=== PATIENT | female | born 2000 | race Hispanic/Latino ===

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

== ENCOUNTER 2023-03-02 07:41 | Emergency (ER) | payer OTHER ==
--- OUTSIDE RECORDS SUMMARY | 2023-03-02 07:47 | XMS REPORT | Continuity of Care Document ---
:2000 Author Organization [facility] t Address [address] [place] [address] Care Team Providers Name Role Phone Cintia Braden Primary Care Physician [phone] AZUCENA ESTRELLA Attending Clinician Unavailable Azucena Hickey Attending Clinician Otis Tucker Attending Clinician Damien MOULTON, Destinee Beth Attending Clinician Hernandez MOULTON, Urmila Attending Clinician Francie OCNNER, Perri Leon Attending Clinician Unavailable Michael MOULTON, Kelli Attending Clinician Jass Naik MD Attending Clinician Joshua Ford MD Attending Clinician [phone] AkinIndu Lynn Attending Clinician [phone] INDU GREEN Attending Clinician Unavailable RADHAMES BAILEY Attending Clinician Unavailable Radhames Hill Attending Clinician Jordyn Dumas MD, Angelica Attending Clinician [phone] Ultrasound, Ang-Mfm Attending Clinician Unavailable Karlo Petit MD Attending Clinician Geoff RN, Krystal Attending Clinician Unavailable Deion CONNER, Marina Uriostegui Attending Clinician Unavailable Doctor Unassigned, Maria Stein Attending Clinician Unavailable DESTINEE ROSARIO Admitting Clinician Unavailable Damien MOULTON, Destinee Beth Admitting Clinician Michael MOULTON, Kelli Admitting Clinician Payers Payer Name Policy Type Policy Number Effective Date Expiration Date Leo loja [facility] [id number] 2020 00:00:00 Problems Condition Condition Condition Status Onset Resolution Last Treating Co mments Source Name Details Category Date Date Treatment Clinician Date S/P D&C S/P D&C Disease Active Univers (status (status 5-05 ity of post post 00:00: [place] dilation dilation 00 Medica l and and Branch curettage) curettage) Endometrit Endometrit Disease Active U nivers is is 5- [place] of following [place] [facility] Pre-op Pre-op Disease Active Overview: Univer s testing testing - Added ity of 00:00: automatic [place] 00 ally from Medical request Branch for surgery [id number] Disease Active Univers (spontaneo (spontaneo -28 it y of [place] vaginal [place] vaginal [place] delivery[place] delivery[place] 00 [facility] Single Single Disease Active Univers live live -28 it y of 00:00: [place] 00 Medical Branch Gestationa Gestationa Disease Active U nivers l l 4-28 ity of hypertensi hypertensi 00:[place]: [place] on on 00 [place] Chorioamni Chorioamni Disease Active U nivers onitis onitis - ity of 00:00: [place] 00 Medical Branch Obstetrica Obstetrica Disease Active U nivers l l 4-28 ity of laceration laceration 00:00: [place] 00 Medical [place] 39 weeks 39 weeks Disease Active Unive rs gestation gestation 4- ity of of of 00:00: [place] 00 [facility] Patient is Patient is Disease Active U nivers Jehovah's Jehovah's - ity of Witness Witness 00:00: [place] 00 Medical Branch Nausea/vom Nausea/vom Disease Active 2019-10 U nivers iting in iting in 10-27 [place] of 00:[place] [facility] Maternal Maternal Disease Active Overview: Un park varicella, varicella, 07-15 Address i ty of non-immune non-immune 00:00: pp [address] Supervisio Supervisio Disease Active U nivers n of n of 07-14 ity of high-risk high-risk 00:[place] [facility] Headache Headache Disease Active Unive rs in [place] 07-14 [place] [address] [place] [address] Allergies, Adverse Reactions, Alerts Allergy Allergy Status Severity Reaction(s) Onset Inactive Treating Comm ents Source Name Type Date Date Clinician NO KNOWN Drug Active Univers ALLERGIE Class ity of S [facility] Family History Family Member Diagnosis Comments Start Date Stop Date Source Father [facility] Mother No Significant [facility] Problems [facility] Social History Social Habit Start Date Stop Date Quantity Comments Source ASSERTION 2020-05-26 [facility] 00:00:00 [facility] Exposure to Not sure [facility] SARS-CoV-2 [facility] (event) [place] Tobacco use and 2021-03-03 2021-03-03 Never used Universit y of exposure 00:00:00 00:00:00 [facility] Alcohol intake 2021-03-03 2021-03-03 Ex-drinker [facility] 00:00:00 00:00:00 (finding) [facility] Sex Assigned At 2000 2001 [facility] y of 00:00:00 00:00:00 [facility] Smoking Status Start Date Stop Date Source Unknown if ever smoked [facility] Never smoker [facility] Medications Ordered Filled Start Stop Current Ordering Indication Dosage Frequency Signature Comments Components Source Medication Medication Date Date Medication? Clinician (SIG) Name Name metoclopram Yes 10mg 10 mg, Univ ers tino HCl 5-05 Oral, AC, ity of (REGLAN) 16:30: First dose Smooth as tablet 10 00 on Wed Medical mg 02/18/21 at Branch 1130, Until Discontinu ed, Routine metoclopram Yes 10mg 10 mg, Univ ers tino HCl 5-05 Oral, AC, ity of (REGLAN) 16:30: First dose Smooth as tablet 10 00 on Tue Medical mg 02/18/21 at Branch 1130, Until Discontinu ed, Routine ferrous 2020-0 Yes 325mg 325 mg, Univer s sulfate 5-05 Oral, BID, ity of tablet 325 13:00: First dose [place] mg 00 on Tue02/18/21 at Branch 0800, Until Discontinu ed, Routine ferrous 2020-0 Yes 325mg 325 mg, Univer s sulfate 5-05 Oral, BID, ity of tablet 325 13:00: First dose [place] mg 00 on Tue02/18/21 at Branch 0800, Until Discontinu ed, Routine HYDROcodone 2020-0 Yes 1{tbl} 1 tablet, Univers -acetaminop 5-04 Oral, ity of hen (NORCO 18:02: Q6HPRN, [place] 5) 5-325 mg 54 Starting Medi domenic tablet 1 Tue02/17/21 Branc h tablet at 1302, Until Discontinu ed, Routine, Pain (scale 7-10) HYDROcodone 2020-0 Yes 1{tbl} 1 tablet, Univers -acetaminop 5-04 Oral, ity of hen (NORCO 18:02: Q6HPRN, [place] 5) 5-325 mg 54 Starting Medi domenic tablet 1 Tue02/17/21 Branc h tablet at 1302, Until Discontinu ed, Routine, Pain (scale 7-10) lactated 2020-0 Yes 1000mL at 100 Unive rs ringers IV 5-04 mL/hr, ity of infusion 17:00: 1,000 mL, [place] 1,000 mL 00 IV Medical Infusion, Branch CONTINUOUS , Starting Tue02/17/21 at 1200, Until Discontinu ed, Routine, PACU lactated 1-0 Yes 1000mL at 100 Unive rs ringers IV 5-04 mL/hr, ity of infusion 17:00: 1,000 mL, [place] 1,000 mL 00 IV Medical Infusion, Branch CONTINUOUS , Starting Tue02/17/21 at 1200, Until Discontinu ed, Routine, PACU HYDROmorpho 2020-0 2021- No .2mg 0.2 mg, Un park ne 5- 05-04 Slow IV ity of (DILAUDID) 16:48: 17:35 Push, [place] injection 06 :02 Q5MIN PRN, Medi domenic 0.2 mg 10 doses, Branch Starting Tue02/17/21 at 1148, Until Tue02/17/21 at 1235, Routine, Pain (scale 7-10), PACU
Us e approved by (Faculty): PACU USE -ANESTHESI A SERVICE-HY DROMORPHON E INJECTIONS ondansetron 2020- No 4mg 4 mg, Slow Univers (ZOFRAN 02-17 IV Push, ity of (PF)) 16:48: 16:50 PRN, 1 [place] injection 4 06 :00 dose, Medical mg Starting Branch Tue02/17/21 at 1148, Until Tue02/17/21 at 1150, Routine, Nausea and Vomiting (N/V), PACU sodium 2020- No PRN, Univers chloride 02-17 Starting ity of 0.9 % 16:09: 17:35 [facility] 02/17/21 [place] irrigation 00 :02 at 1109, Medic al solution Until [facility] Branch 02/17/21 at 1235, Intra-op ferric 2020- No PRN, Univers subsulfate 02-17 Starting ity of (MONSEL'S 16:09: 17:35 Tue02/17/21 [place] SOLUTION) 00 :02 at 1109, Medica l solution Until [facility] Branch 02/17/21 at 1235, Routine, Intra-op D5W-LR IV 2020-0 Yes 1000mL at 50 Unive rs infusion 5-03 mL/hr, IV ity of 1,000 mL 22:45: Infusion, [place] 00 CONTINUOUS Medical , Starting Branch 02/16/21 at 1745, Until Discontinu ed, Routine D5W-LR IV 2020-0 Yes 1000mL at 50 Unive rs infusion 5-03 mL/hr, IV ity of 1,000 mL 22:45: Infusion, [place] 00 CONTINUOUS Medical , Starting Branch Tue02/16/21 at 1745, Until Discontinu ed, Routine clindamycin 2020- No 900mg 900 mg, IV Univers in 5 % 02-16 Piggyback, ity of dextrose 22:45: 14:28 Q8H ABX, [place] (CLEOCIN) 00 :19 First dose Medi domenic 900 mg/50 on Mon Branch mL IV 02/16/21 at piggyback 1745, RTU 900 mg Until Discontinu ed, 50 mL
Reas on for Anti-Infec tive: Empiric Therapy for Suspected Infection< br>Empiric Therapy Site: Other
O ther site: endometrit is
Dura tion of therapy: 72 hours
R estricted use approved by: [employer] PROVIDER gentamicin 2020- No 5mg/kg 260 mg Un park 40 mg/mL 02-16-05 (rounded ity of 260 mg in 22:45: 12:16 from 262 Smooth as NaCl 0.9% 00 :11 mg = 5 Medical (NS) 250 mL mg/kg Branch IV infusion ?52.4 kg [place] weight), IV Infusion, Q24H ABX, First dose on Tue02/16/21 at 1745, Until Discontinu ed, 250 mL
Reas on for Anti-Infec tive: Empiric Therapy for Suspected Infection< br>Empiric Therapy Site: Pelvic
Duration of therapy: 72 hours ibuprofen Yes 600mg 600 mg, Univ ers (IBU) 5-03 Oral, ity of tablet 600 22:34: Q6HPRN, [place] mg 52 Starting Medical 02/16/21 Branch at 1734, Until Discontinu ed, Routine, Pain (scale 4-6) ibuprofen Yes 600mg 600 mg, Univ ers (IBU) 5-03 Oral, ity of tablet 600 22:34: Q6HPRN, [place] mg 52 Starting Medical 02/16/21 Branch at 1734, Until Discontinu ed, Routine, Pain (scale 4-6) butalbital- 0 Yes 1{tbl} 1 tablet, Univers acetaminoph 5-03 Oral, ity of en-caff 22:04: Q4HPRN, [place] (ESGIC) 57 Starting Medical 50-325-40 02/16/21 Bran ch mg tablet 1 at 1704, tablet Until Discontinu ed, Routine, headache butalbital- 0 Yes 1{tbl} 1 tablet, Univers acetaminoph 5-03 Oral, ity of en-caff 22:04: Q4HPRN, [place] (ESGIC) 57 Starting Medical 50-325-40 02/16/21 Bran ch mg tablet 1 at 1704, tablet Until Discontinu ed, Routine, headache metoclopram 2020- No 10mg 10 mg, IV Univers tino HCl 02-16 Piggyback, ity o f (REGLAN) 10 22:03: 14:28 Q6HPRN, [place] mg in NaCl 14 :19 Starting Medic al 0.9% (NS) 02/16/21 Bran ch piggyback at 1703, Until 02/18/21 at 0928, 50 mL acetaminoph Yes 650mg 650 mg, Un park en - Oral, ity of (TYLENOL) 21:34: Q6HPRN, [place] tablet 650 39 Starting Medic al mg 02/16/21 Branch at 1634, Until Discontinu ed, Routine, Pain (scale 1-3), Temp > 38.5 C acetaminoph Yes 650mg 650 mg, Un park en - Oral, ity of (TYLENOL) 21:34: Q6RN, [place] tablet 650 39 Starting Medic al mg 02/16/21 Branch at 1634, Until Discontinu ed, Routine, Pain (scale 1-3), Temp > 38.5 C piperacilli 2020- No 3.375g 3.375 g, Univers n-tazobacta 02-16- IV ity of m (ZOSYN) 17:15: 16:50 Piggyback, [place] 3.375 g in 00 :00 ONCE, 1 Medica l NaCl 0.9% dose, Mon Branc h (NS) 100 mL 02/16/21 at MINI-BAG 1215, 100 mL
Reas on for Anti-Infec tive: Documented Infection< br>Documen lenore Infection Site: Pelvic
Duration of Therapy: Other (see Comments) NaCl 0.9% 2020- No 30mL/kg at 999 Un park (NS) bolus 02-16 05-03 mL/hr, ity of infusion 16:45: 17:40 1,701 mL [place] 1,701 mL 00 :00 (30 mL/kg Medica l ?56.7 kg), Branch IV Infusion, ONCE, 1 dose, 02/16/21 at 1145, STAT 2020- No Take by [facility] rs vit/iron 02-11 mouth. ity of fum/folic 13:28: 00:00 [place] ac 57 :00 Medical ( 1 Branch + 1 ORAL) 2020- No Take by [facility] rs vit/iron 02-11 mouth. ity of fum/folic 13:28: 00:00 [place] ac 57 :00 Medical ( 1 Branch + 1 ORAL) varicella 2020- No .5mL 0.5 mL, [facility] virus 02-11 Subcutaneo ity of vaccine 13:23: 21:13 , [place] live 01 :00 ONCE-PRIOR Medical (VARIVAX TO Branch (PF)) DISCHARGE, injection 1 dose, 0.5 mL Starting Tue02/11/21 at 0823, Until Discontinu ed, Routine, Give vaccine prior to discharge Yes [id number] 1{tbl} Take 1 Univers vitamin 4-28 tablet by ity of w/FA tablet 00:00: mouth [place] 00 daily. Medical Branch docusate Yes [id number] 240mg Take 1 U nivers calcium 240 4-28 capsule by it y of mg capsule 00:00: mouth once [place] 00 daily as Medical needed for Branch Constipati on. ferrous Yes [id number] 325mg Take 1 Un park sulfate 325 4-28 tablet by ity of mg (65 mg 00:00: mouth 2 [place] iron) 00 (two) Medical tablet times Branch daily. ibuprofen Yes [id number] 600mg Take 1 Univers 600 mg 4-28 tablet by ity of tablet 00:00: mouth [place] 00 every 6 Medical (six) Branch hours as needed (Pain). Take with food or milk. Yes [id number] 1{tbl} Take 1 Univers vitamin 4-28 tablet by ity of w/FA tablet 00:00: mouth [place] 00 daily. Medical Branch docusate 2021-0 Yes [id number] 240mg Take 1 U nivers calcium 240 4-28 capsule by it y of mg capsule 00:00: mouth once [place] 00 daily as Medical needed for Branch Constipati on. ferrous Yes [id number] 325mg Take 1 Un park sulfate 325 4-28 tablet by ity of mg (65 mg 00:00: mouth 2 [place] iron) 00 (two) Medical tablet times Branch daily. ibuprofen 2020- Yes [id number] 600mg Take 1 Univers 600 mg 4-28 tablet by ity of tablet 00:00: mouth [place] 00 every 6 Medical (six) Branch hours as needed (Pain). Take with food or milk. 2020- Yes [id number] 1{tbl} Take 1 Univers vitamin 4-28 tablet by ity of w/FA tablet 00:00: mouth [place] 00 daily. Medical Branch docusate Yes [id number] 240mg Take 1 U nivers calcium 240 4-28 capsule by it y of mg capsule 00:00: mouth once [place] 00 daily as Medical needed for Branch Constipati on. ferrous Yes [id number] 325mg Take 1 Un park sulfate 325 4-28 tablet by ity of mg (65 mg 00:00: mouth 2 [place] iron) 00 (two) Medical tablet times Branch daily. ibuprofen Yes [id number] 600mg Take 1 Univers 600 mg 4-28 tablet by ity of tablet 00:00: mouth [place] 00 every 6 Medical (six) Branch hours as needed (Pain). Take with food or milk. 2020- Yes [id number] 1{tbl} Take 1 Univers vitamin 4-28 tablet by ity of w/FA tablet 00:00: mouth [place] 00 daily. Medical Branch docusate Yes [id number] 240mg Take 1 U nivers calcium 240 4-28 capsule by it y of mg capsule 00:00: mouth once [place] 00 daily as Medical needed for Branch Constipati on. ferrous 0 Yes [id number] 325mg Take 1 Un park sulfate 325 4-28 tablet by ity of mg (65 mg 00:00: mouth 2 [place] iron) 00 (two) Medical tablet times Branch daily. ibuprofen 2020-0 Yes [id number] 600mg Take 1 Univers 600 mg 4-28 tablet by ity of tablet 00:00: mouth [place] 00 every 6 Medical (six) Branch hours as needed (Pain). Take with food or milk. Yes [id number] 1{tbl} Take 1 Univers vitamin 4-28 tablet by ity of w/FA tablet 00:00: mouth [place] 00 daily. Medical Branch docusate Yes [id number] 240mg Take 1 U nivers calcium 240 4-28 capsule by it y of mg capsule 00:00: mouth once [place] 00 daily as Medical needed for Branch Constipati on. ferrous Yes [id number] 325mg Take 1 Un park sulfate 325 4-28 tablet by ity of mg (65 mg 00:00: mouth 2 [place] iron) 00 (two) Medical tablet times Branch daily. ibuprofen Yes [id number] 600mg Take 1 Univers 600 mg 4-28 tablet by ity of tablet 00:00: mouth [place] 00 every 6 Medical (six) Branch hours as needed (Pain). Take with food or milk. Yes [id number] 1{tbl} Take 1 Univers vitamin 4-28 tablet by ity of w/FA tablet 00:00: mouth [place] 00 daily. Medical Branch docusate Yes [id number] 240mg Take 1 U nivers calcium 240 4-28 capsule by it y of mg capsule 00:00: mouth once [place] 00 daily as Medical needed for Branch Constipati on. ferrous Yes [id number] 325mg Take 1 Un park sulfate 325 4-28 tablet by ity of mg (65 mg 00:00: mouth 2 [place] iron) 00 (two) Medical tablet times Branch daily. ibuprofen Yes [id number] 600mg Take 1 Univers 600 mg 4-28 tablet by ity of tablet 00:00: mouth [place] 00 every 6 Medical (six) Branch hours as needed (Pain). Take with food or milk. Yes [id number] 1{tbl} Take 1 Univers vitamin 4-28 tablet by ity of w/FA tablet 00:00: mouth [place] 00 daily. Medical Branch docusate Yes [id number] 240mg Take 1 U nivers calcium 240 4-28 capsule by it y of mg capsule 00:00: mouth once [place] 00 daily as Medical needed for Branch Constipati on. ferrous Yes [id number] 325mg Take 1 Un park sulfate 325 4-28 tablet by ity of mg (65 mg 00:00: mouth 2 [place] iron) 00 (two) Medical tablet times Branch daily. ibuprofen Yes [id number] 600mg Take 1 Univers 600 mg 4-28 tablet by ity of tablet 00:00: mouth [place] 00 every 6 Medical (six) Branch hours as needed (Pain). Take with food or milk. Yes [id number] 1{tbl} Take 1 Univers vitamin 4-28 tablet by ity of w/FA tablet 00:00: mouth [place] 00 daily. Medical Branch docusate Yes [id number] 240mg Take 1 U nivers calcium 240 4-28 capsule by it y of mg capsule 00:00: mouth once [place] 00 daily as Medical needed for Branch Constipati on. ferrous Yes [id number] 325mg Take 1 Un park sulfate 325 4-28 tablet by ity of mg (65 mg 00:00: mouth 2 [place] iron) 00 (two) Medical tablet times Branch daily. ibuprofen Yes [id number] 600mg Take 1 Univers 600 mg 4-28 tablet by ity of tablet 00:00: mouth [place] 00 every 6 Medical (six) Branch hours as needed (Pain). Take with food or milk. rho(D) Yes 300ug 300 mcg, Univer s immune 4-27 Intramuscu ity of globulin 13:39: lar, ONCE, Smooth as (RHOGAM) 37 For 1 Medical syringe 300 dose, Branch mcg Conditiona l, Routine ondansetron Yes 4mg 4 mg, Slow Univers (ZOFRAN 4-27 IV Push, ity of (PF)) 13:39: Q8HPRN, [place] injection 4 35 Starting Medi domenic mg Tue Branch 02/10/21 at 0839, Until Discontinu ed, Routine, Nausea and Vomiting (N/V) simethicone Yes 160mg 160 mg, Un park (GAS RELIEF 4-27 Oral, ity of (SIMETHICON 13:39: PC+HSPRN, [place] E)) 35 Starting Medical chewable Tue Branch tablet 160 02/10/21 at mg 0839, Until Discontinu ed, Routine, Gas magnesium 2021-0 Yes 30mL 30 mL, Univer s hydroxide 02-10 Oral, ity of (MILK OF 13:39: QDAILYPRN, Smooth as MAGNESIA) 35 Starting Medica l 400 mg/5 mL [facility] suspension 02/10/21 at 30 mL 0839, Until Discontinu ed, Routine, Constipati on human Yes .5mL 0.5 mL, Univers papillomav 02-10 Intramuscu ity of vac,9-maria e(P 13:39: lar, [place] F) 34 ONCE-PRIOR Medical (GARDASIL-9 TO [place] ) syringe DISCHARGE, 0.5 mL 1 dose, Starting [facility] 02/10/21 at 0839, Until Discontinu ed, Routine, Give vaccine prior to discharge ibuprofen Yes 600mg 600 mg, Univ ers (IBU) 02-10 Oral, ity of tablet 600 13:39: Q6HPRN, [place] mg 34 Starting Medical [facility] 02/10/21 at 0839, Until Discontinu ed, Routine, Pain (scale 4-6) acetaminoph Yes 650mg 650 mg, Un park en 02-10 Oral, ity of (TYLENOL) 13:39: Q6HPRN, [place] tablet 650 34 Starting Medic al mg [facility] 02/10/21 at 0839, Until Discontinu ed, Routine, Pain (scale 1-3) diphenhydrA Yes 25mg 25 mg, Univ ers MINE 02-10 Oral, ity of (BENADRYL) 13:39: Q6HPRN, [place] tablet 25 34 Starting Medica l mg [facility] 02/10/21 at 0839, Until Discontinu ed, Routine, Sleep, Itching diphenhydrA 0 Yes 25mg 25 mg, IV U nivers MINE-0.9 % 02-10 Piggyback, ity of sod.chlr 13:39: Administer Sm[place] as (BENADRYL) 34 over 30 Medica l 25 mg/50 mL Minutes, Bran ch piggyback Q6HPRN, 25 mg Starting e 02/10/21 at 0839, Until Discontinu ed, Routine, Itching docusate 0 Yes 240mg 240 mg, Unive rs calcium 02-10 Oral, ity of (SURFAK) 13:39: QDAILYPRN, [place] capsule 240 34 Starting Medi domenic mg Branch 02/10/21 at 0839, Until Discontinu ed, Routine, Constipati on benzocaine- Yes Topical, Un park menthol 02-10 PRN, ity of (DERMOPLAST 13:39: Starting [place] ) 20-0.5 % 34 Tue Medical topical 02/10/21 at Branch spray 0839, Until Discontinu ed, Routine, Perineum discomfort gentamicin 2020- No 5mg/kg 280 mg Un park 40 mg/mL 02-10 (rounded ity of 280 mg in 10:30: 13:39 from 281 Smooth as NaCl 0.9% 00 :37 mg = 5 Medical (NS) 250 mL mg/kg Branch IV infusion ?56.2 kg), IV Infusion, Q24H ABX, First dose (after last modificati on) on Tue02/10/21 at 0530, Until Discontinu ed, 250 mL
Reas on for Anti-Infec tive: Empiric Therapy for Suspected Infection< br>Empiric Therapy Site: Pelvic
Duration of therapy: 72 hours ampicillin 2020- No 2g 2,000 mg Un park (POLYCILLIN 02-10 (2 g), IV it y of -N) 2,000 10:15: 13:39 Piggyback, [place] mg in NaCl 00 :37 Q6H ABX, Medic al 0.9% (NS) First dose Bran ch 100 mL (after MINI-BAG last modificati on) on Tue02/10/21 at 0515, Until Discontinu ed, 100 mL
Reas on for Anti-Infec tive: Empiric Therapy for Suspected Infection< br>Empiric Therapy Site: Pelvic
Duration of therapy: 72 hours LR 1000 mL 2020- No 125mL/h 125 mL/hr, Univers + oxytocin 02-10 IV ity of 20 units IV 10:00: 10:00 Infusion, [place] Solution 00 :00 ONCE, Tu Medica l 02/10/21 at Branch 0500, For 1 dose
In fuse 999 mL /hr & amp;nbsp;o price 30 minutes and then decrease rate to 125 mL/hr for the remainder.
butorphanol 2020- No 1mg 1 mg, IV U nivers (STADOL) 02-09 Push, ity of injection 1 18:45: 19:05 ONCE, 1 [place] mg 00 :00 dose, [facility] 02/09/21 at Branch 1345, Routine butorphanol 2020- No 1mg 1 mg, IV U nivers (STADOL) 02-09 Push, ity of injection 1 15:28: 15:40 ONCE, 1 [place] mg 00 :00 dose, [facility] 02/09/21 at Branch 1030, Routine D5W-LR IV 2020- No 1000mL at 125 Uni vers infusion 02-09 mL/hr, IV ity o f 1,000 mL 14:00: 13:39 Infusion, Sm[place] as 00 :37 CONTINUOUS Medical , Starting Branch [facility] 02/09/21 at 0900, Until Tue02/10/21 at 0839, Routine LR 1000 mL 2020- No 2mU/min 2 Uni vers + oxytocin 02-09 joseph-unit it y of 20 units IV 13:53: 13:39 s/min (6 [place] Solution 22 :37 mL/hr), IV Medic al Infusion, Branch TITRATE, Oxytocin Induction / Augmentati on of Labor, Starting Tue02/09/21 at 0853
In fuse IV through a controlled infusion pump at a proximal port on the peripheral IV line.&nbsp ; Sta rt at 2 joseph-unit s/min during FB in place.&nbs p;Low Dose pitocin
lactated 2020- No 500mL at 999 Unive rs ringers IV 02-09 mL/hr, 500 it y of infusion 13:52: 13:39 mL, IV [place] 500 mL 14 :37 Infusion, Medical PRN - SEE [place] INSTRUCTIO NS, Starting Tue02/09/21 at 0852, Until Tue02/10/21 at 0839, Routine sodium 2020- No 30mL 30 mL, Univers citrate-cit 4-26 04-26 Oral, ity of abida acid 13:52: 20:23 PRE-PROCED [place] (BICITRA) 14 :00 URE ONCE, Medic al 500-334 1 dose, Branch mg/5 mL Starting solution 30 Mon mL 02/09/21 at 0852, Until Discontinu ed, Routine, Surgery/Pr ocedure Yes Take by Intent s vit/iron 3-23 mouth. ity of fum/folic 20:14: [place] [address] Medical ( 1 Branch + 1 ORAL) Yes Take by Intent s vit/iron 3-23 mouth. ity of fum/folic 20:14: [place] [address] Medical ( 1 Branch + 1 ORAL) Yes Take by Intent s vit/iron 3-23 mouth. ity of fum/folic 20:14: [place] [address] Medical ( 1 Branch + 1 ORAL) Yes Take by Intent s vit/iron 3-23 mouth. ity of fum/folic 20:14: [place] [address] Medical ( 1 Branch + 1 ORAL) Yes Take by Intent s vit/iron 3-23 mouth. ity of fum/folic 20:14: [place] [address] Medical ( 1 Branch + 1 ORAL) Yes Take by Intent s vit/iron 3-23 mouth. ity of fum/folic 20:14: [place] [address] Medical ( 1 Branch + 1 ORAL) Yes Take by [employer] vit/iron 3-23 mouth. ity of fum/folic 20:14: [place] [address] Medical ( 1 Branch + 1 ORAL) Yes Take by Intent s vit/iron 3-23 mouth. ity of fum/folic 20:14: [place] [address] Medical ( 1 Branch + 1 ORAL) Yes Take by Intent s vit/iron 3-09 mouth. ity of fum/folic 22:41: [place] [id number] Medical ( 1 Branch + 1 ORAL) proMETHazin 2019-10 Yes [id number] 25mg Take 1 Univers e 25 mg 1-11 tablet by ity of tablet 00:00: mouth [place] 00 every 6 Medical (six) Branch hours as needed for Nausea and Vomiting (N/V). proMETHazin 2020- Yes [id number] 25mg Take 1 Univers e 25 mg 1-11 tablet by ity of tablet 00:00: mouth [place] 00 every 6 Medical (six) Branch hours as needed for Nausea and Vomiting (N/V). proMETHazin 2020- Yes [id number] 25mg Take 1 Univers e 25 mg 1-11 tablet by ity of tablet 00:00: mouth [place] 00 every 6 Medical (six) Branch hours as needed for Nausea and Vomiting (N/V). proMETHazin 2020- Yes [id number] 25mg Take 1 Univers e 25 mg 1-11 tablet by ity of tablet 00:00: mouth [place] 00 every 6 Medical (six) Branch hours as needed for Nausea and Vomiting (N/V). proMETHazin 2019- Yes [id number] 25mg Take 1 Univers e 25 mg 1-11 tablet by ity of tablet 00:00: mouth [place] 00 every 6 Medical (six) Branch hours as needed for Nausea and Vomiting (N/V). proMETHazin 2019- Yes [id number] 25mg Take 1 Univers e 25 mg 1-11 tablet by ity of tablet 00:00: mouth [place] 00 every 6 Medical (six) Branch hours as needed for Nausea and Vomiting (N/V). proMETHazin 2019- Yes [id number] 25mg Take 1 Univers e 25 mg 1-11 tablet by ity of tablet 00:00: mouth [place] 00 every 6 Medical (six) Branch hours as needed for Nausea and Vomiting (N/V). proMETHazin 2019- Yes [id number] 25mg Take 1 Univers e 25 mg 1-11 tablet by ity of tablet 00:00: mouth [place] 00 every 6 Medical (six) Branch hours as needed for Nausea and Vomiting (N/V). proMETHazin 2020-1 Yes [id number] 25mg Take 1 Univers e 25 mg 1-11 tablet by ity of tablet 00:00: mouth [place] 00 every 6 Medical (six) Branch hours as needed for Nausea and Vomiting (N/V). proMETHazin 2020-1 Yes [id number] 25mg Take 1 Univers e 25 mg 1-11 tablet by ity of tablet 00:00: mouth [place] 00 every 6 Medical (six) Branch hours as needed for Nausea and Vomiting (N/V). proMETHazin 2019-1 Yes [id number] 25mg Take 1 Univers e 25 mg 1-11 tablet by ity of tablet 00:00: mouth [place] 00 every 6 Medical (six) Branch hours as needed for Nausea and Vomiting (N/V). proMETHazin 2019- Yes [id number] 25mg Take 1 Univers e 25 mg 1-11 tablet by ity of tablet 00:00: mouth [place] 00 every 6 Medical (six) Branch hours as needed for Nausea and Vomiting (N/V). proMETHazin 2019- Yes [id number] 25mg Take 1 Univers e 25 mg 1-11 tablet by ity of tablet 00:00: mouth [place] 00 every 6 Medical (six) Branch hours as needed for Nausea and Vomiting (N/V). proMETHazin 2019- Yes [id number] 25mg Take 1 Univers e 25 mg 1-11 tablet by ity of tablet 00:00: mouth [place] 00 every 6 Medical (six) Branch hours as needed for Nausea and Vomiting (N/V). proMETHazin 2019- Yes [id number] 25mg Take 1 Univers e 25 mg 1-11 tablet by ity of tablet 00:00: mouth [place] 00 every 6 Medical (six) Branch hours as needed for Nausea and Vomiting (N/V). proMETHazin 2019-10 Yes [id number] 25mg Take 1 [facility] e 25 mg 1-11 tablet by ity of tablet 00:00: mouth [place] 00 every 6 Medical (six) Branch hours as needed for Nausea and Vomiting (N/V). proMETHazin 2019- Yes [id number] 25mg Take 1 Univers e 25 mg 1-11 tablet by ity of tablet 00:00: mouth [place] 00 every 6 Medical (six) Branch hours as needed for Nausea and Vomiting (N/V). proMETHazin 2019- Yes [id number] 25mg Take 1 Univers e 25 mg 1-11 tablet by ity of tablet 00:00: mouth [place] 00 every 6 Medical (six) Branch hours as needed for Nausea and Vomiting (N/V). proMETHazin 2019- Yes [id number] 25mg Take 1 Univers e 25 mg 1-11 tablet by ity of tablet 00:00: mouth [place] 00 every 6 Medical (six) Branch hours as needed for Nausea and Vomiting (N/V). proMETHazin 2019- Yes [id number] 25mg Take 1 Univers e 25 mg 1-11 tablet by ity of tablet 00:00: mouth [place] 00 every 6 Medical (six) Branch hours as needed for Nausea and Vomiting (N/V). proMETHazin 2019-10 Yes [id number] 25mg Take 1 Univers e 25 mg 1-11 tablet by ity of tablet 00:00: mouth [place] 00 every 6 Medical (six) Branch hours as needed for Nausea and Vomiting (N/V). proMETHazin 2019-10 Yes [id number] 25mg Take 1 Univers e 25 mg 1-11 tablet by ity of tablet 00:00: mouth [place] 00 every 6 Medical (six) Branch hours as needed for Nausea and Vomiting (N/V). proMETHazin 2019-10- No [id number] 25mg Take 1 Univers e 25 mg 1-11 04-28 tablet by ity of tablet 00:00: 00:00 mouth [place] 00 :00 every 6 Medical (six) Branch hours as needed for Nausea and Vomiting (N/V). proMETHazin 2019-10- No [id number] 25mg Take 1 Univers e 25 mg 1-11 04-28 tablet by ity of tablet 00:00: 00:00 mouth [place] 00 :00 every 6 Medical (six) Branch hours as needed for Nausea and Vomiting (N/V). 2020-0 Yes Take by Univer s vit/iron 9-28 mouth. ity of fum/folic 15:19: [place] [address] Medical ( 1 Branch + 1 ORAL) 2020-0 Yes Take by Univer s vit/iron 9-28 mouth. ity of fum/folic 15:19: [place] [address] Medical ( 1 Branch + 1 ORAL) 2020-0 Yes Take by Univer s vit/iron 9-28 mouth. ity of fum/folic 15:19: [place] [address] Medical ( 1 Branch + 1 ORAL) 2020-0 Yes Take by Univer s vit/iron 9-28 mouth. ity of fum/folic 15:19: [place] [address] Medical ( 1 Branch + 1 ORAL) 2020-0 Yes Take by Univer s vit/iron 9-28 mouth. ity of fum/folic 15:19: [place] [address] Medical ( 1 Branch + 1 ORAL) 2020-0 Yes Take by Univer s vit/iron 9-28 mouth. ity of fum/folic 15:19: [place] [address] Medical ( 1 Branch + 1 ORAL) 2020-0 Yes Take by Univer s vit/iron 9-28 mouth. ity of fum/folic 15:19: [place] [address] Medical ( 1 Branch + 1 ORAL) 2020-0 Yes Take by Univer s vit/iron 9-28 mouth. ity of fum/folic 15:19: [place] [address] Medical ( 1 Branch + 1 ORAL) 2020-0 Yes Take by Univer s vit/iron 9-28 mouth. ity of fum/folic 15:19: [place] [address] Medical ( 1 Branch + 1 ORAL) 2020-0 Yes Take by Univer s vit/iron 9-28 mouth. ity of fum/folic 15:19: [place] [address] Medical ( 1 Branch + 1 ORAL) 2020-0 Yes Take by Univer s vit/iron 9-28 mouth. ity of fum/folic 15:19: [place] [address] Medical ( 1 Branch + 1 ORAL) 2020-0 Yes Take by Univer s vit/iron 9-28 mouth. ity of fum/folic 15:19: [place] [address] Medical ( 1 Branch + 1 ORAL) 2020-0 Yes Take by Univer s vit/iron 9-28 mouth. ity of fum/folic 15:19: [place] [address] Medical ( 1 Branch + 1 ORAL) 2020-0 Yes Take by Univer s vit/iron 9-28 mouth. ity of fum/folic 15:19: [place] [address] Medical ( 1 Branch + 1 ORAL) 2020-0 Yes Take by Univer s vit/iron 9-28 mouth. ity of fum/folic 15:19: [place] [address] Medical ( 1 Branch + 1 ORAL) 2020-0 Yes Take by Univer s vit/iron 9-28 mouth. ity of fum/folic 15:19: [place] [address] Medical ( 1 Branch + 1 ORAL) 2020-0 Yes Take by Univer s vit/iron 9-28 mouth. ity of fum/folic 15:19: [place] [address] Medical ( 1 Branch + 1 ORAL) 2020-0 Yes Take by Univer s vit/iron 9-28 mouth. ity of fum/folic 15:19: [place] [address] Medical ( 1 Branch + 1 ORAL) 2020-0 Yes Take by Univer s vit/iron 9-28 mouth. ity of fum/folic 15:19: [facility] 12 Medical ( 1 Branch + 1 ORAL) 2020-0 Yes Take by Univer s vit/iron 9-28 mouth. ity of fum/folic 15:19: [facility] 12 Medical ( 1 Branch + 1 ORAL) 2020-0 Yes Take by Univer s vit/iron 9-28 mouth. ity of fum/folic 15:19: [facility] 12 Medical ( 1 Branch + 1 ORAL) Immunizations Ordered Filled Immunization Date Status Comments [facility] e Immunization Name Name Varicella 2021-02-11 Completed University of (varivax)(chicken 00:00:00 [place] [facility] ed[facility] pox) Branch Varicella 2021-02-11 Completed University of (varivax)(chicken 00:00:00 [place] [facility] pox) Branch Varicella 2021-02-11 Completed University of (varivax)(chicken 00:00:00 [place] [facility] pox) Branch Varicella 2021-02-11 Completed [facility] of (varivax)(chicken 00:00:00 [place] [facility] pox) Branch Varicella 2021-02-11 Completed [facility] of (varivax)(chicken 00:00:00 [place] [facility] pox) Branch Varicella 2021-02-11 Completed [facility] of (varivax)(chicken 00:00:00 [place] [facility] pox) Branch Varicella 2021-02-11 Completed [facility] of (varivax)(chicken 00:00:00 [place] [facility] pox) Branch Varicella 2021-02-11 Completed University of (varivax)(chicken 00:00:00 [place] [facility] pox) Branch TDAP 2020-12-09 Completed University of 00:00:00 [facility] TDAP 2020-12-09 Completed University of 00:00:00 [facility] TDAP 2020-12-09 Completed University of 00:00:00 [facility] TDAP 2020-12-09 Completed University of 00:00:00 [facility] TDAP 2020-12-09 Completed University of 00:00:00 [facility] TDAP 2020-12-09 Completed University of 00:00:00 [facility] TDAP 2020-12-09 Completed University of 00:00:00 [facility] TDAP 2020-12-09 Completed University of 00:00:00 [place] [facility] TDAP 2020-12-09 Completed University of 00:00:00 [place] [facility] TDAP 2020-12-09 Completed University of 00:00:00 [place] [facility] TDAP 2020-12-09 Completed [facility] 00:00:00 [place] [facility] TDAP 2020-12-09 Completed [facility] of 00:00:00 [place] [facility] TDAP 2020-12-09 Completed [facility] of 00:00:00 [place] [facility] TDAP 2020-12-09 Completed [facility] of 00:00:00 [place] [facility] TDAP 2020-12-09 Completed [facility] of 00:00:00 [place] [facility] TDAP 2020-12-09 Completed [facility] of 00:00:00 [place] [facility] TDAP 2020-12-09 Completed [facility] 00:00:00 [place] [facility] [place] TDAP 2020-12-09 Completed University of 00:00:00 [facility] Influenza Virus 2020-10-22 Completed Universit y of Vaccine Quad .5 mL 00:00:00 [place] [facility] IM 6+ MO Branch Influenza Virus 2020-10-22 Completed Universit y of [facility] .5 mL 00:00:00 [place] [facility] IM 6+ MO [facility] Influenza Virus 2020-10-22 Completed Universit y of [facility] [place] .5 mL 00:00:00 [place] [facility] IM 6+ MO Branch Influenza Virus 2020-10-22 Completed Universit y of [facility] [place] .5 mL 00:00:00 [place] [facility] IM 6+ MO Branch Influenza Virus 2020-10-22 Completed Universit y of [facility] [place] .5 mL 00:00:00 [place] [facility] IM 6+ MO Branch Influenza Virus 2020-10-22 Completed Universit y of [facility] [place] .5 mL 00:00:00 [place] [facility] IM 6+ MO Branch Influenza Virus 2020-10-22 Completed Universit y of [facility] .5 mL 00:00:00 [place] [facility] IM 6+ MO Branch Influenza Virus 2020-10-22 Completed Universit y of [facility] .5 mL 00:00:00 [place] [facility] IM 6+ MO Branch Influenza Virus 2020-10-22 Completed Universit y of [facility] [place] .5 mL 00:00:00 [place] [facility] IM 6+ MO Branch Influenza Virus 2020-10-22 Completed Universit y of [facility] [place] .5 mL 00:00:00 [place] [facility] IM 6+ MO [facility] Influenza Virus 2020-10-22 Completed Universit y of [facility] .5 mL 00:00:00 [place] [facility] IM 6+ MO Branch Influenza Virus 2020-10-22 Completed Universit y of [facility] .5 mL 00:00:00 [place] [facility] IM 6+ MO Branch Influenza Virus 2020-10-22 Completed Universit y of [facility] [place] .5 mL 00:00:00 [place] [facility] IM 6+ MO Branch Influenza Virus 2020-10-22 Completed Universit y of [facility] .5 mL 00:00:00 [place] [facility] IM 6+ MO Branch Influenza Virus 2020-10-22 Completed Universit y of [facility] [place] .5 mL 00:00:00 [place] [facility] IM 6+ MO Branch Influenza Virus 2020-10-22 Completed Universit y of [facility] [place] .5 mL 00:00:00 [place] [facility] IM 6+ MO Branch Influenza Virus 2020-10-22 Completed Universit y of [facility] [place] .5 mL 00:00:00 [place] [facility] IM 6+ MO Branch Influenza Virus 2020-10-22 Completed Universit y of [facility] [place] .5 mL 00:00:00 [place] [facility] IM 6+ MO Branch Influenza Virus 2020-10-22 Completed Universit y of [facility] .5 mL 00:00:00 [place] [facility] IM 6+ MO Branch Influenza Virus 2020-10-22 Completed Universit y of [facility] .5 mL 00:00:00 [place] [facility] IM 6+ MO Branch Influenza Virus 2020-10-22 Completed Universit y of [facility] .5 mL 00:00:00 [place] [facility] IM 6+ MO Branch Influenza Virus 2020-10-22 Completed Universit y of [facility] .5 mL 00:00:00 [place] [facility] IM 6+ MO Branch Influenza Virus 2020-10-22 Completed Universit y of [facility] [place] .5 mL 00:00:00 [place] [facility] IM 6+ MO Branch Influenza Virus 2020-10-22 Completed Universit y of [facility] .5 mL 00:00:00 [place] [facility] IM 6+ MO Branch Vital Signs Vital Name Observation Time Observation Value Comments Source Systolic blood 2021-03-03 15:44:00 115 mm[Hg] Univer sity of pressure [facility] Diastolic blood 2021-03-03 15:44:00 82 mm[Hg] Unive rsity of pressure [facility] Heart rate 2021-03-03 15:44:00 81 /min Universi ty of [place] [facility] Body temperature 2021-03-03 15:44:00 36.89 Sabrina Univ ersity of [place] [facility] Respiratory rate 2021-03-03 15:44:00 16 /min Univ ersity of [place] [facility] Body height 2021-03-03 15:44:00 160 cm Universi ty of [place] [facility] Body weight 2021-03-03 15:44:00 48.535 kg Universi ty of [place] [facility] BMI 2021-03-03 15:44:00 18.95 kg/m2 Universi ty of [place] [facility] Systolic blood 2021-02-18 21:45:00 103 mm[Hg] Univer sity of pressure [place] [facility] Diastolic blood 2021-02-18 21:45:00 61 mm[Hg] Unive rsity of pressure [place] [facility] Heart rate 2021-02-18 21:45:00 69 /min Universi ty of [place] [facility] [place] Body temperature 2021-02-18 21:45:00 36.83 Sabrina Univ ersity of [place] [facility] Respiratory rate 2021-02-18 21:45:00 16 /min Univ ersity of [place] [facility] Oxygen saturation in 2021-02-17 23:50:00 100 /min University of Arterial blood by [place] [facility] P[facility] oximetry [facility] Body weight 2021-02-16 14:45:00 56.7 kg Universi ty of [place] [facility] Systolic blood 2021-02-17 18:00:00 117 mm[Hg] Univer sity of pressure [place] [facility] Diastolic blood 2021-02-17 18:00:00 81 mm[Hg] Unive rsity of pressure [place] [facility] [place] Heart rate 2021-02-17 18:00:00 89 /min Universi ty of [place] [facility] Oxygen saturation in 2021-02-17 18:00:00 99 /min University of Arterial blood by [place] [facility] Pulse oximetry Branch Body temperature 2021-02-17 17:42:00 36.67 Sabrina Univ ersity of [place] [facility] Respiratory rate 2021-02-17 17:42:00 20 /min Univ ersity of [place] [facility] Body weight 2021-02-16 14:45:00 56.7 kg Universi ty of [place] [facility] Systolic blood 2021-02-12 13:14:00 126 mm[Hg] Univer sity of pressure [place] [facility] Diastolic blood 2021-02-12 13:14:00 83 mm[Hg] Unive rsity of pressure [place] [facility] Heart rate 2021-02-12 13:14:00 69 /min Universi ty of [place] [facility] Body temperature 2021-02-12 13:14:00 36.11 Sabrina Univ ersity of [place] [facility] Respiratory rate 2021-02-12 13:14:00 18 /min Univ ersity of [facility] Oxygen saturation in 2021-02-12 13:14:00 98 /min University of Arterial blood by [facility] Pulse oximetry Branch Body height 2021-02-09 12:59:00 160 cm Universi ty of [place] [facility] Body weight 2021-02-09 12:59:00 56.246 kg Universi ty of [place] [facility] BMI 2021-02-09 12:59:00 21.97 kg/m2 Universi ty of [place] [facility] Systolic blood 2021-02-04 21:02:00 121 mm[Hg] Univer sity of pressure [place] [facility] Diastolic blood 2021-02-04 21:02:00 84 mm[Hg] Unive rsity of pressure [place] [facility] Heart rate 2021-02-04 21:02:00 87 /min Universi ty of [place] [facility] Body temperature 2021-02-04 21:02:00 36.83 Sabrina Univ ersity of [place] [facility] Respiratory rate 2021-02-04 21:02:00 16 /min Univ ersity of [place] [facility] Body height 2021-02-04 21:02:00 160 cm Universi ty [facility] [place] [facility] Body weight 2021-02-04 21:02:00 56.274 kg Universi ty of [place] [facility] BMI 2021-02-04 21:02:00 21.98 kg/m2 Univers[facility] ty [facility] [place] [facility] Systolic blood 2021-01-27 20:28:00 125 mm[Hg] Univer sity of pressure [place] [facility] Diastolic blood 2021-01-27 20:28:00 85 mm[Hg] Unive rsity of pressure [place] [facility] Heart rate 2021-01-27 20:28:00 86 /min Universi ty [facility] [place] [facility] Body temperature 2021-01-27 20:28:00 36.83 Sabrina Univ ersity of [place] [facility] Respiratory rate 2021-01-27 20:28:00 16 /min Univ ersity of [place] [facility] Body height 2021-01-27 20:28:00 160 cm [facility]i ty [facility] [place] [facility] Body weight 2021-01-27 20:28:00 56.898 kg Universi ty [facility] [place] [facility] BMI 2021-01-27 20:28:00 22.22 kg/m2 [facility] [place] [facility] Systolic blood 2021-01-20 20:12:00 115 mm[Hg] Univer sity of pressure [place] [facility] Diastolic blood 2021-01-20 20:12:00 81 mm[Hg] Unive rsity of pressure [place] [facility] Heart rate 2021-01-20 20:12:00 81 /min Universi ty [facility] [place] [facility] Body temperature 2021-01-20 20:12:00 36.56 Sabrina [facility] ersity [facility] [place] [facility] Respiratory rate 2021-01-20 20:12:00 16 /min Univ ersity of [place] [facility] Body height 2021-01-20 20:12:00 160 cm Universi ty [facility] [place] [facility] Body weight 2021-01-20 20:12:00 56.303 kg [facility]i ty [facility] [place] [facility] BMI 2021-01-20 20:12:00 21.99 kg/m2 [facility] [place] [facility] Systolic blood 2021-01-06 20:13:00 121 mm[Hg] Univer sity of pressure [place] [facility] Diastolic blood 2021-01-06 20:13:00 77 mm[Hg] Unive rsity of pressure [place] [facility] Heart rate 2021-01-06 20:13:00 85 /min Universi ty [facility] [place] [facility] Body temperature 2021-01-06 20:13:00 36.89 Sabrina [facility] ersity [facility] [place] [facility] Respiratory rate 2021-01-06 20:13:00 16 /min Univ ersity of [place] [facility] Body height 2021-01-06 20:13:00 160 cm [facility]i ty [facility] [place] [facility] Body weight 2021-01-06 20:13:00 54.885 kg Universi ty [facility] [place] [facility] BMI 2021-01-06 20:13:00 21.43 kg/m2 Universi ty [facility] [place] [facility] Systolic blood 2020-12-23 22:03:00 105 mm[Hg] Univer sity of pressure [place] [facility] Diastolic blood 2020-12-23 22:03:00 72 mm[Hg] Unive rsity of pressure [place] [facility] Heart rate 2020-12-23 22:03:00 79 /min Universi ty of [place] [facility] Body temperature 2020-12-23 22:03:00 36.56 Sabrina Univ ersity of [place] [facility] Respiratory rate 2020-12-23 22:03:00 16 /min Univ ersity of [place] [facility] Body height 2020-12-23 22:03:00 160 cm Universi ty [facility] [place] [facility] Body weight 2020-12-23 22:03:00 53.524 kg Universi ty of [place] [facility] BMI 2020-12-23 22:03:00 20.90 kg/m2 Universi ty of [place] [facility] Systolic blood 2020-12-09 21:52:00 104 mm[Hg] Univer sity of pressure [place] [facility] Diastolic blood 2020-12-09 21:52:00 70 mm[Hg] Unive rsity of pressure [place] [facility] Heart rate 2020-12-09 21:52:00 89 /min Universi ty of [place] [facility] Body temperature 2020-12-09 21:52:00 36.5 Sabrina Univ ersity of [place] [facility] Respiratory rate 2020-12-09 21:52:00 16 /min Univ ersity of [place] [facility] Body height 2020-12-09 21:52:00 162.6 cm Universi ty of [place] [facility] Body weight 2020-12-09 21:52:00 52.118 kg Universi ty of [place] [facility] BMI 2020-12-09 21:52:00 19.72 kg/m2 Universi ty [facility] [place] [facility] Systolic blood 2020-11-19 17:07:00 106 mm[Hg] Univer sity of pressure [place] [facility] Diastolic blood 2020-11-19 17:07:00 67 mm[Hg] Unive rsity of pressure [place] [facility] Heart rate 2020-11-19 17:07:00 80 /min Universi ty [facility] [place] [facility] Body temperature 2020-11-19 17:07:00 36.83 Sabrina [facility] ersity of [place] [facility] Systolic blood 2020-10-22 14:42:00 112 mm[Hg] Univer sity of pressure [place] [facility] Diastolic blood 2020-10-22 14:42:00 73 mm[Hg] Unive rsity of pressure [place] [facility] Heart rate 2020-10-22 14:42:00 97 /min Universi ty [facility] [place] [facility] Body temperature 2020-10-22 14:42:00 36.78 Sabrina [facility] ersity [facility] [place] [facility] Respiratory rate 2020-10-22 14:42:00 16 /min Univ ersity of [place] [facility] Body height 2020-10-22 14:42:00 162.6 cm Universi ty [facility] [place] [facility] Body weight 2020-10-22 14:42:00 49.442 kg Universi ty of [place] [facility] BMI 2020-10-22 14:42:00 18.71 kg/m2 Universi ty [facility] [place] [facility] Systolic blood 2020-10-22 14:42:00 112 mm[Hg] Univer sity of pressure [place] [facility] Diastolic blood 2020-10-22 14:42:00 73 mm[Hg] Unive rsity of pressure [place] [facility] Heart rate 2020-10-22 14:42:00 97 /min Universi ty of [place] [facility] Body temperature 2020-10-22 14:42:00 36.78 Sabrina [facility] ersity of [place] [facility] Respiratory rate 2020-10-22 14:42:00 16 /min Univ ersity of [place] [facility] Body height 2020-10-22 14:42:00 162.6 cm Universi ty [facility] [place] [facility] Body weight 2020-10-22 14:42:00 49.442 kg Universi ty of [place] [facility] BMI 2020-10-22 14:42:00 18.71 kg/m2 Universi ty of [place] [facility] Systolic blood 2020-09-24 14:23:00 100 mm[Hg] Univer sity of pressure [place] [facility] Diastolic blood 2020-09-24 14:23:00 68 mm[Hg] Unive rsity of pressure [place] [facility] Heart rate 2020-09-24 14:23:00 71 /min Universi ty of [place] [facility] Body temperature 2020-09-24 14:23:00 36.39 Sabrina Univ ersity of [place] [facility] Respiratory rate 2020-09-24 14:23:00 16 /min Univ ersity of [place] [facility] Body height 2020-09-24 14:23:00 160 cm Universi ty [facility] [place] [facility] Body weight 2020-09-24 14:23:00 46.891 kg [facility]i ty [facility] [place] [facility] BMI 2020-09-24 14:23:00 18.31 kg/m2 [facility] ty [facility] [place] [facility] Systolic blood 2020-09-24 14:23:00 100 mm[Hg] Univer sity of pressure [place] [facility] Diastolic blood 2020-09-24 14:23:00 68 mm[Hg] Unive rsity of pressure [place] [facility] Heart rate 2020-09-24 14:23:00 71 /min Universi ty of [place] [facility] Body temperature 2020-09-24 14:23:00 36.39 Sabrina Univ ersity [facility] [place] [facility] Respiratory rate 2020-09-24 14:23:00 16 /min Univ ersity of [place] [facility] Body height 2020-09-24 14:23:00 160 cm [facility]i ty [facility] [place] [facility] Body weight 2020-09-24 14:23:00 46.891 kg [facility]i ty [facility] [place] [facility] BMI 2020-09-24 14:23:00 18.31 kg/m2 [facility] ty [facility] [place] [facility] Systolic blood 2020-08-27 14:23:00 110 mm[Hg] Univer sity of pressure [place] [facility] Diastolic blood 2020-08-27 14:23:00 63 mm[Hg] Unive rsity of pressure [place] [facility] Heart rate 2020-08-27 14:23:00 75 /min Universi ty [facility] [place] [facility] Body temperature 2020-08-27 14:23:00 36.72 Sabrina [facility] ersity [facility] [place] [facility] Respiratory rate 2020-08-27 14:23:00 16 /min Univ ersity of [place] [facility] Body height 2020-08-27 14:23:00 160 cm [facility]i ty [facility] [place] [facility] Body weight 2020-08-27 14:23:00 44.623 kg Universi ty [facility] [place] [facility] BMI 2020-08-27 14:23:00 17.43 kg/m2 [facility] ty [facility] [place] [facility] Systolic blood 2020-07-14 15:17:00 110 mm[Hg] Univer sity of pressure [place] [facility] Diastolic blood 2020-07-14 15:17:00 73 mm[Hg] Unive rsity of pressure [place] [facility] Heart rate 2020-07-14 15:17:00 53 /min Universi ty of [facility] Body temperature 2020-07-14 15:17:[address] [facility] ersity of [facility] Respiratory rate 2020-07-14 15:17:00 16 /min Univ ersity of [facility] Body height 2020-07-14 15:17:00 160 cm Universi ty of [facility] Body weight 2020-07-14 15:17:00 43.681 kg Universi ty of [facility] BMI 2020-07-14 15:17:00 17.06 kg/m2 Universi ty of [facility] BP Systolic 2022-05-13 09:32:00 107 mm[Hg] BP Diastolic 2022-05-13 09:32:00 72 mm[Hg] Weight Measured 2022-05-13 09:32:00 93.80 pounds Height Measured 2022-05-13 09:32:00 63.00 inches Body Temperature 2022-05-13 09:32:00 97.80 degrees Heart Rate 2022-05-13 09:32:00 68.00 /min Respiratory Rate 2022-05-13 09:32:00 Systolic blood 2021-02-18 12:30:00 115 mm[Hg] Univer sity of pressure [facility] Diastolic blood 2021-02-18 12:30:00 80 mm[Hg] Unive rsity of pressure [facility] Heart rate 2021-02-18 12:30:00 72 /min Universi ty [facility] Body temperature 2021-02-18 12:30:[address] [facility] 2021-02-18 12:30:00 18 /min [facility] Oxygen saturation in 2021-02-17 23:50:00 100 /min [facility] Arterial blood by [facility] Pulse oximetry Branch Body weight 2021-02-16 14:45:00 56.7 kg Universi ty of [facility] Body height 2021-02-09 12:59:00 160 cm Universi ty of [facility] BP Systolic 2019-06-05 15:26:00 111 mm[Hg] BP Diastolic 2019-06-05 15:26:00 75 mm[Hg] Weight Measured 2019-06-05 15:26:00 93.00 pounds Height Measured 2019-06-05 15:26:00 63.00 inches Body Temperature 2019-06-05 15:26:00 93.80 degrees Heart Rate 2019-06-05 15:26:00 90.00 /min Respiratory Rate 2019-06-05 15:26:00 18.00 /min Procedures Procedure Date / Time Performing Clinician Source Performed CBC WITH DIFF 2021-02-18 09:30:00 Destinee Rosario [facility]02[facility]18 [facility] 2021-02-18 09:30:00 Destinee Rosario [facility] PELVIS LIMITED 2021-02-17 16:31:37 Destinee Rosario [facility] PELVIS LIMITED 2021-02-17 16:31:37 Destinee Rosario [facility] [facility] PELVIS LIMITED 2021-02-17 16:31:37 [place] 2021-02-17 15:55:57 Lorenzo [facility] DILATION AND CURETTAGE 2021-02-17 15:29:00 Destinee Rosario [facility] DILATION AND CURETTAGE 2021-02-17 15:29:00 Destinee Rosario [facility] DILATION AND CURETTAGE 2021-02-17 15:29:00 Destinee Rosario [facility] COVID-19 (ID NOW RAPID 2021-02-16 20:13:[address] [facility]) Medical Branch COVID-19 (ID NOW RAPID 2021-02-16 20:13:[address] [facility] TESTING) Medical Branch COVID-19 (ID NOW RAPID 2021-02-16 20:13:[address] [facility] TESTING) Medical Branch HB ABO GROUPING 2021-02-16 20:05:00 Otis Bernal [facility] HB ABO GROUPING 2021-02-16 20:05:00 Otis Bernal [facility] HB ABO GROUPING 2021-02-16 20:05:00 Otis [facility]al [facility] US PELVIS COMPLETE WITH 2021-02-16 19:05:44 Otis Bernal [facility] US PELVIS COMPLETE WITH 2021-02-16 19:05:44 Otis Bernal [facility] US PELVIS COMPLETE WITH 2021-02-16 19:05:44 Otis Bernal [facility] HB ECG ROUTINE & RHYTHM 2021-02-16 16:31:29 Otis Bernal [facility] HB ECG ROUTINE & RHYTHM 2021-02-16 16:31:29 Otis Bernal [facility] HB ECG ROUTINE & RHYTHM 2021-02-16 16:31:29 Otis Bernal [facility] CBC WITH DIFF 2021-02-16 16:15:00 Otis Bernal [facility] COMP. METABOLIC PANEL 2021-02-16 16:15:00 Otis Bernal [facility] ([id number]) [facility] URINALYSIS 2021-02-16 16:15:00 Otis Bernal [facility] LACTIC ACID WHOLE BLOOD 2021-02-16 16:15:00 Otis Bernal [facility] BLOOD CULTURE SCREEN 2021-02-16 16:15:[address] [facility] URINE CULTURE 2021-02-16 16:15:00 Otis Bernal [facility] BLOOD CULTURE SCREEN 2021-02-16 16:15:[address] [facility] COMP. METABOLIC PANEL 2021-02-16 16:15:00 Otis Bernal [facility] ([id number]) [facility] CBC WITH DIFF 2021-02-16 16:15:00 Otis Bernal [facility] URINALYSIS 2021-02-16 16:15:00 Otis Bernal [facility] URINE CULTURE 2021-02-16 16:15:00 Otis Bernal [facility] LACTIC ACID WHOLE BLOOD 2021-02-16 16:15:00 Otis Bernal [facility] BLOOD CULTURE SCREEN 2021-02-16 16:15:[address] [facility] COMP. METABOLIC PANEL 2021-02-16 16:15:00 Otis Bernal [facility] ([id number]) Medical Branch CBC WITH DIFF 2021-02-16 16:15:00 Otis Bernal [facility] URINALYSIS 2021-02-16 16:15:00 Otis Bernal [facility] URINE CULTURE 2021-02-16 16:15:00 Otis Bernal [facility] LACTIC ACID WHOLE BLOOD 2021-02-16 16:15:00 Otis Bernal [facility] NOTICE OF PRIVACY 2021-02-16 14:39:40 Doctor Unassigned, [facility] PRACTICES Maria Stein [facility] [place] NOTICE OF PRIVACY 2021-02-16 14:39:40 Doctor Unassigned, [facility] Maria Stein [facility] [place] NOTICE OF PRIVACY 2021-02-16 14:39:40 Doctor Unassigned, [facility] Maria Stein [facility] [place] CONSENT/REFUSAL FOR 2021-02-16 14:39:19 Doctor Unassdeb, [facility] DIAGNOSIS AND TREATMENT Maria Stein [facility] [place] CONSENT/REFUSAL FOR 2021-02-16 14:39:19 Doctor Unassigned, [facility] DIAGNOSIS AND TREATMENT Maria Stein [facility] [place] CONSENT/REFUSAL FOR 2021-02-16 14:39:19 Doctor Unassigned, [facility] DIAGNOSIS AND TREATMENT Maria Stein [facility] [place] CBC WITH DIFF 2021-02-11 05:21:00 [facility] CBC WITH DIFF 2021-02-11 05:21:00 [facility] VENOUS CORD GAS 2021-02-10 10:01:00 Tommie [facility] ARTERIAL CORD GAS 2021-02-10 10:01:00 Reilly, Melissa [facility] CENTRAL NEURAXIAL BLOCK 2021-02-09 20:42:40 Fransisco Marcum [facility] URINALYSIS 2021-02-09 18:49:00 Velma Jimenez [facility] PROTEIN CREAT RATIO URINE 2021-02-09 18:49:[address] [facility] PROTEIN CREAT RATIO URINE 2021-02-09 18:49:[address] [facility] URINALYSIS 2021-02-09 18:49:00 [facility]BO GROUPING 2021-02-09 14:54:00 Tommie [facility] RHO (D) IMMUNE GLOBULIN 2021-02-09 14:54:00 , [facility] HB ABO GROUPING 2021-02-09 14:54:00 Tommie [facility] RHO (D) IMMUNE GLOBULIN 2021-02-09 14:54:00 Vu, [facility] SGOT (ASPARTATE AMINO 2021-02-09 14:49:00 Velma Jimenez [facility]) Medical Branch CREATININE 2021-02-09 14:49:00 [facility] ALANINE AMINO 2021-02-09 14:49:00 [facility] [place] URIC ACID 2021-02-09 14:49:00 Velma [facility] CBC WITH DIFF 2021-02-09 14:49:00 Melissa Reilly [facility] HEPATITIS B SURFACE 2021-02-09 14:49:00 Melissa Reilly [facility] ANTIGEN [facility] HIV 1/2 AG-AB WITH REFLEX 2021-02-09 14:49:00 Melissa Reilly [facility] GALV ONLY - SYPHILIS 2021-02-09 14:49:00 Melissa Reilly [facility] IGG/IGM Medical Branch HEPATITIS B SURFACE 2021-02-09 14:49:00 Melissa Reilly [facility] Branch GALV ONLY - SYPHILIS 2021-02-09 14:49:00 Melissa Reilly [facility] IGG/IGM [facility] HIV 1/2 AG-AB WITH REFLEX 2021-02-09 14:49:00 Melissa Reilly [facility] CBC WITH DIFF 2021-02-09 14:49:00 Melissa Reilly [facility] URIC ACID 2021-02-09 14:49:00 [facility] CREATININE 2021-02-09 14:49:00 Tony [facility] SGOT (ASPARTATE AMINO 2021-02-09 14:49:00 [facility] Medical Branch ALANINE AMINO 2021-02-09 14:49:00 Tony [facility] TRANSFERASE(SGPT Medical Branch COVID-19 (ID NOW RAPID 2021-02-09 12:47:00 Rodriguez [facility] TESTING) Medical Branch LAB ONLY COVID 2021-02-09 12:47:00 Michael Excela [facility] INTERPRETATION [facility] COVID-19 (ID NOW RAPID 2021-02-09 12:47:00 Rodriguez [facility] TESTING) Medical Branch LAB ONLY COVID 2021-02-09 12:47:00 [facility] NOTICE OF RESEARCH 2021-02-09 05:01:00 Doctor Unaserena, [facility] PARTICIPATION Maria Stein [facility] HOSPITAL ADMISSION 2021-02-09 05:01:00 Doctor Unassigned, [facility] POCT URINALYSIS 2021-02-04 21:12:[address] [facility] POCT URINALYSIS 2021-02-04 21:12:[address] [facility] GC & CHLAMYDIA AMPLIFIED 2021-01-20 21:33:00 [facility] GROUP B STREPTOCOCCUS BY 2021-01-20 21:33:00 Radhames Bailey of [place] PCR [facility] Branch CBC WITH DIFF 2021-01-20 20:30:00 Radhames [facility] SARS-COV-2 IGG 2021-01-20 20:30:00 Radhames Bailey [facility] LAB ONLY COVID 2021-01-20 20:30:00 Radhames Bailey [facility] INTERPRETATION [facility] POCT URINALYSIS 2021-01-20 20:14:[address] [facility] POCT URINALYSIS 2021-01-20 20:14:[address] [facility] SECOND AND THIRD TRIMESTER 2021-01-19 16:30:00 Cecelia Green [facility] POCT URINALYSIS 2021-01-06 20:14:[address] [facility] POCT URINALYSIS 2021-01-06 20:14:[address] [facility] POCT URINALYSIS 2020-12-23 22:04:[address] [facility] POCT URINALYSIS 2020-12-23 22:04:[address] [facility] TDAP VACCINE, >11 YRS, IM 2020-12-09 22:10:58 Indu Green [facility] TDAP VACCINE, >11 YRS, IM 2020-12-09 22:10:58 Indu Green [facility] POCT URINALYSIS 2020-12-09 21:53:[address] [facility] POCT URINALYSIS 2020-12-09 21:53:[address] [facility] HIV 1/2 AG-AB WITH REFLEX 2020-12-09 21:37:00 Indu Green [facility] GALV ONLY - SYPHILIS 2020-12-09 21:37:00 [facility]M [facility] GLUCOSE 1 HOUR POST 2020-11-19 18:40:00 [facility]du Green [facility] CBC WITH DIFF 2020-11-19 18:40:[address] [facility] POCT URINALYSIS 2020-11-19 17:10:[address] [facility] FLU VACC ([id number]), 6+ 2020-10-22 14:54:16 Indu Green [facility] MONTHS, IM, QUAD [facility] POCT URINALYSIS 2020-10-22 14:42:[address] [facility] POCT URINALYSIS 2020-09-24 14:28:[address] [facility] POCT URINALYSIS 2020-08-27 14:26:[address] [facility] NO SHOW OR MISSED 2020-08-11 15:16:54 Doctor Unassigned, [facility] APPOINTMENT POLICY Maria Stein [facility] h ACKNOWLEDGEMENT POCT URINALYSIS W/O 2020-07-14 15:23:00 [facility]du [facility] SPECIFIC GRAVITY [facility] POCT TEST 2020-07-14 15:19:00 [facility]du [facility]ENEFITS 2020-07-14 14:41:37 Doctor Unassigned, [facility] Maria Stein [facility] Plan of Care Planned Activity Planned Date Details Comments Source Goal Plan of Care Note [code = 80267-4] Goal Plan of Care Note [code = 22914-2] Goal Plan of Care Note [code = 55021-3] Goal Plan of Care Note [code = 73241-2] Goal Plan of Care Note [code = 53140-3] Goal Plan of Care Note [code = 70152-0] Encounters Start End Encounter Admission Attending Care Care Encounter Source Date/Time Date/Time Type Type Clinicians Facility Department ID 2021-08-16 Outpatient X [facility] IWLLIE [id number] Univers [facility] 2021-08-16 Emergency [facility] [id number] Univers 16:39:26 ity of [facility] 2021-08-16 Outpatient [facility] [id number] Univers 15:09:28 ity of [facility] 2022-05-13 2022-05-13 Outpatient [id number] 00:00:00 00:00:00 Visit [id number] 2021-03-26 2021-03-26 Outpatient [facility] [id number] Univers 14:15:00 14:15:00 AZUCENA grey o [facility] 2021-03-03 2021-03-03 [facility] 1.2.840.114 [id number] Univers 10:30:17 11:04:28 Azucena R KINDERGARTEN [employer]P TEACHER 350.1.13.10 ity of Visit [facility] 4.2.7.2.686 Smooth as MATERNAL [id number] [facility] & CHILD [address] [place] [address] 2021-03-03 2021-03-03 Outpatient Yecenia [facility] [id number] Univers 10:15:00 10:15:00 AZUCENA mathewsglenda o [facility] 2021-02-16 2021-02-18 Hospital Otis Bernal [facility] 1.2.840.1 [id number] Univers 09:47:00 18:40:00 Encounter Destinee Rosario Goodman 350.1.13.10 ity [facility] [place] [id number] Medi domenic 083 Branch 2021-02-17 2021-02-17 Surgery Destinee Rosario [facility] 1.2.943.420 [id number] Univers 12:03:00 13:21:00 Kirit Goodman 350.1.13.10 i ty [place] [address] [id number] [facility] 020 Branch 2021-02-17 2021-02-17 Anesthesia Hernandez, 1.2.840.9 [id number] Univers 10:39:00 11:36:00 Event Urmila 20090.1.1 ity of 3.104.2.7 [place] .3.885534 Medica l .8 Branch 2021-02-17 2021-02-17 Prep For Destinee Rosario 1.2.840.0 [id number] Univers 00:00:00 00:00:00 Surgery Cam 85617.1.1 ity of 3.104.2.7 [place] .3.510903 Medica l .8 Branch 2021-02-16 2021-02-16 Nurse Francie, 1.2.840.3 [id number] Univers 00:00:00 00:00:00 Triage Perri T 49982.1.1 ity of 3.104.2.7 [place] .3.096887 Medica l .8 Branch 2021-02-16 2021-02-16 Travel 1.2.840.1 1.2.031.449 [id number] Univers 00:00:00 00:00:00 48316.1.1 350.1.13.10 ity of 3.104.2.7 4.[place].7.3.698 [place] .3.243678 084.8 Medica l .8 Branch 2021-02-09 2021-02-12 Hospital [facility], 1.2.840.4 [id number] Univers 07:31:00 15:31:00 Encounter Kelli 51730.1.1 i ty of 3.104.2.7 [place] .3.102699 Medica l .8 Branch 2021-02-09 2021-02-10 Anesthesia Jass Naik 1.2.840.1 [id number] Univers 15:10:00 06:10:00 Event Joshua Ford 82064.1.1 ity of 3.104.2.7 [place] .3.479533 Medica l .8 Branch 2021-02-09 2021-02-09 Travel 1.2.840.1 1.2.884.762 [id number] Univers 00:00:00 00:00:00 15357.1.1 350.1.13.10 ity of 3.104.2.7 4.2.7.3.698 [place] .3.478763 084.8 Medica l .8 [place] 2021-02-04 2021-02-04 Routine Akinsipe, 1.2.840.6 [id number] Univers 15:54:25 16:08:30 Indu Tate 66953.1.1 ity of Visit 3.104.2.7 [place] .3.436395 Medica l .8 [place] 2021-02-04 2021-02-04 Outpatient R [facility] [id number] Univers 15:45:00 15:45:00 INDU ity o f [facility] 2021-02-04 2021-02-04 Travel 1.2.840.1 1.2.947.488 [id number] Univers 00:00:00 00:00:00 95234.1.1 350.1.13.10 ity of 3.104.2.7 4.2.7.3.698 [place] .3.274451 084.8 Medica l .8 [place] 2021-01-27 2021-01-27 Routine Akinsipe, 1.2.840.8 [id number] Univers 15:20:29 15:47:36 Indu Tate 77090.1.1 ity of Visit 3.104.2.7 [place] .3.288723 Medica l .8 [place] 2021-01-27 2021-01-27 Outpatient [facility] [id number] Univers 15:15:00 15:15:00 INDU ity o [facility] 2021-01-27 2021-01-27 Outpatient R [facility] [id number] Univers 15:00:00 15:00:00 RADHAMES ity of [facility] 2021-01-27 2021-01-27 Travel 1.2.840.1 1.2.801.067 [id number] Univers 00:00:00 00:00:00 48450.1.1 350.1.13.10 ity of 3.104.2.7 4.2.7.3.698 [place] .3.157785 084.8 Medica l .8 [place] 2021-01-21 2021-01-21 Abstract Peter, 1.2.840.6 [id number] Univers 00:00:00 00:00:00 Indu Tate 60574.1.1 i ty of 3.104.2.7 [place] .3.630549 Medica l .8 [place] 2021-01-20 2021-01-20 Routine LeoRadhames Andrew 1.2.840.7 [id number] Univers 15:01:35 15:30:58 Indu Green 15973.1.1 ity of Visit 3.104.2.7 [place] .3.819795 Medica l .8 [place] 2021-01-20 2021-01-20 Outpatient [facility] [id number] Univers 15:00:00 15:00:00 RADHAMES ity of [facility] 2021-01-20 2021-01-20 Travel 1.2.840.1 1.2.655.045 [id number] Univers 00:00:00 00:00:00 55745.1.1 350.1.13.10 ity of 3.104.2.7 4.2.7.3.698 [place] .3.762147 084.8 Medica l .8 [place] 2021-01-19 2021-01-19 Outpatient P [facility] [id number] Univers 15:30:00 15:30:00 ity of [facility] 2021-01-19 2021-01-19 Summer School Coordinator Jordyn 1.2.840.1 [id number] Univers 11:16:02 11:38:55 Visit Shantel 22276.1.1 ity of Angelica ramirez 3.104.2.7 [place] .3.753766 Medica l .8 [place] 2021-01-14 2021-01-14 Outpatient P [facility] [id number] Univers 15:00:00 15:00:00 ity of [facility] 2021-01-06 2021-01-06 Routine Leo, 1.2.840.8 [id number] Univers 15:04:14 15:30:09 Radhames N 35315.1.1 ity of Visit 3.104.2.7 [place] .3.610517 Medica l .8 [place] 2021-01-06 2021-01-06 Outpatient Yecenia [facility]FIREL[facility] [id number] Univers 15:00:00 15:00:00 RADHAMES ity of [facility] 2021-01-06 2021-01-06 Travel 1.2.840.1 1.2.974.571 [id number] Univers 00:00:00 00:00:00 47132.1.1 350.1.13.10 ity of 3.104.2.7 4.2.7.3.698 [place] .3.814554 084.8 Medica l .8 [place] 2020-12-23 2020-12-23 Routine Leo, 1.2.840.1 [id number] Univers 15:49:28 16:27:31 Radhames N 14622.1.1 ity of Visit 3.104.2.7 [place] .3.234228 Medica l .8 [place] 2020-12-23 2020-12-23 Outpatient Yecenia [facility]FI[facility] [id number] Univers 15:45:00 15:45:00 RADHAMES ity of [facility] 2020-12-23 2020-12-23 Travel 1.2.840.1 1.2.716.077 [id number] [id number] Univers 00:00:00 00:00:00 06096.1.1 350.1.13.10 ity of 3.104.2.7 4.2.7.3.698 [place] .3.794570 084.8 Medica l .8 [place] 2020-12-09 2020-12-09 Routine Akinsipe, 1.2.840.6 [id number] Univers 15:32:32 16:20:57 Indu C 82906.1.1 ity of Visit 3.104.2.7 [place] .3.145777 Medica l .8 [place] 2020-12-09 2020-12-09 Outpatient R SANDRAKALEIGHPE, [facility] [id number] Univers 15:30:00 15:30:00 INDU grey o mony [facility] 2020-12-09 2020-12-09 Travel 1.2.840.1 1.2.677.602 [id number] Univers 00:00:00 00:00:00 25970.1.1 350.1.13.10 ity of 3.104.2.7 4.2.7.3.698 [place] .3.333024 084.8 Medica l .8 [place] 2020-12-03 2020-12-03 Outpatient R AKINKALEIGHPE, [facility] [id number] Univers 10:30:00 10:30:00 INDU grey o [facility] 2020-11-19 2020-11-19 Routine [facility] 1.2.742.723 [id number] Univers 10:50:18 11:45:20 Indu C KINDERGARTEN [employer] TEACHER 350.1.13.10 ity of Visit REGIONAL 4.2.7.2.686 Smooth as MATERNAL [id number] Med ical & CHILD [address] [place] [address] 2020-11-19 2020-11-19 Outpatient R AKINSIPE, [facility] [id number] Univers 10:45:00 10:45:00 INDU grey o [facility] 2020-11-17 2020-11-17 Outpatient R AKINKALEIGHPE, [facility] [id number] Univers 14:00:00 14:00:00 INDU grey o [facility] 2020-11-13 2020-11-13 Telephone [facility] 1.2.840.114 [id number] Univers 00:00:00 00:00:00 Indu C KINDERGARTEN [employer] TEACHER 350.1.13.10 ity of REGIONAL 4.2.7.2.686 Smooth as MATERNAL [id number] [facility] ical & CHILD [address] [place] [address] 2020-10-22 2020-10-22 Summer School Coordinator Ultrasound, [facility] 1.2.840.114 [id number] 10:54:08 11:39:08 [facility]P TEACHER 350.1.13.10 REGIONAL 4.2.7.2.686 MATERNAL [id number] & CHILD [address] [place] [address] 2020-10-22 2020-10-22 Summer School Coordinator Ultrasound, Bhaktiviri [facility] 1.2 .840.114 [id number] Univers 10:54:08 11:39:08 Visit Indu Green C KINDERGARTEN [employer]P TEACHER 350.1.13. 10 ity of MarisabelKarlo zabala R [facility] 4.2.7.2.686 [place] MATERNAL [id number] [facility] & CHILD [address] [place] [address] 2020-10-22 2020-10-22 Routine Peter [facility] 1.2.059.256 [id number] Univers 08:25:53 08:55:30 Indu C [employer]ERG[employer] TEACHER 350.1.13.10 ity of Visit REGIONAL 4.2.7.2.686 Smooth as MATERNAL [id number] [facility] & CHILD [address] [place] [address] 2020-10-22 2020-10-22 Routine Peter [facility] 1.2.370.178 [id number] 08:25:53 08:55:30 Indu C KINDERGART[employer] TEACHER 350.1.13.10 Visit [facility] 4.2.7.2.68 MATERNAL [id number] & CHILD [address] [place] [address] 2020-10-22 2020-10-22 Outpatient R PETER [facility] [id number] Univers 08:15:00 08:15:00 INDU ity o f [facility] 2020-10-22 2020-10-22 Letter Peter [facility] 1.2.425.582 [id number] Univers 00:00:00 00:00:00 (Out) Indu C KINDERGARTEN [employer] TEACHER 350.1.13.10 ity of [facility] 4.2.7.2.686 Smooth as MATERNAL [id number] [facility] & CHILD [address] [place] [address] 2020-10-22 2020-10-22 Abstract Peter [facility] 1.2.840.114 [id number] Univers 00:00:00 00:00:00 Indu C KINDERGARTEN [employer] TEACHER 350.1.13.10 ity of REGIONAL 4.2.7.2.686 Smooth as MATERNAL [id number] Med ical & CHILD [address] [place] [address] 2020-10-22 2020-10-22 Letter GODFREY Green 1.2.628.485 [id number] 00:00:00 00:00:00 (Out) Indu C KINDERGARTEN [employer] TEACHER 350.1.13.10 REGIONAL 4.2.7.2.686 MATERNAL [id number] & CHILD [address] [place] [address] 2020-10-22 2020-10-22 Abstract Peter [facility] 1.2.840.114 [id number] 00:00:00 00:00:00 Indu C KINDERGARTEN [employer] TEACHER 350.1.13.10 REGIONAL 4.2.7.2.686 MATERNAL [id number] & CHILD [address] [place] [address] 2020-09-26 2020-09-26 Abstract Peter [facility] 1.2.840.114 [id number] Univers 00:00:00 00:00:00 Indu C KINDERGARTEN [employer] TEACHER 350.1.13.10 ity of REGIONAL 4.2.7.2.686 Smooth as MATERNAL [id number] Med ical & CHILD [address] [place] [address] 2020-09-26 2020-09-26 Abstract Peter [facility] 1.2.840.114 [id number] Univers 00:00:00 00:00:00 Indu C KINDERGARTEN PREP TEACHER 350.1.13.10 ity of REGIONAL 4.2.7.2.686 Smooth as MATERNAL [id number] Med ical & CHILD [address] [place] [address] 2020-09-26 2020-09-26 Abstract Peter [facility] 1.2.840.114 [id number] 00:00:00 00:00:00 Indu C KINDERGARTEN PREP TEACHER 350.1.13.10 REGIONAL 4.2.7.2.686 MATERNAL [id number] & CHILD [address] [place] [address] 2020-09-26 2020-09-26 [place] [facility] 1.2.840.114 [id number] 00:00:00 00:00:00 Indu C KINDERGARTEN PREP TEACHER 350.1.13.10 REGIONAL 4.2.7.2.686 MATERNAL [id number] & CHILD [address] [place] [address] 2020-09-24 2020-09-24 Outpatient R PETER, [facility] [id number] Univers 09:15:00 09:15:00 INDU ity o f [facility] 2020-09-24 2020-09-24 Routine Akinsipe, [facility] 1.2.752.613 [id number] Univers 08:04:50 08:35:05 Indu C KINDERGARTEN PREP TEACHER 350.1.13.10 ity of Visit REGIONAL 4.2.7.2.686 Smooth as MATERNAL [id number] [facility] & CHILD [address] [place] [address] 2020-09-24 2020-09-24 Routine Akinsipe, [facility] [id number] 08:04:50 08:35:05 Indu C [employer] 350.1.13.10 Visit REGIONAL 4.2.7.2.686 MATERNAL [phone] & CHILD [address] [place] [address] 2020-09-23 2020-09-23 Summer School Coordinator [employer]trasound, [facility] 1.2 .840.114 [id number] Univers 08:44:17 09:44:17 Visit Angelica Turcios [employer] 350.1. 13.10 ity of REGIONAL 4.2.7.2.686 Smooth as MATERNAL [phone] [facility] ical & CHILD [address] [place] [address] 2020-09-23 2020-09-23 Outpatient P [facility] [id number] Univers 08:30:00 08:30:00 ity of [facility] 2020-08-27 2020-08-27 Routine Akinpe, [facility] [id number] Univers 08:08:51 08:57:15 Indu C [employer] 350.1.13.10 ity of Visit REGIONAL 4.2.7.2.686 Smooth as MATERNAL [phone] [facility] ical & CHILD [address] [place] [address] 2020-08-27 2020-08-27 Outpatient R PETER, [facility] [id number] Univers 08:00:00 08:00:00 INDU ity o f [facility] 2020-08-27 2020-08-27 Outpatient R AKINRAS, [facility] [id number] Univers 08:00:00 08:00:00 INDU ity o f [facility] 2020-08-22 2020-08-22 Nurse Krystal Tellez 1.2.840.114 [id number] Univers 00:00:00 00:00:00 Triage MARIA E 350.1.13.10 it y of HOSPITAL 4.2.7.2.686 Smooth as [phone] [address] 2020-08-21 2020-08-21 Nurse AMANDA Albarran 1.2.840.114 [id number] Univers 00:00:00 00:00:00 Triage Marina Uriostegui MARIA E 350.1.13.10 i ty of [facility] 4.2.7.2.686 Smooth as [phone] [address] 2020-08-11 2020-08-11 Outpatient R AKINSIPE, [facility] [id number] Univers 09:45:00 09:45:00 INDU reidy o f [facility] 2020-08-11 2020-08-11 Orders Doctor AMANDA 1.2.840.114 [id number] Univers 00:00:00 00:00:00 Only Unassigned, MARIA E 350.1.13.10 ity of Maria Stein [facility] 4.2.7.2.686 Smooth as [phone] [address] 2020-07-14 2020-07-14 [facility] [id number] [id number] Univers 10:06:40 11:23:45 Indu C [employer] 350.1.13.10 ity of Visit [facility] 4.2.7.2.686 Smooth as MATERNAL [phone] [facility] ical & CHILD [address] [place] [address] 2020-07-14 2020-07-14 Outpatient R PETER, [facility] [id number] Univers 09:30:00 09:30:00 INDULENORA grey o f [facility] 2020-07-14 2020-07-14 Orders Doctor AMANDA Hernandez2.840.114 [id number] Univers 00:00:00 00:00:00 Only Unassigned, MARIA E 350.1.13.10 ity of Maria Stein [facility] 4.2.7.2.686 Smooth as [phone] [address] 2020-07-14 2020-07-14 Letter Peter [facility] [id number] Univers 00:00:00 00:00:00 (Out) Indu C [employer] 350.1.13.10 ity of [facility] 4.2.7.2.686 Smooth as MATERNAL [phone] Med ical & CHILD 107 [facility] Results Test Description Test Time Test Comments Results Result Comments Source CBC WITH DIFF 2021-02-18 09:48:02 Test Item Value Reference Range Interpretation Comme nts WBC (test code = 6690-2) See_Comment H [A utomated message] The system which ge nerated this result transmit lenore reference range: 4.30 - 1 1.10 10*3/?L. The reference r gordo was not used to interpr et this result as normal/abnor mal. RBC (test code = 789-8) See_Comment L [Au tomated message] The system which ge nerated this result transmit lenore reference range: 3.93 - 5 .25 10*6/?L. The reference r gordo was not used to interpr et this result as normal/abnor mal. HGB (test code = 718-7) 9.1 g/dL 11.6-15.0 L HCT (test code = 4544-3) 26.8 % 35.7-45.2 L MCV (test code = 787-2) 89.3 fL 80.6-95.5 MCH (test code = 785-6) 30.3 pg 25.9-32.8 MCHC (test code = 786-4) 34.0 g/dL 31.6-35.1 RDW-SD (test code = 20626-9) 43.8 fL 39.0-49.9 RDW-CV (test code = 788-0) 13.3 % 12.0-15.5 PLT (test code = 777-3) See_Comment [Au tomated message] The system which ge nerated this result transmit lenore reference range: 166 - 35 8 10*3/?L. The reference range was not used to interpret th is result as normal/abnormal . MPV (test code = 15390-0) 9.7 fL 9.5-12.9 NRBC/100 WBC (test code = See_Comment [ Automated message] The [id number]) system which ge nerated this result transmit lenore reference range: 0.0 - 10 .0 /100 WBCs. The reference r gordo was not used to interpr et this result as normal/abnor mal. NRBC x10^3 (test code = <0.01 See_Comment [Au tomated message] The 6130439999) system which ge nerated this result transmit lenore reference range: 10*3/?L. The reference range was not u sed to interpret this result as normal/abnormal . GRAN MAT (NEUT) % (test code 80.2 % = 770-8) IMM GRAN % (test code = 0.70 % [id number]) LYMPH % (test code = 736-9) 9.9 % MONO % (test code = 5905-5) 8.4 % EOS % (test code = 713-8) 0.6 % BASO % (test code = 706-2) 0.2 % GRAN MAT x10^3(ANC) (test 9.12 10*3/uL 1.88-7.09 H code = 2745967673) IMM GRAN x10^3 (test code = 0.08 10*3/uL 0.00-0.06 H [id number]) LYMPH x10^3 (test code = 1.12 10*3/uL 1.32-3.29 L 731-0) MONO x10^3 (test code = 0.95 10*3/uL 0.33-0.92 H 742-7) EOS x10^3 (test code = 0.07 10*3/uL 0.03-0.39 711-2) BASO x10^3 (test code = <0.03 0.01-0.07 704-7) Lab Interpretation (test Abnormal code = 62614-4) [facility] WITH [id number] 09:48:02 Test Item Value Reference Range Interpretation Comments WBC (test code = See_Comment H [Automated 6690-2) message] The sy stem which generated this result transmitted reference range : 4.30 - 11.10 10*3/?L. The reference range was not used to interpret this result as normal/abnormal . RBC (test code = See_Comment L [Automated 789-8) message] The sy stem which generated this result transmitted reference range : 3.93 - 5.25 10*6/?L. The reference range was not used to interpret this result as normal/abnormal . HGB (test code = 9.1 g/dL 11.6-15.0 L 718-7) HCT (test code = 26.8 % 35.7-45.2 L 4544-3) MCV (test code = 89.3 fL 80.6-95.5 787-2) MCH (test code = 30.3 pg 25.9-32.8 785-6) MCHC (test code = 34.0 g/dL 31.6-35.1 786-4) RDW-SD (test code = 43.8 fL 39.0-49.9 23756-9) RDW-CV (test code = 13.3 % 12.0-15.5 788-0) PLT (test code = See_Comment [Automated 777-3) message] The sy stem which generated this result transmitted reference range : 166 - 358 10*3/ ?L. The reference r gordo was not used to interpret this result as normal/abnormal . MPV (test code = 9.7 fL 9.5-12.9 24773-9) NRBC/100 WBC (test See_Comment [Automat ed code = 0231597256) message] The system which generated this result transmitted reference range : 0.0 - 10.0 /100 WBCs. The refer ence range was not u sed to interpret th is result as normal/abnormal . NRBC x10^3 (test code <0.01 See_Comment [Auto mated = 9110444490) message] The s ystem which generated this result transmitted reference range : 10*3/?L. The reference range was not used to interpret this result as normal/abnormal . GRAN MAT (NEUT) % 80.2 % (test code = 770-8) IMM GRAN % (test code 0.70 % = 9451313709) LYMPH % (test code = 9.9 % 736-9) MONO % (test code = 8.4 % 5905-5) EOS % (test code = 0.6 % 713-8) BASO % (test code = 0.2 % 706-2) GRAN MAT x10^3(ANC) 9.12 10*3/uL 1.88-7.09 H (test code = 0707056443) IMM GRAN x10^3 (test 0.08 10*3/uL 0.00-0.06 H code = 9953330710) LYMPH x10^3 (test code 1.12 10*3/uL 1.32-3.29 L = 731-0) MONO x10^3 (test code 0.95 10*3/uL 0.33-0.92 H = 742-7) EOS x10^3 (test code = 0.07 10*3/uL 0.03-0.39 711-2) BASO x10^3 (test code <0.03 0.01-0.07 = 704-7) Lab Interpretation Abnormal (test code = 43929-0) [facility] WITH [id number] 09:48:02 Test Item Value Reference Range Interpretation Comments WBC (test code = See_Comment H [Automated 6690-2) message] The sy stem which generated this result transmitted reference range : 4.30 - 11.10 10*3/?L. The reference range was not used to interpret this result as normal/abnormal . RBC (test code = See_Comment L [Automated 789-8) message] The sy stem which generated this result transmitted reference range : 3.93 - 5.25 10*6/?L. The reference range was not used to interpret this result as normal/abnormal . HGB (test code = 9.1 g/dL 11.6-15.0 L 718-7) HCT (test code = 26.8 % 35.7-45.2 L 4544-3) MCV (test code = 89.3 fL 80.6-95.5 787-2) MCH (test code = 30.3 pg 25.9-32.8 785-6) MCHC (test code = 34.0 g/dL 31.6-35.1 786-4) RDW-SD (test code = 43.8 fL 39.0-49.9 96543-4) RDW-CV (test code = 13.3 % 12.0-15.5 788-0) PLT (test code = See_Comment [Automated 777-3) message] The sy stem which generated this result transmitted reference range : 166 - 358 10*3/ ?L. The reference r gordo was not used to interpret this result as normal/abnormal . MPV (test code = 9.7 fL 9.5-12.9 64824-9) NRBC/100 WBC (test See_Comment [Automat ed code = 6711938979) message] The system which generated this result transmitted reference range : 0.0 - 10.0 /100 WBCs. The refer ence range was not u sed to interpret th is result as normal/abnormal . NRBC x10^3 (test code <0.01 See_Comment [Auto mated = 7662787811) message] The s ystem which generated this result transmitted reference range : 10*3/?L. The reference range was not used to interpret this result as normal/abnormal . GRAN MAT (NEUT) % 80.2 % (test code = 770-8) IMM GRAN % (test code 0.70 % = 1415804740) LYMPH % (test code = 9.9 % 736-9) MONO % (test code = 8.4 % 5905-5) EOS % (test code = 0.6 % 713-8) BASO % (test code = 0.2 % 706-2) GRAN MAT x10^3(ANC) 9.12 10*3/uL 1.88-7.09 H (test code = 2020584819) IMM GRAN x10^3 (test 0.08 10*3/uL 0.00-0.06 H code = 9999863380) LYMPH x10^3 (test code 1.12 10*3/uL 1.32-3.29 L = 731-0) MONO x10^3 (test code 0.95 10*3/uL 0.33-0.92 H = 742-7) EOS x10^3 (test code = 0.07 10*3/uL 0.03-0.39 711-2) BASO x10^3 (test code <0.03 0.01-0.07 = 704-7) Lab Interpretation Abnormal (test code = 00282-1) [facility] [id number] 17:12:42 Test Item Value Reference Range Interpretation Comments URINE CULTURE (test >100,000 CFU/mL code = 630-4) Streptococcus agalactiae (Group B) HANH (test code = Penicillin and ampicillin HANH) are drugs of choice for treatment of beta-hemolytic streptococcal infections. In accordance with CLSI M100 guidelines, susceptibility testing of penicillin and other beta-lactams need not be performed due to the extremely rare nature of non-susceptible isolates. [facility] [id number] 17:12:42 Test Item Value Reference Range Interpretation Comments URINE CULTURE (test >100,000 CFU/mL code = 630-4) Streptococcus agalactiae (Group B) HANH (test code = Penicillin and ampicillin HANH) are drugs of choice for treatment of beta-hemolytic streptococcal infections. In accordance with CLSI M100 guidelines, susceptibility testing of penicillin and other beta-lactams need not be performed due to the extremely rare nature of non-susceptible isolates. [facility] [id number] 17:12:42 Test Item Value Reference Range Interpretation Comments URINE CULTURE (test >100,000 CFU/mL code = 630-4) Streptococcus agalactiae (Group B) HANH (test code = Penicillin and ampicillin HANH) are drugs of choice for treatment of beta-hemolytic streptococcal infections. In accordance with CLSI M100 guidelines, susceptibility testing of penicillin and other beta-lactams need not be performed due to the extremely rare nature of non-susceptible isolates. [facility] PELVIS [id number] 16:36:07HISTORY: Urinary infection versus retained products. TECHNIQUE: Real-time transabdominal ultrasound guidance was provided by thetechnologist in OR while D&C procedure was performed by Dr. Rosario. FINDINGS: Numerous radiopaque clips along with postprocedural images aresubmitted. Real-time images showed DNC procedure in progress. Postprocedural imagesshowed distended uterine cavity, likely due to hemorrhage. CONCLUSIONS: Real-time intraoperative ultrasound guidance provided [facility] hospital[facility] technologist.Final images show distended uterine cavity due tohemorrhage. [facility], Radiant Results Inft User - 02/17/2021 11:37 AM CDTHISTORY: Urinary infection versus retained products.TECHNIQUE: Real-time transabdominal ultrasound guidance was provided by thetechnologist in OR while D&C procedure was performed by Dr. Rosario.FINDINGS: Numerous radiopaque clips along with postprocedural images aresubmitted.Real-time images showed DNC procedure in progress. Postprocedural imagesshowed distended uterine cavity, likely due to hemorrhage.CONCLUSIONS: Real-time intraoperative ultrasound guidance provided byultrasound technologist. Final images show distended uterine cavity due tohemorrhage.[facility] PELVIS [id number] 16:36:07HISTORY: Urinary infection versus retained products. TECHNIQUE: Real- time transabdominal ultrasound guidance was provided by thetechnologist in OR while D&C procedure was performed by Dr. Rosario. FINDINGS: Numerous radiopaque clips along with postprocedural images aresubmitted. Real-time images showed DNC procedure in progress. Postprocedural imagesshowed distended uterine cavity, likely due to hemorrhage. CONCLUSIONS: Real-time intraoperative ultrasound guidance provided byultrasound technologist.Final images show distended uterine cavity due tohemorrhage. [facility], Radiant Results Inft User - 02/17/2021 11:37 AM CDTHISTORY: Urinary infection versus retained products.TECHNIQUE: Real-time transabdominal ultrasound guidance was provided by thetechnologist in OR while D&C procedure was performed by Dr. Rosario.FINDINGS: Numerous radiopaque clips along with postprocedural images aresubmitted.Real-time images showed DNC procedure in progress. Postprocedural imagesshowed distended uterine cavity, likely due to hemorrhage.CONCLUSIONS: Real-time intraoperative ultrasound guidance provided byultrasound technologist. Final images show distended uterine cavity due tohemorrhage.[facility] PELVIS LIMITED 2021-02-17 16:36:07HISTORY: Urinary infection versus retained products. TECHNIQUE: Real-time transabdominal ultrasound guidance was provided by thetechnologist in OR while D&C procedure was performed by Dr. Rosario. FINDI NGS: Numerous radiopaque clips along with postprocedural images aresubmitted. Real-time images showed DNC procedure in progress. Postprocedural imagesshowed distended uterine cavity, likely due to hemorrhage. CONCLUSIONS: Real-time intraoperative ultrasound guidance provided byultrasound technologist.Final images show distended uterine cavity due tohemorrhage. [facility], Radiant Results Inft User - 02/17/2021 11:37 AM CDTHISTORY: Urinary infection versus retained products.TECHNIQUE: Real-time transabdominal ultrasound guidance was provided by thetechnologist in OR while D&C procedure was performed by Dr. Rosario.FINDINGS: Numerous radiopaque clips along with postprocedural images aresubmitted.Real-time images showed DNC procedure in progress. Postprocedural imagesshowed distended uterine cavity, likely due to hemorrhage.CONCLUSIONS: Real-time intraoperative ultrasound guidance provided byultrasound technologist. Final images show distended uterine cavity due tohemorrhage.[facility] 15:55:57Lorenzo Bhardwaj CRNA ? ? 02/17/2021 10:56 AMIntubationDate/Time: 02/17/2021 10:56 AMUrgency: electiveAirway not difficult General Information and Staff Patient location during procedure: ORResident/SPLICER APPRENTICE: Lorenzo Bhardwaj CRNA Indications and Patient ConditionIndications for airway management: anesthesiaSpontaneous ventilation: presentSedation level: deepPreoxygenated: yesPatient position: sniffingMILS maintained throughoutMask difficulty assessment: 1 - vent by maskNo planned trial extubation Final Airway DetailsFinal airway type: supraglottic airway Successful airway: Supraglottic airway: I-GEL.Size 3Airway Seal Pressure (cm H2O): 20 Number of attempts at approach: 1Ventilation between attempts: noneNumber of other approaches attempted: [facility]Un[facility] and [facility] - ONCE [id number] 20:49:50 Test Item Value Reference Range Interpretation Comments ABO & RH (test code O Positive Performe d at [facility] = 20) Laboratory [facility] [address] [place] [id number] Free: [phone] A No. [id number] IAT (test code = Negative Performed a t [facility] 1185) Laboratory [facility] [place], [place] [address]Toll Free: [phone] A No. [id number] [facility] - ONCE [id number] 20:49:50 Test Item Value Reference Range Interpretation Comments ABO & RH (test code O Positive Performe d at [facility] = 20) Laboratory [facility] [place], [place] [address]Toll Free: [phone] A No. [id number] IAT (test code = Negative Performed a t [facility] 1185) Laboratory [facility] Blood [place] [address]Toll Free: [phone] A No. [id number] [facility]Type [facility] - ONCE [id number] 20:49:50 Test Item Value Reference Range Interpretation Comments ABO & RH (test code O Positive Performe d at [facility] = 20) Laboratory [facility] Blood [place] [address]Toll Free: [phone] A No. [id number] IAT (test code = Negative Performed a t [facility] 1185) Laboratory [facility] Blood [place] [address]Toll Free: [phone] A No. [id number] [facility] (ID NOW RAPID TESTING)2021-02-16 20:32:15 Test Item Value Reference Range Interpretation Comments SARS-CoV-2 Rapid ID NOW Not Detected Not Detected (test code = 08686-8) HANH (test code = HANH) ID NOW COVID-19 Assay is an isothermal nucleic acid amplification test intended for the qualitative detection of nucleic acid from SARS-CoV-2 viral RNA in nasopharyngeal (BATCH TANK CONTROLLER) specimens. It is used under Emergency Use Authorization (EUA) by FDA. The limit of detection (LOD) of the assay is 125 Genome Equivalents/mL. A positive result is indicative of the presence of SARS-CoV-2 RNA. ?Clinical correlation with patient history and other diagnostic information is necessary to determine patient infection status. A negative (Not Detected) result does not preclude SARS-CoV-2 infection. In patients with clinical symptoms and other tests that are consistent with SARS-CoV-2 infection, negative results should be treated as presumptive negative and a new specimen should be tested with alternative PCR molecular test. Invalid: Please collect a new specimen for repeat patient testing if clinically indicated. Lab Interpretation Normal (test code = 05880-2) [facility]ID [facility])2021-02-16 20:32:15 Test Item Value Reference Range Interpretation Comments SARS-CoV-2 Rapid ID NOW Not Detected Not Detected (test code = 61491-7) HANH (test code = HANH) ID NOW COVID-19 Assay is an isothermal nucleic acid amplification test intended for the qualitative detection of nucleic acid from SARS-CoV-2 viral RNA in nasopharyngeal (BATCH TANK CONTROLLER) specimens. It is used under Emergency Use Authorization (EUA) by FDA. The limit of detection (LOD) of the assay is 125 Genome Equivalents/mL. A positive result is indicative of the presence of SARS-CoV-2 RNA. ?Clinical correlation with patient history and other diagnostic information is necessary to determine patient infection status. A negative (Not Detected) result does not preclude SARS-CoV-2 infection. In patients with clinical symptoms and other tests that are consistent with SARS-CoV-2 infection, negative results should be treated as presumptive negative and a new specimen should be tested with alternative PCR molecular test. Invalid: Please collect a new specimen for repeat patient testing if clinically indicated. Lab Interpretation Normal (test code = 49270-1) [facility]ID TEST[facility])2021-02-16 20:32:15 Test Item Value Reference Range Interpretation Comments SARS-CoV-2 Rapid ID NOW Not Detected Not Detected (test code = 47387-7) HANH (test code = HANH) ID NOW COVID-19 Assay is an isothermal nucleic acid amplification test intended for the qualitative detection of nucleic acid from SARS-CoV-2 viral RNA in nasopharyngeal (BATCH TANK CONTROLLER) specimens. It is used under Emergency Use Authorization (EUA) by FDA. The limit of detection (LOD) of the assay is 125 Genome Equivalents/mL. A positive result is indicative of the presence of SARS-CoV-2 RNA. ?Clinical correlation with patient history and other diagnostic information is necessary to determine patient infection status. A negative (Not Detected) result does not preclude SARS-CoV-2 infection. In patients with clinical symptoms and other tests that are consistent with SARS-CoV-2 infection, negative results should be treated as presumptive negative and a new specimen should be tested with alternative PCR molecular test. Invalid: Please collect a new specimen for repeat patient testing if clinically indicated. Lab Interpretation Normal (test code = 65584-4) [facility] PELVIS COMPLETE WITH [id number] 19:35:41 uterus with heterogenous nonvascular material within endometrialcavity which may represent blood clot or nonvascular retained products ofconception. There is no significant fluid collectionin the endometrialcanal or increased vascularity, however early endometritis cannot excluded. TRANSABDOMINAL AND TRANSVAGINAL PELVIC ULTRASOUND HISTORY: day 6 with fever concern for infection or endometritis COMPARISON: None. TECHNIQUE: Transvaginal and limited transabdominal sonography of the pelviswas performed. FINDINGS: The uterus is enlarged compatible with state and measures 10 x4.8 x 14.2 cm. The endometrial stripe measures 1.3 cm. Minimal fluid is seen inendometrial canal with nonvascular 3.0 x 1.1 x 2.2 cm heterogeneousmaterial in the lower uterine segment which may represent avascularretained products of conception or blood product. The right ovary measures 2.0 x 2.4 x 2.4 cm. No adnexal masses.The left ovary measures 2.4 x 1.2 x 2.4 cm. No adnexal masses. ? No fluid is present in the cul-de-sac. ? [facility], Radiant Results Inft User - 02/16/2021 2:36 PM CDTTRANSABDOMINAL AND TRANSVAGINAL PELVIC ULTRASOUNDHISTORY: day 6 with fever concern for infection or endometritis COMPARISON: None.TECHNIQUE: Transvaginal and limited transabdominal sonography of the pelviswas performed.FINDINGS: The uterus is enlarged compatible with state and measures 10 x4.8 x 14.2 cm. The endometrial stripe measures 1.3 cm. Minimal fluid is seen inendometrial canal withnonvascular 3.0 x 1.1 x 2.2 cm heterogeneousmaterial in the lower uterine segment which may represent avascularretained products of conception or blood product. The right ovary measures 2.0 x 2.4 x 2.4cm. No adnexal masses.The left ovary measures 2.4 x 1.2 x 2.4 cm. No adnexal masses. No fluid is present in the cul-de-sac. IMPRESSIONPostpartum uterus with heterogenous nonvascular material within endometrialcavity which may represent blood clot or nonvascular retained products ofconception. There isno significant fluid collection in the endometrialcanal or increased vascularity, however early endometritis cannot excluded.[facility] PELVIS COMPLETE WITH TRANSVAGINAL 2021-02-16 19:35:41 uterus with heterogenous nonvascular material within endometrialcavity which may represent blood clot or nonvascular retained products ofconception. There is no significant fluid collectionin the endometrialcanal or increased vascularity, however early endometritis cannot excluded. TRANSABDOMINAL AND TRANSVAGINAL PELVIC ULTRASOUND HISTORY: day 6 with fever concern for infection or endometritis COMPARISON: None. TECHNIQUE: Transvaginal and limited transabdominal sonography of the pelviswas performed. FINDINGS: The uterus is enlarged compatible with state and measures 10 x4.8 x 14.2 cm. The endometrial stripe measures 1.3 cm. Minimal fluid is seen inendometrial canal with nonvascular 3.0 x 1.1 x 2.2 cm heterogeneousmaterial in the lower uterine segment which may represent avascularretained products of conception or blood product. The right ovary measures 2.0 x 2.4 x 2.4 cm. No adnexal masses.The left ovary measures 2.4 x 1.2 x 2.4 cm. No adnexal masses. ? No fluid is present in the cul-de-sac. ? [facility], Radiant Results Inft User - 02/16/2021 2:36 PM CDTTRANSABDOMINAL AND TRANSVAGINAL PELVIC ULTRASOUNDHISTORY: day 6 with fever concern for infection or endometritis COMPARISON: None.TECHNIQUE: Transvaginal and limited transabdominal sonography of the pelviswas performed.FINDINGS: The uterus is enlarged compatible with state and measures 10 x4.8 x 14.2 cm. The endometrial stripe measures 1.3 cm. Minimal fluid is seen inendometrial canal withnonvascular 3.0 x 1.1 x 2.2 cm heterogeneousmaterial in the lower uterine segment which may represent avascularretained products of conception or blood product. The right ovary measures 2.0 x 2.4 x 2.4cm. No adnexal masses.The left ovary measures 2.4 x 1.2 x 2.4 cm. No adnexal masses. No fluid is present in the cul-de-sac. IMPRESSIONPostpartum uterus with heterogenous nonvascular material within endometrialcavity which may represent blood clot or nonvascular retained products ofconception. There isno significant fluid collection in the endometrialcanal or increased vascularity, however early endometritis cannot excluded.[facility] PELVIS COMPLETE WITH TRANSVAGINAL 2021-02-16 19:35:41 uterus with heterogenous nonvascular material within endometrialcavity which may represent blood clot or nonvascular retained products ofconception. There is no significant fluid collectionin the endometrialcanal or increased vascularity, however early endometritis cannot excluded. TRANSABDOMINAL AND TRANSVAGINAL PELVIC ULTRASOUND HISTORY: day 6 with fever concern for infection or endometritis COMPARISON: None. TECHNIQUE: Transvaginal and limited transabdominal sonography of the pelviswas performed. FINDINGS: The uterus is enlarged compatible with state and measures 10 x4.8 x 14.2 cm. The endometrial stripe measures 1.3 cm. Minimal fluid is seen inendometrial canal with nonvascular 3.0 x 1.1 x 2.2 cm heterogeneousmaterial in the lower uterine segment which may represent avascularretained products of conception or blood product. The right ovary measures 2.0 x 2.4 x 2.4 cm. No adnexal masses.The left ovary measures 2.4 x 1.2 x 2.4 cm. No adnexal masses. ? No fluid is present in the cul-de-sac. ? [facility], Radiant Results Inft User - 02/16/2021 2:36 PM CDTTRANSABDOMINAL AND TRANSVAGINAL PELVIC ULTRASOUNDHISTORY: day 6 with fever concern for infection or endometritis COMPARISON: None.TECHNIQUE: Transvaginal and limited transabdominal sonography of the pelviswas performed.FINDINGS: The uterus is enlarged compatible with state and measures 10 x4.8 x 14.2 cm. The endometrial stripe measures 1.3 cm. Minimal fluid is seen inendometrial canal withnonvascular 3.0 x 1.1 x 2.2 cm heterogeneousmaterial in the lower uterine segment which may represent avascularretained products of conception or blood product. The right ovary measures 2.0 x 2.4 x 2.4cm. No adnexal masses.The left ovary measures 2.4 x 1.2 x 2.4 cm. No adnexal masses. No fluid is present in the cul-de-sac. IMPRESSIONPostpartum uterus with heterogenous nonvascular material within endometrialcavity which may represent blood clot or nonvascular retained products ofconception. There isno significant fluid collection in the endometrialcanal or increased vascularity, however early endometritis cannot excluded.[facility] WITH [id number] 17:49:39 Test Item Value Reference Range Interpretation Comments WBC (test code = See_Comment H [Automated 9990-2) message] The system which generated this result transmitted reference range : 4.30 - 11.10 10*3/?L. The reference range was not used to interpret this result as normal/abnormal . RBC (test code = See_Comment [Automated 609-8) message] The system which generated this result transmitted reference range : 3.93 - 5.25 10*6/?L. The reference range was not used to interpret this result as normal/abnormal . HGB (test code = 13.3 g/dL 11.6-15.0 718-7) HCT (test code = 39.3 % 35.7-45.2 4544-3) MCV (test code = 89.3 fL 80.6-95.5 787-2) MCH (test code = 30.2 pg 25.9-32.8 785-6) MCHC (test code = 33.8 g/dL 31.6-35.1 786-4) RDW-SD (test code = 42.7 fL 39.0-49.9 99991-3) RDW-CV (test code = 13.1 % 12.0-15.5 788-0) PLT (test code = See_Comment [Automated 067-3) message] The system which generated this result transmitted reference range : 166 - 358 10*3/?L. The reference range was not used to interpret this result as normal/abnormal . MPV (test code = 10.2 fL 9.5-12.9 65588-7) NRBC/100 WBC (test See_Comment [Automat ed code = 2329248354) message] The system which generated this result transmitted reference range : 0.0 - 10.0 /100 WBCs. The reference range was not used to interpret this result as normal/abnormal . NRBC x10^3 (test code <0.01 See_Comment [Auto mated = 0384332449) message] The system which generated this result transmitted reference range : 10*3/?L. The reference range was not used to interpret this result as normal/abnormal . GRAN MAT (NEUT) % 90.8 % (test code = 770-8) IMM GRAN % (test code 1.10 % = 8596960396) LYMPH % (test code = 1.8 % 736-9) MONO % (test code = 5.7 % 5905-5) EOS % (test code = 0.0 % 713-8) BASO % (test code = 0.6 % 706-2) GRAN MAT x10^3(ANC) 19.18 10*3/uL 1.88-7.09 H (test code = 8228411129) IMM GRAN x10^3 (test 0.23 10*3/uL 0.00-0.06 H code = 1576156518) LYMPH x10^3 (test 0.37 10*3/uL 1.32-3.29 L code = 731-0) MONO x10^3 (test code 1.20 10*3/uL 0.33-0.92 H = 742-7) EOS x10^3 (test code <0.03 0.03-0.39 L = 711-2) BASO x10^3 (test code 0.12 10*3/uL 0.01-0.07 H = 704-7) BANDS (test code = MARKED INCREASED A 8788162343) Lab Interpretation Abnormal (test code = 30568-4) [facility] WITH [id number] 17:49:39 Test Item Value Reference Range Interpretation Comments WBC (test code = See_Comment H [Automated 6690-2) message] The system which generated this result transmitted reference range : 4.30 - 11.10 10*3/?L. The reference range was not used to interpret this result as normal/abnormal . RBC (test code = See_Comment [Automated 789-8) message] The system which generated this result transmitted reference range : 3.93 - 5.25 10*6/?L. The reference range was not used to interpret this result as normal/abnormal . HGB (test code = 13.3 g/dL 11.6-15.0 718-7) HCT (test code = 39.3 % 35.7-45.2 4544-3) MCV (test code = 89.3 fL 80.6-95.5 787-2) MCH (test code = 30.2 pg 25.9-32.8 785-6) MCHC (test code = 33.8 g/dL 31.6-35.1 786-4) RDW-SD (test code = 42.7 fL 39.0-49.9 85723-0) RDW-CV (test code = 13.1 % 12.0-15.5 788-0) PLT (test code = See_Comment [Automated 777-3) message] The system which generated this result transmitted reference range : 166 - 358 10*3/?L. The reference range was not used to interpret this result as normal/abnormal . MPV (test code = 10.2 fL 9.5-12.9 27801-0) NRBC/100 WBC (test See_Comment [Automat ed code = 2612174743) message] The system which generated this result transmitted reference range : 0.0 - 10.0 /100 WBCs. The reference range was not used to interpret this result as normal/abnormal . NRBC x10^3 (test code <0.01 See_Comment [Auto mated = 8448769685) message] The system which generated this result transmitted reference range : 10*3/?L. The reference range was not used to interpret this result as normal/abnormal . GRAN MAT (NEUT) % 90.8 % (test code = 770-8) IMM GRAN % (test code 1.10 % = 1961254732) LYMPH % (test code = 1.8 % 736-9) MONO % (test code = 5.7 % 5905-5) EOS % (test code = 0.0 % 713-8) BASO % (test code = 0.6 % 706-2) GRAN MAT x10^3(ANC) 19.18 10*3/uL 1.88-7.09 H (test code = 7886652601) IMM GRAN x10^3 (test 0.23 10*3/uL 0.00-0.06 H code = 9514745038) LYMPH x10^3 (test 0.37 10*3/uL 1.32-3.29 L code = 731-0) MONO x10^3 (test code 1.20 10*3/uL 0.33-0.92 H = 742-7) EOS x10^3 (test code <0.03 0.03-0.39 L = 711-2) BASO x10^3 (test code 0.12 10*3/uL 0.01-0.07 H = 704-7) BANDS (test code = MARKED INCREASED A 7693690057) Lab Interpretation Abnormal (test code = 37158-1) [facility]. METABOLIC PANEL ([id number])2021-02-16 16:57:34 Test Item Value Reference Range Interpretation Comments NA (test code = 138 mmol/L 135-145 1542935031) K (test code = 3.5 mmol/L 3.5-5.0 2025400086) CL (test code = 107 mmol/L 98-108 1168525150) CO2 TOTAL (test code = 17 mmol/L 23-31 L 8583120168) AGAP (test code = 2-16 3370844822) BUN (test code = 16 mg/dL 7-23 8357976814) GLUCOSE (test code = 103 mg/dL 70-110 1221794840) CREATININE (test code = 0.62 mg/dL 0.50-1.04 3074856421) TOTAL BILI (test code = 0.5 mg/dL 0.1-1.4 2860259756) CALCIUM (test code = 9.6 mg/dL 8.6-10.6 8231544076) T PROTEIN (test code = 7.7 g/dL 6.3-8.2 0858460298) ALBUMIN (test code = 4.4 g/dL 3.5-5.0 2444840307) ALK PHOS (test code = 193 U/L 34-122 H 4987739369) ALTv (test code = 39 U/L 5-35 H 1742-6) AST(SGOT) (test code = 40 U/L 13-40 5732611004) eGFR (test code = mL/min/1.73m2 3113838097) HANH (test code = HANH) Association of Glomerular Filtration Rate (GFR) and Staging of Kidney Disease* + --+ --+ ------+| GFR (mL/min/1.73 m2) ?| With Kidney Damage ?| ?Without Kidney Damage+ --------+ --------+ +| ?>90 ?| ?Stage one ?| ? Normal ?+ ---+ ---+ -------+| ?60-89 ?| ?Stage two ?| ? Decreased GFR ? + --+ --+ ------+| ?30-59 ?| ?Stage three ?| ? Stage three ? + --+ --+ ------+| ?15-29 ?| ?Stage four ? | ? Stage four ?+ ---+ ---+ -------+| ?<15 (or dialysis) ? ?| ?Stage five ? | ? Stage five ?+ ---+ ---+ -------+ *Each stage assumes the associated GFR level has been in effect for at least three months. ?Stages 1 to 5, with or without kidney disease, indicate chronic kidney disease. Notes: Determination of stages one and two (with eGFR >59mL/min/1.73 m2) requires estimation of kidney damage for at least three months as defined by structural or functional abnormalities of the kidney, manifested by either:Pathological abnormalities or Markers of kidney damage (including abnormalities in the composition of the blood or urine or abnormalities in imaging tests). Lab Interpretation Abnormal (test code = 60305-9) [facility]. METABOLIC PANEL ([id number])2021-02-16 16:57:34 Test Item Value Reference Range Interpretation Comments NA (test code = 138 mmol/L 135-145 2466763774) K (test code = 3.5 mmol/L 3.5-5.0 5343211001) CL (test code = 107 mmol/L 98-108 6317203691) CO2 TOTAL (test code = 17 mmol/L 23-31 L 0214575158) AGAP (test code = 2-16 4804646946) BUN (test code = 16 mg/dL 7-23 0740481198) GLUCOSE (test code = 103 mg/dL 70-110 4574156499) CREATININE (test code = 0.62 mg/dL 0.50-1.04 2475720208) TOTAL BILI (test code = 0.5 mg/dL 0.1-1.9 6470845543) CALCIUM (test code = 9.6 mg/dL 8.6-10.6 0711857437) T PROTEIN (test code = 7.7 g/dL 6.3-8.2 4677312710) ALBUMIN (test code = 4.4 g/dL 3.5-5.0 1024110976) ALK PHOS (test code = 193 U/L 34-122 H 9363930295) ALTv (test code = 39 U/L 5-35 H 1742-6) AST(SGOT) (test code = 40 U/L 13-40 0664617810) eGFR (test code = mL/min/1.73m2 8373831291) HANH (test code = HANH) Association of Glomerular Filtration Rate (GFR) and Staging of Kidney Disease* + --+ --+ ------+| GFR (mL/min/1.73 m2) ?| With Kidney Damage ?| ?Without Kidney Damage+ --------+ --------+ +| ?>90 ?| ?Stage one ?| ? Normal ?+ ---+ ---+ -------+| ?60-89 ?| ?Stage two ?| ? Decreased GFR ? + --+ --+ ------+| ?30-59 ?| ?Stage three ?| ? Stage three ? + --+ --+ ------+| ?15-29 ?| ?Stage four ? | ? Stage four ?+ ---+ ---+ -------+| ?<15 (or dialysis) ? ?| ?Stage five ? | ? Stage five ?+ ---+ ---+ -------+ *Each stage assumes the associated GFR level has been in effect for at least three months. ?Stages 1 to 5, with or without kidney disease, indicate chronic kidney disease. Notes: Determination of stages one and two (with eGFR >59mL/min/1.73 m2) requires estimation of kidney damage for at least three months as defined by structural or functional abnormalities of the kidney, manifested by either:Pathological abnormalities or Markers of kidney damage (including abnormalities in the composition of the blood or urine or abnormalities in imaging tests). Lab Interpretation Abnormal (test code = 99725-0) [facility]. METABOLIC PANEL ([id number])2021-02-16 16:57:34 Test Item Value Reference Range Interpretation Comments NA (test code = 138 mmol/L 135-145 5179001412) K (test code = 3.5 mmol/L 3.5-5.0 1460786756) CL (test code = 107 mmol/L 98-108 0860572742) CO2 TOTAL (test code = 17 mmol/L 23-31 L 2440851869) AGAP (test code = 2-16 2191816018) BUN (test code = 16 mg/dL 7-23 1847899177) GLUCOSE (test code = 103 mg/dL 70-110 0506442928) CREATININE (test code = 0.62 mg/dL 0.50-1.04 1197556742) TOTAL BILI (test code = 0.5 mg/dL 0.1-1.7 3242289057) CALCIUM (test code = 9.6 mg/dL 8.6-10.6 7758642722) T PROTEIN (test code = 7.7 g/dL 6.3-8.2 1949892115) ALBUMIN (test code = 4.4 g/dL 3.5-5.0 4795686947) ALK PHOS (test code = 193 U/L 34-122 H 3846786719) ALTv (test code = 39 U/L 5-35 H 1742-6) AST(SGOT) (test code = 40 U/L 13-40 3221411627) eGFR (test code = mL/min/1.73m2 2184899934) HANH (test code = HANH) Association of Glomerular Filtration Rate (GFR) and Staging of Kidney Disease* + --+ --+ ------+| GFR (mL/min/1.73 m2) ?| With Kidney Damage ?| ?Without Kidney Damage+ --------+ --------+ +| ?>90 ?| ?Stage one ?| ? Normal ?+ ---+ ---+ -------+| ?60-89 ?| ?Stage two ?| ? Decreased GFR ? + --+ --+ ------+| ?30-59 ?| ?Stage three ?| ? Stage three ? + --+ --+ ------+| ?15-29 ?| ?Stage four ? | ? Stage four ?+ ---+ ---+ -------+| ?<15 (or dialysis) ? ?| ?Stage five ? | ? Stage five ?+ ---+ ---+ -------+ *Each stage assumes the associated GFR level has been in effect for at least three months. ?Stages 1 to 5, with or without kidney disease, indicate chronic kidney disease. Notes: Determination of stages one and two (with eGFR >59mL/min/1.73 m2) requires estimation of kidney damage for at least three months as defined by structural or functional abnormalities of the kidney, manifested by either:Pathological abnormalities or Markers of kidney damage (including abnormalities in the composition of the blood or urine or abnormalities in imaging tests). Lab Interpretation Abnormal (test code = 53467-3) [facility] Test Item Value Reference Range Interpretation Comments APPEARANCE (test code = Hazy Clear A 3869186252) COLOR (test code = Yellow Yellow 3030573805) PH (test code = 4.8-8.0 0946246451) SP GRAVITY (test code = 1.003-1.030 5251035841) GLU U QUAL (test code = Normal Normal 8319289845) BLOOD (test code = 2+ Negative A 1774648891) KETONES (test code = 20 mg/dL Negative A 1972346764) PROTEIN (test code = Negative Negative 2887-8) UROBILIN (test code = Normal Normal 3487178028) BILIRUBIN (test code = Negative Negative 5760996188) NITRITE (test code = Negative Negative 5265770176) LEUK EDITH (test code = 75/uL Negative A 4692110256) RBC/HPF (test code = See_Comment H [Autom ated message] 3803741068) The system [employer] generated this result transmitted ref erence range: 0 - 3 HP F. The reference range was not used to int erpret this result as normal/abnormal . WBC/HPF (test code = See_Comment H [Autom ated message] 0089254281) The system [employer] generated this result transmitted ref erence range: 0 - 5 HP F. The reference range was not used to int erpret this result as normal/abnormal . BACTERIA (test code = Few Negative A 4837841233) MUCOUS (test code = Slight Negative LPF A 6470378011) SQ EPITH (test code = HPF 1496110031) Lab Interpretation (test Abnormal code = 53873-8) [facility] Test Item Value Reference Range Interpretation Comments APPEARANCE (test code = Hazy Clear A 3022845491) COLOR (test code = Yellow Yellow 8731008122) PH (test code = 4.8-8.0 5747566660) SP GRAVITY (test code = 1.003-1.030 2969755529) GLU U QUAL (test code = Normal Normal 6327896014) BLOOD (test code = 2+ Negative A 8560564547) KETONES (test code = 20 mg/dL Negative A 0113796262) PROTEIN (test code = Negative Negative 2887-8) UROBILIN (test code = Normal Normal 1576761594) BILIRUBIN (test code = Negative Negative 0681337453) NITRITE (test code = Negative Negative 4566082693) LEUK EDITH (test code = 75/uL Negative A 8288526511) RBC/HPF (test code = See_Comment H [Autom ated message] 2228405469) The system [employer] generated this result transmitted ref erence range: 0 - 3 HP F. The reference range was not used to int erpret this result as normal/abnormal . WBC/HPF (test code = See_Comment H [Autom ated message] 5400714901) The system [employer] generated this result transmitted ref erence range: 0 - 5 HP F. The reference range was not used to int erpret this result as normal/abnormal . BACTERIA (test code = Few Negative A 1541101643) MUCOUS (test code = Slight Negative LPF A 8317325139) SQ EPITH (test code = HPF 7487152294) Lab Interpretation (test Abnormal code = 88684-0) [facility]11 Test Item Value Reference Range Interpretation Comments APPEARANCE (test code = Hazy Clear A 4380023432) COLOR (test code = Yellow Yellow 9415814589) PH (test code = 4.8-8.0 6280904251) SP GRAVITY (test code = 1.003-1.030 7631657958) GLU U QUAL (test code = Normal Normal 1301987967) BLOOD (test code = 2+ Negative A 4168152194) KETONES (test code = 20 mg/dL Negative A 9102184465) PROTEIN (test code = Negative Negative 2887-8) UROBILIN (test code = Normal Normal 8510996739) BILIRUBIN (test code = Negative Negative 4616231627) NITRITE (test code = Negative Negative 6216423072) LEUK EDITH (test code = 75/uL Negative A 1396336830) RBC/HPF (test code = See_Comment H [Autom ated message] 1174714797) The system [employer] generated this result transmitted ref erence range: 0 - 3 HP F. The reference range was not used to int erpret this result as normal/abnormal . WBC/HPF (test code = See_Comment H [Autom ated message] 6169154075) The system [employer] generated this result transmitted ref erence range: 0 - 5 HP F. The reference range was not used to int erpret this result as normal/abnormal . BACTERIA (test code = Few Negative A 9624691499) MUCOUS (test code = Slight Negative LPF A 8462091944) SQ EPITH (test code = HPF 3364751812) Lab Interpretation (test Abnormal code = 69564-5) [facility] Ptppy8460-02-00 16:24:19 Test Item Value Reference Range Interpretation Comments LACTIC ACID (test code = 1.62 mmol/L 0.50-2.20 1913750511) Lab Interpretation (test code = Normal 93027-9) [facility] Aaoqc9691-05-29 16:24:19 Test Item Value Reference Range Interpretation Comments LACTIC ACID (test code = 1.62 mmol/L 0.50-2.20 2432449180) Lab Interpretation (test code = Normal 78239-9) [facility] [id number] 16:24:19 Test Item Value Reference Range Interpretation Comments LACTIC ACID (test code = 1.62 mmol/L 0.50-2.20 3783817960) Lab Interpretation (test code = Normal 12679-1) [facility] [id number] 13:38:42COVID DMT InterpretationInterpretation/Recommendation: Molecular NAAT Tests for Active Infection with the SARS-CoV-2 Virus: The patient has currently tested negative for the SARS-CoV-2 virus that causes COVID-19 illness. This most likely indicates that the patient does not have an active infection with the SARS-CoV-2 virus. However, infection is not completely ruled out as the false negative rate formolecular NAAT testing using a nasopharyngeal sample can be up to 30%, mostly dependent on the timing of sample collection in relation to illness onset and any deficiencies in sampling techniques. If the patient has symptoms concerning for COVID-19 illness, a repeat NAAT test (PCR, Rapid ID Now, etc.)should be performed, at which time the SARS-CoV-2 virus - if present - may have reached a detectableviral load (usually peaking by the end of the first week of symptoms). Tests for IgM and/or IgG Antibodies to the SARS-CoV-2 Virus: The patient has tested negative for SARS-CoV-2 IgG antibodies. In thecontext of a negative molecular NAAT test (PCR, Rapid ID Now, etc.), this most likely indicates thatthe patient has not been infected with the SARS-CoV-2 virus. If the patient develops COVID-19 illness in the future, testing for IgG antibodies approximately 3 weeks after illness onset will likely indicate whether the patient has produced antibodies to the SARS-CoV-2 virus. However, some patients maytake longer to develop detectable antibodies, while some patients who were infected with SARS-CoV-2 may never develop antibodies. While IgG antibodies to SARS-CoV-2 may provide some degree of immunity,at this time the strength and duration of the antibody response is unknown. Interpretation Result Comments:These interpretation comments are based upon all COVID-19 testing the patient has had at [facility], including molecular NAAT testing (more commonly known as PCR testing and Rapid ID Now testing) and antibody testing. It does nottake into account any testing that a patient has had outside of the [facility] medical record. [facility] LABORATORY SERVICESCOVID NlrzociEJQI-NzE-5 Rapid ID NOW (no units) ? ? Date ? Value ? 02/09/2021 ? Not Detected ? CoV-2 IgG (no units) ? ? Date ? Value ? 01/20/2021 ? Negative ? 07/14/2020 ? Negative ? ? ? [facility]Un[facility] QTHTCYJWSUKEIA9715-16-39 13:38:42COVID DMT InterpretationInterpretation/Recommendation: Molecular NAAT Tests for Active Infection with the SARS-CoV-2 Virus: The patient has currently tested negative for the SARS-CoV-2 virus that causes COVID-19 illness. This most likely indicates that the patient does not have an active infection with the SARS-CoV-2 virus. However, infection is not completely ruled out as the false negative rate formolecular NAAT testing using a nasopharyngeal sample can be up to 30%, mostly dependent on the timing of sample collection in relation to illness onset and any deficiencies in sampling techniques. If the patient has symptoms concerning for COVID-19 illness, a repeat NAAT test (PCR, Rapid ID Now, etc.)should be performed, at which time the SARS-CoV-2 virus - if present - may have reached a detectableviral load (usually peaking by the end of the first week of symptoms). Tests for IgM and/or IgG Antibodies to the SARS-CoV-2 Virus: The patient has tested negative for SARS-CoV-2 IgG antibodies. In thecontext of a negative molecular NAAT test (PCR, Rapid ID Now, etc.), this most likely indicates that the patient has not been infected with the SARS-CoV-2 virus. If the patient develops COVID-19 illness in the future, testing for IgG antibodies approximately 3 weeks after illness onset will likely indicate whether the patient has produced antibodies to the SARS-CoV-2 virus. However, some patients maytake longer to develop detectable antibodies, while some patients who were infected with SARS-CoV-2 may never develop antibodies. While IgG antibodies to SARS-CoV-2 may provide some degree of immunity,at this time the strength and duration of the antibody response is unknown. Interpretation Result Comments:These interpretation comments are based upon all COVID-19 testing the patient has had at [facility], including molecular NAAT testing (more commonly known as PCR testing and Rapid ID Now testing) and antibody testing. It does nottake into account any testing that a patient has had outside of the [facility] medical record. [facility] LABORATORY SERVICESCOVID WjjhhnhBANM-HhL-8 Rapid ID NOW (no units) ? ? Date ? Value ? 02/09/2021 ? Not Detected ? CoV-2 IgG (no units) ? ? Date ? Value ? 01/20/2021 ? Negative ? 07/14/2020 ? Negative ? ? ? [facility]Un[facility] with Vstwcerkydah0728-93-02 05:49:10 Test Item Value Reference Range Interpretation Comments WBC (test code = See_Comment H [Automated 6690-2) message] The system which generated this result transmit lenore reference range : 4.30 - 11.10 10*3/?L. The reference range was not used to interpret this result as normal/abnormal . RBC (test code = See_Comment L [Automated 789-8) message] The system which generated this result transmit lenore reference range : 3.93 - 5.25 10*6/?L. The reference range was not used to interpret this result as normal/abnormal . HGB (test code = 10.9 g/dL 11.6-15.0 L 718-7) HCT (test code = 32.8 % 35.7-45.2 L 4544-3) MCV (test code = 90.1 fL 80.6-95.5 787-2) MCH (test code = 29.9 pg 25.9-32.8 785-6) MCHC (test code = 33.2 g/dL 31.6-35.1 786-4) RDW-SD (test code = 43.5 fL 39.0-49.9 69058-4) RDW-CV (test code = 13.3 % 12.0-15.5 788-0) PLT (test code = See_Comment [Automated 777-3) message] The system which generated this result transmit lenore reference range : 166 - 358 10*3/ ?L. The reference range was not u sed to interpret th is result as normal/abnormal . MPV (test code = 11.4 fL 9.5-12.9 45864-0) NRBC/100 WBC (test See_Comment [Automat ed code = 6554140903) message] The system which generated this result transmit lenore reference range : 0.0 - 10.0 /100 WBCs. The reference range was not used to interpret this result as normal/abnormal . NRBC x10^3 (test code <0.01 See_Comment [Auto mated = [id number]) message] The system which generated this result transmit lenore reference range : 10*3/?L. The reference range was not used to interpret this result as normal/abnormal . GRAN MAT (NEUT) % 81.5 % (test code = 770-8) IMM GRAN % (test code 0.40 % = 3528251700) LYMPH % (test code = 10.9 % 736-9) MONO % (test code = 5.6 % 5905-5) EOS % (test code = 1.3 % 713-8) BASO % (test code = 0.3 % 706-2) GRAN MAT x10^3(ANC) 10.21 10*3/uL 1.88-7.09 H (test code = 7974503930) IMM GRAN x10^3 (test 0.05 10*3/uL 0.00-0.06 code = 6530333670) LYMPH x10^3 (test code 1.36 10*3/uL 1.32-3.29 = 731-0) MONO x10^3 (test code 0.70 10*3/uL 0.33-0.92 = 742-7) EOS x10^3 (test code = 0.16 10*3/uL 0.03-0.39 711-2) BASO x10^3 (test code 0.04 10*3/uL 0.01-0.07 = 704-7) Lab Interpretation Abnormal (test code = 58467-1) [facility] ONLY - SYPHILIS IGG/[id number] 13:52:50 Test Item Value Reference Range Interpretation Comments Syphilis IgG/IgM (test Non-reactive Non-reactive code = 78740-7) HANH (test code = HANH) Non-reactive - No serologic evidence of T. pallidum infection. Cannot exclude incubating or early syphilis. Submit a second specimen in 2-4 weeks if syphilis is clinically suspected. Equivocal - Further testing to follow. Reactive - Further testing to follow. Lab Interpretation (test Normal code = 31554-7) [facility] ONLY - SYPHILIS IGG/[id number] 13:52:50 Test Item Value Reference Range Interpretation Comments Syphilis IgG/IgM (test Non-reactive Non-reactive code = 96348-8) HANH (test code = HANH) Non-reactive - No serologic evidence of T. pallidum infection. Cannot exclude incubating or early syphilis. Submit a second specimen in 2-4 weeks if syphilis is clinically suspected. Equivocal - Further testing to follow. Reactive - Further testing to follow. Lab Interpretation (test Normal code = 53038-5) [facility] IMMUNE [id number] 13:44:54 Test Item Value Reference Range Interpretation Comments RHIG CANDIDATE? No- see comment Patient i s not a (test code = candidate for R hIg- 5055) Patient is Rh Positive.Perfor med at [facility] Laboratory Services - [facility] Blood [address] [place] [address]Grcr Free: [phone] A No. [id number] [facility]D) IMMUNE [id number] 13:44:54 Test Item Value Reference Range Interpretation Comments RHIG CANDIDATE? No- see comment Patient i s not a (test code = candidate for R hIg- 5055) Patient is Rh Positive.Perfor med at [facility] Laboratory Services - [facility] Blood [address] [place] [address]Ejne Free: [phone] A No. [id number] [facility]ARTER[facility] CORD [id number] 10:24:27 Test Item Value Reference Range Interpretation Comments BASE EXCESS, CORD mEq/L QUES (test code = 7465442191) AC PH, CORD (BEAKER) 7.18-7.38 (test code = 4717849985) PC02, CORD (test code See_Comment [Auto mated message] The = 4021257998) system which g enerated this result transmit lenore reference range : 32 - 66 mmHg. The refer ence range was not used to interpret this result as normal/abnormal . PO2, CORD (test code See_Comment [Autom ated message] The = 7270258340) system which g enerated this result transmit lenore reference range : 10 - 30 mmHg. The refer ence range was not used to interpret this result as normal/abnormal . BICARBONATE, CORD See_Comment [Automate d message] The (test code = system which ge nerated this 5031088430) result transmit lenore reference range : 17 - 27 mEq/L. The refe rence range was not used to interpret this result as normal/abnormal . [facility] CORD [id number] 10:24:27 Test Item Value Reference Range Interpretation Comments BASE EXCESS, CORD mEq/L QUES (test code = 9536868484) AC PH, CORD (BEAKER) 7.18-7.38 (test code = 3753468703) PC02, CORD (test code See_Comment [Auto mated message] The = 9230929709) system which g enerated this result transmit lenore reference range : 32 - 66 mmHg. The refer ence range was not used to interpret this result as normal/abnormal . PO2, CORD (test code See_Comment [Autom ated message] The = 6347883352) system which g enerated this result transmit lenore reference range : 10 - 30 mmHg. The refer ence range was not used to interpret this result as normal/abnormal . BICARBONATE, CORD See_Comment [Automate d message] The (test code = system which ge nerated this 3194930053) result transmit lenore reference range : 17 - 27 mEq/L. The refe rence range was not used to interpret this result as normal/abnormal . [facility] CORD [id number] 10:21:04 Test Item Value Reference Range Interpretation Comments VENOUS BASE EXCESS, mEq/L CORD (test code = 7903646504) VENOUS PH, CORD (test 7.25-7.45 code = 2559998853) VENOUS PC02, CORD See_Comment [Automate d message] The (test code = system which ge nerated 1148318420) this result tra nsmitted reference range : 27 - 49 mmHg. The refer ence range was not used to interpret this result as normal/abnormal . VENOUS PO2, CORD (test See_Comment [Aut omated message] The code = 0579803813) system wh [facility] generated this result tra nsmitted reference range : 17 - 41 mmHg. The refer ence range was not used to interpret this result as normal/abnormal . VENOUS BICARBONATE, See_Comment QUES [Au tomated message] CORD (test code = The system which generated 6252004083) this result tra nsmitted reference range : 12 - 29 mEq/L. The refe rence range was not used to interpret this result as normal/abnormal . [facility] CORD [id number] 10:21:04 Test Item Value Reference Range Interpretation Comments VENOUS BASE EXCESS, mEq/L CORD (test code = 9292335586) VENOUS PH, CORD (test 7.25-7.45 code = 4181344507) VENOUS PC02, CORD See_Comment [Automate d message] The (test code = system which ge nerated 3713546812) this result tra nsmitted reference range : 27 - 49 mmHg. The refer ence range was not used to interpret this result as normal/abnormal . VENOUS PO2, CORD (test See_Comment [Aut omated message] The code = 4519267150) system wh ich generated this result tra nsmitted reference range : 17 - 41 mmHg. The refer ence range was not used to interpret this result as normal/abnormal . VENOUS BICARBONATE, See_Comment QUES [Au tomated message] CORD (test code = The system which generated 1472853866) this result tra nsmitted reference range : 12 - 29 mEq/L. The refe rence range was not used to interpret this result as normal/abnormal . [facility] [id number] 20:42:40 Fransisco Marcum MD ? ? 02/09/2021 ?3:43 PM Central Neuraxial Block Performed by: Fransisco Marcum MDAuthorized by: Jass Naik MD Start Time: ?02/09/2021 3:42 PMEnd Time: ?02/09/2021 3:42 PMReason for Block: ?Labor analgesiaStaff: ?Anesthesiologist: ?Jass Naik MD ?Resident/SPLICER APPRENTICE: ?Joshua Ford MD ?Performed by: ?Resident/SPLICER APPRENTICE patient identified, IV checked, risks and benefits explained, monitors and equipment checked, timeout performed, ob surgical consent/approval, pre-op evaluation, surgical consent, site marked and anesthesia consentEpidural: ?Patient Position: ?Sitting ?Prep: Betadine ? ?Monitoring: ?Heart rate, continuous pulse ox, NIBP and heart rate / toco ?Location: ?Lumbar (1-5) ?Lumbar: ?L3-L4 ?Approach: ?MidlineNeedle and Epidural Catheter: ?Epidural Kit: ?BBraun ?Needle Type: ?Tuohy ?Needle Length: ?3.5 in (8.89 cm) ?Needle Insertion Depth: ?4.5 Notes: ?Attempt x1. Negative aspiration x 3. Negative test dose.[facility] HospitalProtein CREAT Ratio Urine [id number] 19:53:11 Test Item Value Reference Range Interpretation Comments T. PROT U (test code = 2888-6) 11 mg/dL CREAT U (test code = 3636396477) 49.8 mg/dL Protein/Creatinine Ratio Urine 0.0-2.0 (test code = 7715151460) [facility] Ratio Urine [id number] 19:53:11 Test Item Value Reference Range Interpretation Comments T. PROT U (test code = 2888-6) 11 mg/dL CREAT U (test code = 5666436017) 49.8 mg/dL Protein/Creatinine Ratio Urine 0.0-2.0 (test code = 4481697494) [facility] HospitalUrinalysis2021-04-26 19:16:52 Test Item Value Reference Range Interpretation Comments APPEARANCE (test code = Clear Clear 8861783348) COLOR (test code = Straw Yellow A 9500741177) PH (test code = 4.8-8.0 9265180317) SP GRAVITY (test code = 1.003-1.030 3901345742) GLU U QUAL (test code = Normal Normal 8238965006) BLOOD (test code = 1+ Negative A 3329020608) KETONES (test code = Negative Negative 7607747563) PROTEIN (test code = Negative Negative 2887-8) UROBILIN (test code = Normal Normal 5102506821) BILIRUBIN (test code = Negative Negative 0090534504) NITRITE (test code = Negative Negative 5138156705) LEUK EDITH (test code = Negative Negative 0543375322) RBC/HPF (test code = See_Comment [Autom ated message] 4991309415) The system [employer] generated this result transmitted ref erence range: 0 - 3 HP F. The reference range was not used to int erpret this result as normal/abnormal . WBC/HPF (test code = See_Comment [Autom ated message] 6224782926) The system [employer] generated this result transmitted ref erence range: 0 - 5 HP F. The reference range was not used to int erpret this result as normal/abnormal . BACTERIA (test code = Negative Negative 8605979434) SQ EPITH (test code = See_Comment [Auto mated message] 4014933520) The system [employer] generated this result transmitted ref erence range: <=2 HPF. The reference range was not used to int erpret this result as normal/abnormal . Lab Interpretation (test Abnormal code = 06909-4) [facility] Szbngwtgoq8181-76-02 19:00:57 Test Item Value Reference Range Interpretation Comments CREATININE (test code 0.73 mg/dL 0.50-1.04 = 2622341182) eGFR (test code = mL/min/1.73m2 4305090868) HANH (test code = HANH) Association of Glomerular Filtration Rate (GFR) and Staging of Kidney Disease* + + +- +| GFR (mL/min/1.73 m2) ?| With Kidney Damage ?| ?Without Kidney Damage+ ------+ ----+ ------+| ?>90 ?| ?Stage one ?| ? Normal ?+ -+ + -+| ?60-89 ?| ?Stage two ?| ? Decreased GFR ? + + +- +| ?30-59 ?| ?Stage three ?| ? Stage three ? + + +- +| ?15-29 ?| ?Stage four ? | ? Stage four ?+ -+ + -+| ?<15 (or dialysis) ? ?| ?Stage five ? | ? Stage five ?+ -+ + -+ *Each stage assumes the associated GFR level has been in effect for at least three months. ?Stages 1 to 5, with or without kidney disease, indicate chronic kidney disease. Notes: Determination of stages one and two (with eGFR >59mL/min/1.73 m2) requires estimation of kidney damage for at least three months as defined by structural or functional abnormalities of the kidney, manifested by either:Pathological abnormalities or Markers of kidney damage (including abnormalities in the composition of the blood or urine or abnormalities in imaging tests). [facility] (Asparate Amino Transfer)2021-02-09 19:00:57 Test Item Value Reference Range Interpretation Comments AST(SGOT) (test code = 9697672924) 24 U/L 13-40 Lab Interpretation (test code = Normal 37640-1) [facility] HospitalAlanine Amino Transferase (SGPT)2021-02-09 19:00:57 Test Item Value Reference Range Interpretation Comments ALTv (test code = 1742-6) 12 U/L 5-35 Lab Interpretation (test code = Normal 38049-6) [facility] (Asparate Amino Transfer)2021-02-09 19:00:57 Test Item Value Reference Range Interpretation Comments AST(SGOT) (test code = 7561049296) 24 U/L 13-40 Lab Interpretation (test code = Normal 54657-9) [facility] Ewlvbggszs4135-71-12 19:00:57 Test Item Value Reference Range Interpretation Comments CREATININE (test code 0.73 mg/dL 0.50-1.04 = 5533211867) eGFR (test code = mL/min/1.73m2 3593889945) HANH (test code = HANH) Association of Glomerular Filtration Rate (GFR) and Staging of Kidney Disease* + + +- +| GFR (mL/min/1.73 m2) ?| With Kidney Damage ?| ?Without Kidney Damage+ ------+ ----+ ------+| ?>90 ?| ?Stage one ?| ? Normal ?+ -+ + -+| ?60-89 ?| ?Stage two ?| ? Decreased GFR ? + + +- +| ?30-59 ?| ?Stage three ?| ? Stage three ? + + +- +| ?15-29 ?| ?Stage four ? | ? Stage four ?+ -+ + -+| ?<15 (or dialysis) ? ?| ?Stage five ? | ? Stage five ?+ -+ + -+ *Each stage assumes the associated GFR level has been in effect for at least three months. ?Stages 1 to 5, with or without kidney disease, indicate chronic kidney disease. Notes: Determination of stages one and two (with eGFR >59mL/min/1.73 m2) requires estimation of kidney damage for at least three months as defined by structural or functional abnormalities of the kidney, manifested by either:Pathological abnormalities or Markers of kidney damage (including abnormalities in the composition of the blood or urine or abnormalities in imaging tests). [facility] (SGPT)2021-02-09 19:00:57 Test Item Value Reference Range Interpretation Comments ALTv (test code = 1742-6) 12 U/L 5-35 Lab Interpretation (test code = Normal 19049-1) [facility] HospitalUric Acid [id number] 19:00:56 Test Item Value Reference Range Interpretation Comments URIC ACID (test code = 1555849410) 5.9 mg/dL 2.9-6.0 Lab Interpretation (test code = Normal 84109-1) [facility] HospitalUric Acid [id number] 19:00:56 Test Item Value Reference Range Interpretation Comments URIC ACID (test code = 6281766711) 5.9 mg/dL 2.9-6.0 Lab Interpretation (test code = Normal 66006-9) [facility]HIV 1/2 AG-AB WITH [id number] 16:27:31 Test Item Value Reference Range Interpretation Comments HIV Negative Negative Semi-quantitative (test code = 06157-2) HANH (test code = Non-reactive for HIV-1 HANH) antigen and HIV-1/HIV-2 antibodies. ?No laboratory evidence of HIV infection. ?Repeat in 2-4 weeks if acute HIV infection is suspected. [facility] 1/2 AG-AB WITH [id number] 16:27:31 Test Item Value Reference Range Interpretation Comments HIV Negative Negative Semi-quantitative (test code = 30653-8) HANH (test code = Non-reactive for HIV-1 HANH) antigen and HIV-1/HIV-2 antibodies. ?No laboratory evidence of HIV infection. ?Repeat in 2-4 weeks if acute HIV infection is suspected. [facility] HospitalHepatitis B Surface [id number] 16:18:04 Test Item Value Reference Range Interpretation Comments HBsAg Semi-Quantitative (test code = Negative Negative 5195-3) [facility] B Surface [id number] 16:18:04 Test Item Value Reference Range Interpretation Comments HBsAg Semi-Quantitative (test code = Negative Negative 5195-3) [facility] HospitalType and Screen - ONCE [id number] 15:46:05 Test Item Value Reference Range Interpretation Comments ABO & RH (test code O POSITIVE Performe d at [facility] = 20) Laboratory Serv [facility] [address] [place] [address]Rpld Free: [phone] A No. [id number] IAT (test code = Negative Performed a t [facility] 1185) Laboratory Serv [facility] [address] [place], [place] [address]Chela mar [address]Ajpm Free: [phone] A No. [id number] [facility] with Yvrxcksfemhb1365-84-77 15:13:57 Test Item Value Reference Range Interpretation Comments WBC (test code = See_Comment [Automated 6690-2) message] The sy stem which generated this result transmitted reference range : 4.30 - 11.10 10*3/?L. The reference range was not used to interpret this result as normal/abnormal . RBC (test code = See_Comment [Automated 789-8) message] The sy stem which generated this result transmitted reference range : 3.93 - 5.25 10*6/?L. The reference range was not used to interpret this result as normal/abnormal . HGB (test code = 12.6 g/dL 11.6-15.0 718-7) HCT (test code = 36.6 % 35.7-45.2 4544-3) MCV (test code = 89.9 fL 80.6-95.5 787-2) MCH (test code = 31.0 pg 25.9-32.8 785-6) MCHC (test code = 34.4 g/dL 31.6-35.1 786-4) RDW-SD (test code = 42.8 fL 39.0-49.9 70036-0) RDW-CV (test code = 13.2 % 12.0-15.5 788-0) PLT (test code = See_Comment [Automated 777-3) message] The sy stem which generated this result transmitted reference range : 166 - 358 10*3/ ?L. The reference r gordo was not used to interpret this result as normal/abnormal . MPV (test code = 11.5 fL 9.5-12.9 61415-5) NRBC/100 WBC (test See_Comment [Automat ed code = 5016654725) message] The system which generated this result transmitted reference range : 0.0 - 10.0 /100 WBCs. The refer ence range was not u sed to interpret th is result as normal/abnormal . NRBC x10^3 (test code <0.01 See_Comment [Auto mated = 6344973154) message] The s ystem which generated this result transmitted reference range : 10*3/?L. The reference range was not used to interpret this result as normal/abnormal . GRAN MAT (NEUT) % 70.8 % (test code = 770-8) IMM GRAN % (test code 0.40 % = 6822038367) LYMPH % (test code = 15.2 % 736-9) MONO % (test code = 11.9 % 5905-5) EOS % (test code = 1.2 % 713-8) BASO % (test code = 0.5 % 706-2) GRAN MAT x10^3(ANC) 5.78 10*3/uL 1.88-7.09 (test code = 0747216188) IMM GRAN x10^3 (test 0.03 10*3/uL 0.00-0.06 code = 3706455288) LYMPH x10^3 (test code 1.24 10*3/uL 1.32-3.29 L = 731-0) MONO x10^3 (test code 0.97 10*3/uL 0.33-0.92 H = 742-7) EOS x10^3 (test code = 0.10 10*3/uL 0.03-0.39 711-2) BASO x10^3 (test code 0.04 10*3/uL 0.01-0.07 = 704-7) Lab Interpretation Abnormal (test code = 35019-4) [facility]COVID[facility] (ID NOW RAPID TESTING)2021-02-09 13:12:40 Test Item Value Reference Range Interpretation Comments SARS-CoV-2 Rapid ID NOW Not Detected Not Detected (test code = 73304-9) HANH (test code = HANH) ID NOW COVID-19 Assay is an isothermal nucleic acid amplification test intended for the qualitative detection of nucleic acid from SARS-CoV-2 viral RNA in nasopharyngeal (BATCH TANK CONTROLLER) specimens. It is used under Emergency Use Authorization (EUA) by FDA. The limit of detection (LOD) of the assay is 125 Genome Equivalents/mL. A positive result is indicative of the presence of SARS-CoV-2 RNA. ?Clinical correlation with patient history and other diagnostic information is necessary to determine patient infection status. A negative (Not Detected) result does not preclude SARS-CoV-2 infection. In patients with clinical symptoms and other tests that are consistent with SARS-CoV-2 infection, negative results should be treated as presumptive negative and a new specimen should be tested with alternative PCR molecular test. Invalid: Please collect a new specimen for repeat patient testing if clinically indicated. Lab Interpretation Normal (test code = 69894-1) [facility] URINALYSIS W SPECIFIC [id number] 21:12:00 Test Item Value Reference Range Interpretation Comments POCT U SP GRAV (test code = 3255) . 1.005-1.025 POCT PH U (test code = 3254) . 5-8 POCT U LEUK EST (test code = 3263) . Negative - Negative POCT U NIT (test code = 3262) . Negative - Negative POCT U PROT (test code = 3259) Trace Negative - Negative POCT U GLU (test code = 3256) Neg Negative - Negative POCT U KETONE (test code = 3258) . Negative - Negative POCT U UROBILI (test code = 3260) . 0.2-1 POCT U BILI (test code = 3261) . Negative - Negative POCT U BLD (test code = 3257) . Negative - Negative POCT U COLOR (test code = 3266) POCT U APPEAR (test code = 3267) [facility] URINALYSIS W SPECIFIC [id number] 21:12:00 Test Item Value Reference Range Interpretation Comments POCT U SP GRAV (test code = 3255) . 1.005-1.025 POCT PH U (test code = 3254) . 5-8 POCT U LEUK EST (test code = 3263) . Negative - Negative POCT U NIT (test code = 3262) . Negative - Negative POCT U PROT (test code = 3259) Trace Negative - Negative POCT U GLU (test code = 3256) Neg Negative - Negative POCT U KETONE (test code = 3258) . Negative - Negative POCT U UROBILI (test code = 3260) . 0.2-1 POCT U BILI (test code = 3261) . Negative - Negative POCT U BLD (test code = 3257) . Negative - Negative POCT U COLOR (test code = 3266) POCT U APPEAR (test code = 3267) [facility] HospitalGROUP B STREPTOCOCCUS BY [id number] 14:57:10 Test Item Value Reference Range Interpretation Comments Group B Streptococcus by PCR (test Negative Negative code = 09636-7) Lab Interpretation (test code = Normal 80961-2) [facility] HospitalGC & CHLAMYDIA AMPLIFIED [id number] 18:26:23 Test Item Value Reference Range Interpretation Comments C. trachomatis Nucleic Negative Negative Acid (test code = 49465-0) N. gonorrhoeae Nucleic Negative Negative Acid (test code = 58570-9) HANH (test code = HANH) Reliable results are dependent on adequate specimen collection. ? A positive result obtained from a patient after therapeutic treatment cannot be interpreted as indicating the presence of viable organisms. ?For patients on whom a false positive result may have adverse psychosocial impact, retesting is advised. Indeterminate: Unable to generate a valid test result on this specimen. ?Please submit a new specimen for repeat testing if clinically indicated. Chlamydia trachomatis/Neisseria gonorrhoeae nucleic acid amplification testing (NAAT) has not been validated for medico-legal specimens (sexual abuse in chelsea-pubertal and pre-pubertal children, sexual assault, and legal cases). ?Culture for Chlamydia trachomatis and/or Neisseria gonorrhoeae from clinically appropriate sites is the method of choice in these cases. ? Results from this testing should be interpreted in conjunction with other laboratory and clinical data available to the clinician.For females in general, a urine specimen is a second-line option because it is considered less sensitive than a cervical swab for Chlamydia trachomatis and/or Neisseria gonorrhoeae NAAT. Lab Interpretation Normal (test code = 43980-9) [facility] HospitalSARS-COV-2 [id number] 06:17:58 Test Item Value Reference Range Interpretation Comments CoV-2 IgG (test code Negative Negative Negativ e result = 77399-4) does not rule o ut acute SARS-CoV- 2 infection. Clinical correlation as well as molecul ar diagnostic test are recommended to rule out acu te infection if clinically indicated. HANH (test code = HANH) This test has been approved by FDA for emergency use. Lab Interpretation Normal (test code = 63301-1) [facility] W SPECIFIC [id number] 20:15:00 Test Item Value Reference Range Interpretation Comments POCT U SP GRAV (test code = 3255) . 1.005-1.025 POCT PH U (test code = 3254) . 5-8 POCT U LEUK EST (test code = 3263) . Negative - Negative POCT U NIT (test code = 3262) . Negative - Negative POCT U PROT (test code = 3259) Trace Negative - Negative POCT U GLU (test code = 3256) Neg Negative - Negative POCT U KETONE (test code = 3258) . Negative - Negative POCT U UROBILI (test code = 3260) . 0.2-1 POCT U BILI (test code = 3261) . Negative - Negative POCT U BLD (test code = 3257) . Negative - Negative POCT U COLOR (test code = 3266) POCT U APPEAR (test code = 3267) [facility] URINALYSIS W SPECIFIC [id number] 20:15:00 Test Item Value Reference Range Interpretation Comments POCT U SP GRAV (test code = 3255) . 1.005-1.025 POCT PH U (test code = 3254) . 5-8 POCT U LEUK EST (test code = 3263) . Negative - Negative POCT U NIT (test code = 3262) . Negative - Negative POCT U PROT (test code = 3259) Trace Negative - Negative POCT U GLU (test code = 3256) Neg Negative - Negative POCT U KETONE (test code = 3258) . Negative - Negative POCT U UROBILI (test code = 3260) . 0.2-1 POCT U BILI (test code = 3261) . Negative - Negative POCT U BLD (test code = 3257) . Negative - Negative POCT U COLOR (test code = 3266) POCT U APPEAR (test code = 3267) [facility] URINALYSIS W SPECIFIC [id number] 20:14:00 Test Item Value Reference Range Interpretation Comments POCT U SP GRAV (test code = 3255) . 1.005-1.025 POCT PH U (test code = 3254) . 5-8 POCT U LEUK EST (test code = 3263) . Negative - Negative POCT U NIT (test code = 3262) . Negative - Negative POCT U PROT (test code = 3259) Trace Negative - Negative POCT U GLU (test code = 3256) Neg Negative - Negative POCT U KETONE (test code = 3258) . Negative - Negative POCT U UROBILI (test code = 3260) . 0.2-1 POCT U BILI (test code = 3261) . Negative - Negative POCT U BLD (test code = 3257) . Negative - Negative POCT U COLOR (test code = 3266) POCT U APPEAR (test code = 3267) [facility] URINALYSIS W SPECIFIC [id number] 22:05:00 Test Item Value Reference Range Interpretation Comments POCT U SP GRAV (test code = . 1.005-1.025 3255) POCT PH U (test code = 3254) . 5-8 POCT U LEUK EST (test code = . Negative - Negative 3263) POCT U NIT (test code = 3262) . Negative - Negative POCT U PROT (test code = 3259) trace Negative - Negative POCT U GLU (test code = 3256) neg Negative - Negative POCT U KETONE (test code = 3258) . Negative - Negative POCT U UROBILI (test code = . 0.2-1 3260) POCT U BILI (test code = 3261) . Negative - Negative POCT U BLD (test code = 3257) . Negative - Negative POCT U COLOR (test code = 3266) POCT U APPEAR (test code = 3267) Lab Interpretation (test code = Abnormal 39126-6) [facility] URINALYSIS W SPECIFIC [id number] 21:54:00 Test Item Value Reference Range Interpretation Comments POCT U SP GRAV (test code = . 1.005-1.025 3255) POCT PH U (test code = 3254) . 5-8 POCT U LEUK EST (test code = . Negative - Negative 3263) POCT U NIT (test code = 3262) . Negative - Negative POCT U PROT (test code = 3259) trace Negative - Negative POCT U GLU (test code = 3256) neg Negative - Negative POCT U KETONE (test code = 3258) . Negative - Negative POCT U UROBILI (test code = . 0.2-1 3260) POCT U BILI (test code = 3261) . Negative - Negative POCT U BLD (test code = 3257) . Negative - Negative POCT U COLOR (test code = 3266) POCT U APPEAR (test code = 3267) Lab Interpretation (test code = Abnormal 97461-7) [facility] [id number] 04:46:00 Test Item Value Reference Range Interpretation Comments GLUC 1 HR (test code = 3827123569) 89 mg/dL 120-170 L Lab Interpretation (test code = Abnormal 35503-3) [facility] [id number] 04:21:00 Test Item Value Reference Range Interpretation Comments WBC (test code = See_Comment [Automated 2990-2) message] The sy stem which generated this result transmitted reference range : 4.30 - 11.10 10*3/?L. The reference range was not used to interpret this result as normal/abnormal . RBC (test code = See_Comment L [Automated 949-8) message] The sy stem which generated this result transmitted reference range : 3.93 - 5.25 10*6/?L. The reference range was not used to interpret this result as normal/abnormal . HGB (test code = 12.2 g/dL 11.6-15 718-7) HCT (test code = 36.5 % 35.7-45.2 4544-3) MCV (test code = 96.3 fL 80.6-95.5 H 787-2) MCH (test code = 32.2 pg 25.9-32.8 785-6) MCHC (test code = 33.4 g/dL 31.6-35.1 786-4) RDW-SD (test code = 42.7 fL 39-49.9 96975-6) RDW-CV (test code = 12.1 % 12-15.5 788-0) PLT (test code = See_Comment [Automated 217-3) message] The sy stem which generated this result transmitted reference range : 166 - 358 10*3/ ?L. The reference r gordo was not used to interpret this result as normal/abnormal . MPV (test code = 12.1 fL 9.5-12.9 37099-8) NRBC/100 WBC (test See_Comment [Automat ed code = [id number]) message] The system which generated this result transmitted reference range : 0.0 - 10.0 /100 WBCs. The refer ence range was not u sed to interpret th is result as normal/abnormal . NRBC x10^3 (test code <0.01 See_Comment [Auto mated = [id number]) message] The s ystem which generated this result transmitted reference range : 10*3/?L. The reference range was not used to interpret this result as normal/abnormal . GRAN MAT (NEUT) % 84.0 % (test code = 770-8) IMM GRAN % (test code 0.40 % = 9833423197) LYMPH % (test code = 9.3 % 736-9) MONO % (test code = 5.1 % 5905-5) EOS % (test code = 0.8 % 713-8) BASO % (test code = 0.4 % 706-2) GRAN MAT x10^3(ANC) 7.11 10*3/uL 1.88-7.09 H (test code = 0771329386) IMM GRAN x10^3 (test 0.03 10*3/uL 0-0.06 code = 4474781826) LYMPH x10^3 (test code 0.79 10*3/uL 1.32-3.29 L = 731-0) MONO x10^3 (test code 0.43 10*3/uL 0.33-0.92 = 742-7) EOS x10^3 (test code = 0.07 10*3/uL 0.03-0.39 711-2) BASO x10^3 (test code 0.03 10*3/uL 0.01-0.07 = 704-7) Lab Interpretation Abnormal (test code = 77091-2) [facility] [id number] 17:11:00 Test Item Value Reference Range Interpretation Comments POCT U SP GRAV (test code = 3255) . 1.005-1.025 POCT PH U (test code = 3254) . 5-8 POCT U LEUK EST (test code = 3263) . Negative - Negative POCT U NIT (test code = 3262) . Negative - Negative POCT U PROT (test code = 3259) trace Negative - Negative POCT U GLU (test code = 3256) neg Negative - Negative POCT U KETONE (test code = 3258) . Negative - Negative POCT U UROBILI (test code = 3260) . 0.2-1 POCT U BILI (test code = 3261) . Negative - Negative POCT U BLD (test code = 3257) . Negative - Negative POCT U COLOR (test code = 3266) POCT U APPEAR (test code = 3267) [facility] URINALYSIS W SPECIFIC [id number] 14:45:00 Test Item Value Reference Range Interpretation Comments POCT U SP GRAV (test code = . 1.005-1.025 3255) POCT PH U (test code = 3254) . 5-8 POCT U LEUK EST (test code = . Negative - Negative 3263) POCT U NIT (test code = 3262) . Negative - Negative POCT U PROT (test code = 3259) trace Negative - Negative POCT U GLU (test code = 3256) neg Negative - Negative POCT U KETONE (test code = 3258) . Negative - Negative POCT U UROBILI (test code = . 0.2-1 3260) POCT U BILI (test code = 3261) . Negative - Negative POCT U BLD (test code = 3257) . Negative - Negative POCT U COLOR (test code = 3266) POCT U APPEAR (test code = 3267) Lab Interpretation (test code = Abnormal 46243-4) [facility] URINALYSIS W SPECIFIC [id number] 14:28:00 Test Item Value Reference Range Interpretation Comments POCT U SP GRAV (test code = 3255) . 1.005-1.025 POCT PH U (test code = 3254) . 5-8 POCT U LEUK EST (test code = 3263) . Negative - Negative POCT U NIT (test code = 3262) . Negative - Negative POCT U PROT (test code = 3259) Trace Negative - Negative POCT U GLU (test code = 3256) Neg Negative - Negative POCT U KETONE (test code = 3258) . Negative - Negative POCT U UROBILI (test code = 3260) . 0.2-1 POCT U BILI (test code = 3261) . Negative - Negative POCT U BLD (test code = 3257) . Negative - Negative POCT U COLOR (test code = 3266) POCT U APPEAR (test code = 3267) [facility] URINALYSIS W SPECIFIC [id number] 14:28:00 Test Item Value Reference Range Interpretation Comments POCT U SP GRAV (test code = 3255) . 1.005-1.025 POCT PH U (test code = 3254) . 5-8 POCT U LEUK EST (test code = 3263) . Negative - Negative POCT U NIT (test code = 3262) . Negative - Negative POCT U PROT (test code = 3259) Trace Negative - Negative POCT U GLU (test code = 3256) Neg Negative - Negative POCT U KETONE (test code = 3258) . Negative - Negative POCT U UROBILI (test code = 3260) . 0.2-1 POCT U BILI (test code = 3261) . Negative - Negative POCT U BLD (test code = 3257) . Negative - Negative POCT U COLOR (test code = 3266) POCT U APPEAR (test code = 3267) [facility] URINALYSIS W SPECIFIC [id number] 14:27:00 Test Item Value Reference Range Interpretation Comments POCT U SP GRAV (test code = 3255) . 1.005-1.025 duplicate POCT PH U (test code = 3254) . 5-8 POCT U LEUK EST (test code = 3263) . Negative - Negative POCT U NIT (test code = 3262) . Negative - Negative POCT U PROT (test code = 3259) . Negative - Negative POCT U GLU (test code = 3256) . Negative - Negative POCT U KETONE (test code = 3258) . Negative - Negative POCT U UROBILI (test code = 3260) . 0.2-1 POCT U BILI (test code = 3261) . Negative - Negative POCT U BLD (test code = 3257) . Negative - Negative POCT U COLOR (test code = 3266) POCT U APPEAR (test code = 3267) [facility] URINALYSIS W SPECIFIC [id number] 14:26:00 Test Item Value Reference Range Interpretation Comments POCT U SP GRAV (test code = . 1.005-1.025 3255) POCT PH U (test code = 3254) . 5-8 POCT U LEUK EST (test code = . Negative - Negative 3263) POCT U NIT (test code = 3262) . Negative - Negative POCT U PROT (test code = 3259) trace Negative - Negative POCT U GLU (test code = 3256) negative Negative - Negative POCT U KETONE (test code = 3258) . Negative - Negative POCT U UROBILI (test code = . 0.2-1 0) POCT U BILI (test code = 3261) . Negative - Negative POCT U BLD (test code = 3257) . Negative - Negative POCT U COLOR (test code = 3266) POCT U APPEAR (test code = 3267) [facility] URINALYSIS W/O SPECIFIC [id number] 15:23:00 Test Item Value Reference Range Interpretation Comments POCT PH U (test code = 3254) 5 mg/dl 5-8 POCT U LEUK EST (test code = NEGATIVE Negative - Negative 3) POCT U NIT (test code = 3262) NEGATIVE Negative - Negative POCT U PROT (test code = 3259) TRACE Negative - Negative POCT U GLU (test code = 3256) NEGATIVE Negative - Negative POCT U KETONE (test code = 3258) SMALL Negative - Negative POCT U BLD (test code = 3257) NEGATIVE Negative - Negative [facility] URINALYSIS W/O SPECIFIC [id number] 15:23:00 Test Item Value Reference Range Interpretation Comments POCT PH U (test code = 3254) 5 mg/dl 5-8 POCT U LEUK EST (test code = NEGATIVE Negative - Negative 3263) POCT U NIT (test code = 3262) NEGATIVE Negative - Negative POCT U PROT (test code = 3259) TRACE Negative - Negative POCT U GLU (test code = 3256) NEGATIVE Negative - Negative POCT U KETONE (test code = 3258) SMALL Negative - Negative POCT U BLD (test code = 3257) NEGATIVE Negative - Negative [facility] URINALYSIS W/O SPECIFIC [id number] 15:23:00 Test Item Value Reference Range Interpretation Comments POCT PH U (test code = 3254) 5 mg/dl 5-8 POCT U LEUK EST (test code = NEGATIVE Negative - Negative 3263) POCT U NIT (test code = 3262) NEGATIVE Negative - Negative POCT U PROT (test code = 3259) TRACE Negative - Negative POCT U GLU (test code = 3256) NEGATIVE Negative - Negative POCT U KETONE (test code = 3258) SMALL Negative - Negative POCT U BLD (test code = 3257) NEGATIVE Negative - Negative [facility] URINALYSIS W/O SPECIFIC [id number] 15:23:00 Test Item Value Reference Range Interpretation Comments POCT PH U (test code = 3254) 5 mg/dl 5-8 POCT U LEUK EST (test code = NEGATIVE Negative - Negative 3263) POCT U NIT (test code = 3262) NEGATIVE Negative - Negative POCT U PROT (test code = 3259) TRACE Negative - Negative POCT U GLU (test code = 3256) NEGATIVE Negative - Negative POCT U KETONE (test code = 3258) SMALL Negative - Negative POCT U BLD (test code = 3257) NEGATIVE Negative - [id number] 15:22:00 Test Item Value Reference Range Interpretation Comments POCT PREG (test code = 1605) Positive On board controls acceptable with C Yes Line (test code = 3574) POCT PREG LOT # (test code = 3575) POCT PREG TEST DATE (test code = 3576) [facility] [id number] 15:22:00 Test Item Value Reference Range Interpretation Comments POCT PREG (test code = 1605) Positive On board controls acceptable with C Yes Line (test code = 3574) POCT PREG LOT # (test code = 3575) POCT PREG TEST DATE (test code = 3576) [facility] [id number] 15:22:00 Test Item Value Reference Range Interpretation Comments POCT PREG (test code = 1605) Positive On board controls acceptable with C Yes Line (test code = 3574) POCT PREG LOT # (test code = 3575) POCT PREG TEST DATE (test code = 3576) [facility] [id number] 15:22:00 Test Item Value Reference Range Interpretation Comments POCT PREG (test code = 1605) Positive On board controls acceptable with C Yes Line (test code = 3574) POCT PREG LOT # (test code = 3575) POCT PREG TEST DATE (test code = 3576) [facility]"
[2023-03-02] MEDS ORDERED: dexAMETHasone 10 MG/ML VIAL ONE (08:22)
[2023-03-02] MEDS ORDERED: METOCLOPRAMIDE 10 MG/2mL INJ ONE (08:22)
[2023-03-02] MEDS ORDERED: NA CHLORIDE 0.9% 500 ML ONE (08:22)
[2023-03-02] MEDS ORDERED: DIPHENHYDRAMINE 50 MG/ML VIAL ONE (08:24)
--- NOTE | 2023-03-02 09:30 | EDPHYS ---
Physician Documentation [facility] Name: Lisa Edge Age: 22 yrs Sex: Female : 2000 Arrival Date: 03/02/2023 Time: 07:41 Bed 14 Private MD: ED Physician Yoshi Vasquez HPI: 03/02 07:56 This 22 yrs old Female presents to ER via Ambulatory with complaints of jmm Headache, Vomiting. 07:56 The patient complains of pain to the forehead. Onset: The symptoms/episode jmm began/occurred gradually, 3 day(s) ago. Associated signs and symptoms: Pertinent positives: vomiting. The symptoms are alleviated by nothing. the symptoms are aggravated by nothing. This is a 22 year old female with a history of migraine headache that presents ot the ED with complaints of migraine headache which has been ongoing for th past 3 days. States having nausea, vomiting, without relief of symptoms. . 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 - Social history:: Smoking status: Patient denies any tobacco usage or history of. ROS: 07:56 Constitutional: Negative for fever, chills, and weight loss, Cardiovascular: Negative jmm for chest pain, palpitations, and edema, Respiratory: Negative for shortness of breath, cough, wheezing, and pleuritic chest pain. 07:56 Neuro: Positive for headache. 07:56 All other systems are negative. Exam: 07:56 Constitutional: This is a well developed, well nourished patient who is awake, alert, jmm and in no acute distress. Head/Face: atraumatic. Eyes: EOMI, no conjunctival erythema appreciated ENT: Moist Mucus Membranes Neck: Trachea midline, Supple Chest/axilla: Normal chest wall appearance and motion. Cardiovascular: Regular rate and rhythm. No edema appreciated Respiratory: Normal respirations, no respiratory distress appreciated Abdomen/GI: Non distended Back: Normal ROM Skin: General appearance color normal 07:56 Musculoskeletal/extremity: ROM: intact in all extremities. 07:56 Skin: Appearance: Color: normal in color. 07:56 Neuro: Orientation: is normal, Mentation: is normal, Memory: is normal. 07:56 Psych: Behavior/mood is pleasant, cooperative. Vital Signs: 07:50 BP 117 / 85; Pulse 98; Resp 16; Temp 97.7; Pulse Ox 100% on R/A; Weight 40.82 kg; iw Height 5 ft. 3 in. ; Pain 10/10; 08:40 BP 107 / 68; Pulse 67; Resp 18; Pulse Ox 99% on R/A; Pain 7/10; sg5 09:45 BP 101 / 71; Pulse 80; Resp 18; Pulse Ox 100% on R/A; Pain 2/10; sg5 07:50 Body Mass Index 15.94 (40.82 kg, 160.02 cm) iw 07:50 Pain Scale: Adult iw 08:40 Pain Scale: Adult sg5 09:45 Pain Scale: Adult sg5 MDM: 07:56 Patient medically screened. [facility] 03/02 07:57 Order name: Saline Lock; Complete Time: 09:05 [facility] Administered Medications: 08:30 Drug: NS 0.9% IV 500 ml Route: IV; Rate: bolus; Site: right antecubital; sg5 09:00 Follow up: IV Intake: 500ml sg5 08:30 Drug: metoCLOPramide IVP 20 mg Route: IVP; Site: right antecubital; sg5 08:30 Drug: diphenhydrAMINE IVP 12.5 mg Route: IVP; Site: right antecubital; sg5 08:30 Drug: Decadron - Dexamethasone IVP 10 mg Route: IVP; Site: right antecubital; sg5 Disposition: 11:14 Co-signature as Attending Physician, Yoshi Vasquez MD I reviewed the patient's care rt provided by the Advanced Practice Provider and agree with the diagnosis and treatment plan. Disposition Summary: 03/02/23 09:29 Discharge Ordered Location: Home [facility] Condition: Stable jmm Diagnosis - Migraine without aura, not intractable jmm Followup: [facility] - With: Kana Gill MD - When: 2 - 3 days - Reason: Recheck today's complaints, Continuance of care, Re-evaluation by your physician Discharge Instructions: - Discharge Summary Sheet [facility] - Migraine Headache [facility] Forms: - Medication Reconciliation Form [facility] - Thank You Letter jmm - Antibiotic Education jmm - Prescription Opioid Use jmm - Work release form sg5 Prescriptions: - Reglan 10 mg Oral Tablet - take 1 tablet by ORAL route every 6 hours As needed take 30 minutes before [facility] meals and at bedtime; 30 tablet; Refills: 0, Product Selection Permitted Signatures: Torrey Whitten PA PA jmm Williams, Irene, RN RN iw Yoshi Vasquez MD MD rt Bushra Doe RN RN sg5 Corrections: (The following items were deleted from the chart) 07:52 07:51 Home Meds: Vitamin Oral tab 1 tab once daily; [facility]
--- NOTE | 2023-03-02 09:30 | ER ---
Nurse's Notes [facility] Name: Lisa Edge Age: 22 yrs Sex: Female : 2000 Arrival Date: 03/02/2023 Time: 07:41 Bed 14 Private MD: Diagnosis: Migraine without aura, not intractable Presentation: 03/02 07:50 Chief complaint: Patient states: migraine X 3 days, can't sleep , it's usually not this iw bad, but now I can't stop throwing up. Coronavirus screen: Client presents with at least one sign or symptom that may indicate coronavirus-19. Ebola Screen: Patient negative for fever greater than or equal to 101.5 degrees Fahrenheit, and additional compatible Ebola Virus Disease symptoms Patient denies exposure to infectious person. Patient denies travel to an Ebola-affected area in the 21 days before illness onset. No symptoms or risks identified at this time. Initial Sepsis Screen: Does the patient meet any 2 criteria? No. Patient's initial sepsis screen is negative. Does the patient have a suspected source of infection? No. Patient's initial sepsis screen is negative. Risk Assessment: Do you want to hurt yourself or someone else? Patient reports no desire to harm self or others. Onset of symptoms was February 27, 2023. 07:50 Method Of Arrival: Ambulatory iw 07:50 Acuity: KENDRICK 3 iw Triage Assessment: 09:53 Headache History: The patient has had previous headaches and this one is similar to sg5 previous episodes. General: Behavior is calm, cooperative. Pain: Pain currently is 7 out of 10 on a pain scale. Pain began gradually, Also complains of nausea. 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 - Social history:: Smoking status: Patient denies any tobacco usage or history of. Screenin:[address] [facility] ED Fall Risk Assessment (Adult) History of falling in the last 3 months, sg5 including since admission No falls in past 3 months (0 pts). Abuse screen: Denies threats or abuse. Nutritional screening: No deficits noted. Tuberculosis screening: No symptoms or risk factors identified. Assessment: 08:37 General: Appears in no apparent distress. comfortable, Reports headache and nausea. sg5 Pain: Complains of pain in headache. Neuro: Level of Consciousness is awake, alert, obeys commands, Oriented to person, place, time, situation, Appropriate for age Reports headache frontal area. Cardiovascular: Capillary refill < 3 seconds. Respiratory: Airway is patent Respiratory effort is even, unlabored. GI: Abdomen is flat, non-distended, Reports nausea, vomiting. : No signs and/or symptoms were reported regarding the genitourinary system. EENT: No signs and/or symptoms were reported regarding the EENT system. Derm: No signs and/or symptoms reported regarding the dermatologic system. Musculoskeletal: No signs and/or symptoms reported regarding the musculoskeletal system. 09:06 Reassessment: Patient appears in no apparent distress at this time. Patient and/or sg5 family updated on plan of care and expected duration. Pain level reassessed. Patient is alert, oriented x 3, equal unlabored respirations, skin warm/dry/pink. Patient states feeling better. Patient states symptoms have improved. Vital Signs: 07:50 BP 117 / 85; Pulse 98; Resp 16; Temp 97.7; Pulse Ox 100% on R/A; Weight 40.82 kg; iw Height 5 ft. 3 in. ; Pain 10/10; 08:40 BP 107 / 68; Pulse 67; Resp 18; Pulse Ox 99% on R/A; Pain 7/10; sg5 09:45 BP 101 / 71; Pulse 80; Resp 18; Pulse Ox 100% on R/A; Pain 2/10; sg5 07:50 Body Mass Index 15.94 (40.82 kg, 160.02 cm) iw 07:50 Pain Scale: Adult iw 08:40 Pain Scale: Adult sg5 09:45 Pain Scale: Adult sg5 ED Course: 07:43 Patient arrived in ED. ts1 07:51 Triage completed. iw 07:52 Torrey Whitten PA is PHCP. [facility] 07:52 Yoshi Vasquez MD is Attending Physician. jmm 07:52 Arm band placed on. iw 08:09 Bushra Doe RN is Primary Nurse. sg5 08:28 Inserted saline lock: 22 gauge in right antecubital area, using aseptic technique. sg5 08:37 Patient has correct armband on for positive identification. Bed in low position. Call sg5 light in reach. Side rails up X 1. Adult w/ patient. Valuables Left with patient. 09:29 Kana Gill MD is Referral Physician. [facility] 09:53 No provider procedures requiring assistance completed. IV discontinued. sg5 Administered Medications: 08:30 Drug: NS 0.9% IV 500 ml Route: IV; Rate: bolus; Site: right antecubital; sg5 09:00 Follow up: IV Intake: 500ml sg5 08:30 Drug: metoCLOPramide IVP 20 mg Route: IVP; Site: right antecubital; sg5 08:30 Drug: diphenhydrAMINE IVP 12.5 mg Route: IVP; Site: right antecubital; sg5 08:30 Drug: Decadron - Dexamethasone IVP 10 mg Route: IVP; Site: right antecubital; sg5 Medication: 08:37 VIS not applicable for this client. sg5 Intake: 09:00 IV: 500ml; Total: 500ml. sg5 Outcome: 09:29 Discharge ordered by MD. [facility] 09:53 Discharged to home ambulatory, with significant other. sg5 09:53 Condition: good 09:53 Discharge instructions given to patient, Instructed on discharge instructions, follow up and referral plans. 09:54 Patient left the ED. sg5 Signatures: Torrey Whitten PA PA jmm Williams, Irene, RN RN iw Bushra Doe RN RN sg5 [place] PAS PAS ts1 Corrections: (The following items were deleted from the chart) 07:52 07:51 Home Meds: Vitamin Oral tab 1 tab once daily; iw iw
[2023-03-02 10:19] VITALS: TEMP 97.7
[2023-03-02 10:22] VITALS: BP 101/71; O2SAT 100
== END 2023-03-02 09:54 | disposition home or self-care (01) ==
LOC: ER 07:41
DX: G43.009 Migraine without aura, not intractable, without status migrainosus (principal)
CPT/HCPCS: J2765; J1200; J1100; J7040

== ENCOUNTER 2025-07-10 16:27 | Emergency (ER) | payer OTHER, SELFPAY ==
--- OUTSIDE RECORDS SUMMARY | 2025-07-10 16:40 | XMS REPORT | Continuity of Care Document ---
Author Name Unknown Address [address] [facility] [place] [address] [facility] Address [address] [facility] [address] [place] [address] Care Team Providers Care Hide Cleaner Name Role Phone Cintia Braden Primary Care Physician [phone] AZUCENA ESTRELLA Attending Clinician Unavailab andi Estrella PUBLIC ADDRESS ANNOUNCER, Azucena Keene Attending Clinician [phone] Otis Tucker Attending Clinician [phone] Marlene MOULTON, Destinee Mariano Attending Clinician [phone] Hernandez MOULTON, Urmila Attending Clinician [phone] Francie CONNER, Perri Leon Attending Clinician Unavailab andi Rodriguez MD, Kelli Attending Clinician [phone] Jass Naik MD Attending Clinician [phone] Dk Rivera MD, Joshua Akhtar Attending Clinic samson Akinsipe MILLICENTPIndu Attending Clinician + INDU GREEN Attending Clinician Unavail able RADHAMES BAILEY Attending Clinician UnavailRadhames Stoddard Attending Clinician [phone] Jordyn Dumas MD, Angelica Attending Clinician + Ultrasound, Ang-Mfm Attending Clinician Unavailgila Petit MD, Karlo Keene Attending Clinician [phone] Geoff CONNER, Krystal Attending Clinician Unavailable Deion CONNER, Marina Uriostegui Attending Clinician Unavailab le Doctor Unassigned, [place] Attending Clinician U navailable MARLENE, DESTINEE MARIANO Admitting Clinician Unavailable Marlene MOULTON, Destinee Mariano Admitting Clinician [phone] Michael MOULTON, Kelli Admitting Clinician [phone] Payers Payer Name Policy Type Policy Number Effective Date Expirati on Date Source FORMERLY [facility] [id number] 2020 00:00:00 Problems Condition Name Condition Details Condition Category Status Onset Date Resolution Date Last Treatment Date Treating Clinician Comments Source S/P D&C (status post dilation and curettage) S/P D&C (status post dilation and curettage) Disease Active 02-18 00:00: 00 [facility] Endometrit is following delivery Endometrit is following delivery Disease Active 02-16 00:00: 00 [facility] Pre-op testing Pre-op testing Disease Active 02-16 00:00: 00 Overview: Added automatic ally from request for surgery [id number] [facility] (spontaneo us vaginal delivery) (spontaneo us vaginal delivery) Disease Active - 00:00: 00 [facility] Single live Single live Disease Active 02-11 00:00: 00 [facility] Gestationa l hypertensi on Gestationa l hypertensi on Disease Active 02-11 00:00: 00 [facility] Chorioamni onitis Chorioamni onitis Disease Active 02-11 00:00: 00 [facility] Obstetrica l laceration Obstetrica l laceration Disease Active 02-11 00:00: 00 [facility] 39 weeks gestation of 39 weeks gestation of Disease Active 02-09 00:00: 00 [facility] Patient is Orthodox Patient is Orthodox Disease Active 02-09 00:00: 00 [facility] Nausea/vom iting in Nausea/vom iting in Disease Active 2019-10 00:00: 00 [facility] Maternal varicella, non-immune Maternal varicella, non-immune Disease Active 07-15 00:00: 00 Overview: Address pp [facility] Supervisio n of high-risk Supervisio n of high-risk Disease Active 07-14 00:00: 00 [facility] Headache in Headache in Disease Active 07-14 00:00: 00 [facility] Allergies, Adverse Reactions, Alerts Allergy Name Allergy Type Status Severity Reaction(s) Onset Date Inactive Date Treating Clinician Comments Source NO KNOWN ALLERGIE S Drug Class Active [facility] Family History Family Member Diagnosis Comments Start Date Stop Date Sourc e Father Asthma [facility] Mother No Significant Medical Problems [facility] Social History Social Habit Start Date Stop Date Quantity Comments Source ASSERTION 2020-05-26 00:00:00 [facility] Exposure to SARS-CoV-2 (event) Not sure [facility] Tobacco use and exposure 2021-03-03 00:00:00 2021-03-03 00:00:00 Never used [facility] Alcohol intake 2021-03-03 00:00:00 2021-03-03 00:00:00 Ex-drinker (finding) [facility] Sex Assigned At 2000 00:00:00 2000 00:00:00 [facility] Smoking Status Start Date Stop Date Source Unknown [facility] Medications Ordered Medication Name Filled Medication Name Start Date Stop Date Current Medication? Ordering Clinician Indication Dosage Frequency Signature (SIG) Comments Components Source medroxyprog esterone 150 mg/mL intramuscul ar syringe 5-0 8-07 00:00: 00 Yes 1mg/mL Albert F Xavi medroxyprog esterone 150 mg/mL intramuscul ar syringe 5-0 5-06 00:00: 00 Yes 1mg/mL Albert F Xavi dicyclomine 20 mg tablet 5-0 4-29 00:00: 00 Yes 1mg Albert F Xavi dicyclomine 20 mg tablet 5-0 4-24 00:00: 00 Yes 1mg Albert Hurley Flonase Allergy Relief 50 mcg/actuati on nasal spray,suspe nsion 01-12 00:00: 00 Yes 12mcg/a ctuatio n Albert Hurley Bromfed DM 2 mg-30 mg-10 mg/5 mL oral syrup 329 00:00: 00 Yes 10mg/5 mL Albert Hurley ondansetron 4 mg disintegrat ing tablet 05-29 00:00: 00 Yes 1mg Albert Hurley 1-2 TABS EVERY 8H PRN NAUSEA/VOMI TING 03-08 00:00: 00 02-26 00:00 :00 No 4 Albert Hurley TAKE 1 TABLET BY MOUTH EVERY 6 HOURS NEEDED 03-02 00:00: 00 Yes Albert Hurley metoclopram tino HCl (REGLAN) tablet 10 mg 02-18 16:30: 00 Yes 10mg 10 mg, Oral, AC, First dose on Tue02/18/21 at 1130, Until Discontinu ed, Routine [facility] ferrous sulfate tablet 325 mg 02-18 13:00: 00 Yes 325mg 325 mg, Oral, BID, First dose on Tue02/18/21 at 0800, Until Discontinu ed, Routine [facility] HYDROcodone -acetaminop hen (NORCO 5) 5-325 mg tablet 1 tablet 02-17 18:02: 54 Yes 1{tbl} 1 tablet, Oral, Q6HPRN, Starting Tue02/17/21 at 1302, Until Discontinu ed, Routine, Pain (scale 7-10) [facility] lactated ringers IV infusion 1,000 mL 02-17 17:00: 00 Yes 1000mL at 100 mL/hr, 1,000 mL, IV Infusion, CONTINUOUS , Starting Tue02/17/21 at 1200, Until Discontinu ed, Routine, PACU [facility] HYDROmorpho ne (DILAUDID) injection 0.2 mg 02-17 16:48: 06 02-17 17:35 :02 No .2mg 0.2 mg, Slow IV Push, Q5MIN PRN, 10 doses, Starting 02/17/21 at 1148, Until 02/17/21 at 1235, Routine, Pain (scale 7-10), PACU
Us e approved by (Faculty): PACU USE -ANESTHESI A SERVICE-HY DROMORPHON E INJECTIONS [facility] ondansetron (ZOFRAN (PF)) injection 4 mg 02-17 16:48: 06 02-17 16:50 :00 No 4mg 4 mg, Slow IV Push, PRN, 1 dose, Starting 02/17/21 at 1148, Until 02/17/21 at 1150, Routine, Nausea and Vomiting (N/V), PACU [facility] sodium chloride 0.9 % irrigation solution 02-17 16:09: 00 02-17 17:35 :02 No PRN, Starting 02/17/21 at 1109, Until 02/17/21 at 1235, Intra-op [facility] ferric subsulfate (MONSEL'S SOLUTION) solution 02-17 16:09: 00 02-17 17:35 :02 No PRN, Starting 02/17/21 at 1109, Until 02/17/21 at 1235, Routine, Intra-op [facility] D5W-LR IV infusion 1,000 mL 02-16 22:45: 00 Yes 1000mL at 50 mL/hr, IV Infusion, CONTINUOUS , Starting Tue02/16/21 at 1745, Until Discontinu ed, Routine [facility] clindamycin in 5 % dextrose (CLEOCIN) 900 mg/50 mL IV piggyback RTU 900 mg 02-16 22:45: 00 02-18 14:28 :19 No 900mg 900 mg, IV Piggyback, Q8H ABX, First dose on Tue02/16/21 at 1745, Until Discontinu ed, 50 mL
Reas on for Anti-Infec tive: Empiric Therapy for Suspected Infection< br>Empiric Therapy Site: Other
O ther site: endometrit is
Dura tion of therapy: 72 hours
R estricted use approved by: ADC PROVIDER [facility] gentamicin 40 mg/mL 260 mg in NaCl 0.9% (NS) 250 mL IV infusion 02-16 22:45: 00 02-18 12:16 :11 No 5mg/kg 260 mg (rounded from 262 mg = 5 mg/kg ?52.4 kg Em[place] weight), IV Infusion, Q24H ABX, First dose on Tue02/16/21 at 1745, Until Discontinu ed, 250 mL
Reas on for Anti-Infec tive: Empiric Therapy for Suspected Infection< br>Empiric Therapy Site: Pelvic
Duration of therapy: 72 hours [facility] ibuprofen (IBU) tablet 600 mg 02-16 22:34: 52 Yes 600mg 600 mg, Oral, Q6HPRN, Starting Tue02/16/21 at 1734, Until Discontinu ed, Routine, Pain (scale 4-6) [facility] butalbital- acetaminoph en-caff (ESGIC) 50-325-40 mg tablet 1 tablet 02-16 22:04: 57 Yes 1{tbl} 1 tablet, Oral, Q4HPRN, Starting Tue02/16/21 at 1704, Until Discontinu ed, Routine, headache [facility] metoclopram tino HCl (REGLAN) 10 mg in NaCl 0.9% (NS) piggyback 02-16 22:03: 14 02-18 14:28 :19 No 10mg 10 mg, IV Piggyback, Q6HPRN, Starting Tue02/16/21 at 1703, Until Tue02/18/21 at 0928, 50 mL [facility] acetaminoph en (TYLENOL) tablet 650 mg 02-16 21:34: 39 Yes 650mg 650 mg, Oral, Q6HPRN, Starting Tue02/16/21 at 1634, Until Discontinu ed, Routine, Pain (scale 1-3), Temp > 38.5 C [facility] piperacilli n-tazobacta m (ZOSYN) 3.375 g in NaCl 0.9% (NS) 100 mL MINI-BAG 02-16 17:15: 00 02-16 16:50 :00 No 3.375g 3.375 g, IV Piggyback, ONCE, 1 dose, 02/16/21 at 1215, 100 mL
Reas on for Anti-Infec tive: Documented Infection< br>Documen lenore Infection Site: Pelvic
Duration of Therapy: Other (see Comments) [facility] NaCl 0.9% (NS) bolus infusion 1,701 mL 02-16 16:45: 00 02-16 17:40 :00 No 30mL/kg at 999 mL/hr, 1,701 mL (30 mL/kg ?56.7 kg), IV Infusion, ONCE, 1 dose, 02/16/21 at 1145, STAT [facility] vit/iron fum/folic ac ( 1 + 1 ORAL) 02-11 13:28: 57 02-11 00:00 :00 No Take by mouth. [facility] varicella virus vaccine live (VARIVAX (PF)) injection 0.5 mL 02-11 13:23: 01 02-11 21:13 :00 No .5mL 0.5 mL, Subcutaneo us, ONCE-PRIOR TO DISCHARGE, 1 dose, Starting Tue02/11/21 at 0823, Until Discontinu ed, Routine, Give vaccine prior to discharge [facility] vitamin w/FA tablet 02-11 00:00: 00 Yes [id number] 1{tbl} Take 1 tablet by mouth daily. [facility] docusate calcium 240 mg capsule 02-11 00:00: 00 Yes [id number] 240mg Take 1 capsule by mouth once daily as needed for Constipati on. [facility] ferrous sulfate 325 mg (65 mg iron) tablet 02-11 00:00: 00 Yes [id number] 325mg Take 1 tablet by mouth 2 (two) times daily. [facility] ibuprofen 600 mg tablet 02-11 00:00: 00 Yes [id number] 600mg Take 1 tablet by mouth every 6 (six) hours as needed (Pain). Take with food or milk. [facility] rho(D) immune globulin (RHOGAM) syringe 300 mcg 02-10 13:39: 37 Yes 300ug 300 mcg, Intramuscu lar, ONCE, For 1 dose, Conditiona l, Routine [facility] ondansetron (ZOFRAN (PF)) injection 4 mg 02-10 13:39: 35 Yes 4mg 4 mg, Slow IV Push, Q8HPRN, Starting Tue02/10/21 at 0839, Until Discontinu ed, Routine, Nausea and Vomiting (N/V) [facility] simethicone (GAS RELIEF (SIMETHICON E)) chewable tablet 160 mg 02-10 13:39: 35 Yes 160mg 160 mg, Oral, PC+HSPRN, Starting Tue02/10/21 at 0839, Until Discontinu ed, Routine, Gas [facility] magnesium hydroxide (MILK OF MAGNESIA) 400 mg/5 mL suspension 30 mL 02-10 13:39: 35 Yes 30mL 30 mL, Oral, QDAILYPRN, Starting Tue02/10/21 at 0839, Until Discontinu ed, Routine, Constipati on [facility] human papillomav vac,9-maria e(P F) (GARDASIL-9 ) syringe 0.5 mL 02-10 13:39: 34 Yes .5mL 0.5 mL, Intramuscu lar, ONCE-PRIOR TO DISCHARGE, 1 dose, Starting Tue02/10/21 at 0839, Until Discontinu ed, Routine, Give vaccine prior to discharge [facility] ibuprofen (IBU) tablet 600 mg 02-10 13:39: 34 Yes 600mg 600 mg, Oral, Q6HPRN, Starting Tue02/10/21 at 0839, Until Discontinu ed, Routine, Pain (scale 4-6) [facility] acetaminoph en (TYLENOL) tablet 650 mg 02-10 13:39: 34 Yes 650mg 650 mg, Oral, Q6HPRN, Starting Tue02/10/21 at 0839, Until Discontinu ed, Routine, Pain (scale 1-3) [facility] diphenhydrA MINE (BENADRYL) tablet 25 mg 02-10 13:39: 34 Yes 25mg 25 mg, Oral, Q6HPRN, Starting Tue02/10/21 at 0839, Until Discontinu ed, Routine, Sleep, Itching [facility] diphenhydrA MINE-0.9 % sod.chlr (BENADRYL) 25 mg/50 mL piggyback 25 mg 02-10 13:39: 34 Yes 25mg 25 mg, IV Piggyback, Administer over 30 Minutes, Q6HPRN, Starting Tue02/10/21 at 0839, Until Discontinu ed, Routine, Itching [facility] docusate calcium (SURFAK) capsule 240 mg 02-10 13:39: 34 Yes 240mg 240 mg, Oral, QDAILYPRN, Starting Tue02/10/21 at 0839, Until Discontinu ed, Routine, Constipati on [facility] benzocaine- menthol (DERMOPLAST ) 20-0.5 % topical spray 02-10 13:39: 34 Yes Topical, PRN, Starting Tue02/10/21 at 0839, Until Discontinu ed, Routine, Perineum discomfort [facility] gentamicin 40 mg/mL 280 mg in NaCl 0.9% (NS) 250 mL IV infusion 02-10 10:30: 00 02-10 13:39 :37 No 5mg/kg 280 mg (rounded from 281 mg = 5 mg/kg ?56.2 kg), IV Infusion, Q24H ABX, First dose (after last modificati on) on Tue02/10/21 at 0530, Until Discontinu ed, 250 mL
Reas on for Anti-Infec tive: Empiric Therapy for Suspected Infection< br>Empiric Therapy Site: Pelvic
Duration of therapy: 72 hours [facility] ampicillin (POLYCILLIN -N) 2,000 mg in NaCl 0.9% (NS) 100 mL MINI-BAG 02-10 10:15: 00 02-10 13:39 :37 No 2g 2,000 mg (2 g), IV Piggyback, Q6H ABX, First dose (after last modificati on) on Tue02/10/21 at 0515, Until Discontinu ed, 100 mL
Reas on for Anti-Infec tive: Empiric Therapy for Suspected Infection< br>Empiric Therapy Site: Pelvic
Duration of therapy: 72 hours [facility] LR 1000 mL + oxytocin 20 units IV Solution 02-10 10:00: 00 02-10 10:00 :00 No 125mL/h 125 mL/hr, IV Infusion, ONCE, Tue02/10/21 at 0500, For 1 dose
In fuse 999 mL /hr & nbsp;over 30 minutes and then decrease rate to 125 mL/hr for the remainder.
[facility] butorphanol (STADOL) injection 1 mg 02-09 18:45: 00 02-09 19:05 :00 No 1mg 1 mg, IV Push, ONCE, 1 dose, Tue02/09/21 at 1345, Routine [facility] butorphanol (STADOL) injection 1 mg 02-09 15:28: 00 02-09 15:40 :00 No 1mg 1 mg, IV Push, ONCE, 1 dose, Tue02/09/21 at 1030, Routine [facility] D5W-LR IV infusion 1,000 mL 02-09 14:00: 00 02-10 13:39 :37 No 1000mL at 125 mL/hr, IV Infusion, CONTINUOUS , Starting Tue02/09/21 at 0900, Until Tue02/10/21 at 0839, Routine [facility] LR 1000 mL + oxytocin 20 units IV Solution 02-09 13:53: 22 02-10 13:39 :37 No 2mU/min 2 joseph-unit s/min (6 mL/hr), IV Infusion, TITRATE, Oxytocin Induction / Augmentati on of Labor, Starting Tue02/09/21 at 0853
In fuse IV through a controlled infusion pump at a proximal port on the peripheral IV line.&nbsp ; Sta rt at 2 joseph-unit s/min during FB in place.&nbs p;Low Dose pitocin
[facility] lactated ringers IV infusion 500 mL 02-09 13:52: 14 02-10 13:39 :37 No 500mL at 999 mL/hr, 500 mL, IV Infusion, PRN - SEE INSTRUCTIO NS, Starting Tue02/09/21 at 0852, Until Tue02/10/21 at 0839, Routine [facility] sodium citrate-cit abida acid (BICITRA) 500-334 mg/5 mL solution 30 mL 02-09 13:52: 14 02-09 20:23 :00 No 30mL 30 mL, Oral, PRE-PROCED URE ONCE, 1 dose, Starting Tue02/09/21 at 0852, Until Discontinu ed, Routine, Surgery/Pr ocedure [facility] vit/iron fum/folic ac ( 1 + 1 ORAL) 01-06 20:14: 04 Yes Take by mouth. [facility] vit/iron fum/folic ac ( 1 + 1 ORAL) 12-23 22:41: 40 Yes Take by mouth. [facility] proMETHazin e 25 mg tablet 2019-10 00:00: 00 02-11 00:00 :00 No [id number] 25mg Take 1 tablet by mouth every 6 (six) hours as needed for Nausea and Vomiting (N/V). [facility] vit/iron fum/folic ac ( 1 + 1 ORAL) 07-14 15:19: 12 Yes Take by mouth. [facility] Vital Signs Vital Name Observation Time Observation Value Comments [facility] Systolic blood pressure 2021-03-03 15:44:00 115 mm[Hg] [place] [facility] Diastolic blood pressure 2021-03-03 15:44:00 82 mm[Hg] [facility] Heart rate 2021-03-03 15:44:00 81 /min [facility] Body temperature 2021-03-03 15:44:00 36.89 Sabrina [facility] Respiratory rate 2021-03-03 15:44:00 16 /min [facility] Body height 2021-03-03 15:44:00 160 cm [facility] Body weight 2021-03-03 15:44:00 48.535 kg [facility] BMI 2021-03-03 15:44:00 18.95 kg/m2 [facility] Systolic blood pressure 2021-02-18 21:45:00 103 mm[Hg] [facility] Diastolic blood pressure 2021-02-18 21:45:00 61 mm[Hg] [facility] Heart rate 2021-02-18 21:45:00 69 /min [facility] Body temperature 2021-02-18 21:45:00 36.83 Sabrina [facility] Respiratory rate 2021-02-18 21:45:00 16 /min [facility] Oxygen saturation in Arterial blood by Pulse oximetry 2021-02-17 23:50:00 100 /min [facility] Body weight 2021-02-16 14:45:00 56.7 kg [facility] Systolic blood pressure 2021-02-17 18:00:00 117 mm[Hg] [facility] Diastolic blood pressure 2021-02-17 18:00:00 81 mm[Hg] [facility] Heart rate 2021-02-17 18:00:00 89 /min [facility] Oxygen saturation in Arterial blood by Pulse oximetry 2021-02-17 18:00:00 99 /min [facility] Body temperature 2021-02-17 17:42:00 36.67 Sabrina [facility] Respiratory rate 2021-02-17 17:42:00 20 /min [facility] Body weight 2021-02-16 14:45:00 56.7 kg [facility] Systolic blood pressure 2021-02-12 13:14:00 126 mm[Hg] [facility] Diastolic blood pressure 2021-02-12 13:14:00 83 mm[Hg] [facility] Heart rate 2021-02-12 13:14:00 69 /min [facility] Body temperature 2021-02-12 13:14:00 36.11 Sabrina [facility] Respiratory rate 2021-02-12 13:14:00 18 /min [facility] Oxygen saturation in Arterial blood by Pulse oximetry 2021-02-12 13:14:00 98 /min [facility] Body height 2021-02-09 12:59:00 160 cm [facility] Body weight 2021-02-09 12:59:00 56.246 kg [facility] BMI 2021-02-09 12:59:00 21.97 kg/m2 [facility] Systolic blood pressure 2021-02-04 21:02:00 121 mm[Hg] [facility] Diastolic blood pressure 2021-02-04 21:02:00 84 mm[Hg] [facility] Heart rate 2021-02-04 21:02:00 87 /min [facility] Body temperature 2021-02-04 21:02:00 36.83 Sabrina [facility] Respiratory rate 2021-02-04 21:02:00 16 /min [facility] Body height 2021-02-04 21:02:00 160 cm [facility] Body weight 2021-02-04 21:02:00 56.274 kg [facility] BMI 2021-02-04 21:02:00 21.98 kg/m2 [facility] Systolic blood pressure 2021-01-27 20:28:00 125 mm[Hg] [facility] Diastolic blood pressure 2021-01-27 20:28:00 85 mm[Hg] [facility] Heart rate 2021-01-27 20:28:00 86 /min [facility] Body temperature 2021-01-27 20:28:00 36.83 Sabrina [facility] Respiratory rate 2021-01-27 20:28:00 16 /min [facility] Body height 2021-01-27 20:28:00 160 cm [facility] Body weight 2021-01-27 20:28:00 56.898 kg [facility] BMI 2021-01-27 20:28:00 22.22 kg/m2 [facility] Systolic blood pressure 2021-01-20 20:12:00 115 mm[Hg] [facility] Diastolic blood pressure 2021-01-20 20:12:00 81 mm[Hg] [facility] Heart rate 2021-01-20 20:12:00 81 /min [facility] Body temperature 2021-01-20 20:12:00 36.56 Sabrina [facility] Respiratory rate 2021-01-20 20:12:00 16 /min [facility] Body height 2021-01-20 20:12:00 160 cm [facility] Body weight 2021-01-20 20:12:00 56.303 kg [facility] BMI 2021-01-20 20:12:00 21.99 kg/m2 [facility] Systolic blood pressure 2021-01-06 20:13:00 121 mm[Hg] [facility] Diastolic blood pressure 2021-01-06 20:13:00 77 mm[Hg] [facility] Heart rate 2021-01-06 20:13:00 85 /min [facility] Body temperature 2021-01-06 20:13:00 36.89 Sabrina [facility] Respiratory rate 2021-01-06 20:13:00 16 /min [facility] Body height 2021-01-06 20:13:00 160 cm [facility] Body weight 2021-01-06 20:13:00 54.885 kg [facility] BMI 2021-01-06 20:13:00 21.43 kg/m2 [facility] Systolic blood pressure 2020-12-23 22:03:00 105 mm[Hg] [facility] Diastolic blood pressure 2020-12-23 22:03:00 72 mm[Hg] [facility] Heart rate 2020-12-23 22:03:00 79 /min [facility] Body temperature 2020-12-23 22:03:00 36.56 Sabrina [facility] Respiratory rate 2020-12-23 22:03:00 16 /min [facility] Body height 2020-12-23 22:03:00 160 cm [facility] Body weight 2020-12-23 22:03:00 53.524 kg [facility] BMI 2020-12-23 22:03:00 20.90 kg/m2 [facility] Systolic blood pressure 2020-12-09 21:52:00 104 mm[Hg] [facility] Diastolic blood pressure 2020-12-09 21:52:00 70 mm[Hg] [facility] Heart rate 2020-12-09 21:52:00 89 /min [facility] Body temperature 2020-12-09 21:52:00 36.5 Sabrina [facility] Respiratory rate 2020-12-09 21:52:00 16 /min [facility] Body height 2020-12-09 21:52:00 162.6 cm [facility] Body weight 2020-12-09 21:52:00 52.118 kg [facility] BMI 2020-12-09 21:52:00 19.72 kg/m2 [facility] Systolic blood pressure 2020-11-19 17:07:00 106 mm[Hg] [facility] Diastolic blood pressure 2020-11-19 17:07:00 67 mm[Hg] [facility] Heart rate 2020-11-19 17:07:00 80 /min [facility] Body temperature 2020-11-19 17:07:00 36.83 Sabrina [facility] Systolic blood pressure 2020-10-22 14:42:00 112 mm[Hg] [facility] Diastolic blood pressure 2020-10-22 14:42:00 73 mm[Hg] [facility] Heart rate 2020-10-22 14:42:00 97 /min [facility] Body temperature 2020-10-22 14:42:00 36.78 Sabrina [facility] Respiratory rate 2020-10-22 14:42:00 16 /min [facility] Body height 2020-10-22 14:42:00 162.6 cm [facility] Body weight 2020-10-22 14:42:00 49.442 kg [facility] BMI 2020-10-22 14:42:00 18.71 kg/m2 [facility] Systolic blood pressure 2020-10-22 14:42:00 112 mm[Hg] [facility] Diastolic blood pressure 2020-10-22 14:42:00 73 mm[Hg] [facility] Heart rate 2020-10-22 14:42:00 97 /min [facility] Body temperature 2020-10-22 14:42:00 36.78 Sabrina [facility] Respiratory rate 2020-10-22 14:42:00 16 /min [facility] [place] [facility] height 2020-10-22 14:42:00 162.6 cm [facility] weight 2020-10-22 14:42:00 49.442 kg [facility] BMI 2020-10-22 14:42:00 18.71 kg/m2 [facility] Systolic blood pressure 2020-09-24 14:23:00 100 mm[Hg] [facility] Diastolic blood pressure 2020-09-24 14:23:00 68 mm[Hg] [facility] Heart rate 2020-09-24 14:23:00 71 /min [facility] Body temperature 2020-09-24 14:23:00 36.39 Sabrina [facility] Respiratory rate 2020-09-24 14:23:00 16 /min [facility] Body height 2020-09-24 14:23:00 160 cm [facility] Body weight 2020-09-24 14:23:00 46.891 kg [facility] BMI 2020-09-24 14:23:00 18.31 kg/m2 [facility] Systolic blood pressure 2020-09-24 14:23:00 100 mm[Hg] [facility] Diastolic blood pressure 2020-09-24 14:23:00 68 mm[Hg] [facility] Heart rate 2020-09-24 14:23:00 71 /min Unive [facility] Body temperature 2020-09-24 14:23:00 36.39 Sabrina [facility] Respiratory rate 2020-09-24 14:23:00 16 /min [facility] Body height 2020-09-24 14:23:00 160 cm [facility] Body weight 2020-09-24 14:23:00 46.891 kg [facility] BMI 2020-09-24 14:23:00 18.31 kg/m2 [facility] Systolic blood pressure 2020-08-27 14:23:00 110 mm[Hg] [facility] Diastolic blood pressure 2020-08-27 14:23:00 63 mm[Hg] [facility] Heart rate 2020-08-27 14:23:00 75 /min Unive [facility] Body temperature 2020-08-27 14:23:00 36.72 Sabrina [facility] Respiratory rate 2020-08-27 14:23:00 16 /min [facility] Body height 2020-08-27 14:23:00 160 cm [facility] Body weight 2020-08-27 14:23:00 44.623 kg [facility] BMI 2020-08-27 14:23:00 17.43 kg/m2 [facility] Systolic blood pressure 2020-07-14 15:17:00 110 mm[Hg] [facility] Diastolic blood pressure 2020-07-14 15:17:00 73 mm[Hg] [facility] Heart rate 2020-07-14 15:17:00 53 /min Unive [facility] Body temperature 2020-07-14 15:17:00 37.11 Sabrina [facility] Respiratory rate 2020-07-14 15:17:00 16 /min [facility] Body height 2020-07-14 15:17:00 160 cm [facility] Body weight 2020-07-14 15:17:00 43.681 kg [facility] BMI 2020-07-14 15:17:00 17.06 kg/m2 [facility] BP Systolic 2025-07-05 10:21:00 Step hen F Xavi BP Diastolic 2025-07-05 10:21:00 Dave phen F Xavi Weight Measured 2025-07-05 10:21:00 101.00 pounds Albert F Xavi Height Measured 2025-07-05 10:21:00 63.00 inches Albert F [facility] Body Temperature 2025-07-05 10:21:00 Albert F Xavi Heart Rate 2025-07-05 10:21:00 Saida en F Xavi Respiratory Rate 2025-07-05 10:21:00 Albert F Xavi BP Systolic 2025-07-05 10:13:00 112 mm[Hg] Step hen F Xavi BP Diastolic 2025-07-05 10:13:00 77 mm[Hg] Dave phen F [facility]avi Weight Measured 2025-07-05 10:13:00 101.00 pounds Albert F Xavi Height Measured 2025-07-05 10:13:00 63.00 inches Albert F Xavi Body Temperature 2025-07-05 10:13:00 98.50 degrees Albert F Xavi Heart Rate 2025-07-05 10:13:00 82.00 /min Saida en F Xavi Respiratory Rate 2025-07-05 10:13:00 18.00 /min Albert F Xavi BP Systolic 2025-05-23 13:31:00 114 mm[Hg] Step hen F Xavi BP Diastolic 2025-05-23 13:31:00 75 mm[Hg] Dave phen F Xavi Weight Measured 2025-05-23 13:31:00 98.40 pounds Albert F Xavi Height Measured 2025-05-23 13:31:00 63.00 inches Albert F Xavi Body Temperature 2025-05-23 13:31:00 98.00 degrees Albert F Xavi Heart Rate 2025-05-23 13:31:00 88.00 /min Saida en F Xavi Respiratory Rate 2025-05-23 13:31:00 18.00 /min Albert F Xavi BP Systolic 2025-02-19 14:09:00 91 mm[Hg] Step hen F Xavi BP Diastolic 2025-02-19 14:09:00 59 mm[Hg] Dave phen F Xavi Weight Measured 2025-02-19 14:09:00 92.00 pounds Albert F Xavi Height Measured 2025-02-19 14:09:00 63.00 inches Albert F Xavi Body Temperature 2025-02-19 14:09:00 98.20 degrees Albert F Xavi Heart Rate 2025-02-19 14:09:00 64.00 /min Saida en F Xavi Respiratory Rate 2025-02-19 14:09:00 18.00 /min Albert F Xavi BP Systolic 2025-02-12 15:32:00 97 mm[Hg] Step hen F Xavi BP Diastolic 2025-02-12 15:32:00 53 mm[Hg] Dave phen F Xavi Weight Measured 2025-02-12 15:32:00 91.40 pounds Albert F Xavi Height Measured 2025-02-12 15:32:00 63.00 inches Albert F Xavi Body Temperature 2025-02-12 15:32:00 98.50 degrees Albert F Xavi Heart Rate 2025-02-12 15:32:00 60.00 /min Saida en F Xavi Respiratory Rate 2025-02-12 15:32:00 18.00 /min Albert F Xavi BP Systolic 2025-02-07 11:16:00 121 mm[Hg] Step hen F Xavi BP Diastolic 2025-02-07 11:16:00 73 mm[Hg] Dave phen F Xavi Weight Measured 2025-02-07 11:16:00 88.80 pounds Albert F Xavi Height Measured 2025-02-07 11:16:00 63.00 inches Albert F Xavi Body Temperature 2025-02-07 11:16:00 97.90 degrees Albert F Xavi Heart Rate 2025-02-07 11:16:00 60.00 /min Saida en F Xavi Respiratory Rate 2025-02-07 11:16:00 17.00 /min Albert F Xavi BP Systolic 2025-01-12 12:43:00 97 mm[Hg] Step hen F Xavi BP Diastolic 2025-01-12 12:43:00 59 mm[Hg] Dave phen F Xavi Weight Measured 2025-01-12 12:43:00 90.20 pounds Albert F Xavi Height Measured 2025-01-12 12:43:00 63.00 inches Albert F Xavi Body Temperature 2025-01-12 12:43:00 99.20 degrees Albert F Xavi Heart Rate 2025-01-12 12:43:00 89.00 /min Saida en F Xavi Respiratory Rate 2025-01-12 12:43:00 18.00 /min Albert F Xavi BP Systolic 2024-09-04 14:38:00 102 mm[Hg] Step hen F Xavi BP Diastolic 2024-09-04 14:38:00 64 mm[Hg] Dave phen F Xavi Weight Measured 2024-09-04 14:38:00 90.20 pounds Albert F Xavi Height Measured 2024-09-04 14:38:00 63.00 inches Albert F Xavi Body Temperature 2024-09-04 14:38:00 98.60 degrees Albert F Xavi Heart Rate 2024-09-04 14:38:00 60.00 /min Saida en F Xavi Respiratory Rate 2024-09-04 14:38:00 16.00 /min Albert F Xavi BP Systolic 2024-04-20 11:37:00 112 mm[Hg] Step hen F Xavi BP Diastolic 2024-04-20 11:37:00 76 mm[Hg] Dave phen F Xavi Weight Measured 2024-04-20 11:37:00 91.00 pounds Albert F Xavi Height Measured 2024-04-20 11:37:00 63.00 inches Albert F Xavi Body Temperature 2024-04-20 11:37:00 98.20 degrees Albert F Xavi Heart Rate 2024-04-20 11:37:00 72.00 /min Saida en F Xavi Respiratory Rate 2024-04-20 11:37:00 18.00 /min Albert F Xavi BP Systolic 2024-03-06 13:41:00 99 mm[Hg] Step hen F Xavi BP Diastolic 2024-03-06 13:41:00 63 mm[Hg] Dave phen F Xavi Weight Measured 2024-03-06 13:41:00 96.60 pounds Albert F Xavi Height Measured 2024-03-06 13:41:00 63.00 inches Albert F Xavi Body Temperature 2024-03-06 13:41:00 98.40 degrees Albert F Xavi Heart Rate 2024-03-06 13:41:00 71.00 /min Saida en F Xavi Respiratory Rate 2024-03-06 13:41:00 17.00 /min Albert F Xavi Heart Rate 2024-02-01 13:50:00 70.00 /min Saida en F Xavi Respiratory Rate 2024-02-01 13:50:00 19.00 /min Albert F Xavi BP Systolic 2024-02-01 13:50:00 111 mm[Hg] Step hen F Xavi BP Diastolic 2024-02-01 13:50:00 70 mm[Hg] Dave phen F [facility]avi Weight Measured 2024-02-01 13:50:00 90.40 pounds Albert F Xavi Height Measured 2024-02-01 13:50:00 63.00 inches Albert F Xavi Body Temperature 2024-02-01 13:50:00 98.20 degrees Albert F Xavi BP Systolic 2023-06-13 11:30:00 115 mm[Hg] Step hen F Xavi BP Diastolic 2023-06-13 11:30:00 68 mm[Hg] Dave phen F Xavi Weight Measured 2023-06-13 11:30:00 90.40 pounds Albert F Xavi Height Measured 2023-06-13 11:30:00 63.00 inches Albert F Xavi Body Temperature 2023-06-13 11:30:00 98.40 degrees Albert F Xavi Heart Rate 2023-06-13 11:30:00 75.00 /min Saida en F Xavi Respiratory Rate 2023-06-13 11:30:00 17.00 /min Albert F Xavi BP Systolic 2023-06-07 09:51:00 104 mm[Hg] Step hen F Xavi BP Diastolic 2023-06-07 09:51:00 72 mm[Hg] Dave phen F [facility]avi Weight Measured 2023-06-07 09:51:00 92.00 pounds Albert F Xavi Height Measured 2023-06-07 09:51:00 63.00 inches Albert F Xavi Body Temperature 2023-06-07 09:51:00 98.40 degrees Albert F Xavi Heart Rate 2023-06-07 09:51:00 78.00 /min Saida en F Xavi Respiratory Rate 2023-06-07 09:51:00 16.00 /min Albert Brenda Hurley BP Systolic 2022-05-20 09:51:00 101 mm[Hg] Step hen F Xavi BP Diastolic 2022-05-20 09:51:00 62 mm[Hg] Dave phen F [facility]avi Weight Measured 2022-05-20 09:51:00 92.80 pounds Albert Hurley Height Measured 2022-05-20 09:51:00 63.00 inches Albert Hurley Body Temperature 2022-05-20 09:51:00 97.60 degrees Albert Hurley Heart Rate 2022-05-20 09:51:00 77.00 /min Saida en F Xavi Respiratory Rate 2022-05-20 09:51:00 Alberthafsa Hurley BP Systolic 2022-05-13 09:32:00 107 mm[Hg] Pipe hen F Xavi BP Diastolic 2022-05-13 09:32:00 72 mm[Hg] Dave phen Brenda Hurley Weight Measured 2022-05-13 09:32:00 93.80 pounds Albert Hurley Height Measured 2022-05-13 09:32:00 63.00 inches Albert Hurley Body Temperature 2022-05-13 09:32:00 97.80 degrees Albert Hurley Heart Rate 2022-05-13 09:32:00 68.00 /min Saida en Brenda Xavi Respiratory Rate 2022-05-13 09:32:00 Albert Gutierrez [place] Systolic blood pressure 2021-02-18 12:30:00 115 mm[Hg] [place] [facility] Diastolic blood pressure 2021-02-18 12:30:00 80 mm[Hg] [place] [facility] Heart rate 2021-02-18 12:30:00 72 /min [facility] Body temperature 2021-02-18 12:30:00 36.83 Sabrina [facility] Respiratory rate 2021-02-18 12:30:00 18 /min [facility] Oxygen saturation in Arterial blood by Pulse oximetry 2021-02-17 23:50:00 100 /min [facility] Body weight 2021-02-16 14:45:00 56.7 kg [facility] Body height 2021-02-09 12:59:00 160 cm [facility] BP Systolic 2019-06-05 15:26:00 111 mm[Hg] Pipe Hurley BP Diastolic 2019-06-05 15:26:00 75 mm[Hg] Dave Hurley Weight Measured 2019-06-05 15:26:00 93.00 pounds Albert Hurley Height Measured 2019-06-05 15:26:00 63.00 inches lAbert Hurley Body Temperature 2019-06-05 15:26:00 93.80 degrees Albert Hurley Heart Rate 2019-06-05 15:26:00 90.00 /min Saida Hurley Respiratory Rate 2019-06-05 15:26:00 18.00 /min Albert Hurley Procedures Procedure Date / Time Performed Performing Clinician Source CBC WITH DIFF 2021-02-18 09:30:00 Destinee Quezada [facility] CBC WITH DIFF 2021-02-18 09:30:00 Destinee Quezada [facility] CBC WITH DIFF 2021-02-18 09:30:00 Destinee Quezada [facility] US PELVIS LIMITED 2021-02-17 16:31:37 [facility] 2021-02-17 16:31:37 [facility] 2021-02-17 16:31:37 [facility] 2021-02-17 15:55:57 Lorenzo Bhardwaj [facility] DILATION AND CURETTAGE 2021-02-17 15:29:00 Destinee Quezada am [facility] DILATION AND CURETTAGE 2021-02-17 15:29:00 Destinee Quezada am [facility] DILATION AND CURETTAGE 2021-02-17 15:29:00 Destinee Quezada am [facility] COVID-19 (ID NOW RAPID TESTING) 2021-02-16 20:13:00 Otis Bernal [facility] COVID-19 (ID NOW RAPID TESTING) 2021-02-16 20:13:00 Otis Bernal [facility] COVID-19 (ID NOW RAPID TESTING) 2021-02-16 20:13:00 Otis Bernal [facility] HB ABO GROUPING 2021-02-16 20:05:00 Otis Bernal Un [facility] HB ABO GROUPING 2021-02-16 20:05:00 Otis Bernal Un [facility] HB ABO GROUPING 2021-02-16 20:05:00 Otis Bernal Un [facility] US PELVIS COMPLETE WITH TRANSVAGINAL 2021-02-16 19:05:44 Otis Bernal [facility] US PELVIS COMPLETE WITH TRANSVAGINAL 2021-02-16 19:05:44 Otis Bernal [facility] US PELVIS COMPLETE WITH TRANSVAGINAL 2021-02-16 19:05:44 Otis Bernal [facility] HB ECG ROUTINE & RHYTHM STRIP 2021-02-16 16:31:29 Otis Bernal [facility] HB ECG ROUTINE & RHYTHM STRIP 2021-02-16 16:31:29 Otis Bernal [facility] HB ECG ROUTINE & RHYTHM STRIP 2021-02-16 16:31:29 Otis Bernal [facility] CBC WITH DIFF 2021-02-16 16:15:00 Otis Bernal [facility] COMP. METABOLIC PANEL ([id number]) 2021-02-16 16:15:00 Otis Bernal [facility] URINALYSIS 2021-02-16 16:15:00 Otis Bernal [facility] LACTIC ACID WHOLE BLOOD 2021-02-16 16:15:00 Otis Bernal [facility] BLOOD CULTURE SCREEN 2021-02-16 16:15:00 Otis Bernal [facility] URINE CULTURE 2021-02-16 16:15:00 Otis Bernal [facility] BLOOD CULTURE SCREEN 2021-02-16 16:15:00 DoloresOtis amador [facility] COMP. METABOLIC PANEL ([id number]) 2021-02-16 16:15:00 DoloresOtis amador [facility] CBC WITH DIFF 2021-02-16 16:15:00 DoloresOtis rios [facility] URINALYSIS 2021-02-16 16:15:00 [facility]tis [facility] 2021-02-16 16:15:00 DoloresOtis [facility] LACTIC ACID WHOLE BLOOD 2021-02-16 16:15:00 DoloresOtis rios [facility] BLOOD CULTURE SCREEN 2021-02-16 16:15:00 DoloresOtis amador [facility] COMP. METABOLIC PANEL ([id number]) 2021-02-16 16:15:00 DoloresOtis amador [facility] CBC WITH DIFF 2021-02-16 16:15:00 DoloresOtis [facility] URINALYSIS 2021-02-16 16:15:00 DoloresOtis Unive [facility] URINE CULTURE 2021-02-16 16:15:00 DoloresOtis rios [facility] LACTIC ACID WHOLE BLOOD 2021-02-16 16:15:00 DoloresOtis amador [facility] NOTICE OF PRIVACY PRACTICES 2021-02-16 14:39:40 Doctor Unassigned, [place] [facility] NOTICE OF PRIVACY PRACTICES 2021-02-16 14:39:40 Doctor Unassigned, [place] [facility] NOTICE OF PRIVACY PRACTICES 2021-02-16 14:39:40 Doctor Unassigned, [place] [facility] CONSENT/REFUSAL FOR DIAGNOSIS AND TREATMENT 2021-02-16 14:39:19 Doctor Unassigned, [place] [facility] CONSENT/REFUSAL FOR DIAGNOSIS AND TREATMENT 2021-02-16 14:39:19 Doctor Unassigned, [place] [facility] CONSENT/REFUSAL FOR DIAGNOSIS AND TREATMENT 2021-02-16 14:39:19 Doctor Unassigned, [place] [facility] CBC WITH DIFF 2021-02-11 05:21:00 Vu, Yoly [facility] CBC WITH DIFF 2021-02-11 05:21:00 Nikolay, Yoly [facility] VENOUS CORD GAS 2021-02-10 10:01:00 Melissa Reilly [facility] ARTERIAL CORD GAS 2021-02-10 10:01:00 Melissa Reilly [facility] CENTRAL NEURAXIAL BLOCK 2021-02-09 20:42:40 Stanislav Marcum [facility] URINALYSIS 2021-02-09 18:49:00 Tony [facility] PROTEIN CREAT RATIO URINE RANDOM 2021-02-09 18:49:00 Tony [facility] PROTEIN CREAT RATIO URINE RANDOM 2021-02-09 18:49:00 [facility]-02-09 18:49:00 [facility] 2021-02-09 14:54:00 Melissa Reilly [facility] RHO (D) IMMUNE GLOBULIN 2021-02-09 14:54:00 Yoyl Link [facility] HB ABO GROUPING 2021-02-09 14:54:00 Melissa Reilly [facility] RHO (D) IMMUNE GLOBULIN 2021-02-09 14:54:00 Nikolay [facility] HEPATITIS B SURFACE ANTIGEN 2021-02-09 14:49:00 Melissa Reilly [facility] HIV 1/2 AG-AB WITH REFLEX 2021-02-09 14:49:00 Melissa Reilly [facility] GALV ONLY - SYPHILIS IGG/IGM 2021-02-09 14:49:00 Melissa Reilly [facility] HEPATITIS B SURFACE ANTIGEN 2021-02-09 14:49:00 Melissa Reilly [facility] GALV ONLY - SYPHILIS IGG/IGM 2021-02-09 14:49:00 Melissa Reilly [facility] HIV 1/2 AG-AB WITH REFLEX 2021-02-09 14:49:00 Melissa Reilly [facility] CBC WITH DIFF 2021-02-09 14:49:00 [facility] URIC ACID 2021-02-09 14:49:00 [facility] 2021-02-09 14:49:00 Tony [facility] SGOT (ASPARTATE AMINO TRANSFER) 2021-02-09 14:49:00 Tony [facility] ALANINE AMINO TRANSFERASE(SGPT 2021-02-09 14:49:00 Tony [facility] SGOT (ASPARTATE AMINO TRANSFER) 2021-02-09 14:49:00 Tony [facility] CREATININE 2021-02-09 14:49:00 Tony [facility] ALANINE AMINO TRANSFERASE(SGPT 2021-02-09 14:49:00 Tony [facility] URIC ACID 2021-02-09 14:49:00 [facility]FF 2021-02-09 14:49:00 Melissa Reilly [facility] COVID-19 (ID NOW RAPID TESTING) 2021-02-09 12:47:00 Michael [facility] LAB ONLY COVID INTERPRETATION 2021-02-09 12:47:00 Michael [facility] COVID-19 (ID NOW RAPID TESTING) 2021-02-09 12:47:00 Michael Kelli [facility] LAB ONLY COVID INTERPRETATION 2021-02-09 12:47:00 Michael Kelli [facility] NOTICE OF RESEARCH PARTICIPATION 2021-02-09 05:01:00 Doctor Unassigned, [place] [facility] HOSPITAL ADMISSION 2021-02-09 05:01:00 Doctor Un assigned, [place] [facility] POCT URINALYSIS 2021-02-04 21:12:00 Indu Green [facility] POCT URINALYSIS 2021-02-04 21:12:00 Indu Green [facility] GC & CHLAMYDIA AMPLIFIED ASSAY 2021-01-20 21:33:00 Radhames Bailey [facility] GROUP B STREPTOCOCCUS BY PCR 2021-01-20 21:33:00 Radhames Bailey [facility] CBC WITH DIFF 2021-01-20 20:30:00 [facility]hames [facility] SARS-COV-2 IGG 2021-01-20 20:30:00 Radhames Bailey [facility] COVID INTERPRETATION 2021-01-20 20:30:00 Radhames Bailey [facility] POCT URINALYSIS 2021-01-20 20:14:00 Indu Green [facility] POCT URINALYSIS 2021-01-20 20:14:00 Indu Green [facility] SECOND AND THIRD TRIMESTER ULTRASOUND 2021-01-19 16:30:00 Indu Green [facility] POCT URINALYSIS 2021-01-06 20:14:00 Indu Green [facility] POCT URINALYSIS 2021-01-06 20:14:00 Indu Green [facility] POCT URINALYSIS 2020-12-23 22:04:00 Indu Green [facility] POCT URINALYSIS 2020-12-23 22:04:00 Indu Green [facility] TDAP VACCINE, >11 YRS, IM 2020-12-09 22:10:58 Indu Green [facility] TDAP VACCINE, >11 YRS, IM 2020-12-09 22:10:58 Indu Green [facility] POCT URINALYSIS 2020-12-09 21:53:00 Indu Green [facility] POCT URINALYSIS 2020-12-09 21:53:00 Indu Green [facility] HIV 1/2 AG-AB WITH REFLEX 2020-12-09 21:37:00 Indu Green [facility] GALV ONLY - SYPHILIS IGG/IGM 2020-12-09 21:37:00 Indu Green [facility] GLUCOSE 1 HOUR POST PRANDIAL 2020-11-19 18:40:00 Indu Green [facility] CBC WITH DIFF 2020-11-19 18:40:00 Indu Green [facility] POCT URINALYSIS 2020-11-19 17:10:00 Indu Green [facility] FLU VACC ([id number]), 6+ MONTHS, IM, QUAD 2020-10-22 14:54:16 Indu Green [facility] POCT URINALYSIS 2020-10-22 14:42:00 Indu Green [facility] POCT URINALYSIS 2020-09-24 14:28:00 Indu Geren [facility] POCT URINALYSIS 2020-08-27 14:26:00 Indu Green [facility] NO SHOW OR MISSED APPOINTMENT POLICY ACKNOWLEDGEMENT 2020-08-11 15:16:54 Doctor Unassigned, [place] [facility] POCT URINALYSIS W/O SPECIFIC GRAVITY 2020-07-14 15:23:00 Indu Green [facility] POCT TEST 2020-07-14 15:19:00 Martín Green [facility] ASSIGNMENT OF BENEFITS 2020-07-14 14:41:37 Docto r Unassigned, [place] [facility] Plan of Care Planned Activity Planned Date Details Comments Source Goal Plan of Care Note [code = 98725-8] Goal Plan of Care Note [code = 50374-5] Goal Plan of Care Note [code = 25908-9] Goal Plan of Care Note [code = 37155-2] Goal Plan of Care Note [code = 46557-5] Goal Plan of Care Note [code = 57522-5] Encounters Start Date/Time End Date/Time Encounter Type Admission Type Attending Clinicians Care Facility Care Department Encounter ID Source 2021-08-16 17:23:56 Outpatient X [facility] [id number] [facility] 2021-08-16 16:39:26 Emergency [facility] [id number] [facility] 2021-08-16 15:09:28 Outpatient [facility] [id number] [facility] 2025-07-05 10:05:21 2025-07-05 10:05:21 Outpatient [facility] SFA [id number] Albert Hurley 2025-07-05 00:00:00 2025-07-05 00:00:00 Outpatient Visit SFA [id number] Albert Hurley 2025-06-11 10:32:24 2025-06-11 10:32:24 Outpatient SFA SFA [id number] Albert Hurley 2025-05-23 13:25:06 2025-05-23 13:25:06 Outpatient SFA SFA [id number] Albert Hurley 2025-05-23 00:00:00 2025-05-23 00:00:00 Outpatient Visit SFA [id number] Albert Hurley 2025-02-19 13:58:13 2025-02-19 13:58:13 Outpatient SFA SFA [id number] Albert Hurley 2025-02-19 00:00:00 2025-02-19 00:00:00 Outpatient Visit SFA [id number] Albert Hurley 2025-02-12 15:22:36 2025-02-12 15:22:36 Outpatient SFA SFA [id number] Albert Hurley 2025-02-12 00:00:00 2025-02-12 00:00:00 Outpatient Visit SFA [id number] Albert Hurley 2025-02-07 11:03:36 2025-02-07 11:03:36 Outpatient SFA SFA [id number] Albert Hurley 2025-02-07 00:00:00 2025-02-07 00:00:00 Outpatient Visit SFA [id number] Albert Hurley 2025-01-12 12:40:08 2025-01-12 12:40:08 Outpatient SFA SFA [id number] lAbert Hurley 2025-01-12 00:00:00 2025-01-12 00:00:00 Outpatient Visit SFA [id number] Albert Hurley 2024-12-18 13:05:13 2024-12-18 13:05:13 Outpatient SFA SFA [id number] Albert Hurley 2024-12-10 10:30:03 2024-12-10 10:30:03 Outpatient SFA SFA [id number] Albert Hurley 2024-09-04 14:10:17 2024-09-04 14:10:17 Outpatient SFA SFA [id number] Albert Hurley 2024-09-04 00:00:00 2024-09-04 00:00:00 Outpatient Visit SFA [id number] Albert Hurley 2024-05-28 00:00:00 2024-05-28 00:00:00 Outpatient Visit SFA [id number] Albert Hurley 2024-04-20 11:20:33 2024-04-20 11:20:33 Outpatient SFA SFA [id number] Alebrt Hurley 2024-04-20 00:00:00 2024-04-20 00:00:00 Outpatient Visit SFA [id number] Albert Hurley 2024-03-06 13:35:50 2024-03-06 13:35:50 Outpatient SFA SFA [id number] Albert Hurley 2024-03-06 00:00:00 2024-03-06 00:00:00 Outpatient Visit SFA [id number] Albert Hurley 2024-02-24 13:42:54 2024-02-24 13:42:54 Outpatient SFA SFA [id number] Albert Hurley 2024-02-20 13:09:57 2024-02-20 13:09:57 Outpatient SFA SFA [id number] Albert Hurley 2024-02-01 13:44:45 2024-02-01 13:44:45 Outpatient SFA SFA [id number] Albert [facility] 2024-02-01 00:00:00 2024-02-01 00:00:00 Outpatient Visit SFA [id number] Albert Hurley 2023-06-13 11:19:06 2023-06-13 11:19:06 Outpatient SFA SFA [id number] Albert Hurley 2023-06-07 09:44:20 2023-06-07 09:44:20 Outpatient SFA SFA [id number] Albert Hurley 2022-05-13 00:00:00 2022-05-13 00:00:00 Outpatient Visit [id number] 2021-03-26 14:15:00 2021-03-26 14:15:00 Outpatient R AZUCENA ESTRELLA [facility] [id number] [facility] 2021-03-03 10:30:17 2021-03-03 11:04:28 Routine Visit Azucena Estrella [facility] [facility] 1.2.840.114 350.1.13.10 4.2.7.2.686 [id number] [facility] 2021-03-03 10:15:00 2021-03-03 10:15:00 Outpatient Yecenia BOWERSE KERRYSTACI [facility] [id number] [facility] 2021-02-16 09:47:00 2021-02-18 18:40:00 Hospital Encounter Otis Bernal Destinee Quezada [facility] 1.2.840.114 350.1.13.10 4.2.7.2.686 [id number] [facility] 2021-02-17 12:03:00 2021-02-17 13:21:00 Surgery QuezadaDestinee Kirit [facility] 1.2.840.114 350.1.13.10 4.2.7.2.686 [id number] [facility] 2021-02-17 10:39:00 2021-02-17 11:36:00 Anesthesia Event Urmila Ng 1.2.840.1 90530.1.1 3.104.2.7 .3.649838 .8 [id number] [facility] 2021-02-17 00:00:00 2021-02-17 00:00:00 Prep For Surgery Destinee Quezada Kirit 1.2.840.1 38153.1.1 3.104.2.7 .3.887490 .8 [id number] [facility] 2021-02-16 00:00:00 2021-02-16 00:00:00 Nurse Triage Perri Marmolejo 1.2.840.1 60648.1.1 3.104.2.7 .3.191614 .8 [id number] [facility] 2021-02-16 00:00:00 2021-02-16 00:00:00 Travel 1.2.840.1 24574.1.1 3.104.2.7 .3.940282 .8 1.2.840.114 350.1.13.10 4.2.7.3.698 084.8 [id number] [facility] 2021-02-09 07:31:00 2021-02-12 15:31:00 Hospital Encounter Kelli Rodriguez 1.2.840.1 60212.1.1 3.104.2.7 .3.906055 .8 [id number] [facility] 2021-02-09 15:10:00 2021-02-10 06:10:00 Anesthesia Event Jass Naik, Joshua Akhtar 1.2.840.1 03425.1.1 3.104.2.7 .3.513869 .8 [id number] [facility] 2021-02-09 00:00:00 2021-02-09 00:00:00 Travel 1.2.840.1 88554.1.1 3.104.2.7 .3.334828 .8 1.2.840.114 350.1.13.10 4.2.7.3.698 084.8 [id number] [facility] 2021-02-04 15:54:25 2021-02-04 16:08:30 Routine Visit Indu Green 1.2.840.1 10397.1.1 3.104.2.7 .3.492819 .8 [id number] [facility] 2021-02-04 15:45:00 2021-02-04 15:45:00 Outpatient R INDU GREEN [facility] [id number] [facility] 2021-02-04 00:00:00 2021-02-04 00:00:00 Travel 1.2.840.1 46034.1.1 3.104.2.7 .3.594480 .8 1.2.840.114 350.1.13.10 4.2.7.3.698 084.8 [id number] [facility] 2021-01-27 15:20:29 2021-01-27 15:47:36 Routine Visit Indu Green 1.2.840.1 70408.1.1 3.104.2.7 .3.592647 .8 [id number] [facility] 2021-01-27 15:15:00 2021-01-27 15:15:00 Outpatient R INDU GREEN [facility] [id number] [facility] 2021-01-27 15:00:00 2021-01-27 15:00:00 Outpatient R RADHAMES BAILEY [facility] [id number] [facility] 2021-01-27 00:00:00 2021-01-27 00:00:00 Travel 1.2.840.1 28907.1.1 3.104.2.7 .3.676741 .8 1.2.840.114 350.1.13.10 4.2.7.3.698 084.8 [id number] [facility] 2021-01-21 00:00:00 2021-01-21 00:00:00 Abstract Indu Green 1.2.840.1 84228.1.1 3.104.2.7 .3.891813 .8 [id number] [facility] 2021-01-20 15:01:35 2021-01-20 15:30:58 Routine Visit Radhames Bailey Damilola C 1.2.840.1 94239.1.1 3.104.2.7 .3.932411 .8 [id number] [facility] 2021-01-20 15:00:00 2021-01-20 15:00:00 Outpatient RADHAMES WALLACE [facility] [id number] [facility] 2021-01-20 00:00:00 2021-01-20 00:00:00 Travel 1.2.840.1 92816.1.1 3.104.2.7 .3.121550 .8 1.2.840.114 350.1.13.10 4.2.7.3.698 084.8 [id number] [facility] 2021-01-19 15:30:00 2021-01-19 15:30:00 Outpatient P [facility] [id number] [facility] 2021-01-19 11:16:02 2021-01-19 11:38:55 Competitive Intelligence Analyst Visit Cobb Shantel ashley Dominguez 1.2.840.1 29458.1.1 3.104.2.7 .3.968894 .8 [id number] [facility] 2021-01-14 15:00:00 2021-01-14 15:00:00 Outpatient P [facility] [id number] [facility] 2021-01-06 15:04:14 2021-01-06 15:30:09 Routine Visit Radhames Bailey 1.2.840.1 93769.1.1 3.104.2.7 .3.001265 .8 [id number] [facility] 2021-01-06 15:00:00 2021-01-06 15:00:00 Outpatient R RADHAMES BAILEY [facility] [id number] [facility] 2021-01-06 00:00:00 2021-01-06 00:00:00 Travel 1.2.840.1 66667.1.1 3.104.2.7 .3.593922 .8 1.2.840.114 350.1.13.10 4.2.7.3.698 084.8 [id number] [facility] 2020-12-23 15:49:28 2020-12-23 16:27:31 Routine Visit Radhames Bailey 1.2.840.1 52335.1.1 3.104.2.7 .3.019877 .8 [id number] [facility] 2020-12-23 15:45:00 2020-12-23 15:45:00 Outpatient R LEO RADHAMES [facility] [id number] [facility] 2020-12-23 00:00:00 2020-12-23 00:00:00 Travel 1.2.840.1 76876.1.1 3.104.2.7 .3.913681 .8 1.2.840.114 350.1.13.10 4.2.7.3.698 084.8 [id number] [facility] 2020-12-09 15:32:32 2020-12-09 16:20:57 Routine Visit Indu Green 1.2.840.1 93586.1.1 3.104.2.7 .3.398213 .8 [id number] [facility] 2020-12-09 15:30:00 2020-12-09 15:30:00 Outpatient R INDU GREEN [facility] [id number] [facility] 2020-12-09 00:00:00 2020-12-09 00:00:00 Travel 1.2.840.1 35030.1.1 3.104.2.7 .3.363179 .8 1.2.840.114 350.1.13.10 4.2.7.3.698 084.8 [id number] [facility] 2020-12-03 10:30:00 2020-12-03 10:30:00 Outpatient R INDU GREEN [facility] [id number] [facility] 2020-11-19 10:50:18 2020-11-19 11:45:20 Routine Visit Indu Green [facility] [employer] [facility] [facility] [place] 1.2.840.114 350.1.13.10 4.2.7.2.686 [id number] [facility] 2020-11-19 10:45:00 2020-11-19 10:45:00 Outpatient R MITCHEL GREENILOLA [facility] [id number] [facility] 2020-11-17 14:00:00 2020-11-17 14:00:00 Outpatient R PETER INDU [facility] [id number] [facility] 2020-11-13 00:00:00 2020-11-13 00:00:00 Telephone Indu Green [facility] [employer] [facility] 1.2.840.114 350.1.13.10 4.2.7.2.686 [id number] [facility] 2020-10-22 10:54:08 2020-10-22 11:39:08 Competitive Intelligence Analyst [facility] 1.2.840.114 350.1.13.10 4.2.7.2.686 [id number] 2020-10-22 10:54:08 2020-10-22 11:39:08 Competitive Intelligence Analyst [facility] George R [facility] [employer] [facility] 1.2.840.114 350.1.13.10 4.2.7.2.686 [id number] [facility] 2020-10-22 08:25:53 2020-10-22 08:55:30 Routine Visit Indu Green [facility] [employer] [facility] 1.2.840.114 350.1.13.10 4.2.7.2.686 [id number] 2020-10-22 08:25:53 2020-10-22 08:55:30 Routine Visit Indu Green [facility] [employer] [facility] 1.2.840.114 350.1.13.10 4.2.7.2.686 [id number] 107 [id number] [facility] 2020-10-22 08:15:00 2020-10-22 08:15:00 Outpatient R PETER INDU [facility] [id number] [facility] 2020-10-22 00:00:00 2020-10-22 00:00:00 Letter (Out) Indu Green [facility] [employer] [facility] 1.2.840.114 350.1.13.10 4.2.7.2.686 [id number] 2020-10-22 00:00:00 2020-10-22 00:00:00 Abstract Indu Green [facility] [employer] [facility] 1.2.840.114 350.1.13.10 4.2.7.2.686 [id number] 2020-10-22 00:00:00 2020-10-22 00:00:00 Letter (Out) SoterodavauroraMitchelIndu Bebeto [facility] [employer] [facility] 1.2.840.114 350.1.13.10 4.2.7.2.686 [id number] [facility] 2020-10-22 00:00:00 2020-10-22 00:00:00 Abstract Peter Indu C [facility] [employer] [facility] 1.2.840.114 350.1.13.10 4.2.7.2.686 [id number] [facility] 2020-09-26 00:00:00 2020-09-26 00:00:00 Abstract Peter Indu C [facility] [employer] [facility] 1.2.840.114 350.1.13.10 4.2.7.2.686 [id number] 2020-09-26 00:00:00 2020-09-26 00:00:00 Abstract Indu Green [facility] [employer] [facility] 1.2.840.114 350.1.13.10 4.2.7.2.686 [id number] 2020-09-26 00:00:00 2020-09-26 00:00:00 Abstract Indu Green [facility] [employer] [facility] 1.2.840.114 350.1.13.10 4.2.7.2.686 [id number] [facility] 2020-09-26 00:00:00 2020-09-26 00:00:00 Abstract Indu Green [facility] 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[employer]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 [facility] 1.2.840.114 350.1.13.10 4.2.7.2.686 [id number] [facility] 2020-09-24 09:15:00 2020-09-24 09:15:00 Outpatient R INDU GREEN [facility] [id number] [facility] 2020-09-24 08:04:50 2020-09-24 08:35:05 Routine Visit Indu Green [facility] [employer] [facility] 1.2.840.114 350.1.13.10 4.2.7.2.686 [id number] 2020-09-24 08:04:50 2020-09-24 08:35:05 Routine Visit Indu Green [facility] [employer] [facility] 1.2.840.114 350.1.13.10 4.2.7.2.686 [id number] 107 [id number] [facility] 2020-09-23 08:44:17 2020-09-23 09:44:17 Competitive Intelligence Analyst Visit Ultrasound, Angelica Cifuentes [facility] [facility] 1.2.840.114 350.1.13.10 4.2.7.2.686 [id number] [facility] 2020-09-23 08:30:00 2020-09-23 08:30:00 Outpatient P [facility] [id number] [facility] 2020-08-27 08:08:51 2020-08-27 08:57:15 Routine Visit Indu Green [facility] [facility] 1.2.840.114 350.1.13.10 4.2.7.2.686 [id number] 107 [id number] [facility] 2020-08-27 08:00:00 2020-08-27 08:00:00 Outpatient R INDU GREEN [facility] [id number] [facility] 2020-08-27 08:00:00 2020-08-27 08:00:00 Outpatient R INDU GREEN [facility] [id number] [facility] 2020-08-22 00:00:00 2020-08-22 00:00:00 Nurse Triage Krystal Tellez [facility] 1.2.840.114 350.1.13.10 4.2.7.2.686 [id number] [facility] 2020-08-21 00:00:00 2020-08-21 00:00:00 Nurse Triage Efe Albarranon Gila [facility] 1.2.840.114 350.1.13.10 4.2.7.2.686 [id number] [facility] 2020-08-11 09:45:00 2020-08-11 09:45:00 Outpatient R INDU GREEN [facility] [id number] [facility] 2020-08-11 00:00:00 2020-08-11 00:00:00 Orders Only Doctor Unassigned, [place] [facility] 1.2.840.114 350.1.13.10 4.2.7.2.686 [id number] [facility] 2020-07-14 10:06:40 2020-07-14 11:23:45 Initial Visit Indu Green [facility] [facility] 1..840.114 350.1.13.10 4.2.7.2.686 [id number] [facility] 2020-07-14 09:30:00 2020-07-14 09:30:00 Outpatient R INDU GREEN [facility] [id number] [facility] 2020-07-14 00:00:00 2020-07-14 00:00:00 Orders Only Doctor Unassigned, [place] [facility] 1..840.114 350.1.13.10 4.2.7.2.686 [id number] [facility] 2020-07-14 00:00:00 2020-07-14 00:00:00 Letter (Out) Indu Green [facility] [address] [facility] 1..840.114 350.1.13.10 4.2.7.2.686 [id number] [facility] Results Test Description Test Time Test Comments Results Result Co mments Source Albert HurleyBV/VAGINITIS PANEL DNA [id number] 00:00:00* Test Item Value Reference Range Interpretation Comme nts TRICHOMONAS: (test code = 6568-0) NOT DETECTED GARDNERELLA: (test code = 6410-5) NOT DETECTED BO: (test code = 60339-6) NOT DETECTED Albert HurleyGLIADIN (DEAMIDATED) AB (IGG, IGA)2025-02-12 00:00:00* Test Item Value Reference Range Interpretation Comme nts GLIADIN (DEAMIDATED) AB (IGA ) (test code = 91021-5) <1.0 U/mL GLIADIN (DEAMIDATED) AB (IGG ) (test code = 01215-5) 6.1 U/mL Albert HurleyTISSUE TRANSGLUTAMINASE AB, [id number] 00:00:00* Test Item Value Reference Range Interpretation Comme nts TISSUE TRANSGLUTAMINASE AB, IGA (test code = 42847-5) <1.0 U/mL [facility] AustinENDOMYSIAL ANTIBODY SCR (IGA) W/REFL TO [id number] 00:00:00 * Test Item Value Reference Range Interpretation Comme nts ENDOMYSIAL ANTIBODY SCR (IGA ) W/REFL TO TITER (test code = 40533-5) NEGATIVE [facility] Austin[facility]IAD[facility] (DEAMIDATED) AB (IGG, IGA)2025-02-12 00:00:00* Test Item Value Reference Range Interpretation Comme nts GLIADIN (DEAMIDATED) AB (IGA ) (test code = 36326-4) <1.0 U/mL GLIADIN (DEAMIDATED) AB (IGG ) (test code = 19664-4) 6.1 U/mL Albert AustinTISSUE TRANSGLUTAMINASE AB, [id number] 00:00:00* Test Item Value Reference Range Interpretation Comme nts TISSUE TRANSGLUTAMINASE AB, IGA (test code = 50167-0) <1.0 U/mL [facility] AustinENDOMYSIAL ANTIBODY SCR (IGA) W/REFL TO [id number] 00:00:00 * Test Item Value Reference Range Interpretation Comme nts ENDOMYSIAL ANTIBODY SCR (IGA ) W/REFL TO TITER (test code = 15714-0) NEGATIVE [facility] AustinGLIAD[facility] (DEAMIDATED) AB (IGG, IGA)2025-02-12 00:00:00* Test Item Value Reference Range Interpretation Comme nts GLIADIN (DEAMIDATED) AB (IGA ) (test code = 09307-9) <1.0 U/mL GLIADIN (DEAMIDATED) AB (IGG ) (test code = 23358-4) 6.1 U/mL Albert AustinTISSUE TRANSGLUTAMINASE AB, [id number] 00:00:00* Test Item Value Reference Range Interpretation Comme nts TISSUE TRANSGLUTAMINASE AB, IGA (test code = 24156-4) <1.0 U/mL Albert F AustinENDOMYSIAL ANTIBODY SCR (IGA) W/REFL TO [id number] 00:00:00 * Test Item Value Reference Range Interpretation Comme nts ENDOMYSIAL ANTIBODY SCR (IGA ) W/REFL TO TITER (test code = 13502-8) NEGATIVE Albert HurleyGLIADIN (DEAMIDATED) AB (IGG, IGA)2025-02-12 00:00:00* Test Item Value Reference Range Interpretation Comme nts GLIADIN (DEAMIDATED) AB (IGA ) (test code = 60228-5) <1.0 U/mL GLIADIN (DEAMIDATED) AB (IGG ) (test code = 14960-1) 6.1 U/mL Albert HurleyTISSUE TRANSGLUTAMINASE AB, [id number] 00:00:00* Test Item Value Reference Range Interpretation Comme nts TISSUE TRANSGLUTAMINASE AB, IGA (test code = 56430-3) <1.0 U/mL Albert HurleyENDOMYSIAL ANTIBODY SCR (IGA) W/REFL TO [id number] 00:00:00 * Test Item Value Reference Range Interpretation Comme nts ENDOMYSIAL ANTIBODY SCR (IGA ) W/REFL TO TITER (test code = 86227-9) NEGATIVE Albert HurleyHCG, [id number] 06:57:03* Test Item Value Reference Range Interpretation Comme nts HCG, QUANTITATIVE (test code = 2506) <5 MIU/ML SEE BELOW EXPEC LENORE VALUES FOR HCG GST.AGE UNITS RANGE GST. AGE UNITS RANGE3 WEEKS MIU/ML 6-71 10 WEEKS MIU/ML 46,509-186,9774 WEEKS MIU/ML 10-750 12 WEEKS MIU/ML 27,832-210,6125 WEEKS MIU/ML 217-7,138 14 WEEKS MIU/ML 13,950-62,5306 WEEKS MIU/ML 158-31,795 15 WEEKS MIU/ML 12,039-70,9717 WEEKS MIU/ML 3,697-163,563 16 WEEKS MIU/ML 9,040-56,4518 WEEKS MIU/ML 32,065-149,571 17 WEEKS MIU/ML 8,175-55,8689 WEEKS MIU/ML 63,803-151,410 18 WEEKS MIU/ML 8,099-58,176MALES and NON- FEMALES . . . . . . . . MIU/ML 7-0ESZI-GEUYWPYABF FEMALES . . . . . . . . . . . . MIU/ML <=7 UNLESS OTHERWISE INDICATED, ALL TESTING PERFORMED AT [facility] [employer] [address] [place] [address] [employer] SUPERINTENDENT: DEEPAK DODGE M.D. [place] NUMBER [id number] [facility] [place]. [id number] HCG, [id number] 00:00:00* Test Item Value Reference Range Interpretation Comme nts HCG, QUANTITATIVE (test code = 2506) <5 MIU/ML Albert F AustinHCG, [id number] 00:00:00* Test Item Value Reference Range Interpretation Comme nts HCG, QUANTITATIVE (test code = 2506) <5 MIU/ML Albert F AustinHCG, [id number] 00:00:00* Test Item Value Reference Range Interpretation Comme nts HCG, QUANTITATIVE (test code = 2506) <5 MIU/ML Albert F AustinHCG, [id number] 00:00:00* Test Item Value Reference Range Interpretation Comme nts HCG, QUANTITATIVE (test code = 2506) <5 MIU/ML Albert F AustinHCG, [id number] 00:00:00* Test Item Value Reference Range Interpretation Comme nts HCG, QUANTITATIVE (test code = 2506) <5 MIU/ML Albert F AustinHCG, [id number] 00:00:00* Test Item Value Reference Range Interpretation Comme nts HCG, QUANTITATIVE (test code = 2506) <5 MIU/ML Albert F AustinHCG, [id number] 00:00:00* Test Item Value Reference Range Interpretation Comme nts HCG, QUANTITATIVE (test code = 2506) <5 MIU/ML Albert F AustinGLIADIN AB, DEAMIDATED [id number] 04:46:18* Test Item Value Reference Range Interpretation Comme nts GLIADIN AB, DEAMID. IgG (test code = 225881) 15 U/ML <15 H GLIADIN AB, DEAMID. IgA (test code = 756971) <1 U/ML <15 INTERPRETIVE INFORMATION INTERPRETATION RESULT NEGATIVE <15 U/ML POSITIVE >=15 U/ML UNLESS OTHERWISE INDICATED, ALL TESTING PERFORMED AT [facility] [employer] [address] [place] [address] [employer] SUPERINTENDENT: DEEPAK DODGE M.D. CLIA NUMBER [id number] [facility] [place]. [id number] GLIADIN AB, DEAMIDATED [id number] 00:00:00* Test Item Value Reference Range Interpretation Comme nts GLIADIN AB, DEAMID. IgG (minerva t code = 734508) 15 U/ML GLIADIN AB, DEAMID. IgA (minerva t code = 962990) <1 U/ML Albert F AustinGLIADIN AB, DEAMIDATED [id number] 00:00:00* Test Item Value Reference Range Interpretation Comme nts GLIADIN AB, DEAMID. IgG (minerva t code = 141037) 15 U/ML GLIADIN AB, DEAMID. IgA (minerva t code = 170644) <1 U/ML Albert F AustinGLIADIN AB, DEAMIDATED [id number] 00:00:00* Test Item Value Reference Range Interpretation Comme nts GLIADIN AB, DEAMID. IgG (minerva t code = 768944) 15 U/ML GLIADIN AB, DEAMID. IgA (minerva t code = 301515) <1 U/ML Albert F AustinGLIADIN AB, DEAMIDATED IgG/[id number] 00:00:00* Test Item Value Reference Range Interpretation Comme nts GLIADIN AB, DEAMID. IgG (minerva t code = 028792) 15 U/ML GLIADIN AB, DEAMID. IgA (minerva t code = 096329) <1 U/ML Albert F AustinGLIADIN AB, DEAMIDATED IgG/[id number] 00:00:00* Test Item Value Reference Range Interpretation Comme nts GLIADIN AB, DEAMID. IgG (minerva t code = 475862) 15 U/ML GLIADIN AB, DEAMID. IgA (minerva t code = 854645) <1 U/ML Albert F AustinGLIADIN AB, DEAMIDATED IgG/[id number] 00:00:00* Test Item Value Reference Range Interpretation Comme nts GLIADIN AB, DEAMID. IgG (minerva t code = 929059) 15 U/ML GLIADIN AB, DEAMID. IgA (minerva t code = 003892) <1 U/ML Albert F AustinGLIADIN AB, DEAMIDATED IgG/[id number] 00:00:00* Test Item Value Reference Range Interpretation Comme nts GLIADIN AB, DEAMID. IgG (minerva t code = 246956) 15 U/ML GLIADIN AB, DEAMID. IgA (minerva t code = 547018) <1 U/ML Albert F AustinGLIADIN AB, DEAMIDATED IgG/[id number] 00:00:00* Test Item Value Reference Range Interpretation Comme nts GLIADIN AB, DEAMID. IgG (minerva t code = 843426) 15 U/ML GLIADIN AB, DEAMID. IgA (minerva t code = 637065) <1 U/ML Albert F AustinGLIADIN AB, DEAMIDATED IgG/[id number] 00:00:00* Test Item Value Reference Range Interpretation Comme nts GLIADIN AB, DEAMID. IgG (minerva t code = 523115) 15 U/ML GLIADIN AB, DEAMID. IgA (minerva t code = 526528) <1 U/ML Albert F AustinGLIADIN AB, DEAMIDATED IgG/[id number] 00:00:00* Test Item Value Reference Range Interpretation Comme nts GLIADIN AB, DEAMID. IgG (minerva t code = 905666) 15 U/ML GLIADIN AB, DEAMID. IgA (minerva t code = 763599) <1 U/ML Albert F AustinGLIADIN AB, DEAMIDATED IgG/[id number] 05:19:59* Test Item Value Reference Range Interpretation Comme nts GLIADIN AB, DEAMID. IgG (test code = 993858) 15 U/ML <15 H GLIADIN AB, DEAMID. IgA (test code = 402503) <1 U/ML <15 INTERPRETIVE INFORMATION INTERPRETATION RESULT NEGATIVE <15 U/ML POSITIVE >=15 U/ML UNLESS OTHERWISE INDICATED, ALL TESTING PERFORMED AT [facility] [address] [place] [id number] [employer]PER[employer]END[employer]: DEEPAK DODGE M.D. CLIA NUMBER [id number] [place] [id number] GLIADIN AB, DEAMIDATED IgG/[id number] 00:00:00* Test Item Value Reference Range Interpretation Comme nts GLIADIN AB, DEAMID. IgG (minerva t code = 377128) 15 U/ML GLIADIN AB, DEAMID. IgA (minerva t code = 650144) <1 U/ML Albert F AustinGLIADIN AB, DEAMIDATED IgG/[id number] 00:00:00* Test Item Value Reference Range Interpretation Comme nts GLIADIN AB, DEAMID. IgG (minerva t code = 077971) 15 U/ML GLIADIN AB, DEAMID. IgA (minerva t code = 202724) <1 U/ML Albert F AustinGLIADIN AB, DEAMIDATED IgG/[id number] 00:00:00* Test Item Value Reference Range Interpretation Comme nts GLIADIN AB, DEAMID. IgG (minerva t code = 582223) 15 U/ML GLIADIN AB, DEAMID. IgA (minerva t code = 059683) <1 U/ML Albert F AustinGLIADIN AB, DEAMIDATED IgG/[id number] 00:00:00* Test Item Value Reference Range Interpretation Comme nts GLIADIN AB, DEAMID. IgG (minerva t code = 301885) 15 U/ML GLIADIN AB, DEAMID. IgA (minerva t code = 956464) <1 U/ML Albert F AustinGLIADIN AB, DEAMIDATED IgG/[id number] 00:00:00* Test Item Value Reference Range Interpretation Comme nts GLIADIN AB, DEAMID. IgG (minerva t code = 082212) 15 U/ML GLIADIN AB, DEAMID. IgA (minerva t code = 418510) <1 U/ML Albert F AustinGLIADIN AB, DEAMIDATED IgG/[id number] 00:00:00* Test Item Value Reference Range Interpretation Comme nts GLIADIN AB, DEAMID. IgG (minerva t code = 369252) 15 U/ML GLIADIN AB, DEAMID. IgA (minerva t code = 908726) <1 U/ML Albert F AustinGLIADIN AB, DEAMIDATED IgG/[id number] 00:00:00* Test Item Value Reference Range Interpretation Comme nts GLIADIN AB, DEAMID. IgG (minerva t code = 825783) 15 U/ML GLIADIN AB, DEAMID. IgA (minerva t code = 049410) <1 U/ML Albert F AustinGLIADIN AB, DEAMIDATED IgG/[id number] 00:00:00* Test Item Value Reference Range Interpretation Comme nts GLIADIN AB, DEAMID. IgG (minerva t code = 355707) 15 U/ML GLIADIN AB, DEAMID. IgA (minerva t code = 177415) <1 U/ML Albert F AustinGLIADIN AB, DEAMIDATED IgG/[id number] 00:00:00* Test Item Value Reference Range Interpretation Comme nts GLIADIN AB, DEAMID. IgG (minerva t code = 918516) 15 U/ML GLIADIN AB, DEAMID. IgA (minerva t code = 822738) <1 U/ML Albert F AustinGLIADIN AB, DEAMIDATED IgG/[id number] 00:00:00* Test Item Value Reference Range Interpretation Comme nts GLIADIN AB, DEAMID. IgG (minerva t code = 503028) 15 U/ML GLIADIN AB, DEAMID. IgA (minerva t code = 650061) <1 U/ML Albert F AustinCOMPREHENSIVE METABOLIC [id number] 05:13:56* Test Item Value Reference Range Interpretation Comme nts GLUCOSE (test code = 2217) 91 MG/DL 70-99 BUN (test code = 2208) 12 MG/DL 6-20 CREATININE (test code = 2214) 0.77 MG/DL 0.60-1.30 eGFR (2020 CKD-EPI) (test code = 62384) 112 ML/MIN/1.73 >60 CALC BUN/CREAT (test code = 2235) 16 RATIO 6-28 SODIUM (test code = 2231) 139 MEQ/L 133-146 POTASSIUM (test code = 2228) 4.7 MEQ/L 3.5-5.4 CHLORIDE (test code = 2215) 102 MEQ/L 95-107 CARBON DIOXIDE (test code = 2206) 24 MEQ/L 19-31 CALCIUM (test code = 2209) 10.8 MG/DL 8.5-10.5 H PROTEIN, TOTAL (test code = 222) 8.4 G/DL 6.1-8.3 H ALBUMIN (test code = 2201) 5.3 G/DL 3.5-5.2 H CALC GLOBULIN (test code = 2240) 3.1 G/DL 1.9-3.7 CALC A/G RATIO (test code = 2234) 1.7 RATIO 1.0-2.6 BILIRUBIN, TOTAL (test code = 2207) 0.5 MG/DL <=1.2 ALKALINE PHOSPHATASE (test code = 2204) 82 U/L 38-117 AST (test code = 2218) 23 U/L 9-40 ALT (test code = 2219) 9 U/L 5-40 UNLESS OTHERWISE INDICATED, ALL TESTING PERFORMED AT [facility] [address] [place] [address] [employer] SUPERINTENDENT: DEEPAK DODGE M.D. CLIA NUMBER [id number] [facility] [place]. [id number] COMPREHENSIVE METABOLIC [id number] 00:00:00* Test Item Value Reference Range Interpretation Comme nts GLUCOSE (test code = 2217) 91 MG/DL BUN (test code = 2208) 12 MG/DL CREATININE (test code = 2214) 0.77 MG/DL eGFR (2020 CKD-EPI) (test code = 61872) 112 ML/MIN/1.73 CALC BUN/CREAT (test code = 2235) 16 RATIO SODIUM (test code = 2231) 139 MEQ/L POTASSIUM (test code = 2228) 4.7 MEQ/L CHLORIDE (test code = 2215) 102 MEQ/L CARBON DIOXIDE (test code = 2206) 24 MEQ/L CALCIUM (test code = 2209) 10.8 MG/DL PROTEIN, TOTAL (test code = 2229) 8.4 G/DL ALBUMIN (test code = 2201) 5.3 G/DL CALC GLOBULIN (test code = 2240) 3.1 G/DL CALC A/G RATIO (test code = 2234) 1.7 RATIO BILIRUBIN, TOTAL (test code = 2207) 0.5 MG/DL ALKALINE PHOSPHATASE (test code = 2204) 82 U/L AST (test code = 2218) 23 U/L ALT (test code = 2219) 9 U/L Albert HurleyCOMPREHENSIVE METABOLIC [id number] 00:00:00* Test Item Value Reference Range Interpretation Comme nts GLUCOSE (test code = 2217) 91 MG/DL BUN (test code = 2208) 12 MG/DL CREATININE (test code = 2214) 0.77 MG/DL eGFR (2020 CKD-EPI) (test code = 60331) 112 ML/MIN/1.73 CALC BUN/CREAT (test code = 2235) 16 RATIO SODIUM (test code = 2231) 139 MEQ/L POTASSIUM (test code = 2228) 4.7 MEQ/L CHLORIDE (test code = 2215) 102 MEQ/L CARBON DIOXIDE (test code = 2206) 24 MEQ/L CALCIUM (test code = 2209) 10.8 MG/DL PROTEIN, TOTAL (test code = 2229) 8.4 G/DL ALBUMIN (test code = 2201) 5.3 G/DL CALC GLOBULIN (test code = 2240) 3.1 G/DL CALC A/G RATIO (test code = 2234) 1.7 RATIO BILIRUBIN, TOTAL (test code = 2207) 0.5 MG/DL ALKALINE PHOSPHATASE (test code = 2204) 82 U/L AST (test code = 2218) 23 U/L ALT (test code = 2219) 9 U/L Albert F XaviCOMPREHENSIVE METABOLIC [id number] 00:00:00* Test Item Value Reference Range Interpretation Comme nts GLUCOSE (test code = 2217) 91 MG/DL BUN (test code = 2208) 12 MG/DL CREATININE (test code = 2214) 0.77 MG/DL eGFR (2020 CKD-EPI) (test code = 94231) 112 ML/MIN/1.73 CALC BUN/CREAT (test code = 2235) 16 RATIO SODIUM (test code = 2231) 139 MEQ/L POTASSIUM (test code = 2228) 4.7 MEQ/L CHLORIDE (test code = 2215) 102 MEQ/L CARBON DIOXIDE (test code = 2206) 24 MEQ/L CALCIUM (test code = 2209) 10.8 MG/DL PROTEIN, TOTAL (test code = 2229) 8.4 G/DL ALBUMIN (test code = 2201) 5.3 G/DL CALC GLOBULIN (test code = 2240) 3.1 G/DL CALC A/G RATIO (test code = 2234) 1.7 RATIO BILIRUBIN, TOTAL (test code = 2207) 0.5 MG/DL ALKALINE PHOSPHATASE (test code = 2204) 82 U/L AST (test code = 2218) 23 U/L ALT (test code = 2219) 9 U/L Albert HurleyCOMPREHENSIVE METABOLIC [id number] 00:00:00* Test Item Value Reference Range Interpretation Comme nts GLUCOSE (test code = 2217) 91 MG/DL BUN (test code = 2208) 12 MG/DL CREATININE (test code = 2214) 0.77 MG/DL eGFR (2020 CKD-EPI) (test code = 06857) 112 ML/MIN/1.73 CALC BUN/CREAT (test code = 2235) 16 RATIO SODIUM (test code = 2231) 139 MEQ/L POTASSIUM (test code = 2228) 4.7 MEQ/L CHLORIDE (test code = 2215) 102 MEQ/L CARBON DIOXIDE (test code = 2206) 24 MEQ/L CALCIUM (test code = 2209) 10.8 MG/DL PROTEIN, TOTAL (test code = 2229) 8.4 G/DL ALBUMIN (test code = 2201) 5.3 G/DL CALC GLOBULIN (test code = 2240) 3.1 G/DL CALC A/G RATIO (test code = 2234) 1.7 RATIO BILIRUBIN, TOTAL (test code = 2207) 0.5 MG/DL ALKALINE PHOSPHATASE (test code = 2204) 82 U/L AST (test code = 2218) 23 U/L ALT (test code = 2219) 9 U/L Albert Gutierrez [place]PRE[place] [id number] 00:00:00* Test Item Value Reference Range Interpretation Comme nts GLUCOSE (test code = 2217) 91 MG/DL BUN (test code = 2208) 12 MG/DL CREATININE (test code = 2214) 0.77 MG/DL eGFR (2020 CKD-EPI) (test code = 97863) 112 ML/MIN/1.73 CALC BUN/CREAT (test code = 2235) 16 RATIO SODIUM (test code = 2231) 139 MEQ/L POTASSIUM (test code = 2228) 4.7 MEQ/L CHLORIDE (test code = 2215) 102 MEQ/L CARBON DIOXIDE (test code = 2206) 24 MEQ/L CALCIUM (test code = 2209) 10.8 MG/DL PROTEIN, TOTAL (test code = 2229) 8.4 G/DL ALBUMIN (test code = 2201) 5.3 G/DL CALC GLOBULIN (test code = 2240) 3.1 G/DL CALC A/G RATIO (test code = 2234) 1.7 RATIO BILIRUBIN, TOTAL (test code = 2207) 0.5 MG/DL ALKALINE PHOSPHATASE (test code = 2204) 82 U/L AST (test code = 2218) 23 U/L ALT (test code = 2219) 9 U/L Albert Gutierrez [place] CityCOMPREHENSIVE METABOL[place] [id number] 00:00:00* Test Item Value Reference Range Interpretation Comme nts GLUCOSE (test code = 2217) 91 MG/DL BUN (test code = 2208) 12 MG/DL CREATININE (test code = 2214) 0.77 MG/DL eGFR (2020 CKD-EPI) (test code = 12557) 112 ML/MIN/1.73 CALC BUN/CREAT (test code = 2235) 16 RATIO SODIUM (test code = 2231) 139 MEQ/L POTASSIUM (test code = 2228) 4.7 MEQ/L CHLORIDE (test code = 2215) 102 MEQ/L CARBON DIOXIDE (test code = 2206) 24 MEQ/L CALCIUM (test code = 2209) 10.8 MG/DL PROTEIN, TOTAL (test code = 2229) 8.4 G/DL ALBUMIN (test code = 2201) 5.3 G/DL CALC GLOBULIN (test code = 2240) 3.1 G/DL CALC A/G RATIO (test code = 2234) 1.7 RATIO BILIRUBIN, TOTAL (test code = 2207) 0.5 MG/DL ALKALINE PHOSPHATASE (test code = 2204) 82 U/L AST (test code = 2218) 23 U/L ALT (test code = 2219) 9 U/L Albert F AustinCOMPREHENSIVE METABOLIC [id number] 00:00:00* Test Item Value Reference Range Interpretation Comme nts GLUCOSE (test code = 2217) 91 MG/DL BUN (test code = 2208) 12 MG/DL CREATININE (test code = 2214) 0.77 MG/DL eGFR (2020 CKD-EPI) (test code = 37844) 112 ML/MIN/1.73 CALC BUN/CREAT (test code = 2235) 16 RATIO SODIUM (test code = 2231) 139 MEQ/L POTASSIUM (test code = 2228) 4.7 MEQ/L CHLORIDE (test code = 2215) 102 MEQ/L CARBON DIOXIDE (test code = 2206) 24 MEQ/L CALCIUM (test code = 2209) 10.8 MG/DL PROTEIN, TOTAL (test code = 2229) 8.4 G/DL ALBUMIN (test code = 2201) 5.3 G/DL CALC GLOBULIN (test code = 2240) 3.1 G/DL CALC A/G RATIO (test code = 2234) 1.7 RATIO BILIRUBIN, TOTAL (test code = 2207) 0.5 MG/DL ALKALINE PHOSPHATASE (test code = 2204) 82 U/L AST (test code = 2218) 23 U/L ALT (test code = 2219) 9 U/L Albert [facility]leyBOTHWE[facility] CENTERPREHENSIVE METABOLIC [id number] 00:00:00* Test Item Value Reference Range Interpretation Comme nts GLUCOSE (test code = 2217) 91 MG/DL BUN (test code = 2208) 12 MG/DL CREATININE (test code = 2214) 0.77 MG/DL eGFR (2020 CKD-EPI) (test code = 33074) 112 ML/MIN/1.73 CALC BUN/CREAT (test code = 2235) 16 RATIO SODIUM (test code = 2231) 139 MEQ/L POTASSIUM (test code = 2228) 4.7 MEQ/L CHLORIDE (test code = 2215) 102 MEQ/L CARBON DIOXIDE (test code = 2206) 24 MEQ/L CALCIUM (test code = 2209) 10.8 MG/DL PROTEIN, TOTAL (test code = 2229) 8.4 G/DL ALBUMIN (test code = 2201) 5.3 G/DL CALC GLOBULIN (test code = 2240) 3.1 G/DL CALC A/G RATIO (test code = 2234) 1.7 RATIO BILIRUBIN, TOTAL (test code = 2207) 0.5 MG/DL ALKALINE PHOSPHATASE (test code = 2204) 82 U/L AST (test code = 2218) 23 U/L ALT (test code = 2219) 9 U/L [facility]rez [facility] [id number] 00:00:00* Test Item Value Reference Range Interpretation Comme nts GLUCOSE (test code = 2217) 91 MG/DL BUN (test code = 2208) 12 MG/DL CREATININE (test code = 2214) 0.77 MG/DL eGFR (2020 CKD-EPI) (test code = 64897) 112 ML/MIN/1.73 CALC BUN/CREAT (test code = 2235) 16 RATIO SODIUM (test code = 2231) 139 MEQ/L POTASSIUM (test code = 2228) 4.7 MEQ/L CHLORIDE (test code = 2215) 102 MEQ/L CARBON DIOXIDE (test code = 2206) 24 MEQ/L CALCIUM (test code = 2209) 10.8 MG/DL PROTEIN, TOTAL (test code = 2229) 8.4 G/DL ALBUMIN (test code = 2201) 5.3 G/DL CALC GLOBULIN (test code = 2240) 3.1 G/DL CALC A/G RATIO (test code = 2234) 1.7 RATIO BILIRUBIN, TOTAL (test code = 2207) 0.5 MG/DL ALKALINE PHOSPHATASE (test code = 2204) 82 U/L AST (test code = 2218) 23 U/L ALT (test code = 2219) 9 U/L Albert HurleyCOMPREHENSIVE METABOLIC [id number] 00:00:00* Test Item Value Reference Range Interpretation Comme nts GLUCOSE (test code = 2217) 91 MG/DL BUN (test code = 2208) 12 MG/DL CREATININE (test code = 2214) 0.77 MG/DL eGFR (2020 CKD-EPI) (test code = 87937) 112 ML/MIN/1.73 CALC BUN/CREAT (test code = 2235) 16 RATIO SODIUM (test code = 2231) 139 MEQ/L POTASSIUM (test code = 2228) 4.7 MEQ/L CHLORIDE (test code = 2215) 102 MEQ/L CARBON DIOXIDE (test code = 2206) 24 MEQ/L CALCIUM (test code = 2209) 10.8 MG/DL PROTEIN, TOTAL (test code = 2229) 8.4 G/DL ALBUMIN (test code = 2201) 5.3 G/DL CALC GLOBULIN (test code = 2240) 3.1 G/DL CALC A/G RATIO (test code = 2234) 1.7 RATIO BILIRUBIN, TOTAL (test code = 2207) 0.5 MG/DL ALKALINE PHOSPHATASE (test code = 2204) 82 U/L AST (test code = 2218) 23 U/L ALT (test code = 2219) 9 U/L Albert Andersen, THIRD [id number] 08:25:55* Test Item Value Reference Range Interpretation Comme nts TSH, THIRD GENERATION (test code = 2821) 2.140 UIU/ML 0.400-4.100 VITAMIN D, 25 [id number] 08:25:43* Test Item Value Reference Range Interpretation Comme nts VITAMIN D, 25 OH (test code = 4958) 24 NG/ML SEE BELOW L EFFECTIVE 06/2023, PLEASE NOTE NEW METHODOLOGY IS ELECTROCHEMILUMINESCENCE BINDING ASSAY. NOTE: 25-HYDROXYVITAMIN D ASSAY INCLUDES 25-HYDROXYVITAMIN D2 AND D3. INTERPRETIVE RANGES PEDIATRIC (<17 YEARS) . . . . . . . . . . . NG/ML 20-100ADULT: INSUFFICIENT . . . . . . . . . . . . . . NG/ML <20 SUBOPTIMAL . . . . . . . . . . . . . . . NG/ML 20-29 OPTIMAL . . . . . . . . . . . . . . . . . NG/ML 30-100 CELIAC DISEASE [id number] 06:17:17* Test Item Value Reference Range Interpretation Comme nts GLIADIN AB, DEAMID. IgG (test code = 916635) 26 U/ML <15 H INTERPRETIVE INFORMATION INTERPRETATION RESULT NEGATIVE <15 U/ML POSITIVE >=15 U/ML GLIADIN AB, DEAMID. IgA (test code = 575342) <1 U/ML <15 INTERPRETIVE INFORMATION INTERPRETATION RESULT NEGATIVE <15 U/ML POSITIVE >=15 U/ML TTG IgG (test code = 81753) <1 U/ML <15 INTERPRETIVE INFORMATION INTERPRETATION RESULT NEGATIVE <15 U/ML POSITIVE >=15 U/ML TTG IgA (test code = 25548) <1 U/ML <15 INTERPRETIVE INFORMATION INTERPRETATION RESULT NEGATIVE <15 U/ML POSITIVE >=15 U/ML UNLESS OTHERWISE INDICATED, ALL TESTING PERFORMED AT [facility] [address] [place] [address] [employer] SUPERINTENDENT: DEEPAK DODGE M.D. CLIA NUMBER [id number] [facility] [place]. [id number] VITAMIN [id number] 06:13:53* Test Item Value Reference Range Interpretation Comme nts VITAMIN B-12 (test code = 2840) 1471 PG/ML 200-950 H COMPREHENSIVE METABOLIC [id number] 05:07:18* Test Item Value Reference Range Interpretation Comme nts GLUCOSE (test code = 7) 94 MG/DL 70-99 BUN (test code = 2207) 14 MG/DL 6-20 CREATININE (test code = 2213) 0.79 MG/DL 0.60-1.30 eGFR (2020 CKD-EPI) (test code = 64281) 109 ML/MIN/1.73 >60 CALC BUN/CREAT (test code = 2235) 18 RATIO 6-28 SODIUM (test code = 223) 143 MEQ/L 133-146 POTASSIUM (test code = 2228) 4.2 MEQ/L 3.5-5.4 CHLORIDE (test code = 2215) 106 MEQ/L 95-107 CARBON DIOXIDE (test code = 2206) 24 MEQ/L 19-31 CALCIUM (test code = 2209) 10.5 MG/DL 8.5-10.5 PROTEIN, TOTAL (test code = 222) 7.7 G/DL 6.1-8.3 ALBUMIN (test code = 2201) 5.0 G/DL 3.5-5.2 CALC GLOBULIN (test code = 2240) 2.7 G/DL 1.9-3.7 CALC A/G RATIO (test code = 223) 1.9 RATIO 1.0-2.6 BILIRUBIN, TOTAL (test code = 220) 0.5 MG/DL See_Comment [Automated me ssage] The system which generated this result transmitted reference range: <=1.2. The reference range was not used to interpret this result as normal/abnormal. ALKALINE PHOSPHATASE (test code = 2204) 79 U/L 39-117 AST (test code = 2218) 23 U/L 9-40 ALT (test code = 2219) 16 U/L 5-40 CBC W/AUTO DIFF WITH [id number] 01:53:54* Test Item Value Reference Range Interpretation Comme nts WBC (test code = 1001) 5.8 K/UL 3.5-11.0 RBC (test code = 1002) 4.83 M/UL 3.80-5.40 HEMOGLOBIN (test code = 1003) 15.0 G/DL 11.5-15.5 HEMATOCRIT (test code = 1004) 43.4 % 34.0-45.0 MCV (test code = 1005) 89.9 fL 80.0-99.0 MCH (test code = 1006) 31.1 PG 25.0-33.0 MCHC (test code = 1007) 34.6 G/DL 31.0-36.0 RDW (test code = 1038) 12.2 % 11.5-15.0 NEUTROPHILS (test code = 1008) 70.7 % LYMPHOCYTES (test code = 1010) 18.4 % MONOCYTES (test code = 1011) 7.1 % EOSINOPHILS (test code = 1012) 2.6 % BASOPHILS (test code = 1013) 0.9 % IMMATURE GRANULOCYTES (test code = 1036) 0.3 % NUCLEATED RBCS (test code = 1065) 0.0 /100 WBC'S See_Comment [Automated messa ge] The system which generated this result transmitted reference range: 0.0. The reference range was not used to interpret this result as normal/abnormal. PLATELET COUNT (test code = 1015) 256 K/UL 130-400 ABSOLUTE NEUTROPHILS (test code = 1066) 4.06 K/UL 1.50-7.50 ABSOLUTE LYMPHOCYTES (test code = 1067) 1.06 K/UL 1.00-4.00 ABSOLUTE MONOCYTES (test code = 1068) 0.41 K/UL 0.20-1.00 ABSOLUTE EOSINOPHILS (test code = 1040) 0.15 K/UL 0.00-0.50 ABSOLUTE BASOPHILS (test code = 1069) 0.05 K/UL 0.00-0.20 ABS IMMATURE GRANULOCYTES (test code = 1020) 0.02 K/UL 0.00-0.10 ABS NUCLEATED RBCS (test code = 03529) 0.00 K/UL 0.00-0.11 CBC W/AUTO [id number] 00:00:00* Test Item Value Reference Range Interpretation Comme nts WBC (test code = 1001) 5.8 K/UL RBC (test code = 1002) 4.83 M/UL HEMOGLOBIN (test code = 1003) 15.0 G/DL HEMATOCRIT (test code = 1004) 43.4 % MCV (test code = 1005) 89.9 fL MCH (test code = 1006) 31.1 PG MCHC (test code = 1007) 34.6 G/DL RDW (test code = 1038) 12.2 % NEUTROPHILS (test code = 1008) 70.7 % LYMPHOCYTES (test code = 1010) 18.4 % MONOCYTES (test code = 1011) 7.1 % EOSINOPHILS (test code = 1012) 2.6 % BASOPHILS (test code = 1013) 0.9 % IMMATURE GRANULOCYTES (test code = 1036) 0.3 % NUCLEATED RBCS (test code = 1065) 0.0 /100WBC'S PLATELET COUNT (test code = 1015) 256 K/UL ABSOLUTE NEUTROPHILS (test c ode = 1066) 4.06 K/UL ABSOLUTE LYMPHOCYTES (test c ode = 1067) 1.06 K/UL ABSOLUTE MONOCYTES (test cod e = 1068) 0.41 K/UL ABSOLUTE EOSINOPHILS (test c ode = 1040) 0.15 K/UL ABSOLUTE BASOPHILS (test cod e = 1069) 0.05 K/UL ABS IMMATURE GRANULOCYTES (t est code = 1020) 0.02 K/UL ABS NUCLEATED RBCS (test cod e = 71771) 0.00 K/UL Albert Brenda XaviVITAMIN D, 25 [id number] 00:00:00* Test Item Value Reference Range Interpretation Comme [facility] VITAMIN D, 25 OH (test code = 4958) 24 NG/ML Albert Gutierrez XaviVITAMIN [id number] 00:00:00* Test Item Value Reference Range Interpretation Comme [facility] VITAMIN B-12 (test code = 2840) 1471 PG/ML Albert Gutierrez XaviCOMPREHENSIVE METABOLIC [id number] 00:00:00* Test Item Value Reference Range Interpretation Comme [facility] GLUCOSE (test code = 2217) 94 MG/DL BUN (test code = 2208) 14 MG/DL CREATININE (test code = 2214) 0.79 MG/DL eGFR (2020 CKD-EPI) (test code = 18038) 109 ML/MIN/1.73 CALC BUN/CREAT (test code = 2235) 18 RATIO SODIUM (test code = 223) 143 MEQ/L POTASSIUM (test code = 2228) 4.2 MEQ/L CHLORIDE (test code = 2215) 106 MEQ/L CARBON DIOXIDE (test code = 2206) 24 MEQ/L CALCIUM (test code = 2209) 10.5 MG/DL PROTEIN, TOTAL (test code = 222) 7.7 G/DL ALBUMIN (test code = 2201) 5.0 G/DL CALC GLOBULIN (test code = 2240) 2.7 G/DL CALC A/G RATIO (test code = 2234) 1.9 RATIO BILIRUBIN, TOTAL (test code = 2206) 0.5 MG/DL ALKALINE PHOSPHATASE (test code = 2203) 79 U/L AST (test code = 2217) 23 U/L ALT (test code = 2218) 16 U/L Albert F XaviCELIAC DISEASE [id number] 00:00:00* Test Item Value Reference Range Interpretation Comme nts GLIADIN AB, DEAMID. IgG (minerva t code = 941071) 26 U/ML GLIADIN AB, DEAMID. IgA (minerva t code = 903549) <1 U/ML TTG IgG (test code = 12154) <1 U/ML TTG IgA (test code = 20198) <1 U/ML Albert HurleyPADILLAH, THIRD [id number] 00:00:00* Test Item Value Reference Range Interpretation Comme nts TSH, THIRD GENERATION (test code = 2821) 2.140 UIU/ML Albert Gutierrez XaviC W/AUTO [id number] 00:00:00* Test Item Value Reference Range Interpretation Comme nts WBC (test code = 1001) 5.8 K/UL RBC (test code = 1002) 4.83 M/UL HEMOGLOBIN (test code = 1003) 15.0 G/DL HEMATOCRIT (test code = 1004) 43.4 % MCV (test code = 1005) 89.9 fL MCH (test code = 1006) 31.1 PG MCHC (test code = 1007) 34.6 G/DL RDW (test code = 1038) 12.2 % NEUTROPHILS (test code = 1008) 70.7 % LYMPHOCYTES (test code = 1010) 18.4 % MONOCYTES (test code = 1011) 7.1 % EOSINOPHILS (test code = 1012) 2.6 % BASOPHILS (test code = 1013) 0.9 % IMMATURE GRANULOCYTES (test code = 1036) 0.3 % NUCLEATED RBCS (test code = 1065) 0.0 /100WBC'S PLATELET COUNT (test code = 1015) 256 K/UL ABSOLUTE NEUTROPHILS (test c ode = 1066) 4.06 K/UL ABSOLUTE LYMPHOCYTES (test c ode = 1067) 1.06 K/UL ABSOLUTE MONOCYTES (test cod e = 1068) 0.41 K/UL ABSOLUTE EOSINOPHILS (test c ode = 1040) 0.15 K/UL ABSOLUTE BASOPHILS (test cod e = 1069) 0.05 K/UL ABS IMMATURE GRANULOCYTES (t est code = 1020) 0.02 K/UL ABS NUCLEATED RBCS (test cod e = 41710) 0.00 K/UL Albert HurleyVITAMIN D, 25 [id number] 00:00:00* Test Item Value Reference Range Interpretation Comme [facility] VITAMIN D, 25 OH (test code = 4958) 24 NG/ML Albert HurleyVITAMIN [id number] 00:00:00* Test Item Value Reference Range Interpretation Comme [facility] VITAMIN B-12 (test code = 2840) 1471 PG/ML Albert HurleyCOMPREHENSIVE METABOLIC [id number] 00:00:00* Test Item Value Reference Range Interpretation Comme nts GLUCOSE (test code = 2217) 94 MG/DL BUN (test code = 2208) 14 MG/DL CREATININE (test code = 2214) 0.79 MG/DL eGFR (2020 CKD-EPI) (test code = 23515) 109 ML/MIN/1.73 CALC BUN/CREAT (test code = 2235) 18 RATIO SODIUM (test code = 2231) 143 MEQ/L POTASSIUM (test code = 2228) 4.2 MEQ/L CHLORIDE (test code = 2215) 106 MEQ/L CARBON DIOXIDE (test code = 2206) 24 MEQ/L CALCIUM (test code = 2209) 10.5 MG/DL PROTEIN, TOTAL (test code = 2229) 7.7 G/DL ALBUMIN (test code = 2201) 5.0 G/DL CALC GLOBULIN (test code = 2240) 2.7 G/DL CALC A/G RATIO (test code = 2234) 1.9 RATIO BILIRUBIN, TOTAL (test code = 2207) 0.5 MG/DL ALKALINE PHOSPHATASE (test code = 2204) 79 U/L AST (test code = 2218) 23 U/L ALT (test code = 2219) 16 U/L Albert HurleyCELIAC DISEASE [id number] 00:00:00* Test Item Value Reference Range Interpretation Comme nts GLIADIN AB, DEAMID. IgG (minerva t code = 234837) 26 U/ML GLIADIN AB, DEAMID. IgA (minerva t code = 465080) <1 U/ML TTG IgG (test code = 63465) <1 U/ML TTG IgA (test code = 77028) <1 U/ML Albert HurleyTSH, THIRD [id number] 00:00:00* Test Item Value Reference Range Interpretation Comme nts TSH, THIRD GENERATION (test code = 2821) 2.140 UIU/ML Albert HurleyCBC W/AUTO [id number] 00:00:00* Test Item Value Reference Range Interpretation Comme nts WBC (test code = 1001) 5.8 K/UL RBC (test code = 1002) 4.83 M/UL HEMOGLOBIN (test code = 1003) 15.0 G/DL HEMATOCRIT (test code = 1004) 43.4 % MCV (test code = 1005) 89.9 fL MCH (test code = 1006) 31.1 PG MCHC (test code = 1007) 34.6 G/DL RDW (test code = 1038) 12.2 % NEUTROPHILS (test code = 1008) 70.7 % LYMPHOCYTES (test code = 1010) 18.4 % MONOCYTES (test code = 1011) 7.1 % EOSINOPHILS (test code = 1012) 2.6 % BASOPHILS (test code = 1013) 0.9 % IMMATURE GRANULOCYTES (test code = 1036) 0.3 % NUCLEATED RBCS (test code = 1065) 0.0 /100WBC'S PLATELET COUNT (test code = 1015) 256 K/UL ABSOLUTE NEUTROPHILS (test c ode = 1066) 4.06 K/UL ABSOLUTE LYMPHOCYTES (test c ode = 1067) 1.06 K/UL ABSOLUTE MONOCYTES (test cod e = 1068) 0.41 K/UL ABSOLUTE EOSINOPHILS (test c ode = 1040) 0.15 K/UL ABSOLUTE BASOPHILS (test cod e = 1069) 0.05 K/UL ABS IMMATURE GRANULOCYTES (t est code = 1020) 0.02 K/UL ABS NUCLEATED RBCS (test cod e = 74020) 0.00 K/UL Albert HurleyVITAMIN D, 25 [id number] 00:00:00* Test Item Value Reference Range Interpretation Comme aleena VITAMIN D, 25 OH (test code = 4958) 24 NG/ML Albert HurleyVITAMIN [id number] 00:00:00* Test Item Value Reference Range Interpretation Comme aleena VITAMIN B-12 (test code = 2840) 1471 PG/ML Albert HurleyCOMPREHENSIVE METABOLIC [id number] 00:00:00* Test Item Value Reference Range Interpretation Comme nts GLUCOSE (test code = 2217) 94 MG/DL BUN (test code = 2208) 14 MG/DL CREATININE (test code = 2214) 0.79 MG/DL eGFR (2020 CKD-EPI) (test code = 17442) 109 ML/MIN/1.73 CALC BUN/CREAT (test code = 2235) 18 RATIO SODIUM (test code = 2231) 143 MEQ/L POTASSIUM (test code = 2228) 4.2 MEQ/L CHLORIDE (test code = 2215) 106 MEQ/L CARBON DIOXIDE (test code = 2206) 24 MEQ/L CALCIUM (test code = 2209) 10.5 MG/DL PROTEIN, TOTAL (test code = 2229) 7.7 G/DL ALBUMIN (test code = 2201) 5.0 G/DL CALC GLOBULIN (test code = 2240) 2.7 G/DL CALC A/G RATIO (test code = 2234) 1.9 RATIO BILIRUBIN, TOTAL (test code = 2207) 0.5 MG/DL ALKALINE PHOSPHATASE (test code = 2204) 79 U/L AST (test code = 2218) 23 U/L ALT (test code = 2219) 16 U/L Albert HurleyCELIAC DISEASE [id number] 00:00:00* Test Item Value Reference Range Interpretation Comme nts GLIADIN AB, DEAMID. IgG (minerva t code = 720035) 26 U/ML GLIADIN AB, DEAMID. IgA (minerva t code = 718407) <1 U/ML TTG IgG (test code = 07326) <1 U/ML TTG IgA (test code = 52712) <1 U/ML Albert Andersen, THIRD [id number] 00:00:00* Test Item Value Reference Range Interpretation Comme nts TSH, THIRD GENERATION (test code = 2821) 2.140 UIU/ML Albert HurleyCBC W/AUTO [id number] 00:00:00* Test Item Value Reference Range Interpretation Comme nts WBC (test code = 1001) 5.8 K/UL RBC (test code = 1002) 4.83 M/UL HEMOGLOBIN (test code = 1003) 15.0 G/DL HEMATOCRIT (test code = 1004) 43.4 % MCV (test code = 1005) 89.9 fL MCH (test code = 1006) 31.1 PG MCHC (test code = 1007) 34.6 G/DL RDW (test code = 1038) 12.2 % NEUTROPHILS (test code = 1008) 70.7 % LYMPHOCYTES (test code = 1010) 18.4 % MONOCYTES (test code = 1011) 7.1 % EOSINOPHILS (test code = 1012) 2.6 % BASOPHILS (test code = 1013) 0.9 % IMMATURE GRANULOCYTES (test code = 1036) 0.3 % NUCLEATED RBCS (test code = 1065) 0.0 /100WBC'S PLATELET COUNT (test code = 1015) 256 K/UL ABSOLUTE NEUTROPHILS (test c ode = 1066) 4.06 K/UL ABSOLUTE LYMPHOCYTES (test c ode = 1067) 1.06 K/UL ABSOLUTE MONOCYTES (test cod e = 1068) 0.41 K/UL ABSOLUTE EOSINOPHILS (test c ode = 1040) 0.15 K/UL ABSOLUTE BASOPHILS (test cod e = 1069) 0.05 K/UL ABS IMMATURE GRANULOCYTES (t est code = 1020) 0.02 K/UL ABS NUCLEATED RBCS (test cod e = 57207) 0.00 K/UL Albert HurleyVITAMIN D, 25 [id number] 00:00:00* Test Item Value Reference Range Interpretation Comme nts VITAMIN D, 25 OH (test code = 4958) 24 NG/ML Albert HurleyVITAMIN [id number] 00:00:00* Test Item Value Reference Range Interpretation Comme aleena VITAMIN B-12 (test code = 2840) 1471 PG/ML Albert HurleyCOMPREHENSIVE METABOLIC [id number] 00:00:00* Test Item Value Reference Range Interpretation Comme nts GLUCOSE (test code = 2217) 94 MG/DL BUN (test code = 2208) 14 MG/DL CREATININE (test code = 2214) 0.79 MG/DL eGFR (2020 CKD-EPI) (test code = 97965) 109 ML/MIN/1.73 CALC BUN/CREAT (test code = 2235) 18 RATIO SODIUM (test code = 2231) 143 MEQ/L POTASSIUM (test code = 2228) 4.2 MEQ/L CHLORIDE (test code = 2215) 106 MEQ/L CARBON DIOXIDE (test code = 2206) 24 MEQ/L CALCIUM (test code = 2209) 10.5 MG/DL PROTEIN, TOTAL (test code = 2229) 7.7 G/DL ALBUMIN (test code = 2201) 5.0 G/DL CALC GLOBULIN (test code = 2240) 2.7 G/DL CALC A/G RATIO (test code = 2234) 1.9 RATIO BILIRUBIN, TOTAL (test code = 2207) 0.5 MG/DL ALKALINE PHOSPHATASE (test code = 2204) 79 U/L AST (test code = 2218) 23 U/L ALT (test code = 2219) 16 U/L Albert HurleyCELIAC DISEASE [id number] 00:00:00* Test Item Value Reference Range Interpretation Comme aleena GLIADIN AB, DEAMID. IgG (minerva t code = 516863) 26 U/ML GLIADIN AB, DEAMID. IgA (minerva t code = 239555) <1 U/ML TTG IgG (test code = 08812) <1 U/ML TTG IgA (test code = 09386) <1 U/ML Albert HurleyTSH, THIRD [id number] 00:00:00* Test Item Value Reference Range Interpretation Comme nts TSH, THIRD GENERATION (test code = 2821) 2.140 UIU/ML Albert HurleyCBC W/AUTO [id number] 00:00:00* Test Item Value Reference Range Interpretation Comme nts WBC (test code = 1001) 5.8 K/UL RBC (test code = 1002) 4.83 M/UL HEMOGLOBIN (test code = 1003) 15.0 G/DL HEMATOCRIT (test code = 1004) 43.4 % MCV (test code = 1005) 89.9 fL MCH (test code = 1006) 31.1 PG MCHC (test code = 1007) 34.6 G/DL RDW (test code = 1038) 12.2 % NEUTROPHILS (test code = 1008) 70.7 % LYMPHOCYTES (test code = 1010) 18.4 % MONOCYTES (test code = 1011) 7.1 % EOSINOPHILS (test code = 1012) 2.6 % BASOPHILS (test code = 1013) 0.9 % IMMATURE GRANULOCYTES (test code = 1036) 0.3 % NUCLEATED RBCS (test code = 1065) 0.0 /100WBC'S PLATELET COUNT (test code = 1015) 256 K/UL ABSOLUTE NEUTROPHILS (test c ode = 1066) 4.06 K/UL ABSOLUTE LYMPHOCYTES (test c ode = 1067) 1.06 K/UL ABSOLUTE MONOCYTES (test cod e = 1068) 0.41 K/UL ABSOLUTE EOSINOPHILS (test c ode = 1040) 0.15 K/UL ABSOLUTE BASOPHILS (test cod e = 1069) 0.05 K/UL ABS IMMATURE GRANULOCYTES (t est code = 1020) 0.02 K/UL ABS NUCLEATED RBCS (test cod e = 29905) 0.00 K/UL Albert HurleyVITAMIN D, 25 [id number] 00:00:00* Test Item Value Reference Range Interpretation Comme [facility] VITAMIN D, 25 OH (test code = 4958) 24 NG/ML Albert HurleyVITAMIN [id number] 00:00:00* Test Item Value Reference Range Interpretation Comme [facility] VITAMIN B-12 (test code = 2840) 1471 PG/ML Albert Gutierrez XaviCOMPREHENSIVE METABOLIC [id number] 00:00:00* Test Item Value Reference Range Interpretation Comme nts GLUCOSE (test code = 2217) 94 MG/DL BUN (test code = 2208) 14 MG/DL CREATININE (test code = 2214) 0.79 MG/DL eGFR (2020 CKD-EPI) (test code = 12158) 109 ML/MIN/1.73 CALC BUN/CREAT (test code = 2234) 18 RATIO SODIUM (test code = 223) 143 MEQ/L POTASSIUM (test code = 2228) 4.2 MEQ/L CHLORIDE (test code = 2215) 106 MEQ/L CARBON DIOXIDE (test code = 2206) 24 MEQ/L CALCIUM (test code = 2209) 10.5 MG/DL PROTEIN, TOTAL (test code = 222) 7.7 G/DL ALBUMIN (test code = 220) 5.0 G/DL CALC GLOBULIN (test code = 2240) 2.7 G/DL CALC A/G RATIO (test code = 4) 1.9 RATIO BILIRUBIN, TOTAL (test code = 2206) 0.5 MG/DL ALKALINE PHOSPHATASE (test code = 2203) 79 U/L AST (test code = 8) 23 U/L ALT (test code = 2218) 16 U/L Albert Gutierrez [place] [id number] 00:00:00* Test Item Value Reference Range Interpretation Comme nts GLIADIN AB, DEAMID. IgG (minerva t code = 858727) 26 U/ML GLIADIN AB, DEAMID. IgA (minerva t code = 905353) <1 U/ML TTG IgG (test code = 88894) <1 U/ML TTG IgA (test code = 84205) <1 U/ML Albert HurleyTSH, THIRD [id number] 00:00:00* Test Item Value Reference Range Interpretation Comme nts TSH, THIRD GENERATION (test code = 2821) 2.140 UIU/ML Albert Brenda XaviC W/AUTO [id number] 00:00:00* Test Item Value Reference Range Interpretation Comme nts WBC (test code = 1001) 5.8 K/UL RBC (test code = 1002) 4.83 M/UL HEMOGLOBIN (test code = 1003) 15.0 G/DL HEMATOCRIT (test code = 1004) 43.4 % MCV (test code = 1005) 89.9 fL MCH (test code = 1006) 31.1 PG MCHC (test code = 1007) 34.6 G/DL RDW (test code = 1038) 12.2 % NEUTROPHILS (test code = 1008) 70.7 % LYMPHOCYTES (test code = 1010) 18.4 % MONOCYTES (test code = 1011) 7.1 % EOSINOPHILS (test code = 1012) 2.6 % BASOPHILS (test code = 1013) 0.9 % IMMATURE GRANULOCYTES (test code = 1036) 0.3 % NUCLEATED RBCS (test code = 1065) 0.0 /100WBC'S PLATELET COUNT (test code = 1015) 256 K/UL ABSOLUTE NEUTROPHILS (test c ode = 1066) 4.06 K/UL ABSOLUTE LYMPHOCYTES (test c ode = 1067) 1.06 K/UL ABSOLUTE MONOCYTES (test cod e = 1068) 0.41 K/UL ABSOLUTE EOSINOPHILS (test c ode = 1040) 0.15 K/UL ABSOLUTE BASOPHILS (test cod e = 1069) 0.05 K/UL ABS IMMATURE GRANULOCYTES (t est code = 1020) 0.02 K/UL ABS NUCLEATED RBCS (test cod e = 06198) 0.00 K/UL Albert Gutierrez XaviVITAMIN D, 25 [id number] 00:00:00* Test Item Value Reference Range Interpretation Comme [facility] VITAMIN D, 25 OH (test code = 4958) 24 NG/ML Albert HurleyVITAMIN [id number] 00:00:00* Test Item Value Reference Range Interpretation Comme [facility] VITAMIN B-12 (test code = 2840) 1471 PG/ML Albert Gutierrez XaviCOMPREHENSIVE METABOLIC [id number] 00:00:00* Test Item Value Reference Range Interpretation Comme nts GLUCOSE (test code = 2217) 94 MG/DL BUN (test code = 2208) 14 MG/DL CREATININE (test code = 2214) 0.79 MG/DL eGFR (2020 CKD-EPI) (test code = 89817) 109 ML/MIN/1.73 CALC BUN/CREAT (test code = 2235) 18 RATIO SODIUM (test code = 2231) 143 MEQ/L POTASSIUM (test code = 2228) 4.2 MEQ/L CHLORIDE (test code = 2215) 106 MEQ/L CARBON DIOXIDE (test code = 2206) 24 MEQ/L CALCIUM (test code = 2209) 10.5 MG/DL PROTEIN, TOTAL (test code = 2229) 7.7 G/DL ALBUMIN (test code = 2201) 5.0 G/DL CALC GLOBULIN (test code = 2240) 2.7 G/DL CALC A/G RATIO (test code = 2234) 1.9 RATIO BILIRUBIN, TOTAL (test code = 2207) 0.5 MG/DL ALKALINE PHOSPHATASE (test code = 2204) 79 U/L AST (test code = 2218) 23 U/L ALT (test code = 2219) 16 U/L Albert HurleyCELIAC DISEASE [id number] 00:00:00* Test Item Value Reference Range Interpretation Comme nts GLIADIN AB, DEAMID. IgG (minerva t code = 417369) 26 U/ML GLIADIN AB, DEAMID. IgA (minerva t code = 200427) <1 U/ML TTG IgG (test code = 72591) <1 U/ML TTG IgA (test code = 69406) <1 U/ML Albert HurleyTSH, THIRD [id number] 00:00:00* Test Item Value Reference Range Interpretation Comme nts TSH, THIRD GENERATION (test code = 2821) 2.140 UIU/ML Albert HurleyCBC W/AUTO [id number] 00:00:00* Test Item Value Reference Range Interpretation Comme nts WBC (test code = 1001) 5.8 K/UL RBC (test code = 1002) 4.83 M/UL HEMOGLOBIN (test code = 1003) 15.0 G/DL HEMATOCRIT (test code = 1004) 43.4 % MCV (test code = 1005) 89.9 fL MCH (test code = 1006) 31.1 PG MCHC (test code = 1007) 34.6 G/DL RDW (test code = 1038) 12.2 % NEUTROPHILS (test code = 1008) 70.7 % LYMPHOCYTES (test code = 1010) 18.4 % MONOCYTES (test code = 1011) 7.1 % EOSINOPHILS (test code = 1012) 2.6 % BASOPHILS (test code = 1013) 0.9 % IMMATURE GRANULOCYTES (test code = 1036) 0.3 % NUCLEATED RBCS (test code = 1065) 0.0 /100WBC'S PLATELET COUNT (test code = 1015) 256 K/UL ABSOLUTE NEUTROPHILS (test c ode = 1066) 4.06 K/UL ABSOLUTE LYMPHOCYTES (test c ode = 1067) 1.06 K/UL ABSOLUTE MONOCYTES (test cod e = 1068) 0.41 K/UL ABSOLUTE EOSINOPHILS (test c ode = 1040) 0.15 K/UL ABSOLUTE BASOPHILS (test cod e = 1069) 0.05 K/UL ABS IMMATURE GRANULOCYTES (t est code = 1020) 0.02 K/UL ABS NUCLEATED RBCS (test cod e = 57155) 0.00 K/UL Albert HurleyVITAMIN D, 25 [id number] 00:00:00* Test Item Value Reference Range Interpretation Comme nts VITAMIN D, 25 OH (test code = 4958) 24 NG/ML Albert HurleyVITAMIN [id number] 00:00:00* Test Item Value Reference Range Interpretation Comme [facility] VITAMIN B-12 (test code = 2840) 1471 PG/ML Albert HurleyCOMPREHENSIVE METABOLIC [id number] 00:00:00* Test Item Value Reference Range Interpretation Comme nts GLUCOSE (test code = 2217) 94 MG/DL BUN (test code = 2208) 14 MG/DL CREATININE (test code = 2214) 0.79 MG/DL eGFR (2020 CKD-EPI) (test code = 43715) 109 ML/MIN/1.73 CALC BUN/CREAT (test code = 2235) 18 RATIO SODIUM (test code = 2231) 143 MEQ/L POTASSIUM (test code = 2228) 4.2 MEQ/L CHLORIDE (test code = 2215) 106 MEQ/L CARBON DIOXIDE (test code = 2206) 24 MEQ/L CALCIUM (test code = 2209) 10.5 MG/DL PROTEIN, TOTAL (test code = 2229) 7.7 G/DL ALBUMIN (test code = 2201) 5.0 G/DL CALC GLOBULIN (test code = 2240) 2.7 G/DL CALC A/G RATIO (test code = 2234) 1.9 RATIO BILIRUBIN, TOTAL (test code = 2207) 0.5 MG/DL ALKALINE PHOSPHATASE (test code = 2204) 79 U/L AST (test code = 2218) 23 U/L ALT (test code = 2219) 16 U/L Albert HurleyCELIAC DISEASE [id number] 00:00:00* Test Item Value Reference Range Interpretation Comme nts GLIADIN AB, DEAMID. IgG (minerva t code = 490735) 26 U/ML GLIADIN AB, DEAMID. IgA (minerva t code = 944101) <1 U/ML TTG IgG (test code = 57633) <1 U/ML TTG IgA (test code = 50606) <1 U/ML Albert BassH, THIRD [id number] 00:00:00* Test Item Value Reference Range Interpretation Comme nts TSH, THIRD GENERATION (test code = 2821) 2.140 UIU/ML Albert HurleyCBC W/AUTO [id number] 00:00:00* Test Item Value Reference Range Interpretation Comme nts WBC (test code = 1001) 5.8 K/UL RBC (test code = 1002) 4.83 M/UL HEMOGLOBIN (test code = 1003) 15.0 G/DL HEMATOCRIT (test code = 1004) 43.4 % MCV (test code = 1005) 89.9 fL MCH (test code = 1006) 31.1 PG MCHC (test code = 1007) 34.6 G/DL RDW (test code = 1038) 12.2 % NEUTROPHILS (test code = 1008) 70.7 % LYMPHOCYTES (test code = 1010) 18.4 % MONOCYTES (test code = 1011) 7.1 % EOSINOPHILS (test code = 1012) 2.6 % BASOPHILS (test code = 1013) 0.9 % IMMATURE GRANULOCYTES (test code = 1036) 0.3 % NUCLEATED RBCS (test code = 1065) 0.0 /100WBC'S PLATELET COUNT (test code = 1015) 256 K/UL ABSOLUTE NEUTROPHILS (test c ode = 1066) 4.06 K/UL ABSOLUTE LYMPHOCYTES (test c ode = 1067) 1.06 K/UL ABSOLUTE MONOCYTES (test cod e = 1068) 0.41 K/UL ABSOLUTE EOSINOPHILS (test c ode = 1040) 0.15 K/UL ABSOLUTE BASOPHILS (test cod e = 1069) 0.05 K/UL ABS IMMATURE GRANULOCYTES (t est code = 1020) 0.02 K/UL ABS NUCLEATED RBCS (test cod e = 29852) 0.00 K/UL Albert F aXviVITAMIN D, 25 [id number] 00:00:00* Test Item Value Reference Range Interpretation Comme [facility] VITAMIN D, 25 OH (test code = 4958) 24 NG/ML Albert HurleyVITAMIN [id number] 00:00:00* Test Item Value Reference Range Interpretation Comme [facility] VITAMIN B-12 (test code = 2840) 1471 PG/ML Albert HurleyCOMPREHENSIVE METABOLIC [id number] 00:00:00* Test Item Value Reference Range Interpretation Comme nts GLUCOSE (test code = 2217) 94 MG/DL BUN (test code = 2208) 14 MG/DL CREATININE (test code = 2214) 0.79 MG/DL eGFR (2020 CKD-EPI) (test code = 90546) 109 ML/MIN/1.73 CALC BUN/CREAT (test code = 2235) 18 RATIO SODIUM (test code = 2231) 143 MEQ/L POTASSIUM (test code = 2228) 4.2 MEQ/L CHLORIDE (test code = 2215) 106 MEQ/L CARBON DIOXIDE (test code = 2206) 24 MEQ/L CALCIUM (test code = 2209) 10.5 MG/DL PROTEIN, TOTAL (test code = 2229) 7.7 G/DL ALBUMIN (test code = 2201) 5.0 G/DL CALC GLOBULIN (test code = 2240) 2.7 G/DL CALC A/G RATIO (test code = 2234) 1.9 RATIO BILIRUBIN, TOTAL (test code = 2207) 0.5 MG/DL ALKALINE PHOSPHATASE (test code = 2204) 79 U/L AST (test code = 2218) 23 U/L ALT (test code = 2219) 16 U/L Albert HurleyCELIAC DISEASE [id number] 00:00:00* Test Item Value Reference Range Interpretation Comme nts GLIADIN AB, DEAMID. IgG (minerva t code = 392771) 26 U/ML GLIADIN AB, DEAMID. IgA (minerva t code = 207794) <1 U/ML TTG IgG (test code = 75919) <1 U/ML TTG IgA (test code = 95967) <1 U/ML Albert HurleyTSH, THIRD [id number] 00:00:00* Test Item Value Reference Range Interpretation Comme nts TSH, THIRD GENERATION (test code = 2821) 2.140 UIU/ML Albert HurleyCBC W/AUTO [id number] 00:00:00* Test Item Value Reference Range Interpretation Comme nts WBC (test code = 1001) 5.8 K/UL RBC (test code = 1002) 4.83 M/UL HEMOGLOBIN (test code = 1003) 15.0 G/DL HEMATOCRIT (test code = 1004) 43.4 % MCV (test code = 1005) 89.9 fL MCH (test code = 1006) 31.1 PG MCHC (test code = 1007) 34.6 G/DL RDW (test code = 1038) 12.2 % NEUTROPHILS (test code = 1008) 70.7 % LYMPHOCYTES (test code = 1010) 18.4 % MONOCYTES (test code = 1011) 7.1 % EOSINOPHILS (test code = 1012) 2.6 % BASOPHILS (test code = 1013) 0.9 % IMMATURE GRANULOCYTES (test code = 1036) 0.3 % NUCLEATED RBCS (test code = 1065) 0.0 /100WBC'S PLATELET COUNT (test code = 1015) 256 K/UL ABSOLUTE NEUTROPHILS (test c ode = 1066) 4.06 K/UL ABSOLUTE LYMPHOCYTES (test c ode = 1067) 1.06 K/UL ABSOLUTE MONOCYTES (test cod e = 1068) 0.41 K/UL ABSOLUTE EOSINOPHILS (test c ode = 1040) 0.15 K/UL ABSOLUTE BASOPHILS (test cod e = 1069) 0.05 K/UL ABS IMMATURE GRANULOCYTES (t est code = 1020) 0.02 K/UL ABS NUCLEATED RBCS (test cod e = 33157) 0.00 K/UL Albert HurleyVITAMIN D, 25 [id number] 00:00:00* Test Item Value Reference Range Interpretation Comme nts VITAMIN D, 25 OH (test code = 4958) 24 NG/ML Albert HurleyVITAMIN [id number] 00:00:00* Test Item Value Reference Range Interpretation Comme nts VITAMIN B-12 (test code = 2840) 1471 PG/ML Albert HurleyCOMPREHENSIVE METABOLIC [id number] 00:00:00* Test Item Value Reference Range Interpretation Comme nts GLUCOSE (test code = 2217) 94 MG/DL BUN (test code = 2207) 14 MG/DL CREATININE (test code = 2214) 0.79 MG/DL eGFR (2020 CKD-EPI) (test code = ) 109 ML/MIN/1.73 CALC BUN/CREAT (test code = 2234) 18 RATIO SODIUM (test code = 2231) 143 MEQ/L POTASSIUM (test code = 2228) 4.2 MEQ/L CHLORIDE (test code = 2215) 106 MEQ/L CARBON DIOXIDE (test code = 2206) 24 MEQ/L CALCIUM (test code = 2209) 10.5 MG/DL PROTEIN, TOTAL (test code = 2228) 7.7 G/DL ALBUMIN (test code = 2201) 5.0 G/DL CALC GLOBULIN (test code = 2240) 2.7 G/DL CALC A/G RATIO (test code = 2234) 1.9 RATIO BILIRUBIN, TOTAL (test code = 2206) 0.5 MG/DL ALKALINE PHOSPHATASE (test code = 2203) 79 U/L AST (test code = 2217) 23 U/L ALT (test code = 2219) 16 U/L Albert Gutierrez [place] [id number] 00:00:00* Test Item Value Reference Range Interpretation Comme nts GLIADIN AB, DEAMID. IgG (minerva t code = 631238) 26 U/ML GLIADIN AB, DEAMID. IgA (minerva t code = 714649) <1 U/ML TTG IgG (test code = 41461) <1 U/ML TTG IgA (test code = 18688) <1 U/ML Albert HurleyTSH, THIRD [id number] 00:00:00* Test Item Value Reference Range Interpretation Comme nts TSH, THIRD GENERATION (test code = 2821) 2.140 UIU/ML Albert HurleyCBC W/AUTO [id number] 00:00:00* Test Item Value Reference Range Interpretation Comme nts WBC (test code = 1001) 5.8 K/UL RBC (test code = 1002) 4.83 M/UL HEMOGLOBIN (test code = 1003) 15.0 G/DL HEMATOCRIT (test code = 1004) 43.4 % MCV (test code = 1005) 89.9 fL MCH (test code = 1006) 31.1 PG MCHC (test code = 1007) 34.6 G/DL RDW (test code = 1038) 12.2 % NEUTROPHILS (test code = 1008) 70.7 % LYMPHOCYTES (test code = 1010) 18.4 % MONOCYTES (test code = 1011) 7.1 % EOSINOPHILS (test code = 1012) 2.6 % BASOPHILS (test code = 1013) 0.9 % IMMATURE GRANULOCYTES (test code = 1036) 0.3 % NUCLEATED RBCS (test code = 1065) 0.0 /100WBC'S PLATELET COUNT (test code = 1015) 256 K/UL ABSOLUTE NEUTROPHILS (test c ode = 1066) 4.06 K/UL ABSOLUTE LYMPHOCYTES (test c ode = 1067) 1.06 K/UL ABSOLUTE MONOCYTES (test cod e = 1068) 0.41 K/UL ABSOLUTE EOSINOPHILS (test c ode = 1040) 0.15 K/UL ABSOLUTE BASOPHILS (test cod e = 1069) 0.05 K/UL ABS IMMATURE GRANULOCYTES (t est code = 1020) 0.02 K/UL ABS NUCLEATED RBCS (test cod e = 04126) 0.00 K/UL Albert Brenda XaviVITAMIN D, 25 [id number] 00:00:00* Test Item Value Reference Range Interpretation Comme [facility] VITAMIN D, 25 OH (test code = 4958) 24 NG/ML Albert Gutierrez XaviVITAMIN [id number] 00:00:00* Test Item Value Reference Range Interpretation Comme [facility] VITAMIN B-12 (test code = 2840) 1471 PG/ML Albert Gutierrez XaviCOMPREHENSIVE METABOLIC [id number] 00:00:00* Test Item Value Reference Range Interpretation Comme nts GLUCOSE (test code = 2217) 94 MG/DL BUN (test code = 2208) 14 MG/DL CREATININE (test code = 2214) 0.79 MG/DL eGFR (2020 CKD-EPI) (test code = 18720) 109 ML/MIN/1.73 CALC BUN/CREAT (test code = 2235) 18 RATIO SODIUM (test code = 2231) 143 MEQ/L POTASSIUM (test code = 2228) 4.2 MEQ/L CHLORIDE (test code = 2215) 106 MEQ/L CARBON DIOXIDE (test code = 2206) 24 MEQ/L CALCIUM (test code = 2209) 10.5 MG/DL PROTEIN, TOTAL (test code = 2229) 7.7 G/DL ALBUMIN (test code = 2201) 5.0 G/DL CALC GLOBULIN (test code = 2240) 2.7 G/DL CALC A/G RATIO (test code = 2234) 1.9 RATIO BILIRUBIN, TOTAL (test code = 2207) 0.5 MG/DL ALKALINE PHOSPHATASE (test code = 2204) 79 U/L AST (test code = 2218) 23 U/L ALT (test code = 2219) 16 U/L Albert Gutierrez XaviCELIAC DISEASE [id number] 00:00:00* Test Item Value Reference Range Interpretation Comme nts GLIADIN AB, DEAMID. IgG (minerva t code = 805162) 26 U/ML GLIADIN AB, DEAMID. IgA (minerva t code = 969027) <1 U/ML TTG IgG (test code = 79665) <1 U/ML TTG IgA (test code = 55041) <1 U/ML Albert Gutierrez XaviTSH, THIRD [id number] 00:00:00* Test Item Value Reference Range Interpretation Comme nts TSH, THIRD GENERATION (test code = 2821) 2.140 UIU/ML Albert Gutierrez XaviCBC W/AUTO [id number] 00:00:00* Test Item Value Reference Range Interpretation Comme nts WBC (test code = 1001) 5.8 K/UL RBC (test code = 1002) 4.83 M/UL HEMOGLOBIN (test code = 1003) 15.0 G/DL HEMATOCRIT (test code = 1004) 43.4 % MCV (test code = 1005) 89.9 fL MCH (test code = 1006) 31.1 PG MCHC (test code = 1007) 34.6 G/DL RDW (test code = 1038) 12.2 % NEUTROPHILS (test code = 1008) 70.7 % LYMPHOCYTES (test code = 1010) 18.4 % MONOCYTES (test code = 1011) 7.1 % EOSINOPHILS (test code = 1012) 2.6 % BASOPHILS (test code = 1013) 0.9 % IMMATURE GRANULOCYTES (test code = 1036) 0.3 % NUCLEATED RBCS (test code = 1065) 0.0 /100WBC'S PLATELET COUNT (test code = 1015) 256 K/UL ABSOLUTE NEUTROPHILS (test c ode = 1066) 4.06 K/UL ABSOLUTE LYMPHOCYTES (test c ode = 1067) 1.06 K/UL ABSOLUTE MONOCYTES (test cod e = 1068) 0.41 K/UL ABSOLUTE EOSINOPHILS (test c ode = 1040) 0.15 K/UL ABSOLUTE BASOPHILS (test cod e = 1069) 0.05 K/UL ABS IMMATURE GRANULOCYTES (t est code = 1020) 0.02 K/UL ABS NUCLEATED RBCS (test cod e = 95399) 0.00 K/UL Albert HurleyVITAMIN D, 25 [id number] 00:00:00* Test Item Value Reference Range Interpretation Comme [facility] VITAMIN D, 25 OH (test code = 4958) 24 NG/ML Albert HurleyVITAMIN [id number] 00:00:00* Test Item Value Reference Range Interpretation Comme [facility] VITAMIN B-12 (test code = 2840) 1471 PG/ML Albert HurleyCOMPREHENSIVE METABOLIC [id number] 00:00:00* Test Item Value Reference Range Interpretation Comme nts GLUCOSE (test code = 2217) 94 MG/DL BUN (test code = 2208) 14 MG/DL CREATININE (test code = 2214) 0.79 MG/DL eGFR (2020 CKD-EPI) (test code = 56950) 109 ML/MIN/1.73 CALC BUN/CREAT (test code = 2235) 18 RATIO SODIUM (test code = 2231) 143 MEQ/L POTASSIUM (test code = 2228) 4.2 MEQ/L CHLORIDE (test code = 2215) 106 MEQ/L CARBON DIOXIDE (test code = 2206) 24 MEQ/L CALCIUM (test code = 2209) 10.5 MG/DL PROTEIN, TOTAL (test code = 2229) 7.7 G/DL ALBUMIN (test code = 2201) 5.0 G/DL CALC GLOBULIN (test code = 2240) 2.7 G/DL CALC A/G RATIO (test code = 2234) 1.9 RATIO BILIRUBIN, TOTAL (test code = 2207) 0.5 MG/DL ALKALINE PHOSPHATASE (test code = 2204) 79 U/L AST (test code = 2218) 23 U/L ALT (test code = 2219) 16 U/L Albert HurleyCELIAC DISEASE [id number] 00:00:00* Test Item Value Reference Range Interpretation Comme nts GLIADIN AB, DEAMID. IgG (minerva t code = 884502) 26 U/ML GLIADIN AB, DEAMID. IgA (minerva t code = 269069) <1 U/ML TTG IgG (test code = 62835) <1 U/ML TTG IgA (test code = 39997) <1 U/ML Albert HurleyTSH, THIRD [id number] 00:00:00* Test Item Value Reference Range Interpretation Comme nts TSH, THIRD GENERATION (test code = 2821) 2.140 UIU/ML Albert HurleyCBC WITH [id number] 09:48:02* Test Item Value Reference Range Interpretation Comme nts WBC (test code = 6690-2) See_Comment H [Automated messa ge] The system which generated this result transmitted reference range: 4.30 - 11.10 10*3/?L. The reference range was not used to interpret this result as normal/abnormal. RBC (test code = 789-8) See_Comment L [Automated messa ge] The system which generated this result transmitted reference range: 3.93 - 5.25 10*6/?L. The reference range was not used to interpret this result as normal/abnormal. HGB (test code = 718-7) 9.1 g/dL 11.6-15.0 L HCT (test code = 4544-3) 26.8 % 35.7-45.2 L MCV (test code = 787-2) 89.3 fL 80.6-95.5 MCH (test code = 785-6) 30.3 pg 25.9-32.8 MCHC (test code = 786-4) 34.0 g/dL 31.6-35.1 RDW-SD (test code = 31807-4) 43.8 fL 39.0-49.9 RDW-CV (test code = 788-0) 13.3 % 12.0-15.5 PLT (test code = 777-3) See_Comment [Automated messa ge] The system which generated this result transmitted reference range: 166 - 358 10*3/?L. The reference range was not used to interpret this result as normal/abnormal. MPV (test code = 95460-1) 9.7 fL 9.5-12.9 NRBC/100 WBC (test code = 3237501731) See_Comment [Automated Sarta ssage] The system which generated this result transmitted reference range: 0.0 - 10.0 /100 WBCs. The reference range was not used to interpret this result as normal/abnormal. NRBC x10^3 (test code = 8381070286) <0.01 See_Comment [Automated messa ge] The system which generated this result transmitted reference range: 10*3/?L. The reference range was not used to interpret this result as normal/abnormal. GRAN MAT (NEUT) % (test code = 770-8) 80.2 % IMM GRAN % (test code = 6552783263) 0.70 % LYMPH % (test code = 736-9) 9.9 % MONO % (test code = 5905-5) 8.4 % EOS % (test code = 713-8) 0.6 % BASO % (test code = 706-2) 0.2 % GRAN MAT x10^3(ANC) (test code = 1463724602) 9.12 10*3/uL 1.88-7.09 H IMM GRAN x10^3 (test code = 0993154163) 0.08 10*3/uL 0.00-0.06 H LYMPH x10^3 (test code = 731-0) 1.12 10*3/uL 1.32-3.29 L MONO x10^3 (test code = 742-7) 0.95 10*3/uL 0.33-0.92 H EOS x10^3 (test code = 711-2) 0.07 10*3/uL 0.03-0.39 BASO x10^3 (test code = 704-7) <0.03 0.01-0.07 Lab Interpretation (test code = 91318-2) Abnormal [facility] WITH [id number] 09:48:02* Test Item Value Reference Range Interpretation Comme nts WBC (test code = 6690-2) See_Comment H [Automated messa ge] The system which generated this result transmitted reference range: 4.30 - 11.10 10*3/?L. The reference range was not used to interpret this result as normal/abnormal. RBC (test code = 789-8) See_Comment L [Automated messa ge] The system which generated this result transmitted reference range: 3.93 - 5.25 10*6/?L. The reference range was not used to interpret this result as normal/abnormal. HGB (test code = 718-7) 9.1 g/dL 11.6-15.0 L HCT (test code = 4544-3) 26.8 % 35.7-45.2 L MCV (test code = 787-2) 89.3 fL 80.6-95.5 MCH (test code = 785-6) 30.3 pg 25.9-32.8 MCHC (test code = 786-4) 34.0 g/dL 31.6-35.1 RDW-SD (test code = 47064-2) 43.8 fL 39.0-49.9 RDW-CV (test code = 788-0) 13.3 % 12.0-15.5 PLT (test code = 777-3) See_Comment [Automated messa ge] The system which generated this result transmitted reference range: 166 - 358 10*3/?L. The reference range was not used to interpret this result as normal/abnormal. MPV (test code = 50782-0) 9.7 fL 9.5-12.9 NRBC/100 WBC (test code = 6965916112) See_Comment [Automated Sarta ssage] The system which generated this result transmitted reference range: 0.0 - 10.0 /100 WBCs. The reference range was not used to interpret this result as normal/abnormal. NRBC x10^3 (test code = 9123203385) <0.01 See_Comment [Automated messa ge] The system which generated this result transmitted reference range: 10*3/?L. The reference range was not used to interpret this result as normal/abnormal. GRAN MAT (NEUT) % (test code = 770-8) 80.2 % IMM GRAN % (test code = 1934778929) 0.70 % LYMPH % (test code = 736-9) 9.9 % MONO % (test code = 5905-5) 8.4 % EOS % (test code = 713-8) 0.6 % BASO % (test code = 706-2) 0.2 % GRAN MAT x10^3(ANC) (test code = 0456100763) 9.12 10*3/uL 1.88-7.09 H IMM GRAN x10^3 (test code = 8274270212) 0.08 10*3/uL 0.00-0.06 H LYMPH x10^3 (test code = 731-0) 1.12 10*3/uL 1.32-3.29 L MONO x10^3 (test code = 742-7) 0.95 10*3/uL 0.33-0.92 H EOS x10^3 (test code = 711-2) 0.07 10*3/uL 0.03-0.39 BASO x10^3 (test code = 704-7) <0.03 0.01-0.07 Lab Interpretation (test code = 85430-6) Abnormal [facility] WITH [id number] 09:48:02* Test Item Value Reference Range Interpretation Comme nts WBC (test code = 6690-2) See_Comment H [Automated messa ge] The system which generated this result transmitted reference range: 4.30 - 11.10 10*3/?L. The reference range was not used to interpret this result as normal/abnormal. RBC (test code = 789-8) See_Comment L [Automated messa ge] The system which generated this result transmitted reference range: 3.93 - 5.25 10*6/?L. The reference range was not used to interpret this result as normal/abnormal. HGB (test code = 718-7) 9.1 g/dL 11.6-15.0 L HCT (test code = 4544-3) 26.8 % 35.7-45.2 L MCV (test code = 787-2) 89.3 fL 80.6-95.5 MCH (test code = 785-6) 30.3 pg 25.9-32.8 MCHC (test code = 786-4) 34.0 g/dL 31.6-35.1 RDW-SD (test code = 05318-9) 43.8 fL 39.0-49.9 RDW-CV (test code = 788-0) 13.3 % 12.0-15.5 PLT (test code = 777-3) See_Comment [Automated messa ge] The system which generated this result transmitted reference range: 166 - 358 10*3/?L. The reference range was not used to interpret this result as normal/abnormal. MPV (test code = 93167-2) 9.7 fL 9.5-12.9 NRBC/100 WBC (test code = 9605380530) See_Comment [Automated Sarta ssage] The system which generated this result transmitted reference range: 0.0 - 10.0 /100 WBCs. The reference range was not used to interpret this result as normal/abnormal. NRBC x10^3 (test code = 9709637805) <0.01 See_Comment [Automated messa ge] The system which generated this result transmitted reference range: 10*3/?L. The reference range was not used to interpret this result as normal/abnormal. GRAN MAT (NEUT) % (test code = 770-8) 80.2 % IMM GRAN % (test code = 8070627917) 0.70 % LYMPH % (test code = 736-9) 9.9 % MONO % (test code = 5905-5) 8.4 % EOS % (test code = 713-8) 0.6 % BASO % (test code = 706-2) 0.2 % GRAN MAT x10^3(ANC) (test code = 3703741727) 9.12 10*3/uL 1.88-7.09 H IMM GRAN x10^3 (test code = 3758964998) 0.08 10*3/uL 0.00-0.06 H LYMPH x10^3 (test code = 731-0) 1.12 10*3/uL 1.32-3.29 L MONO x10^3 (test code = 742-7) 0.95 10*3/uL 0.33-0.92 H EOS x10^3 (test code = 711-2) 0.07 10*3/uL 0.03-0.39 BASO x10^3 (test code = 704-7) <0.03 0.01-0.07 Lab Interpretation (test code = 88717-7) Abnormal [facility] [id number] 17:12:42* Test Item Value Reference Range Interpretation Comme nts URINE CULTURE (test code = 630-4) >100,000 CFU/mL Streptococcus agalactiae (Group B) HANH (test code = HANH) Penicillin and ampicillin are drugs of choice for treatment of beta-hemolytic streptococcal infections. In accordance with CLSI M100 guidelines, susceptibility testing of penicillin and other beta-lactams need not be performed due to the extremely rare nature of non-susceptible isolates. [facility] [id number] 17:12:42* Test Item Value Reference Range Interpretation Comme nts URINE CULTURE (test code = 630-4) >100,000 CFU/mL Streptococcus agalactiae (Group B) HANH (test code = HANH) Penicillin and ampicillin are drugs of choice for treatment of beta-hemolytic streptococcal infections. In accordance with CLSI M100 guidelines, susceptibility testing of penicillin and other beta-lactams need not be performed due to the extremely rare nature of non-susceptible isolates. [facility] [id number] 17:12:42* Test Item Value Reference Range Interpretation Comme nts URINE CULTURE (test code = 630-4) >100,000 CFU/mL Streptococcus agalactiae (Group B) HANH (test code = HANH) Penicillin and ampicillin are drugs of choice for treatment of beta-hemolytic streptococcal infections. In accordance with CLSI M100 guidelines, susceptibility testing of penicillin and other beta-lactams need not be performed due to the extremely rare nature of non-susceptible isolates. [facility] PELVIS [id number] 16:36:07HISTORY: Urinary infection versus retained products. TECHNIQUE: Real-time transabdominal ultrasoundguidance was provided by thetechnologist in OR while D&C procedure was performed by Dr. Quezada. FINDINGS: Numerous radiopaque clips along with postprocedural images aresubmitted. Real-time images showed DNC procedure in progress. Postprocedural imagesshowed distended uterine cavity, likely due to h emorrhage. CONCLUSIONS: Real-time intraoperative ultrasound guidance provided byultrasound technologist. Final images show distended uterine cavity due tohemorrhage. [facility], Radiant Results Inft User -02/17/2021 11:37 AM CDTHISTORY: Urinary infection versus retained products.TECHNIQUE: Real-time transabdominal ultrasound guidance was provided by thetechnologist in OR while D&C procedure was performed by Dr. Quezada.FINDINGS: Numerous radiopaque clips along with postprocedural images aresubmitted.Real-time images showed DNC procedure in progress. Postprocedural imagesshowed distended uterine cavity, likely due to hemorrhage.CONCLUSIONS: Real-time intraoperative ultrasound guidance provided byultrasound technologist. Final images show distended uterine cavity due tohemorrhage.[facility] PELVIS [id number] 16:36:07HISTORY: Urinary infection versus retained products. TECHNIQUE: Real- time transabdominal ultrasoundguidance was provided by thetechnologist in OR while D&C procedure was performed by Dr. Quezada. FINDINGS: Numerous radiopaque clips along with postprocedural images aresubmitted. Real-time images showed DNC procedure in progress. Postprocedural imagesshowed distended uterine cavity, likely due to hemorrhage. CONCLUSIONS: Real-time intraoperative ultrasound guidance provided byultrasound technologist. Final images show distended uterine cavity due tohemorrhage. [facility], Radiant Results Inft User -02/17/2021 11:37 AM CDTHISTORY: Urinary infection versus retained products.TECHNIQUE: Real-time marcum sabdominal ultrasound guidance was provided by thetechnologist in OR while D&C procedure was performed by Dr. Quezada.FINDINGS: Numerous radiopaque clips along with postprocedural images aresubmitted.Real-time images showed DNC procedure in progress. Postprocedural imagesshowed distended uterine cavity, likely due to hemorrhage.CONCLUSIONS: Real-time intraoperative ultrasound guidance provided byultrasound technologist. Final images show distended uterine cavity due tohemorrhage.[facility] PELVIS [id number] 16:36:07HISTORY: Urinary infection versus retained products. TECHNIQUE: Real- time transabdominal ultrasoundguidance was provided by thetechnologist in OR while D&C procedure was performed by Dr. Quezada. FINDINGS: Numerous radiopaque clips along with postprocedural images aresubmitted. Real-time images showed DNC procedure in progress. Postprocedural imagesshowed distended uterine cavity, likely due to hemorrhage. CONCLUSIONS: Real-time intraoperative ultrasound guidance provided byultrasound technologist. Final images show distended uterine cavity due tohemorrhage. [facility], Radiant Results Inft User -02/17/2021 11:37 AM CDTHISTORY: Urinary infection versus retained products.TECHNIQUE: Real-time marcum sabdominal ultrasound guidance was provided by thetechnologist in OR while D&C procedure was performed by Dr. Quezada.FINDINGS: Numerous radiopaque clips along with postprocedural images aresubmitted.Real-time images showed DNC procedure in progress. Postprocedural imagesshowed distended uterine cavity, likely due to hemorrhage.CONCLUSIONS: Real-time intraoperative ultrasound guidance provided byultrasound technologist. Final images show distended uterine cavity due tohemorrhage.[facility] 15:55:57 Lorenzo Bhardwaj CRNA ? ? 02/17/2021 10:56 AMIntubationDate/Time: 02/17/2021 10:56 AMUrgency: elective Airway not difficult General Information and Staff Patient location during procedure: ORResident/DECAL MAKER: Lorenzo Bhardwaj CRNA Indications and Patient ConditionIndications for airway management: anesthesiaSpontaneous ventilation: presentSedation level: deepPreoxygenated: yesPatient position: sniffingMILS maintained throughoutMask difficulty assessment: 1 - vent by maskNo planned trial extubationFinal Airway DetailsFinal airway type: supraglottic airway Successful airway: Supraglottic airway: I-GEL.Size 3Airway Seal Pressure (cm H2O): 20 Number of attempts at approach: 1Ventilation between attempts: noneNumber of other approaches attempted: [facility]Un[facility] and Screen - ONCE [id number] 20:49:50* Test Item Value Reference Range Interpretation Comme nts ABO & RH (test code = 20) O Positive Performed at [facility] B Laboratory Services - ADC Blood [address] [place] [id number] Free: [phone] No. [id number] IAT (test code = 1185) Negative Performed at [facility] Blood [address] Free: [phone] No. [id number] [facility]Type and Screen - ONCE [id number] 20:49:50 * Test Item Value Reference Range Interpretation Comme nts ABO & RH (test code = 20) O Positive Performed at [facility] Blood [place] [address]Toll Free: [phone] No. [id number] IAT (test code = 1185) Negative Performed at [place] [address]Toll Free: [phone] No. [id number] [facility] and Screen - ONCE [id number] 20:49:50 * Test Item Value Reference Range Interpretation Comme nts ABO & RH (test code = 20) O Positive Performed at [facility] Blood [address] Free: [phone] No. [id number] IAT (test code = 1185) Negative Performed at [address] Free: [phone] No. [id number] [facility]COVID[facility] (ID NOW RAPID TESTING)2021-02-16 20:32:15* Test Item Value Reference Range Interpretation Comme nts SARS-CoV-2 Rapid ID NOW (test code = 00875-8) Not Detected Not Detected HANH (test code = HANH) ID NOW COVID-19 As say is an isothermal nucleic acid amplification test intended for the qualitative detection of nucleic acid from SARS-CoV-2 viral RNA in nasopharyngeal (BLUE LINE HANGER) specimens. It is used under Emergency Use [...] patient testing if clinically indicated. Lab Interpretation (test code = 93727-1) [facility]-19 (ID NOW RAPID TESTING)2021-02-16 20:32:15* Test Item Value Reference Range Interpretation Comme nts SARS-CoV-2 Rapid ID NOW (test code = 90164-9) Not Detected Not Detected HANH (test code = HANH) ID NOW COVID-19 As say is an isothermal nucleic acid amplification test intended for the qualitative detection of nucleic acid from SARS-CoV-2 viral RNA in nasopharyngeal (BLUE LINE HANGER) specimens. It is used under Emergency Use [...] patient testing if clinically indicated. Lab Interpretation (test code = 15193-9) [facility]-19 (ID NOW RAPID TESTING)2021-02-16 20:32:15* Test Item Value Reference Range Interpretation Comme nts SARS-CoV-2 Rapid ID NOW (test code = 73740-1) Not Detected Not Detected HANH (test code = HANH) ID NOW COVID-19 As say is an isothermal nucleic acid amplification test intended for the qualitative detection of nucleic acid from SARS-CoV-2 viral RNA in nasopharyngeal (BLUE LINE HANGER) specimens. It is used under Emergency Use [...] patient testing if clinically indicated. Lab Interpretation (test code = 08068-7) Normal [facility] PELVIS COMPLETE WITH [id number] 19:35:41Postpartum uterus with heterogenous nonvascular material within endometrialcavity which may represent blood clot or nonvascular retained products ofconception. There is no significant fluid collection in the endometrialcanal or increased vascularity, however early endometritis cannot excluded. TRANSABDOMINAL AND TRANSVAGINAL PELVIC ULTRASOUND HISTORY: day 6 with fever concern for infection or endometritis COMPARISON: None. TECHNIQUE: Transvaginal and limited transabdominal sonographyof the pelviswas performed. FINDINGS: The uterus is [...] x 1.2 x 2.4 cm. No adnexal masses.? No fluid is present in the cul-de-sac. [...] conception or blood product. The right ovary measures2.0 x 2.4 x 2.4 cm. No adnexal masses.The left ovary measures 2.4 x 1.2 x 2.4 cm. No adnexal masses. No fluid is present in the cul-de-sac. IMPRESSIONPostpartum uterus with heterogenous nonvascular material within endometrialcavity which may represent blood clot or nonvascular retained products ofconception. There is no significant fluid collection in the endometrialcanal or increased vascularity, however early endometritis cannot excluded.[facility] PELVIS COMPLETE WITH TRANSVAGINAL 2021-02-16 19:35:41Postpartum uterus with heterogenous nonvascular material within endometrialcavity which may represent blood clot or nonvascular retained products ofconception. There is no significant fluid collection in the endometrialcanal or increased vascularity, however early endometritis cannot excluded. TRANSABDOMINAL AND TRANSVAGINAL PELVIC ULTRASOUND HISTORY: day 6 with fever concern for infection or endometritis COMPARISON: None. TECHNIQUE: Transvaginal and limited transabdominal sonographyof the pelviswas performed. FINDINGS: The uterus is [...] x 1.2 x 2.4 cm. No adnexal masses.? No fluid is present in the cul-de-sac. [...] conception or blood product. The right ovary measures2.0 x 2.4 x 2.4 cm. No adnexal masses.The left ovary measures 2.4 x 1.2 x 2.4 cm. No adnexal masses. No fluid is present in the cul-de-sac. IMPRESSIONPostpartum uterus with heterogenous nonvascular material within endometrialcavity which may represent blood clot or nonvascular retained products ofconception. There is no significant fluid collection in the endometrialcanal or increased vascularity, however early endometritis cannot excluded.[facility] PELVIS COMPLETE WITH TRANSVAGINAL 2021-02-16 19:35:41Postpartum uterus with heterogenous nonvascular material within endometrialcavity which may represent blood clot or nonvascular retained products ofconception. There is no significant fluid collection in the endometrialcanal or increased vascularity, however early endometritis cannot excluded. TRANSABDOMINAL AND TRANSVAGINAL PELVIC ULTRASOUND HISTORY: day 6 with fever concern for infection or endometritis COMPARISON: None. TECHNIQUE: Transvaginal and limited transabdominal sonographyof the pelviswas performed. FINDINGS: The uterus is [...] x 1.2 x 2.4 cm. No adnexal masses.? No fluid is present in the cul-de-sac. [...] conception or blood product. The right ovary measures2.0 x 2.4 x 2.4 cm. No adnexal masses.The left ovary measures 2.4 x 1.2 x 2.4 cm. No adnexal masses. No fluid is present in the cul-de-sac. IMPRESSIONPostpartum uterus with heterogenous nonvascular material within endometrialcavity which may represent blood clot or nonvascular retained products ofconception. There is no significant fluid collection in the endometrialcanal or increased vascularity, however early endometritis cannot excluded.[facility] WITH [id number] 17:49:39* Test Item Value Reference Range Interpretation Comme nts WBC (test code = 6690-2) See_Comment H [Automated message] The system which generated this result transmitted reference range: 4.30 - 11.10 10*3/?L. The reference range was not used to interpret this result as normal/abnormal. RBC (test code = 789-8) See_Comment [Automated message] The system which generated this result transmitted reference range: 3.93 - 5.25 10*6/?L. The reference range was not used to interpret this result as normal/abnormal. HGB (test code = 718-7) 13.3 g/dL 11.6-15.0 HCT (test code = 4544-3) 39.3 % 35.7-45.2 MCV (test code = 787-2) 89.3 fL 80.6-95.5 MCH (test code = 785-6) 30.2 pg 25.9-32.8 MCHC (test code = 786-4) 33.8 g/dL 31.6-35.1 RDW-SD (test code = 03252-4) 42.7 fL 39.0-49.9 RDW-CV (test code = 788-0) 13.1 % 12.0-15.5 PLT (test code = 777-3) See_Comment [Automated message] The system which generated this result transmitted reference range: 166 - 358 10*3/?L. The reference range was not used to interpret this result as normal/abnormal. MPV (test code = 18877-6) 10.2 fL 9.5-12.9 NRBC/100 WBC (test code = 7816308814) See_Comment [Automated message] The system which generated this result transmitted reference range: 0.0 - 10.0 /100 WBCs. The reference range was not used to interpret this result as normal/abnormal. NRBC x10^3 (test code = 5096892306) <0.01 See_Comment [Automated message] The system which generated this result transmitted reference range: 10*3/?L. The reference range was not used to interpret this result as normal/abnormal. GRAN MAT (NEUT) % (test code = 770-8) 90.8 % IMM GRAN % (test code = 6396358436) 1.10 % LYMPH % (test code = 736-9) 1.8 % MONO % (test code = 5905-5) 5.7 % EOS % (test code = 713-8) 0.0 % BASO % (test code = 706-2) 0.6 % GRAN MAT x10^3(ANC) (test code = 2386473078) 19.18 10*3/uL 1.88-7.09 H IMM GRAN x10^3 (test code = 5193863493) 0.23 10*3/uL 0.00-0.06 H LYMPH x10^3 (test code = 731-0) 0.37 10*3/uL 1.32-3.29 L MONO x10^3 (test code = 742-7) 1.20 10*3/uL 0.33-0.92 H EOS x10^3 (test code = 711-2) <0.03 0.03-0.39 L BASO x10^3 (test code = 704-7) 0.12 10*3/uL 0.01-0.07 H BANDS (test code = 1080590475) MARKED INCREASED A Lab Interpretation (test code = 08830-8) Abnormal [facility] WITH [id number] 17:49:39* Test Item Value Reference Range Interpretation Comme nts WBC (test code = 6690-2) See_Comment H [Automated message] The system which generated this result transmitted reference range: 4.30 - 11.10 10*3/?L. The reference range was not used to interpret this result as normal/abnormal. RBC (test code = 789-8) See_Comment [Automated message] The system which generated this result transmitted reference range: 3.93 - 5.25 10*6/?L. The reference range was not used to interpret this result as normal/abnormal. HGB (test code = 718-7) 13.3 g/dL 11.6-15.0 HCT (test code = 4544-3) 39.3 % 35.7-45.2 MCV (test code = 787-2) 89.3 fL 80.6-95.5 MCH (test code = 785-6) 30.2 pg 25.9-32.8 MCHC (test code = 786-4) 33.8 g/dL 31.6-35.1 RDW-SD (test code = 39075-2) 42.7 fL 39.0-49.9 RDW-CV (test code = 788-0) 13.1 % 12.0-15.5 PLT (test code = 777-3) See_Comment [Automated message] The system which generated this result transmitted reference range: 166 - 358 10*3/?L. The reference range was not used to interpret this result as normal/abnormal. MPV (test code = 69360-1) 10.2 fL 9.5-12.9 NRBC/100 WBC (test code = 7170700972) See_Comment [Automated message] The system which generated this result transmitted reference range: 0.0 - 10.0 /100 WBCs. The reference range was not used to interpret this result as normal/abnormal. NRBC x10^3 (test code = 3675181832) <0.01 See_Comment [Automated message] The system which generated this result transmitted reference range: 10*3/?L. The reference range was not used to interpret this result as normal/abnormal. GRAN MAT (NEUT) % (test code = 770-8) 90.8 % IMM GRAN % (test code = 2339389651) 1.10 % LYMPH % (test code = 736-9) 1.8 % MONO % (test code = 5905-5) 5.7 % EOS % (test code = 713-8) 0.0 % BASO % (test code = 706-2) 0.6 % GRAN MAT x10^3(ANC) (test code = 0397191036) 19.18 10*3/uL 1.88-7.09 H IMM GRAN x10^3 (test code = 7568548650) 0.23 10*3/uL 0.00-0.06 H LYMPH x10^3 (test code = 731-0) 0.37 10*3/uL 1.32-3.29 L MONO x10^3 (test code = 742-7) 1.20 10*3/uL 0.33-0.92 H EOS x10^3 (test code = 711-2) <0.03 0.03-0.39 L BASO x10^3 (test code = 704-7) 0.12 10*3/uL 0.01-0.07 H BANDS (test code = 1277598346) MARKED INCREASED A Lab Interpretation (test code = 80740-5) Abnormal [facility]. METABOLIC PANEL ([id number])2021-02-16 16:57:34* Test Item Value Reference Range Interpretation Comme nts NA (test code = 9048926654) 138 mmol/L 135-145 K (test code = 0490930406) 3.5 mmol/L 3.5-5.0 CL (test code = 2929143625) 107 mmol/L 98-108 CO2 TOTAL (test code = 0757493892) 17 mmol/L 23-31 L AGAP (test code = 2726326555) 2-16 BUN (test code = 8887649837) 16 mg/dL 7-23 GLUCOSE (test code = 8415512825) 103 mg/dL 70-110 CREATININE (test code = 5529652062) 0.62 mg/dL 0.50-1.04 TOTAL BILI (test code = 7597595591) 0.5 mg/dL 0.1-1.1 CALCIUM (test code = 4594055746) 9.6 mg/dL 8.6-10.6 T PROTEIN (test code = 4031492879) 7.7 g/dL 6.3-8.2 ALBUMIN (test code = 4145837439) 4.4 g/dL 3.5-5.0 ALK PHOS (test code = 9931123267) 193 U/L 34-122 H ALTv (test code = 1742-6) 39 U/L 5-35 H AST(SGOT) (test code = 9240754749) 40 U/L 13-40 eGFR (test code = 9627408350) mL/min/1.73m2 HANH (test code = HANH) Association of [...] or abnormalities in imaging tests). Lab Interpretation (test code = 21434-5) Abnormal [facility]. METABOLIC PANEL ([id number])2021-02-16 16:57:34* Test Item Value Reference Range Interpretation Comme nts NA (test code = 7205569954) 138 mmol/L 135-145 K (test code = 8432049611) 3.5 mmol/L 3.5-5.0 CL (test code = 2912582950) 107 mmol/L 98-108 CO2 TOTAL (test code = 6273348984) 17 mmol/L 23-31 L AGAP (test code = 6258447977) 2-16 BUN (test code = 0079809723) 16 mg/dL 7-23 GLUCOSE (test code = 5455833034) 103 mg/dL 70-110 CREATININE (test code = 2676806266) 0.62 mg/dL 0.50-1.04 TOTAL BILI (test code = 8942371972) 0.5 mg/dL 0.1-1.1 CALCIUM (test code = 7682896524) 9.6 mg/dL 8.6-10.6 T PROTEIN (test code = 7070978992) 7.7 g/dL 6.3-8.2 ALBUMIN (test code = 7782046429) 4.4 g/dL 3.5-5.0 ALK PHOS (test code = 4993993400) 193 U/L 34-122 H ALTv (test code = 1742-6) 39 U/L 5-35 H AST(SGOT) (test code = 0945479742) 40 U/L 13-40 eGFR (test code = 0534020332) mL/min/1.73m2 HANH (test code = HANH) Association of [...] or abnormalities in imaging tests). Lab Interpretation (test code = 05650-6) Abnormal [facility]. METABOLIC PANEL (49923)2021-02-16 16:57:34* Test Item Value Reference Range Interpretation Comme nts NA (test code = 9664351141) 138 mmol/L 135-145 K (test code = 0261381781) 3.5 mmol/L 3.5-5.0 CL (test code = 4434956134) 107 mmol/L 98-108 CO2 TOTAL (test code = 0677093731) 17 mmol/L 23-31 L AGAP (test code = 7118102035) 2-16 BUN (test code = 4463318602) 16 mg/dL 7-23 GLUCOSE (test code = 2800093979) 103 mg/dL 70-110 CREATININE (test code = 5316736271) 0.62 mg/dL 0.50-1.04 TOTAL BILI (test code = 2918522859) 0.5 mg/dL 0.1-1.1 CALCIUM (test code = 8512373974) 9.6 mg/dL 8.6-10.6 T PROTEIN (test code = 7306509556) 7.7 g/dL 6.3-8.2 ALBUMIN (test code = 4739650806) 4.4 g/dL 3.5-5.0 ALK PHOS (test code = 0530977688) 193 U/L 34-122 H ALTv (test code = 1742-6) 39 U/L 5-35 H AST(SGOT) (test code = 1557678831) 40 U/L 13-40 eGFR (test code = 1208291120) mL/min/1.73m2 HANH (test code = AHNH) Association of Glomerular Filtration Rate (GFR) and [...] or abnormalities in imaging tests). Lab Interpretation (test code = 60640-7) [facility] 16:55:11* Test Item Value Reference Range Interpretation Comme nts APPEARANCE (test code = 1152675520) Hazy Clear A COLOR (test code = 4843506498) Yellow Yellow PH (test code = 8292507616) 4.8-8.0 SP GRAVITY (test code = 1420243999) 1.003-1.030 GLU U QUAL (test code = 6594348101) Normal Normal BLOOD (test code = 7789188370) 2+ Negative A KETONES (test code = 6247695190) 20 mg/dL Negative A PROTEIN (test code = 2887-8) Negative Negative UROBILIN (test code = 3281106712) Normal Normal BILIRUBIN (test code = 4348150091) Negative Negative NITRITE (test code = 4666808277) Negative Negative LEUK EDITH (test code = 0619316360) 75/uL Negative A RBC/HPF (test code = 8501983458) See_Comment H [Automated messa ge] The system which generated this result transmitted reference range: 0 - 3 HPF. The reference range was not used to interpret this result as normal/abnormal. WBC/HPF (test code = 0369379961) See_Comment H [Automated messa ge] The system which generated this result transmitted reference range: 0 - 5 HPF. The reference range was not used to interpret this result as normal/abnormal. BACTERIA (test code = 2365149457) Few Negative A MUCOUS (test code = 3728486115) Slight Negative LPF A SQ EPITH (test code = 0210544397) HPF Lab Interpretation (test code = 94701-6) [facility] Test Item Value Reference Range Interpretation Comme nts APPEARANCE (test code = 7534618663) Hazy Clear A COLOR (test code = 0064853383) Yellow Yellow PH (test code = 0244237522) 4.8-8.0 SP GRAVITY (test code = 6780540927) 1.003-1.030 GLU U QUAL (test code = 9097945294) Normal Normal BLOOD (test code = 8700680742) 2+ Negative A KETONES (test code = 6750206899) 20 mg/dL Negative A PROTEIN (test code = 2887-8) Negative Negative UROBILIN (test code = 5708316076) Normal Normal BILIRUBIN (test code = 8490280597) Negative Negative NITRITE (test code = 2001227165) Negative Negative LEUK EDITH (test code = 3898654560) 75/uL Negative A RBC/HPF (test code = 8776613870) See_Comment H [Automated messa ge] The system which generated this result transmitted reference range: 0 - 3 HPF. The reference range was not used to interpret this result as normal/abnormal. WBC/HPF (test code = 2485113835) See_Comment H [Automated messa ge] The system which generated this result transmitted reference range: 0 - 5 HPF. The reference range was not used to interpret this result as normal/abnormal. BACTERIA (test code = 8631915801) Few Negative A MUCOUS (test code = 5180263964) Slight Negative LPF A SQ EPITH (test code = 6685721197) HPF Lab Interpretation (test code = 23869-9) [facility]normal [facility]55:11* Test Item Value Reference Range Interpretation Comme nts APPEARANCE (test code = 6534256129) Hazy Clear A COLOR (test code = 3450435919) Yellow Yellow PH (test code = 0097371648) 4.8-8.0 SP GRAVITY (test code = 5124208614) 1.003-1.030 GLU U QUAL (test code = 0889466403) Normal Normal BLOOD (test code = 4099963354) 2+ Negative A KETONES (test code = 5345014085) 20 mg/dL Negative A PROTEIN (test code = 2887-8) Negative Negative UROBILIN (test code = 9597192403) Normal Normal BILIRUBIN (test code = 2544901907) Negative Negative NITRITE (test code = 3364807367) Negative Negative LEUK EDITH (test code = 6202262031) 75/uL Negative A RBC/HPF (test code = 1011579107) See_Comment H [Automated messa ge] The system which generated this result transmitted reference range: 0 - 3 HPF. The reference range was not used to interpret this result as normal/abnormal. WBC/HPF (test code = 6399821174) See_Comment H [Automated messa ge] The system which generated this result transmitted reference range: 0 - 5 HPF. The reference range was not used to interpret this result as normal/abnormal. BACTERIA (test code = 1295936921) Few Negative A MUCOUS (test code = 4988371053) Slight Negative LPF A SQ EPITH (test code = 3027544360) HPF Lab Interpretation (test code = 54080-6) Abnormal [facility]land[facility] Acid Whole Kmcan3865-08-88 16:24:19* Test Item Value Reference Range Interpretation Comme nts LACTIC ACID (test code = 5662093693) 1.62 mmol/L 0.50-2.20 Lab Interpretation (test cod e = 88710-1) Normal [facility]landLactic Acid Whole Bphvb6346-31-50 16:24:19* Test Item Value Reference Range Interpretation Comme nts LACTIC ACID (test code = 6923500273) 1.62 mmol/L 0.50-2.20 Lab Interpretation (test cod e = 59684-0) [facility] Xjzte4417-62-57 16:24:19* Test Item Value Reference Range Interpretation Comme nts LACTIC ACID (test code = 5727137267) 1.62 mmol/L 0.50-2.20 Lab Interpretation (test cod e = 81944-1) Normal [facility] ONLY COVID [id number] 13:38:42COVID DMT InterpretationInterpretation/Recommendation: Molecular NAAT Tests for Active Infection with the SARS-CoV-2 Virus: The patient has currently tested negative for the SARS-CoV-2 virus that causes COVID-19 illness. This most likely indicates that the patient does not have an active infection with the SARS-CoV-2 virus. However, infection is not completely ruled out as the false negative ratefor molecular NAAT testing using a nasopharyngeal sample can be up to 30%, mostly dependent on the timing of sample collection in relation to illness onset and any deficiencies in sampling techniques. If the patient has symptoms concerning for COVID-19 illness, a repeat NAAT test (PCR, Rapid ID Now, etc.) should be performed, at which time the SARS-CoV-2 virus - if present - may have reached a detectable viral load (usually peaking by the end of the first week of symptoms). Tests for IgM and/orIgG Antibodies to the SARS-CoV-2 Virus: The patient has tested negative for SARS-CoV-2 IgG antibodies. In the context of a negative molecular NAAT test (PCR, Rapid ID Now, etc.), this most likely katlin cates that the patient has not been infected with the SARS-CoV-2 virus. If the patient develops COVID-19 illness in the future, testing for IgG antibodies approximately 3 weeks after illness onset will likely indicate whether the patient has produced antibodies to the SARS-CoV-2 virus. However, some patients may take longer to develop detectable antibodies, while some patients who were infected with SARS-CoV-2 may never develop antibodies. While IgG antibodies to SARS-CoV-2 may provide some degree of immunity, at this time the strength and duration of the antibody response is unknown. -------- Interpretation Result Comments:These interpretation comments are based upon all COVID-19 testing the patient has had at [facility], including molecular NAAT testing (more commonly known as PCR testing and Rapid ID Now testing) and antibody testing. It does not take into account any testing that a patient has had outside of the [facility] medical record. [facility] LABORATORY SERVICESCOVID YhtkmksFYRU-ZaH-1 Rapid ID NOW (no units) ? ? Date ? Value ? 02/09/2021 ? Not Detected ? CoV-2 IgG (no units) ? ? Date ? Value ? 01/20/2021 ? Negative ? 07/14/2020 ? Negative ? ? ? [facility] SERVICESH[facility]LAB ONLY COVID [id number] 13:38:42COVID DMT InterpretationInterpretation/Recommendation: Molecular NAAT Tests for Active Infection with the SARS-CoV-2 Virus: The patient has currently tested negative for the SARS-CoV-2 virus that causes COVID-19 illness. This most likely indicates that the patient does not have an active infection with the SARS-CoV-2 virus. However, infection is not completely ruled out as the false negative rate for molecular NAAT testing using a nasopharyngeal sample can be up to 30%, mostly dependent on the timing of sample collection in relation to illness onset and any deficiencies in sampling techniques. If the patient has symptoms concerning for COVID-19 illness, a repeat NAAT test (PCR, Rapid ID Now, etc.) should be performed, at which time the SARS-CoV-2 virus - if present - may have reached a detectable viral load (usually peaking by the end of the first week of symptoms). Tests for IgM and/orIgG Antibodies to the SARS-CoV-2 Virus: The patient has tested negative for SARS-CoV-2 IgG antibodies. In the context of a negative molecular NAAT test (PCR, Rapid ID Now, etc.), this most likely ind icates that the patient has not been infected with the SARS-CoV-2 virus. If the patient develops COVID-19 illness in the future, testing for IgG antibodies approximately 3 weeks after illness onset will likely indicate whether the patient has produced antibodies to the SARS-CoV-2 virus. However, some patients may take longer to develop detectable antibodies, while some patients who were infected with SARS-CoV-2 may never develop antibodies. While IgG antibodies to SARS-CoV-2 may provide some degree of immunity, at this time the strength and duration of the antibody response is unknown. ------- Interpretation Result Comments:These interpretation comments are based upon all COVID-19 testing the patient has had at [facility], including molecular NAAT testing (more commonly known as PCR testing and Rapid ID Now testing) and antibodytesting. It does not take into account any testing that a patient has had outside of the [facility] medical record. [facility] LABORATORY SERVICESCOVID OopqpmiCLMZ-YeH-5 Rapid ID NOW (no units) ? ? Date ? Value ? 02/09/2021 ? Not Detected ? CoV-2 IgG (no units) ? ? Date ? Value ? 01/20/2021 ? Negative ? 07/14/2020 ? Negative ? ? ? [facility] SERVICESUnB[facility]CBC with Esvpumgxgywz9833-34-64 05:49:10* Test Item Value Reference Range Interpretation Comme nts WBC (test code = 6690-2) See_Comment H [Automated message] The system which generated this result transmitted reference range: 4.30 - 11.10 10*3/?L. The reference range was not used to interpret this result as normal/abnormal. RBC (test code = 789-8) See_Comment L [Automated message] The system which generated this result transmitted reference range: 3.93 - 5.25 10*6/?L. The reference range was not used to interpret this result as normal/abnormal. HGB (test code = 718-7) 10.9 g/dL 11.6-15.0 L HCT (test code = 4544-3) 32.8 % 35.7-45.2 L MCV (test code = 787-2) 90.1 fL 80.6-95.5 MCH (test code = 785-6) 29.9 pg 25.9-32.8 MCHC (test code = 786-4) 33.2 g/dL 31.6-35.1 RDW-SD (test code = 91292-2) 43.5 fL 39.0-49.9 RDW-CV (test code = 788-0) 13.3 % 12.0-15.5 PLT (test code = 777-3) See_Comment [Automated message] The system which generated this result transmitted reference range: 166 - 358 10*3/?L. The reference range was not used to interpret this result as normal/abnormal. MPV (test code = 58810-4) 11.4 fL 9.5-12.9 NRBC/100 WBC (test code = 4863383012) See_Comment [Automated message] The system which generated this result transmitted reference range: 0.0 - 10.0 /100 WBCs. The reference range was not used to interpret this result as normal/abnormal. NRBC x10^3 (test code = 4317328441) <0.01 See_Comment [Automated message] The system which generated this result transmitted reference range: 10*3/?L. The reference range was not used to interpret this result as normal/abnormal. GRAN MAT (NEUT) % (test code = 770-8) 81.5 % IMM GRAN % (test code = 6634240850) 0.40 % LYMPH % (test code = 736-9) 10.9 % MONO % (test code = 5905-5) 5.6 % EOS % (test code = 713-8) 1.3 % BASO % (test code = 706-2) 0.3 % GRAN MAT x10^3(ANC) (test code = 8473470665) 10.21 10*3/uL 1.88-7.09 H IMM GRAN x10^3 (test code = 7599731682) 0.05 10*3/uL 0.00-0.06 LYMPH x10^3 (test code = 731-0) 1.36 10*3/uL 1.32-3.29 MONO x10^3 (test code = 742-7) 0.70 10*3/uL 0.33-0.92 EOS x10^3 (test code = 711-2) 0.16 10*3/uL 0.03-0.39 BASO x10^3 (test code = 704-7) 0.04 10*3/uL 0.01-0.07 Lab Interpretation (test code = 28688-2) Abnormal [facility] ONLY - SYPHILIS IGG/[id number] 13:52:50* Test Item Value Reference Range Interpretation Comme [facility] Syphilis IgG/IgM (test code = 51396-3) Non-reactive Non-reactive HANH (test code = HANH) Non-reactive - No serologic evidence of T. pallidum infection. Cannot exclude incubating or early syphilis. Submit a second specimen in 2-4 weeks if syphilis is clinically suspected. Equivocal - Further testing to follow. Reactive - Further testing to follow. Lab Interpretation (test code = 50611-3) Normal [facility] ONLY - SYPHILIS IGG/[id number] 13:52:50* Test Item Value Reference Range Interpretation Comme [facility] Syphilis IgG/IgM (test code = 85114-9) Non-reactive Non-reactive HANH (test code = HANH) Non-reactive - No serologic evidence of T. pallidum infection. Cannot exclude incubating or early syphilis. Submit a second specimen in 2-4 weeks if syphilis is clinically suspected. Equivocal - Further testing to follow. Reactive - Further testing to follow. Lab Interpretation (test code = 35456-4) Normal [facility]landRH (D) IMMUNE RFMFMKKE2382-02-63 13:44:54* Test Item Value Reference Range Interpretation Comme nts RHIG CANDIDATE? (test code = 5055) No- see comment Patient is not a candidate for RhIg- Patient is Rh Positive.Performed at [facility] Laboratory Services - [facility] Blood [address] [address]Tncg Free: [phone] No. [id number] [facility] MainlandRHO (D) IMMUNE [id number] 13:44:54* Test Item Value Reference Range Interpretation Comme nts RHIG CANDIDATE? (test code = 5055) No- see comment Patient is not a candidate for RhIg- Patient is Rh Positive.Performed at [facility] Laboratory Services - [facility] Blood [address] [address]Sbll Free: [phone] No. [id number] [facility]landARTERIAL CORD [id number] 10:24:27* Test Item Value Reference Range Interpretation Comme nts BASE EXCESS, CORD (test code = 1897751772) mEq/L QUES AC PH, CORD (BEAKER) (test code = 7624959894) 7.18-7.38 PC02, CORD (test code = 5471281235) See_Comment [Automated messa ge] The system which generated this result transmitted reference range: 32 - 66 mmHg. The reference range was not used to interpret this result as normal/abnormal. PO2, CORD (test code = 2279159502) See_Comment [Automated messa ge] The system which generated this result transmitted reference range: 10 - 30 mmHg. The reference range was not used to interpret this result as normal/abnormal. BICARBONATE, CORD (test code = 0271960902) See_Comment [Automated messa ge] The system which generated this result transmitted reference range: 17 - 27 mEq/L. The reference range was not used to interpret this result as normal/abnormal. [facility]landARTERIAL CORD [id number] 10:24:27* Test Item Value Reference Range Interpretation Comme nts BASE EXCESS, CORD (test code = 1232207596) mEq/L QUES AC PH, CORD (BEAKER) (test code = 6292986808) 7.18-7.38 PC02, CORD (test code = 5635044907) See_Comment [Automated messa ge] The system which generated this result transmitted reference range: 32 - 66 mmHg. The reference range was not used to interpret this result as normal/abnormal. PO2, CORD (test code = 2887797736) See_Comment [Automated messa ge] The system which generated this result transmitted reference range: 10 - 30 mmHg. The reference range was not used to interpret this result as normal/abnormal. BICARBONATE, CORD (test code = 6309478491) See_Comment [Automated messa ge] The system which generated this result transmitted reference range: 17 - 27 mEq/L. The reference range was not used to interpret this result as normal/abnormal. [facility] CORD [id number] 10:21:04* Test Item Value Reference Range Interpretation Comme nts VENOUS BASE EXCESS, CORD (test code = 2789663465) mEq/L VENOUS PH, CORD (test code = 2699584248) 7.25-7.45 VENOUS PC02, CORD (test code = 5359398583) See_Comment [Automated messa ge] The system which generated this result transmitted reference range: 27 - 49 mmHg. The reference range was not used to interpret this result as normal/abnormal. VENOUS PO2, CORD (test code = 2363027590) See_Comment [Automated me ssage] The system which generated this result transmitted reference range: 17 - 41 mmHg. The reference range was not used to interpret this result as normal/abnormal. VENOUS BICARBONATE, CORD (test code = 1449577715) See_Comment QUES [Automated message] The system which generated this result transmitted reference range: 12 - 29 mEq/L. The reference range was not used to interpret this result as normal/abnormal. [facility] CORD [id number] 10:21:04* Test Item Value Reference Range Interpretation Comme nts VENOUS BASE EXCESS, CORD (test code = 2722466051) mEq/L VENOUS PH, CORD (test code = 9474474446) 7.25-7.45 VENOUS PC02, CORD (test code = 8609491109) See_Comment [Automated messa ge] The system which generated this result transmitted reference range: 27 - 49 mmHg. The reference range was not used to interpret this result as normal/abnormal. VENOUS PO2, CORD (test code = 1900008911) See_Comment [Automated me ssage] The system which generated this result transmitted reference range: 17 - 41 mmHg. The reference range was not used to interpret this result as normal/abnormal. VENOUS BICARBONATE, CORD (test code = 9613044820) See_Comment QUES [Automated message] The system which generated this result transmitted reference range: 12 - 29 mEq/L. The reference range was not used to interpret this result as normal/abnormal. [facility]landCentral Neuraxial Vvnay7533-60-78 20:42:40 Fransisco Marcum MD ? ? 02/09/2021 ?3:43 PM Central Neuraxial Block Performed by: Fransisco Marcum MDAuthorized by: Jass Naik MD Start Time: ?02/09/2021 3:42 PMEnd Time: ?02/09/2021 3:42 PMReason for Block: ?Labor analgesiaStaff: ?Anesthesiologist: ?Jass Naik MD ?Resident/DECAL MAKER: ?Joshua Ford MD ?Performed by: ?Resident/DECAL MAKER patient identified, IV checked, risks and benefits [...] ?3.5 in (8.89 cm) ?Needle Insertion Depth: ?4.5Notes: ? Attempt x1. Negative aspiration x 3. Negative test dose.[facility] MainlandProtein CREAT Ratio Urine Vjoqaa1320-05-05 19:53:11* Test Item Value Reference Range Interpretation Comme nts T. PROT U (test code = 2888-6) 11 mg/dL CREAT U (test code = 7154830037) 49.8 mg/dL Protein/Creatinine Ratio Uri ne (test code = 0756869255) 0.0-2.0 [facility]landProtein CREAT Ratio Urine Kegbcb4085-13-33 19:53:11* Test Item Value Reference Range Interpretation Comme nts T. PROT U (test code = 2888-6) 11 mg/dL CREAT U (test code = 5594546621) 49.8 mg/dL Protein/Creatinine Ratio Uri ne (test code = 0838425335) 0.0-2.0 [facility] MainlandUrinalysis2021-04-26 19:16:52* Test Item Value Reference Range Interpretation Comme nts APPEARANCE (test code = 4280620224) Clear Clear COLOR (test code = 8080437941) Straw Yellow A PH (test code = 9460834911) 4.8-8.0 SP GRAVITY (test code = 7901674969) 1.003-1.030 GLU U QUAL (test code = 0361996182) Normal Normal BLOOD (test code = 9171864573) 1+ Negative A KETONES (test code = 3313564444) Negative Negative PROTEIN (test code = 2887-8) Negative Negative UROBILIN (test code = 2424974349) Normal Normal BILIRUBIN (test code = 8256208891) Negative Negative NITRITE (test code = 1866810141) Negative Negative LEUK EDITH (test code = 3294126175) Negative Negative RBC/HPF (test code = 2902150249) See_Comment [Automated [employer]] The system which generated this result transmitted reference range: 0 - 3 HPF. The reference range was not used to interpret this result as normal/abnormal. WBC/HPF (test code = 2893175834) See_Comment [[employer]] The system which generated this result transmitted reference range: 0 - 5 HPF. The reference range was not used to interpret this result as normal/abnormal. BACTERIA (test code = 8260010984) Negative Negative SQ EPITH (test code = 1159353475) See_Comment [[employer]] The system which generated this result transmitted reference range: <=2 HPF. The reference range was not used to interpret this result as normal/abnormal. Lab Interpretation (test code = 29354-8) Abnormal [facility] MainlandSerum Xtuqrkfksc1813-84-34 19:00:57* Test Item Value Reference Range Interpretation Comme nts CREATININE (test code = 8154432249) 0.73 mg/dL 0.50-1.04 eGFR (test code = 5774131417) mL/min/1.73m2 HANH (test code = HANH) Association of [...] or urine or abnormalities in imaging tests). [facility] MainlandSGOT (Asparate Amino Transfer)2021-02-09 19:00:57* Test Item Value Reference Range Interpretation Comme nts AST(SGOT) (test code = 5677474803) 24 U/L 13-40 Lab Interpretation (test cod e = 60071-6) Normal [facility] MainlandAlanine Amino Transferase (SGPT)2021-02-09 19:00:57* Test Item Value Reference Range Interpretation Comme nts ALTv (test code = 1742-6) 12 U/L 5-35 Lab Interpretation (test cod e = 75889-1) Normal [facility] MainlandSGOT (Asparate Amino Transfer)2021-02-09 19:00:57* Test Item Value Reference Range Interpretation Comme nts AST(SGOT) (test code = 6129935489) 24 U/L 13-40 Lab Interpretation (test cod e = 62658-8) Normal [facility] Sxqlpleauq4520-00-86 19:00:57* Test Item Value Reference Range Interpretation Comme nts CREATININE (test code = 6251715853) 0.73 mg/dL 0.50-1.04 eGFR (test code = 7986064997) mL/min/1.73m2 HANH (test code = HANH) Association of [...] or urine or abnormalities in imaging tests). [facility] MainlandAlanine Amino Transferase (SGPT)2021-02-09 19:00:57* Test Item Value Reference Range Interpretation Comme nts ALTv (test code = 1742-6) 12 U/L 5-35 Lab Interpretation (test cod e = 10209-0) Normal [facility] MainlandUric Acid Hrxhf2203-76-72 19:00:56* Test Item Value Reference Range Interpretation Comme [facility] URIC ACID (test code = 5683160918) 5.9 mg/dL 2.9-6.0 Lab Interpretation (test cod e = 32237-8) Normal [facility] MainlandUric Acid Nesjt9053-04-15 19:00:56* Test Item Value Reference Range Interpretation Comme nts URIC ACID (test code = 6345258637) 5.9 mg/dL 2.9-6.0 Lab Interpretation (test cod e = 54052-5) Normal [facility] 1/2 AG-AB WITH [id number] 16:27:31* Test Item Value Reference Range Interpretation Comme nts HIV Semi-quantitative (test code = 21287-6) Negative Negative HANH (test code = HANH) Non-reactive for HIV-1 antigen and HIV-1/HIV-2 antibodies. ?No laboratory evidence of HIV infection. ?Repeat in 2-4 weeks if acute HIV infection is suspected. [facility] 1/2 AG-AB WITH [id number] 16:27:31* Test Item Value Reference Range Interpretation Comme nts HIV Semi-quantitative (test code = 01276-2) Negative Negative HANH (test code = HANH) Non-reactive for HIV-1 antigen and HIV-1/HIV-2 antibodies. ?No laboratory evidence of HIV infection. ?Repeat in 2-4 weeks if acute HIV infection is suspected. [facility] B Surface Nwtwkug8321-43-94 16:18:04 * Test Item Value Reference Range Interpretation Comme nts HBsAg Semi-Quantitative (minerva t code = 5195-3) Negative Negative [facility] B Surface Zdczmxi8904-26-85 16:18:04 * Test Item Value Reference Range Interpretation Comme nts HBsAg Semi-Quantitative (minerva t code = 5195-3) Negative Negative [facility] MainlandType and Screen - ONCE [id number] 15:46:05 * Test Item Value Reference Range Interpretation Comme nts ABO & RH (test code = 20) O POSITIVE Performed at [facility] Laboratory Services - [facility] Blood [address] [address]Gngk Free: [phone] No. [id number] IAT (test code = 1185) Negative Performed at [facility] Laboratory Services - [facility] Blood [address] [address]Vpxx Free: [phone] No. [id number] [facility] MainlandCB with Hpbxdiffkjpi4831-97-44 15:13:57* Test Item Value Reference Range Interpretation Comme nts WBC (test code = 6690-2) See_Comment [Automated messa ge] The system which generated this result transmitted reference range: 4.30 - 11.10 10*3/?L. The reference range was not used to interpret this result as normal/abnormal. RBC (test code = 789-8) See_Comment [Automated messa ge] The system which generated this result transmitted reference range: 3.93 - 5.25 10*6/?L. The reference range was not used to interpret this result as normal/abnormal. HGB (test code = 718-7) 12.6 g/dL 11.6-15.0 HCT (test code = 4544-3) 36.6 % 35.7-45.2 MCV (test code = 787-2) 89.9 fL 80.6-95.5 MCH (test code = 785-6) 31.0 pg 25.9-32.8 MCHC (test code = 786-4) 34.4 g/dL 31.6-35.1 RDW-SD (test code = 64309-4) 42.8 fL 39.0-49.9 RDW-CV (test code = 788-0) 13.2 % 12.0-15.5 PLT (test code = 777-3) See_Comment [Automated messa ge] The system which generated this result transmitted reference range: 166 - 358 10*3/?L. The reference range was not used to interpret this result as normal/abnormal. MPV (test code = 60453-5) 11.5 fL 9.5-12.9 NRBC/100 WBC (test code = 9545993607) See_Comment [Automated Sarta ssage] The system which generated this result transmitted reference range: 0.0 - 10.0 /100 WBCs. The reference range was not used to interpret this result as normal/abnormal. NRBC x10^3 (test code = 5453176339) <0.01 See_Comment [Automated messa ge] The system which generated this result transmitted reference range: 10*3/?L. The reference range was not used to interpret this result as normal/abnormal. GRAN MAT (NEUT) % (test code = 770-8) 70.8 % IMM GRAN % (test code = 1120200720) 0.40 % LYMPH % (test code = 736-9) 15.2 % MONO % (test code = 5905-5) 11.9 % EOS % (test code = 713-8) 1.2 % BASO % (test code = 706-2) 0.5 % GRAN MAT x10^3(ANC) (test code = 6146765533) 5.78 10*3/uL 1.88-7.09 IMM GRAN x10^3 (test code = 6775062496) 0.03 10*3/uL 0.00-0.06 LYMPH x10^3 (test code = 731-0) 1.24 10*3/uL 1.32-3.29 L MONO x10^3 (test code = 742-7) 0.97 10*3/uL 0.33-0.92 H EOS x10^3 (test code = 711-2) 0.10 10*3/uL 0.03-0.39 BASO x10^3 (test code = 704-7) 0.04 10*3/uL 0.01-0.07 Lab Interpretation (test code = 58312-6) [facility]normal [facility]ID [facility]2021-02-09 13:12:40* Test Item Value Reference Range Interpretation Comme nts SARS-CoV-2 Rapid ID NOW (test code = 49532-4) Not Detected Not Detected HANH (test code = HANH) ID NOW COVID-19 As say is an isothermal nucleic acid amplification test intended for the qualitative detection of nucleic acid from SARS-CoV-2 viral RNA in nasopharyngeal (BLUE LINE HANGER) specimens. It is used under Emergency Use [...] patient testing if clinically indicated. Lab Interpretation (test code = 03151-1) Normal [facility] URINALYSIS W SPECIFIC [id number] 21:12:00* Test Item Value Reference Range Interpretation Comme nts POCT U SP GRAV (test code = 3255) . 1.005-1.025 POCT PH U (test code = 3254) . 5-8 POCT U LEUK EST (test code = 3263) . Negative - N egative POCT U NIT (test code = 3262) . Negative - Negati ve POCT U PROT (test code = 3259) Trace Negative - Negat karuna POCT U GLU (test code = 3256) Neg Negative - Negati ve POCT U KETONE (test code = 3258) . Negative - Neg ative POCT U UROBILI (test code = 3260) . 0.2-1 POCT U BILI (test code = 3261) . Negative - Negat karuna POCT U BLD (test code = 3257) . Negative - Negati ve POCT U COLOR (test code = 3266) POCT U APPEAR (test code = 3267) [facility] URINALYSIS W SPECIFIC [id number] 21:12:00* Test Item Value Reference Range Interpretation Comme nts POCT U SP GRAV (test code = 3255) . 1.005-1.025 POCT PH U (test code = 3254) . 5-8 POCT U LEUK EST (test code = 3263) . Negative - N egative POCT U NIT (test code = 3262) . Negative - Negati ve POCT U PROT (test code = 3259) Trace Negative - Negat karuna POCT U GLU (test code = 3256) Neg Negative - Negati ve POCT U KETONE (test code = 3258) . Negative - Neg ative POCT U UROBILI (test code = 3260) . 0.2-1 POCT U BILI (test code = 3261) . Negative - Negat karuna POCT U BLD (test code = 3257) . Negative - Negati ve POCT U COLOR (test code = 3266) POCT U APPEAR (test code = 3267) [facility] BY [id number] 14:57:10* Test Item Value Reference Range Interpretation Comme nts Group B Streptococcus by PCR (test code = 07238-9) Negative Negative Lab Interpretation (test cod e = 05404-3) Normal [facility]GC & CHLAMYDIA AMPLIFIED [id number] 18:26:23* Test Item Value Reference Range Interpretation Comme nts C. trachomatis Nucleic Acid (test code = 35378-7) Negative Negative N. gonorrhoeae Nucleic Acid (test code = 52780-4) Negative Negative HANH (test code = HANH) Reliable results a re dependent on adequate specimen collection. ? A [...] trachomatis and/or Neisseria gonorrhoeae NAAT. Lab Interpretation (test code = 74386-4) Normal [facility]landSARS-COV-2 [id number] 06:17:58* Test Item Value Reference Range Interpretation Comme nts CoV-2 IgG (test code = 22586-6) Negative Negative Negative result does not rule out acute SARS-CoV-2 infection. Clinical correlation as well as molecular diagnostic test are recommended to rule out acute infection if clinically indicated. HANH (test code = HANH) This test has been approved by FDA for emergency use. Lab Interpretation (test code = 87919-0) Normal [facility] W SPECIFIC [id number] 20:15:00* Test Item Value Reference Range Interpretation Comme nts POCT U SP GRAV (test code = 3255) . 1.005-1.025 POCT PH U (test code = 3254) . 5-8 POCT U LEUK EST (test code = 3263) . Negative - N egative POCT U NIT (test code = 3262) . Negative - Negati ve POCT U PROT (test code = 3259) Trace Negative - Negat karuna POCT U GLU (test code = 3256) Neg Negative - Negati ve POCT U KETONE (test code = 3258) . Negative - Neg ative POCT U UROBILI (test code = 3260) . 0.2-1 POCT U BILI (test code = 3261) . Negative - Negat karuna POCT U BLD (test code = 3257) . Negative - Negati ve POCT U COLOR (test code = 3266) POCT U APPEAR (test code = 3267) [facility] URINALYSIS W SPECIFIC [id number] 20:15:00* Test Item Value Reference Range Interpretation Comme nts POCT U SP GRAV (test code = 3255) . 1.005-1.025 POCT PH U (test code = 3254) . 5-8 POCT U LEUK EST (test code = 3263) . Negative - N egative POCT U NIT (test code = 3262) . Negative - Negati ve POCT U PROT (test code = 3259) Trace Negative - Negat karuna POCT U GLU (test code = 3256) Neg Negative - Negati ve POCT U KETONE (test code = 3258) . Negative - Neg ative POCT U UROBILI (test code = 3260) . 0.2-1 POCT U BILI (test code = 3261) . Negative - Negat karuna POCT U BLD (test code = 3257) . Negative - Negati ve POCT U COLOR (test code = 3266) POCT U APPEAR (test code = 3267) [facility] URINALYSIS W SPECIFIC [id number] 20:14:00* Test Item Value Reference Range Interpretation Comme nts POCT U SP GRAV (test code = 3255) . 1.005-1.025 POCT PH U (test code = 3254) . 5-8 POCT U LEUK EST (test code = 3263) . Negative - N egative POCT U NIT (test code = 3262) . Negative - Negati ve POCT U PROT (test code = 3259) Trace Negative - Negat karuna POCT U GLU (test code = 3256) Neg Negative - Negati ve POCT U KETONE (test code = 3258) . Negative - Neg ative POCT U UROBILI (test code = 3260) . 0.2-1 POCT U BILI (test code = 3261) . Negative - Negat karuna POCT U BLD (test code = 3257) . Negative - Negati ve POCT U COLOR (test code = 3266) POCT U APPEAR (test code = 3267) [facility] URINALYSIS W SPECIFIC [id number] 22:05:00* Test Item Value Reference Range Interpretation Comme nts POCT U SP GRAV (test code = 3255) . 1.005-1.025 POCT PH U (test code = 3254) . 5-8 POCT U LEUK EST (test code = 3263) . Negative - Negative POCT U NIT (test code = 3262) . Negative - Negati ve POCT U PROT (test code = 3259) trace Negative - Negat karuna POCT U GLU (test code = 3256) neg Negative - Negati ve POCT U KETONE (test code = 3258) . Negative - Neg ative POCT U UROBILI (test code = 3260) . 0.2-1 POCT U BILI (test code = 3261) . Negative - Negat karuna POCT U BLD (test code = 3257) . Negative - Negati ve POCT U COLOR (test code = 3266) POCT U APPEAR (test code = 3267) Lab Interpretation (test cod e = 07770-0) Abnormal [facility] URINALYSIS W SPECIFIC [id number] 21:54:00* Test Item Value Reference Range Interpretation Comme nts POCT U SP GRAV (test code = 3255) . 1.005-1.025 POCT PH U (test code = 3254) . 5-8 POCT U LEUK EST (test code = 3263) . Negative - Negative POCT U NIT (test code = 3262) . Negative - Negati ve POCT U PROT (test code = 3259) trace Negative - Negat karuna POCT U GLU (test code = 3256) neg Negative - Negati ve POCT U KETONE (test code = 3258) . Negative - Neg ative POCT U UROBILI (test code = 3260) . 0.2-1 POCT U BILI (test code = 3261) . Negative - Negat karuna POCT U BLD (test code = 3257) . Negative - Negati ve POCT U COLOR (test code = 3266) POCT U APPEAR (test code = 3267) Lab Interpretation (test cod e = 37275-4) Abnormal [facility]landGlucose 1 Hour Post [id number] 04:46:00* Test Item Value Reference Range Interpretation Comme nts GLUC 1 HR (test code = 5566782167) 89 mg/dL 120-170 L Lab Interpretation (test cod e = 05874-2) Abnormal [facility]landCBC with [id number] 04:21:00* Test Item Value Reference Range Interpretation Comme nts WBC (test code = 6690-2) See_Comment [Automated messa ge] The system which generated this result transmitted reference range: 4.30 - 11.10 10*3/?L. The reference range was not used to interpret this result as normal/abnormal. RBC (test code = 789-8) See_Comment L [Automated messa ge] The system which generated this result transmitted reference range: 3.93 - 5.25 10*6/?L. The reference range was not used to interpret this result as normal/abnormal. HGB (test code = 718-7) 12.2 g/dL 11.6-15 HCT (test code = 4544-3) 36.5 % 35.7-45.2 MCV (test code = 787-2) 96.3 fL 80.6-95.5 H MCH (test code = 785-6) 32.2 pg 25.9-32.8 MCHC (test code = 786-4) 33.4 g/dL 31.6-35.1 RDW-SD (test code = 82544-0) 42.7 fL 39-49.9 RDW-CV (test code = 788-0) 12.1 % 12-15.5 PLT (test code = 777-3) See_Comment [Automated messa ge] The system which generated this result transmitted reference range: 166 - 358 10*3/?L. The reference range was not used to interpret this result as normal/abnormal. MPV (test code = 92183-5) 12.1 fL 9.5-12.9 NRBC/100 WBC (test code = 7477114722) See_Comment [Automated Sarta ssage] The system which generated this result transmitted reference range: 0.0 - 10.0 /100 WBCs. The reference range was not used to interpret this result as normal/abnormal. NRBC x10^3 (test code = 5093466290) <0.01 See_Comment [Automated messa ge] The system which generated this result transmitted reference range: 10*3/?L. The reference range was not used to interpret this result as normal/abnormal. GRAN MAT (NEUT) % (test code = 770-8) 84.0 % IMM GRAN % (test code = 7726654831) 0.40 % LYMPH % (test code = 736-9) 9.3 % MONO % (test code = 5905-5) 5.1 % EOS % (test code = 713-8) 0.8 % BASO % (test code = 706-2) 0.4 % GRAN MAT x10^3(ANC) (test code = 5975214587) 7.11 10*3/uL 1.88-7.09 H IMM GRAN x10^3 (test code = 6152009580) 0.03 10*3/uL 0-0.06 LYMPH x10^3 (test code = 731-0) 0.79 10*3/uL 1.32-3.29 L MONO x10^3 (test code = 742-7) 0.43 10*3/uL 0.33-0.92 EOS x10^3 (test code = 711-2) 0.07 10*3/uL 0.03-0.39 BASO x10^3 (test code = 704-7) 0.03 10*3/uL 0.01-0.07 Lab Interpretation (test code = 73997-6) Abnormal [facility] URINALYSIS W SPECIFIC [id number] 17:11:00* Test Item Value Reference Range Interpretation Comme nts POCT U SP GRAV (test code = 3255) . 1.005-1.025 POCT PH U (test code = 3254) . 5-8 POCT U LEUK EST (test code = 3263) . Negative - N egative POCT U NIT (test code = 3262) . Negative - Negati ve POCT U PROT (test code = 3259) trace Negative - Negat karuna POCT U GLU (test code = 3256) neg Negative - Negati ve POCT U KETONE (test code = 3258) . Negative - Neg ative POCT U UROBILI (test code = 3260) . 0.2-1 POCT U BILI (test code = 3261) . Negative - Negat karuna POCT U BLD (test code = 3257) . Negative - Negati ve POCT U COLOR (test code = 3266) POCT U APPEAR (test code = 3267) [facility] URINALYSIS W SPECIFIC [id number] 14:45:00* Test Item Value Reference Range Interpretation Comme nts POCT U SP GRAV (test code = 3255) . 1.005-1.025 POCT PH U (test code = 3254) . 5-8 POCT U LEUK EST (test code = 3263) . Negative - Negative POCT U NIT (test code = 3262) . Negative - Negati ve POCT U PROT (test code = 3259) trace Negative - Negat karuna POCT U GLU (test code = 3256) neg Negative - Negati ve POCT U KETONE (test code = 3258) . Negative - Neg ative POCT U UROBILI (test code = 3260) . 0.2-1 POCT U BILI (test code = 3261) . Negative - Negat karuna POCT U BLD (test code = 3257) . Negative - Negati ve POCT U COLOR (test code = 3266) POCT U APPEAR (test code = 3267) Lab Interpretation (test cod e = 94166-1) Abnormal [facility] URINALYSIS W SPECIFIC [id number] 14:28:00* Test Item Value Reference Range Interpretation Comme nts POCT U SP GRAV (test code = 3255) . 1.005-1.025 POCT PH U (test code = 3254) . 5-8 POCT U LEUK EST (test code = 3263) . Negative - N egative POCT U NIT (test code = 3262) . Negative - Negati ve POCT U PROT (test code = 3259) Trace Negative - Negat karuna POCT U GLU (test code = 3256) Neg Negative - Negati ve POCT U KETONE (test code = 3258) . Negative - Neg ative POCT U UROBILI (test code = 3260) . 0.2-1 POCT U BILI (test code = 3261) . Negative - Negat karuna POCT U BLD (test code = 3257) . Negative - Negati ve POCT U COLOR (test code = 3266) POCT U APPEAR (test code = 3267) [facility] URINALYSIS W SPECIFIC [id number] 14:28:00* Test Item Value Reference Range Interpretation Comme nts POCT U SP GRAV (test code = 3255) . 1.005-1.025 POCT PH U (test code = 3254) . 5-8 POCT U LEUK EST (test code = 3263) . Negative - N egative POCT U NIT (test code = 3262) . Negative - Negati ve POCT U PROT (test code = 3259) Trace Negative - Negat karuna POCT U GLU (test code = 3256) Neg Negative - Negati ve POCT U KETONE (test code = 3258) . Negative - Neg ative POCT U UROBILI (test code = 3260) . 0.2-1 POCT U BILI (test code = 3261) . Negative - Negat karuna POCT U BLD (test code = 3257) . Negative - Negati ve POCT U COLOR (test code = 3266) POCT U APPEAR (test code = 3267) [facility] URINALYSIS W SPECIFIC [id number] 14:27:00* Test Item Value Reference Range Interpretation Comme nts POCT U SP GRAV (test code = 3255) . 1.005-1.025 duplicate POCT PH U (test code = 3254) . 5-8 POCT U LEUK EST (test code = 3263) . Negative - N egative POCT U NIT (test code = 3262) . Negative - Negati ve POCT U PROT (test code = 3259) . Negative - Negat karuna POCT U GLU (test code = 3256) . Negative - Negati ve POCT U KETONE (test code = 3258) . Negative - Neg ative POCT U UROBILI (test code = 3260) . 0.2-1 POCT U BILI (test code = 3261) . Negative - Negat karuna POCT U BLD (test code = 3257) . Negative - Negati ve POCT U COLOR (test code = 3266) POCT U APPEAR (test code = 3267) [facility] URINALYSIS W SPECIFIC [id number] 14:26:00* Test Item Value Reference Range Interpretation Comme nts POCT U SP GRAV (test code = 3255) . 1.005-1.025 POCT PH U (test code = 3254) . 5-8 POCT U LEUK EST (test code = 3263) . Negative - Negative POCT U NIT (test code = 3262) . Negative - Negati ve POCT U PROT (test code = 3259) trace Negative - Negat karuna POCT U GLU (test code = 3256) negative Negative - Negati ve POCT U KETONE (test code = 3258) . Negative - Neg ative POCT U UROBILI (test code = 3260) . 0.2-1 POCT U BILI (test code = 3261) . Negative - Negat karuna POCT U BLD (test code = 3257) . Negative - Negati ve POCT U COLOR (test code = 3266) POCT U APPEAR (test code = 3267) [facility] URINALYSIS W/O SPECIFIC [id number] 15:23:00* Test Item Value Reference Range Interpretation Comme nts POCT PH U (test code = 3254) 5 mg/dl 5-8 POCT U LEUK EST (test code = 3263) NEGATIVE Negative - Negative POCT U NIT (test code = 3262) NEGATIVE Negative - Negati ve POCT U PROT (test code = 3259) TRACE Negative - Negat karuna POCT U GLU (test code = 3256) NEGATIVE Negative - Negati ve POCT U KETONE (test code = 3258) SMALL Negative - Neg ative POCT U BLD (test code = 3257) NEGATIVE Negative - Negati ve [facility] URINALYSIS W/O SPECIFIC [id number] 15:23:00* Test Item Value Reference Range Interpretation Comme nts POCT PH U (test code = 3254) 5 mg/dl 5-8 POCT U LEUK EST (test code = 3263) NEGATIVE Negative - Negative POCT U NIT (test code = 3262) NEGATIVE Negative - Negati ve POCT U PROT (test code = 3259) TRACE Negative - Negat karuna POCT U GLU (test code = 3256) NEGATIVE Negative - Negati ve POCT U KETONE (test code = 3258) SMALL Negative - Neg ative POCT U BLD (test code = 3257) NEGATIVE Negative - Negati ve [facility] URINALYSIS W/O SPECIFIC [id number] 15:23:00* Test Item Value Reference Range Interpretation Comme nts POCT PH U (test code = 3254) 5 mg/dl 5-8 POCT U LEUK EST (test code = 3263) NEGATIVE Negative - Negative POCT U NIT (test code = 3262) NEGATIVE Negative - Negati ve POCT U PROT (test code = 3259) TRACE Negative - Negat karuna POCT U GLU (test code = 3256) NEGATIVE Negative - Negati ve POCT U KETONE (test code = 3258) SMALL Negative - Neg ative POCT U BLD (test code = 3257) NEGATIVE Negative - Negati ve [facility] URINALYSIS W/O SPECIFIC [id number] 15:23:00* Test Item Value Reference Range Interpretation Comme nts POCT PH U (test code = 3254) 5 mg/dl 5-8 POCT U LEUK EST (test code = 3263) NEGATIVE Negative - Negative POCT U NIT (test code = 3262) NEGATIVE Negative - Negati ve POCT U PROT (test code = 3259) TRACE Negative - Negat karuna POCT U GLU (test code = 3256) NEGATIVE Negative - Negati ve POCT U KETONE (test code = 3258) SMALL Negative - Neg ative POCT U BLD (test code = 3257) NEGATIVE Negative - Negati ve [facility] [id number] 15:22:00* Test Item Value Reference Range Interpretation Comme nts POCT PREG (test code = 1605) Positive On board controls acceptable with C Line (test code = 3574) Yes POCT PREG LOT # (test code = 3575) POCT PREG TEST DATE ( test code = 3576) [facility]landPONY [id number] 15:22:00* Test Item Value Reference Range Interpretation Comme nts POCT PREG (test code = 1605) Positive On board controls acceptable with C Line (test code = 3574) Yes POCT PREG LOT # (test code = 3575) POCT PREG TEST DATE ( test code = 3576) [facility] [id number] 15:22:00* Test Item Value Reference Range Interpretation Comme nts POCT PREG (test code = 1605) Positive On board controls acceptable with C Line (test code = 3574) Yes POCT PREG LOT # (test code = 3575) POCT PREG TEST DATE ( test code = 3576) [facility] [id number] 15:22:00* Test Item Value Reference Range Interpretation Comme nts POCT PREG (test code = 1605) Positive On board controls acceptable with C Line (test code = 3574) Yes POCT PREG LOT # (test code = 3575) POCT PREG TEST DATE ( test code = 3576) [facility] Notes Date/Time Note Provider Source [facility]2025-08-07 00:00:00 [facility]2025-05-06 00:00:00 [facility]2025-04-29 00:00:00 [facility]2025-04-24 00:00:00 [facility]2025-03-29 00:00:00 [facility]2024-11-19 00:00:00 [facility]24[facility]2024-05-21 00:00:00 [facility]2024-04-17 00:00:00 [facility]"
--- NOTE | 2025-07-10 17:48 | RAD REPORT ---
EXAMINATION: TWO VIEW CHEST XR CLINICAL INDICATION: Female, 25 years old. [facility] MAIN CHEST PAIN Bed: TECHNIQUE: 2 view radiographs of the chest were performed. COMPARISON: No prior exam. FINDINGS: The lungs are well inflated and clear. No pneumothorax or sizable effusion. The heart is normal in si ze. Mediastinal contours are unremarkable. IMPRESSION: No acute or significant abnormalities.
[2025-07-10 17:59] LABS: Absolute Lymphocytes (CBC) 1.8 K/uL (0.7-4.9); Hematocrit 44.8 % (36.0-45.0); Hemoglobin 15.5 g/dL (12.0-15.0); MCH 31.4 pg (27.0-35.0); MCHC 34.6 g/dL (32.0-36.0); MCV 90.6 fL (80-100); MPV 8.2 fL (7.6-11.3); Nucleated RBC Absolute Count 0.0 (0-0); Nucleated Red Blood Cells % 0.1 % (0-0); RBC Red Blood Cell Count 4.94 M/uL (3.86-4.86); White Blood Count 6.30 thou/uL (4.3-10.9)
[2025-07-10 18:06] LABS: Urine Microscopic Reflex YN NO UMIC
[2025-07-10 18:14] LABS: METHAMPHETAM NEGATIVE (NEGATIVE); THC Cannibis NEGATIVE (NEGATIVE)
[2025-07-10 18:17] LABS: ALT/SGPT 31 U/L (13-56); AST/SGOT 33 U/L (15-37); Albumin 4.1 g/dL (3.4-5.0); Albumin/Globulin Ratio 1.0 (1.1-1.8); Alkaline Phosphatase 88 U/L (45-117); Anion Gap 8.8 mEq/L (5.0-15.0); BUN Blood Urea Nitrogen 12 mg/dL (7-18); Globulin 4.1 g/dL (2.3-3.5); Glucose Level 108 mg/dL (74-106); Potassium 3.8 mEq/L (3.5-5.1)
[2025-07-10 18:23] LABS: Troponin High Sensitivity < 3.0 pg/mL (<58.9)
--- NOTE | 2025-07-10 18:26 | ER ---
Nurse's Notes [facility] Name: Lisa Edge Age: 25 yrs Sex: Female : 2000 Arrival Date: 07/10/2025 Time: 16:27 Bed IW6 Private MD: Diagnosis: Chest pain, unspecified;Adverse effect of unspecified drugs, medicaments and biological substances Presentation: 07/10 17:03 Chief complaint: Patient states: SHE WAS PRESCRIBED ZOLMITRIPTAN FOR MIGRAINES AND TOOK ll1 ONE AROUND 3 PM THEN BEGAN HAVING UPPER CHEST, DEBBY SHOULDER AND NECK PAIN APPROX 30 MINS AFTERWARDS. Coronavirus screen: At this time, the client does not indicate any symptoms associated with coronavirus-19. Ebola Screen: No symptoms or risks identified at this time. Initial Sepsis Screen: Does the patient meet any 2 criteria? No. Patient's initial sepsis screen is negative. Does the patient have a suspected source of infection? No. Patient's initial sepsis screen is negative. Risk Assessment: Do you want to hurt yourself or someone else? Patient reports no desire to harm self or others. Onset of symptoms was July 10, 2025. 17:03 Method Of Arrival: Ambulatory ll1 17:03 Acuity: KENDRICK 3 ll1 Triage Assessment: 17:07 General: Appears in no apparent distress. uncomfortable, Behavior is calm, cooperative, ll1 appropriate for age. Pain: Complains of pain in chest and neck. Cardiovascular: Reports chest pain, Patient's skin is warm and dry. 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 - Infectious Disease History:: Denies. - Social history:: Smoking status: Patient denies any tobacco usage or history of. - Family history:: not pertinent. Screenin:58 [facility] ED Fall Risk Assessment (Adult) History of falling in the last 3 months, ll1 including since admission No falls in past 3 months (0 pts) Confusion or Disorientation No (0 pts) Intoxicated or Sedated No (0 pts) Impaired Gait No (0 pts) Mobility Assist Device Used No (0 pt) Altered Elimination No (0 pt) Score/Fall Risk Level 0 - 2 = Low Risk Maintained a safe environment, Hourly rounding (assess needs \T\ fall precautionary measures) done. Abuse screen: Denies threats or abuse. Nutritional screening: No deficits noted. Tuberculosis screening: No symptoms or risk factors identified. Assessment: 18:48 Reassessment: No changes from previously documented assessment. Patient and/or family ll1 updated on plan of care and expected duration. Pain level reassessed. Patient is alert, oriented x 3, equal unlabored respirations, skin warm/dry/pink. 18:58 Pain: Pain does not radiate. Pain began 3 hours ago. ll1 Vital Signs: 17:03 BP 115 / 80; Pulse 87; Resp 16; Temp 97.5; Pulse Ox 100% on R/A; Weight 45.36 kg; Pain ll1 7/10; 18:58 BP 122 / 76; Pulse 82; Resp 16; Pulse Ox 100% on R/A; Pain 2/10; ll1 17:03 Pain Scale: Adult ll1 18:58 Pain Scale: Adult ll1 ED Course: 16:30 Patient arrived in ED. mr 16:33 Seven Gates MD is Attending Physician. isaias 17:07 Triage completed. ll1 17:07 Arm band placed on right wrist. ll1 17:10 Patient has correct armband on for positive identification. Bed in low position. ll1 Provided Education on: ER procedures and process. Cardiac monitoring not applicable on this patient. 17:20 Chest Pa And Lat (2 Views) XRAY In Process Unspecified. EDMS 17:56 D-Dimer Sent. bc6 17:56 UDS Sent. bc6 17:56 Test, Serum Sent. bc6 17:56 UA Rfx Pedro Cult if indicated Sent. bc6 17:56 Troponin High Sensitivity Sent. bc6 17:56 CMP Sent. bc6 17:56 CBC with Diff Sent. bc6 17:56 Initial lab(s) drawn, by ar, sent to lab. Urine collected: clean catch specimen, clear. bc6 Inserted saline lock: 20 gauge in right antecubital area, using aseptic technique. Blood collected. Flushed with 10 mL NS. 18:16 EKG done, by instrument room technician. reviewed by Seven Gates MD. ts3 18:25 Kana Gill MD is Referral Physician. [facility] 18:58 No provider procedures requiring assistance completed. IV discontinued, intact, ll1 bleeding controlled, No redness/swelling at site. Pressure dressing applied. Patient maintains SpO2 saturation greater than 95% on room air. Administered Medications: 18:38 CANCELLED (Physician Discretion): ns 0.9% 1000 ml IV at 1000 ml once; to be given as a ll1 bolus over 60 minutes 18:48 Drug: Ketorolac IVP 30 mg IVP once Route: IVP; Site: right antecubital; ll1 19:18 Follow up: Response: No adverse reaction; Pain is decreased; RASS: Alert and Calm (0) ll1 18:48 Drug: Ondansetron IVP 4 mg IVP once; over 2 minutes Route: IVP; Site: right antecubital;ll1 19:18 Follow up: Response: No adverse reaction ll1 Medication: 18:58 VIS not applicable for this client. ll1 Outcome: 18:25 Discharge ordered by . [facility] 18:58 Patient left the ED. ll1 18:58 Discharged to home ambulatory, ll1 18:58 Condition: stable 18:58 Discharge instructions given to patient, Instructed on discharge instructions, follow up and referral plans. Demonstrated understanding of instructions, follow-up care, Signatures: Dispatcher [employer] EDSeven Monroy MD MD cha Rivera, Mary, [facility] Reg mr Portia Alberto, RN RN ll1 Megan Luther 6 Kaila Gurrola 3
--- NOTE | 2025-07-10 18:26 | EDPHYS ---
Physician Documentation [facility] Name: Lisa Edge Age: 25 yrs Sex: Female : 2000 Arrival Date: 07/10/2025 Time: 16:27 Bed IW6 Private MD: ED Physician Seven Gates HPI: 07/10 18:20 This 25 yrs old Female presents to ER via Ambulatory with complaints of Chest isaias Pain, Arm Pain. 18:20 The patient or guardian reports chest pain that is located primarily in the anterior isaias chest wall, bilaterally. The pain does not radiate. Associated signs and symptoms: Pertinent positives: lightheadedness. The chest pain is described as aching. Modifying factors: The symptoms are alleviated by nothing. the symptoms are aggravated by nothing. Severity of pain: At its worst the pain was mild in the emergency department the pain has resolved. The patient has not experienced similar symptoms in the past. 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 - Infectious Disease History:: Denies. - Social history:: Smoking status: Patient denies any tobacco usage or history of. - Family history:: not pertinent. ROS: 18:20 Constitutional: Negative for fever, chills, and weight loss, Eyes: Negative for injury, isaias pain, redness, and discharge, ENT: Negative for injury, pain, and discharge, Neck: Negative for injury, pain, and swelling, Respiratory: Negative for shortness of breath, cough, wheezing, and pleuritic chest pain, Abdomen/GI: Negative for abdominal pain, nausea, vomiting, diarrhea, and constipation, Back: Negative for injury and pain, : Negative for injury, bleeding, discharge, and swelling, MS/Extremity: Negative for injury and deformity, Skin: Negative for injury, rash, and discoloration, Neuro: Negative for headache, weakness, numbness, tingling, and seizure, Psych: Negative for depression, anxiety, suicide ideation, homicidal ideation, and hallucinations, Allergy/Immunology: Negative for hives, rash, and allergies, Endocrine: Negative for neck swelling, polydipsia, polyuria, polyphagia, and marked weight changes, Hematologic/Lymphatic: Negative for swollen nodes, abnormal bleeding, and unusual bruising, 18:20 Cardiovascular: Positive for chest pain, Exam: 18:20 Constitutional: This is a well developed, well nourished patient who is awake, alert, isaias and in no acute distress. Head/Face: Normocephalic, atraumatic. Eyes: Pupils equal round and reactive to light, extra-ocular motions intact. Lids and lashes normal. Conjunctiva and sclera are non-icteric and not injected. Cornea within normal limits. Periorbital areas with no swelling, redness, or edema. ENT: Nares patent. No nasal discharge, no septal abnormalities noted. Tympanic membranes are normal and external auditory canals are clear. Oropharynx with no redness, swelling, or masses, exudates, or evidence of obstruction, uvula midline. Mucous membranes moist. Neck: Trachea midline, no thyromegaly or masses palpated, and no cervical lymphadenopathy. Supple, full range of motion without nuchal rigidity, or vertebral point tenderness. No Meningismus. Chest/axilla: Normal chest wall appearance and motion. Nontender with no deformity. No lesions are appreciated. Cardiovascular: Regular rate and rhythm with a normal S1 and S2. No gallops, murmurs, or rubs. Normal PMI, no JVD. No pulse deficits. Respiratory: Lungs have equal breath sounds bilaterally, clear to auscultation and percussion. No rales, rhonchi or wheezes noted. No increased work of breathing, no retractions or nasal flaring. Abdomen/GI: Soft, non-tender, with normal bowel sounds. No distension or tympany. No guarding or rebound. No evidence of tenderness throughout. Back: No spinal tenderness. No costovertebral tenderness. Full range of motion. Skin: Warm, dry with normal turgor. Normal color with no rashes, no lesions, and no evidence of cellulitis. MS/ Extremity: Pulses equal, no cyanosis. Neurovascular intact. Full, normal range of motion., bilateral aka Neuro: Awake and alert, GCS 15, oriented to person, place, time, and situation. Cranial nerves II-XII grossly intact. Motor strength 5/5 in all extremities. Sensory grossly intact. Cerebellar exam normal. Normal gait. 18:20 ECG was reviewed by the Attending Physician. 18:20 Musculoskeletal/extremity: DVT Exam: No signs of deep vein thrombosis. no pain, no swelling, no tenderness, negative Homans' sign noted on exam, no appreciated bluish discoloration, no erythema, no increased warmth, Vital Signs: 17:03 BP 115 / 80; Pulse 87; Resp 16; Temp 97.5; Pulse Ox 100% on R/A; Weight 45.36 kg; Pain ll1 7/10; 18:58 BP 122 / 76; Pulse 82; Resp 16; Pulse Ox 100% on R/A; Pain 2/10; ll1 17:03 Pain Scale: Adult ll1 18:58 Pain Scale: Adult ll1 MDM: 16:33 Medical Screening Exam initiated isaias 18:23 Differential diagnosis: abnormal EKG, acute myocardial infarction, acute pericarditis, isaias anxiety, chest wall pain, cholecystitis, esophagitis, gastritis, gastroesophageal reflux disease (GERD), herpes zoster, myocarditis, pancreatitis, peptic ulcer disease, pericarditis, pleurisy, pulmonary embolus, stable angina, thoracic aortic disection, unstable angina. HEART Score: History: Slightly Suspicious (0), ECG: Normal (0), Age: < or = 45 years (0), Risk Factors: No Risk Factors Known (0), Troponin: Total Score = 0. RUBENS Risk Score: TOTAL SCORE = 0. Data reviewed: vital signs, nurses notes, lab test result(s), EKG, radiologic studies. Consideration of Admission/Observation Escalation of care including admission/observation considered. I considered the following discharge prescriptions or medication management in the emergency department Medications were administered in the Emergency Department. See MAR. Independent interpretation of the following test(s) in the Emergency Department EKG: See my EKG interpretation above. Test considered but Not performed: CT: NO CT HEAD. 07/10 16:34 Order name: CBC with Diff; Complete Time: 18:24 [facility] 07/10 16:34 Order name: CMP; Complete Time: 18:24 [facility] 07/10 16:34 Order name: Troponin High Sensitivity; Complete Time: 18:24 [facility] 07/10 16:34 Order name: UA Rfx Pedro Cult if indicated; Complete Time: 18:24 [facility] 07/10 16:34 Order name: Test, Serum [facility] 09/24 16:34 Order name: UDS; Complete Time: 18:24 [facility] 07/10 16:34 Order name: D-Dimer; Complete Time: 18:24 [facility] 07/10 16:34 Order name: Chest Pa And Lat (2 Views) XRAY; Complete Time: 18:24 [facility] 07/10 16:34 Order name: EKG - Nurse/Tech; Complete Time: 18:16 [facility] EC:20 Rate is 79 beats/min. Rhythm is regular. QRS Deweese is Normal. MA interval is normal. QRS isaias interval is normal. QT interval is normal. No Q waves. T waves are Normal. Clinical impression: NSR w/ Non-specific ST/T Changes and No evidence of ischemia. Interpreted by me. Reviewed by me. Administered Medications: 18:38 CANCELLED (Physician Discretion): ns 0.9% 1000 ml IV at 1000 ml once; to be given as a ll1 bolus over 60 minutes 18:48 Drug: Ketorolac IVP 30 mg IVP once Route: IVP; Site: right antecubital; ll1 19:18 Follow up: Response: No adverse reaction; Pain is decreased; RASS: Alert and Calm (0) ll1 18:48 Drug: Ondansetron IVP 4 mg IVP once; over 2 minutes Route: IVP; Site: right antecubital;ll1 19:18 Follow up: Response: No adverse reaction ll1 Disposition Summary: 07/10/25 18:25 Discharge Ordered Notes: Location: Home isaias Problem: new isaias Symptoms: have improved isaias Condition: Stable isaias Diagnosis - Chest pain, unspecified isaias - Adverse effect of unspecified drugs, medicaments and biological substances isaias Followup: isaias - With: Private Physician - When: 2 - 3 days - Reason: Recheck today's complaints, Continuance of care, Re-evaluation by your physician Followup: isaias - With: Kana Gill MD - When: 2 - 3 days - Reason: Recheck today's complaints, Re-evaluation by your physician Discharge Instructions: - Discharge Summary Sheet isaias - Nonspecific Chest Pain, Adult isaias - Migraine Headache isaias - Nonspecific Chest Pain, Adult, [id number] isaias Forms: - Medication Reconciliation Form isaias - Antibiotic Education isaias - Prescription Opioid Use isaias - Patient Portal Instructions isaias - Leadership Thank You Letter isaias - Work release form ll1 Signatures: Dispatcher [employer] EDSeven Monroy MD MD cha Lewis, Lynsay, RN RN ll1 Corrections: (The following items were deleted from the chart) 16:35 16:35 CBC+H.LAB.BRZ ordered. EDMS EDMS 16:35 16:35 COMPREHENSIVE METABOLIC PANEL+C.LAB.BRZ ordered. EDMS EDMS 16:35 16:35 Troponin High Sensitivity+C.LAB.BRZ ordered. EDMS EDMS 16:35 16:35 UA Rfx Pedro Cult if indicated+U.LAB.BRZ ordered. EDMS EDMS 16:35 16:35 TEST, SERUM+SC.LAB.BRZ ordered. EDMS EDMS 16:35 16:35 URINE DRUG SCREEN+UC.LAB.BRZ ordered. EDMS EDMS 16:35 16:35 D-DIMER+COAG.LAB.BRZ ordered. EDMS EDMS 16:35 16:35 Chest Pa And Lat (2 Views)+RAD.RAD.BRZ ordered. EDMS EDMS 18:38 16:34 NS 0.9% IV 1000 ml IV at 1000 ml once; to be given as a bolus over 60 minutes ll1 ordered. isaias
[2025-07-10] MEDS ORDERED: KETOROLAC 30 MG/ML INJ ONE (18:42)
[2025-07-10] MEDS ORDERED: ONDANSETRON 4 MG/2 ML VIAL ONE (18:42)
[2025-07-10 19:40] VITALS: BP 115/80; TEMP 97.5; O2SAT 100
== END 2025-07-10 18:58 | disposition home or self-care (01) ==
LOC: ER 16:27
DX: R07.9 Chest pain, unspecified (principal); T50.905A Adverse effect of unspecified drugs, medicaments and biological substances, initial encounter
CPT/HCPCS: 36415; 71046; 80053; 80307; 81003; 84484; 84703; 85025; 85379; 93005; 96374; 96375; 99284; J1885; J2405